=== PATIENT | female | born 1965 | race Caucasian/White ===

== ENCOUNTER → 2016-12-28 | Outpatient (CLI) | payer BC, MEDICARE ==
[~2016-12-28] MED LIST: ALPR0.254 PO; BACL10TA PO; CEPH500C PO; HYDR-3730 PO; MELO15TA39 PO; NITR100C PO; TOLT4CAP13 PO
[2016-12-28 12:36] LABS: BASOPHILS % (AUTO) 1 % (0-10); EOSINOPHILS # (AUTO) 0.2 10^3/uL (0.0-0.3); EOSINOPHILS % (AUTO) 3 % (0-10); LYMPHOCYTES # (AUTO) 1.6 X 10^3 (1.0-4.0); LYMPHOCYTES % (AUTO) 27 % (12-44); MEAN CORPUSCULAR HEMOGLOBIN 31 PG (25-34); MEAN CORPUSCULAR HGB CONC 34 G/DL (32-36); MEAN CORPUSCULAR VOLUME 92 FL (80-99); MEAN PLATELET VOLUME 10.4 FL (7.4-10.4); MONOCYTES # (AUTO) 0.7 X 10^3 (0.0-1.0); MONOCYTES % (AUTO) 13 % (0-12); NEUTROPHILS # (AUTO) 3.2 X 10^3 (1.8-7.8); NEUTROPHILS % (AUTO) 56 % (42-75); PLATELET COUNT 263 10^3/uL (130-400); RED BLOOD COUNT 4.72 10^6/uL (4.35-5.85); WHITE BLOOD COUNT 5.7 10^3/uL (4.3-11.0)
[2016-12-28 13:37] LABS: ERYTHROCYTE SEDIMENTATION RATE 34 MM/HR (0-30)
--- NOTE | 2016-12-28 16:49 | Diagnostic Imaging Report ---
EXAMINATION: AP view of the pelvis. INDICATION: Pressure ulcer. FINDINGS: There is a chronic appearing deformity with dysplastic right acetabulum that is vertically flat with severe deformity of the right femoral head and [id number] appearance with degenerative sclerotic changes. There is superior subluxation of the right femur of about 2.5 cm compared to the expected location of the normal acetabulum. On the left side, there is a relatively shallow acetabulum that has a reduced transverse dimension without subluxation or dislocation. Degenerative changes are seen. There is deformity in the pubic and ischial bones with no active bone destruction or periosteal reaction seen. IMPRESSION: Right hip dysplasia and subluxation with chronic deformity and mild left hip dysplasia without subluxation or dislocation. Dictated by: Dictated on workstation # [id number]
== END ==
LOC: RAD 12:19
PROVIDERS: ATTEND Internal Medicine
DX: L89.324 Pressure ulcer of left buttock, stage 4 (principal); G82.20 Paraplegia, unspecified
CPT/HCPCS: 36415; 72170; 85025; 85652

== ENCOUNTER 2017-01-23 06:28 | Day surgery (SDC) | payer BC, MEDICARE ==
[~2017-01-23] VITALS: Ht 152.4 cm; Wt 45.4 kg
[2017-01-23] MEDS ORDERED: CATHETER FLUSH 10 ML SYR IV PRN (07:00)
[2017-01-23] MEDS ORDERED: ceFAZolin 1 GM/NS 50 ML IVPB IV ONE ×2 (07:00)
[2017-01-23 07:05] VITALS: BP 106/74
[2017-01-23] MEDS ORDERED: LACTATED RINGERS 1,000 ML IV ONE (07:05)
[2017-01-23] MEDS ORDERED: BUP/EPI 0.5% 1:200,000 (SENSORCAINE) 30 ML VIAL ONE (07:10)
[2017-01-23] MEDS ORDERED: fentaNYL INJECTION 100 MCG/2 ML AMP ONE (07:15)
[2017-01-23] MEDS ORDERED: LACTATED RINGERS 1,000 ML IV PRN (07:18)
[2017-01-23] MEDS ORDERED: fentaNYL INJECTION 100 MCG/2 ML AMP IV ONE (07:30)
[2017-01-23] MEDS ORDERED: fentaNYL INJECTION 250 MCG/5 ML AMP ONE (07:34)
[2017-01-23] MEDS ORDERED: ROCURONIUM 50 MG/5 ML (ZEMURON) VIAL IV ONE (07:34)
[2017-01-23] MEDS ORDERED: MIDAZOLAM 2 MG/2 ML (VERSED) VIAL ONE (07:34)
[2017-01-23] MEDS ORDERED: proPOfol 200 MG/20 ML (DIPRIVAN) VIAL IV ONE (07:34)
--- NOTE | 2017-01-23 08:10 | Progress Note-Pre Operative ---
Pre-Operative Progress Note H&P Reviewed The H&P was reviewed, patient examined and no changes noted. Date H&P Reviewed: Jan 23, 2017 Time H&P Reviewed: 08:10 Pre-Operative Diagnosis: Chronic Calculous Cholecystitis MARC PALACIO APRN Jan 23, 2017 08:10
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
[2017-01-23] MEDS ORDERED: BACL10TA PO (08:47)
[2017-01-23] MEDS ORDERED: MELO15TA39 PO (08:47)
[2017-01-23] MEDS ORDERED: CEPH500C PO (08:47)
[2017-01-23] MEDS ORDERED: ALPR0.254 PO (08:47)
[2017-01-23] MEDS ORDERED: NITR100C PO (08:47)
[2017-01-23] MEDS ORDERED: TOLT4CAP13 PO (08:47)
[2017-01-23] MEDS ORDERED: KETOROLAC 30 MG/ML VIAL ONE (09:05)
[2017-01-23] MEDS ORDERED: ONDANSETRON 4 MG/2 ML (SDV) Z0FRAN ONE (09:05)
[2017-01-23] MEDS ORDERED: LACTATED RINGERS 2,000 ML IV ONE (09:05)
[2017-01-23] MEDS ORDERED: SEVOFLURANE (ULTANE) 15 ML INHAL SOLN ONE ×3 (09:05→09:47)
--- NOTE | 2017-01-23 09:35 | Progress Note-Post Operative ---
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
[2017-01-23] MEDS ORDERED: HYDR-3730 PO (09:39)
--- NOTE | 2017-01-23 09:40 | Discharge Inst-Surgical ---
D/C Lap Instructions-KATHERYN New, Converted, or Re-Newed RX: RX on Chart Follow Up Appt in 2 weeks Activity as tolerated No driving for 24 hours No driving while on pain medications Incentive Spirometry use every 2 hours while awake Regular Diet Symptoms to Report: Fever over 101 degree F, Nausea/Vomiting Infection Signs and Symptoms to report: Increased redness, Foul odor of wound, Increased drainage Bathing instructions: May shower Operative Area Clean/Dry; Keep incision clean/dry If any problems/questions: Contact your physician or go to Emergency Room TRACY CAMPA MD Jan 23, 2017 9:40 am
[2017-01-23] MEDS ORDERED: ACETAMINOPHEN 325 MG TABLET/CAPLET (TYLENOL) PO PRN (09:45)
[2017-01-23] MEDS ORDERED: HYDROcodone/APAP 5 MG/325 MG (LORTAB) TAB PO ONE (09:45)
[2017-01-23] MEDS ORDERED: ONDANSETRON 4 MG/2 ML (SDV) Z0FRAN IVP PRN (09:45)
[2017-01-23] MEDS ORDERED: morphine INJ 10 MG/ML 1ML (SYR OR VIAL) IVP PRN (09:45)
[2017-01-23] MEDS ORDERED: NEOSTIGMINE (BLOXIVERZ ) 1 MG/1ML 10 ML VIAL ONE (09:47)
[2017-01-23] MEDS ORDERED: GLYCOPYRROLATE 0.2 MG/ML (ROBINUL) 2 ML VIAL ONE (09:47)
[2017-01-23] MEDS ORDERED: morphine INJ 10 MG/ML 1ML (SYR OR VIAL) ONE (09:53)
[2017-01-23] MEDS ORDERED: morphine INJ 10 MG/ML 1ML (SYR OR VIAL) IV PRN (10:00)
[2017-01-23] MEDS ORDERED: ONDANSETRON 4 MG/2 ML (SDV) Z0FRAN IV PRN (10:00)
[2017-01-23 10:45] VITALS: BP 133/78
[2017-01-23 11:15] VITALS: BP 141/80
[2017-01-23 11:45] VITALS: BP 116/69
[2017-01-23 12:45] VITALS: BP 116/69
--- NOTE | 2017-01-23 13:13 | OPERATIVE REPORT ---
PROCEDURE PHYSICIAN: TRACY SINCLAIR DATE OF PROCEDURE: 01/23/2017 ATTENDING PRIMARY CARE PHYSICIAN: Dr. Marivel Oshea. PREOPERATIVE DIAGNOSIS: Chronic calculus cholecystitis. POSTOPERATIVE DIAGNOSIS: Chronic calculus cholecystitis. PROCEDURE: Laparoscopic cholecystectomy. SURGEON: Dr. Sinclair. BOWSTRING MAKER: Chip Fuentes APRN. ANESTHESIA: General endotracheal. ESTIMATED BLOOD LOSS: Minimal. FINDINGS: Mild gallbladder wall dilatation and chronic inflammation. One large solitary gallstone. DISPOSITION: The patient tolerated the procedure well. Ms. Radha Hong is a 51-year-old female known to us. We had initially seen him in April 2016 for screening colonoscopy. At the time she was found to have chronic, stage II external and internal hemorrhoids; however, the remainder of the colon was normal. She was referred to us for right upper abdominal quadrant pain for the past month. She reports that this has been pretty constant and would become more severe at times and usually following meals. Upon further questioning, she reports that she may have had similar symptoms in the past year, however, they as severe and she felt that this reflux. An ultrasound was performed, which did show a large solitary gallstone. PROCEDURE: The patient was brought to the operating room, laid supine on the table. After adequate IV pain and sedative medications and general endotracheal intubation the abdomen was prepped and draped in standard surgical fashion. 0.5% Marcaine with epinephrine was then used to anesthetize the overlying skin in the left upper abdominal quadrant. A small transverse skin incision made using a 15 blade. An 0 silk suture was applied to the medial aspect of the incision for retraction. A Veress needle inserted with low opening pressure of 0 mmHg and the abdomen was insufflated to 15 mmHg pressure. The Veress needle removed and a 5 mm Xcel trocar placed followed by a 5 mm, 45 degrees angle laparoscope, visualizing the peritoneal cavity. Four-quadrant abdominal exploration was performed. There was a mild to moderate gallbladder wall distention, as well as mild chronic inflammation. What was visualized of the liver, stomach, omentum appeared normal. Under direct visualization we then proceeded to place a supraumbilical 10 mm port after the skin and peritoneum were anesthetized using 0.5% Marcaine and a transverse skin incision made using a 15 blade. In a similar manner, a right upper abdominal quadrant, 5 mm port was placed. The patient was then placed in reverse Trendelenburg position as well as planed right side up, left side down. The hepatoduodenal ligament was then opened using blunt dissection as well as electrocautery on the hook instrument. The entire critical view of safety was then dissected out including the triangle of Calot, cystic duct and artery, as well as the liver behind the proximal gallbladder. A timeout was then taken and the cystic duct and artery were then clipped proximally and distally and cut with Endo Rick. The gallbladder was then dissected off the liver fossa using electrocautery on the hook instrument with visualization of good hemostasis, as well as no leaking ducts of Luschka. The gallbladder was removed through the 10 mm port site using an Endo Catch bag. The 10 mm port site, fascia and peritoneum were then closed under direct visualization using a Kev-Ericka device and 0 Vicryl suture. The abdomen was desufflated and the remaining ports removed. All skin incisions were closed using 4-0 Monocryl running subcuticular sutures. Wounds were then cleaned and covered with Dermabond. The patient tolerated the procedure well. We will start IV and oral pain medication as well as a clear liquid diet. Once she is awake and alert, is tolerating liquids, has good pain control with oral pain medication, we will discharge her home. Job ID: [id number] Dictated Date: 01/23/2017 09:47:00 Special Inspector Date: 01/23/2017 13:02:44 / maryann
== END 2017-01-23 12:45 | disposition home or self-care (01) ==
LOC: SDC 06:28
PROVIDERS: ATTEND Surgery Pediatric Surgery
DX: K80.10 Calculus of gallbladder with chronic cholecystitis without obstruction (principal)
CPT/HCPCS: 36415; 84703; 87081; 88304; 94664

== ENCOUNTER → 2017-02-08 | Outpatient (CLI) | payer BC, MEDICARE ==
[2017-02-08 12:23] LABS: BASOPHILS # (AUTO) 0.1 10^3/uL (0.0-0.1); BASOPHILS % (AUTO) 1 % (0-10); EOSINOPHILS # (AUTO) 0.3 10^3/uL (0.0-0.3); EOSINOPHILS % (AUTO) 4 % (0-10); LYMPHOCYTES # (AUTO) 1.5 X 10^3 (1.0-4.0); LYMPHOCYTES % (AUTO) 24 % (12-44); MEAN CORPUSCULAR HEMOGLOBIN 31 PG (25-34); MEAN CORPUSCULAR HGB CONC 34 G/DL (32-36); MEAN CORPUSCULAR VOLUME 91 FL (80-99); MEAN PLATELET VOLUME 9.8 FL (7.4-10.4); MONOCYTES # (AUTO) 0.7 X 10^3 (0.0-1.0); MONOCYTES % (AUTO) 12 % (0-12); NEUTROPHILS # (AUTO) 3.6 X 10^3 (1.8-7.8); NEUTROPHILS % (AUTO) 59 % (42-75); PLATELET COUNT 303 10^3/uL (130-400); RED BLOOD COUNT 4.63 10^6/uL (4.35-5.85); WHITE BLOOD COUNT 6.2 10^3/uL (4.3-11.0)
[2017-02-08 12:44] LABS: ERYTHROCYTE SEDIMENTATION RATE 48 MM/HR (0-30)
== END ==
LOC: LAB 12:12
PROVIDERS: ATTEND Internal Medicine
DX: L89.324 Pressure ulcer of left buttock, stage 4 (principal); G82.20 Paraplegia, unspecified
CPT/HCPCS: 36415; 85025; 85652

== ENCOUNTER 2017-02-13 11:30 | Outpatient (RCR) | payer BC, MEDICARE | END 2017-02-14 | disposition home or self-care (01) | LOC: WOUNDCARE 11:30 | PROVIDERS: ATTEND Internal Medicine | DX: L89.324 Pressure ulcer of left buttock, stage 4 (principal); G82.20 Paraplegia, unspecified | CPT/HCPCS: 11042; 87070; 87075; 87077; 87101; 87186; 87205; 99203; 99212 ==

== ENCOUNTER → 2017-04-02 | Outpatient (CLI) | payer BC, MEDICARE ==
--- NOTE | 2017-04-02 17:01 | Diagnostic Imaging Report ---
INDICATION: Chest and rib pain. EXAM: PA and lateral chest. FINDINGS: The patient has Bartlett rods in the spine. There is a small patchy area of consolidation in the right mid lateral lung, this could represent pneumonia. There is no effusion. IMPRESSION: Patchy peripheral infiltrate, right upper lobe, suspicious for pneumonia. Dictated by: Dictated on workstation # [id number]
--- NOTE | 2017-04-02 17:31 | Diagnostic Imaging Report ---
Three views of the right ribs. INDICATION: Right rib pain. FINDINGS: There is lateral right perihilar infiltrate. Prominent opacity in the right paratracheal region is noted. There are spinal fusion rods identified. There is no rib fracture identified. Surgical clips in the upper right abdomen noted. IMPRESSION: Lateral mid right lung infiltrates concerning for pneumonia. Prominent opacity at the right paratracheal region is indeterminate. This could also be related to infiltrate in the adjacent lung tissue or reactive lymphadenopathy in the right paratracheal station. Followup radiographs to resolution or if persistent CT chest evaluation is recommended. Dictated by: Dictated on workstation # [id number]
== END ==
LOC: RAD 16:25
PROVIDERS: ATTEND Nurse Practitioner Family
DX: R07.81 Pleurodynia (principal)
CPT/HCPCS: 71020; 71100

== ENCOUNTER → 2017-04-16 | Outpatient (CLI) | payer BC, MEDICARE ==
--- NOTE | 2017-04-16 11:35 | Diagnostic Imaging Report ---
EXAMINATION: PA and lateral views of chest. INDICATION: Followup pneumonia. COMPARISON: 04/02/2017. FINDINGS: Again seen is lateral mid right lung infiltrate, which slightly increased compared to 04/02/2017. The rest of the lungs demonstrate slightly prominent interstitial markings similar to the prior exams. The heart size is normal. Hardware in the thoracic spine extending to the lumbar spine below the level of the image is seen. No effusion or pneumothorax. IMPRESSION: Slightly increased lateral right mid lung infiltrate. Dictated by: Dictated on workstation # [id number]
== END ==
LOC: RAD 11:01
PROVIDERS: ATTEND Nurse Practitioner Family
DX: J18.9 Pneumonia, unspecified organism (principal)
CPT/HCPCS: 71020

== ENCOUNTER 2017-04-19 10:32 | Outpatient (RCR) | payer BC, MEDICARE | END 2017-04-19 16:00 | disposition home or self-care (01) | LOC: WOUNDCARE 10:32 | PROVIDERS: ATTEND Internal Medicine | DX: L89.324 Pressure ulcer of left buttock, stage 4 (principal); G82.20 Paraplegia, unspecified | CPT/HCPCS: 11042; 97605 ==

== ENCOUNTER → 2017-04-23 | Outpatient (CLI) | payer BC, MEDICARE ==
--- NOTE | 2017-04-23 10:42 | Diagnostic Imaging Report ---
INDICATION: Followup pneumonia COMPARISON: 04/16/2017 FINDINGS: Two views of the chest were obtained. Heart size is normal. The pulmonary vessels appear unremarkable. There are chronic findings of COPD. Prominent right suprahilar density is unchanged. This appears fairly dense and may be calcified or osseous. Patchy infiltrate in the lateral right midlung persists and appears fairly similar to the prior study. The left lung remains clear. Long posterior fusion rods are again seen in the spine. IMPRESSION: Persistent right midlung infiltrate. Continued followup is recommended. Dictated by: Dictated on workstation # [id number]
== END ==
LOC: RAD 09:28
PROVIDERS: ATTEND Family Medicine
DX: J18.9 Pneumonia, unspecified organism (principal)
CPT/HCPCS: 71020

== ENCOUNTER → 2017-04-26 | Outpatient (CLI) | payer BC, MEDICARE ==
[2017-04-26 11:54] LABS: ALANINE AMINOTRANSFERASE 8 U/L (0-55); ALBUMIN 3.8 G/DL (3.2-4.5); ANION GAP 13 MMOL/L (5-14); ASPARTATE AMINO TRANSFERASE 14 U/L (5-34); BILIRUBIN,TOTAL 0.4 MG/DL (0.1-1.0); BLOOD UREA NITROGEN 11 MG/DL (7-18); BUN/CREATININE RATIO 19; CALCIUM 9.8 MG/DL (8.5-10.1); CARBON DIOXIDE 24 MMOL/L (21-32); CHLORIDE 102 MMOL/L (98-107); CREATININE SERUM 0.59 MG/DL (0.60-1.30); GFR ESTIMATED > 60; GLUCOSE 96 MG/DL (70-105); POTASSIUM 3.7 MMOL/L (3.6-5.0); SODIUM 139 MMOL/L (135-145)
[2017-04-26] MEDS: CATHETER FLUSH 10 ML SYR IV PRN (12:06)
[2017-04-26] MEDS: NS 100 ML (IVPB) BAG IV ONE (12:06)
[2017-04-26] MEDS: IOHEXOL 350 MG/ML 100 ML (OMNIPAQUE 350) VIAL IV ONE (12:06)
--- NOTE | 2017-04-26 14:21 | Diagnostic Imaging Report ---
PROCEDURE: CT chest with contrast only. TECHNIQUE: Multiple contiguous axial images were obtained through the chest after administration of intravenous contrast. INDICATION: Pneumonia. Right-sided pain. Shortness of breath. 75 mL of Omnipaque-350 is administered intravenously. FINDINGS: Please note that there are artifacts on this exam related to fusion hardware in the thoracic spine. There is a circumscribed mass measuring 3.7 x 3.3 x 3 cm which has a wide pleural-based component along the perivertebral region. There is another mass seen along the lateral aspect of the right hemithorax measuring 4.2 x 2 x 3.8 cm. This could be a pleural or subpleural mass and it insinuates into the adjacent intercostal space. There is associated subtle erosion of the adjacent seventh rib along its superior margin. The lungs demonstrate mild peripheral fibrotic nonspecific changes. There are enlarged mediastinal lymph nodes one measuring 1.8 cm in the right paratracheal station and 2 cm lymph node in the precarinal station. There is no hilar lymphadenopathy. No axillary lymphadenopathy. No pleural or pericardial effusion. The heart size is normal. The thoracic aorta is normal in caliber. Sections in the upper abdomen demonstrate cholecystectomy clips. IMPRESSION: There is a right lateral intercostal mass with subtle erosion of the upper aspect of the right seventh rib, and a likely pleural-based or paravertebral mass projecting into the right upper lobe with associated mediastinal lymphadenopathy. Neoplastic etiology is suspected. Tissue diagnosis can be obtained with CT-guided biopsy of the right chest wall mass. Report was faxed and called to [facility]hin[facility] office of Marilu Parry by michael at 2:22 p.m. Dictated by: Dictated on workstation # [id number]
== END ==
LOC: RAD 10:50
PROVIDERS: ATTEND Nurse Practitioner Family
DX: J18.9 Pneumonia, unspecified organism (principal)
CPT/HCPCS: 36415; 71260; 80053

== ENCOUNTER 2017-05-02 07:29 | Day surgery (SDC) | payer BC, MEDICARE ==
[2017-05-02] VITALS (15 sets, daily range): BP systolic 105–163; BP diastolic 61–86
[~2017-05-02] VITALS: Ht 152.4 cm; Wt 43.3 kg
[2017-05-02] MEDS ORDERED: LIDOCAINE 1% INJ 20 ML (XYLOCAINE) VIAL INJ ONE (08:00)
[2017-05-02] MEDS ORDERED: CATHETER FLUSH 10 ML SYR IV PRN (08:00)
[2017-05-02] MEDS ORDERED: BARIUM SUSPENSION 60% (LIQUID EZ PAQUE) 240 ML DOSE PO ONE (08:30)
[2017-05-02] MEDS ORDERED: morphine INJ 4 MG/ML 1 ML (VIAL/SYRINGE) IVP PRN (08:30)
[2017-05-02] MEDS ORDERED: BARIUM SUSPENSION 105% (LIQUID POLIBAR PLUS) 240 ML/DOSE PO ONE (08:30)
[2017-05-02 08:38] LABS: RED BLOOD COUNT 3.84 10^6/uL (4.35-5.85); RED CELL DISTRIBUTION WIDTH 14.1 % (10.0-14.5); WHITE BLOOD COUNT 10.9 10^3/uL (4.3-11.0)
[2017-05-02 08:51] LABS: PROTHROMBIN TIME PATIENT 12.5 SEC (12.2-14.7)
[2017-05-02] MEDS ORDERED: fentaNYL INJECTION 100 MCG/2 ML AMP ONE (09:44)
[2017-05-02] MEDS ORDERED: MIDAZOLAM 2 MG/2 ML (VERSED) VIAL ONE (10:12)
[2017-05-02] MEDS: fentaNYL INJECTION 100 MCG/2 ML AMP IVP PRN ×2 (10:28→10:33)
--- NOTE | 2017-05-02 10:53 | Discharge Instructions ---
Discharge Instructions Home Medicaitons Changes Hold any current blood thinner for [24 hours]. Otherwise continue her medications without change. RAFAEL NELSON MD May 02, 2017 10:53
--- NOTE | 2017-05-02 10:54 | Pre-Procedure Progress Note ---
Pre-Procedure Progress Note H&P Reviewed The H&P was reviewed, patient examined and no changes noted. Date H&P Reviewed: May 02, 2017 Time H&P Reviewed: 10:00 Pre-Procedure Diagnosis: chest wall mass RAFAEL NELSON MD May 02, 2017 10:54
[2017-05-02] MEDS ORDERED: fentaNYL INJECTION 100 MCG/2 ML AMP IV PRN (11:00)
[2017-05-02] MEDS ORDERED: HYDROcodone/APAP 5 MG/325 MG (LORTAB) TAB PO PRN (11:00)
[2017-05-02] MEDS ORDERED: SENN1TAB27 PO (11:20)
[2017-05-02] MEDS ORDERED: FOLI-74 PO (11:20)
[2017-05-02] MEDS ORDERED: LEVO500T2 PO (11:20)
[2017-05-02] MEDS ORDERED: GLYC-18 RC (11:20)
[2017-05-02] MEDS ORDERED: HYDR-757 PO (11:20)
[2017-05-02] MEDS ORDERED: BISA-65 PO (11:20)
--- NOTE | 2017-05-02 11:23 | Diagnostic Imaging Report ---
EXAMINATION: CT-guided biopsy-chest. INDICATION: Right intercostal mass involving the mid the right lateral aspect of the lung and chest wall. Current history and physical and other medical records are reviewed prior to the procedure. CONSENT: Informed consent was obtained from the patient. The risks, benefits, potential complications and alternatives were reviewed and all questions answered to the patient's satisfaction. The patient's vital signs, cardiac rhythm, and pulse oximetry were observed throughout the procedure by qualified nursing personnel. Conscious sedation time is 30 minutes. Sedation/medications: Fentanyl 50 mcg IV. FINDINGS: Right chest wall mass. PROCEDURE: After maximal sterile barrier technique preparation and draping, 1% lidocaine was utilized for local anesthesia. With the patient in left side down position position, and via posterior intercostal approach, a 17-gauge guide needle is introduced into the right chest wall mass under CT scan guidance. After confirming adequate positioning with saved CT images, multiple 18 gauge core biopsy specimens were obtained. The patient tolerated the procedure well with no immediate complications. IMPRESSION: Successful CT-guided biopsy of right chest wall mass. Dictated by: Dictated on workstation # [id number]
== END 2017-05-02 15:30 | disposition home or self-care (01) ==
LOC: 4TH 07:29 → RAD 07:29 → ENPENDDIS 14:50 → RAD 15:30
PROVIDERS: ATTEND Family Medicine
DX: C34.91 Malignant neoplasm of unspecified part of right bronchus or lung (principal); F17.210 Nicotine dependence, cigarettes, uncomplicated; Z79.899 Other long term (current) drug therapy
CPT/HCPCS: 36415; 77012; 85027; 85610; 85730

== ENCOUNTER → 2017-05-15 | Outpatient (CLI) | payer BC, MEDICARE ==
[~2017-05-15] MED LIST changes: +BISA-65 PO; +FOLI-74 PO; +GLYC-18 RC; +HYDR-757 PO; +LEVO500T2 PO; +SENN1TAB27 PO
--- NOTE | 2017-05-15 15:48 | Diagnostic Imaging Report ---
EXAMINATION: PET-CT TECHNIQUE: Serum glucose level at the time of the study is: 123 mg/dL. 13.4 mCi of FDG was administered intravenously followed by obtaining PET images with corresponding noncontrast CT scan images. The CT scan was performed for anatomic correlation and attenuation correction and was not performed according to the diagnostic protocol of the areas covered. The scan was performed from the head to mid thighs. INDICATION: Non-small cell lung cancer. FINDINGS: There is symmetric FDG uptake in the brain. There is mild increased activity in the larynx, probably physiologic. There are intensely hypermetabolic masses seen in the chest including the posterolateral right pleural-based mass invading the chest wall with a maximum SUV of 19. Another mass seen along the posteromedial aspect of the right upper lobe is also intensely hypermetabolic with maximum SUV of 17. Multiple significantly hypermetabolic right paratracheal, precarinal and low perivascular lymph nodes are seen as intensely hypermetabolic right hilar lymph node compatible with metastasis. One of the 2 dominant lesions in the posteromedial aspect of the right upper lobe are the pleural-based mass in the lateral mid right chest is probably the primary cancer. In the abdomen and pelvis: There is expected excretion of the tracer along the urinary tract with no suspicious hypermetabolic lesion seen. IMPRESSION: There is intensely hypermetabolic right hilar and mediastinal lymphadenopathy with 2 dominant masses in the right lung, one in the posteromedial aspect of the right upper lobe and the second one is centered in a subpleural location along the mid lateral right chest with invasion of the chest wall. One of the 2 dominant lung lesions is probably the primary cancer. Dictated by: Dictated on workstation # [id number]
== END ==
LOC: RAD 12:10
PROVIDERS: ATTEND Internal Medicine Hematology & Oncology
DX: C34.90 Malignant neoplasm of unspecified part of unspecified bronchus or lung (principal); R59.0 Localized enlarged lymph nodes

== ENCOUNTER 2017-06-14 10:10 | Outpatient (RCR) | payer BC, MEDICARE | END 2017-06-25 16:00 | disposition home or self-care (01) | LOC: WOUNDCARE 10:10 | PROVIDERS: ATTEND Internal Medicine | DX: L89.324 Pressure ulcer of left buttock, stage 4 (principal); G82.20 Paraplegia, unspecified; C34.91 Malignant neoplasm of unspecified part of right bronchus or lung | CPT/HCPCS: 11042; 87070; 87075; 87077; 87101; 87205; 97605; 99212 ==

== ENCOUNTER → 2017-06-28 | Outpatient (CLI) | payer BC, MEDICARE | LOC: WOUNDCARE 10:12 | PROVIDERS: ATTEND Internal Medicine | DX: L89.324 Pressure ulcer of left buttock, stage 4 (principal); G82.20 Paraplegia, unspecified; C34.91 Malignant neoplasm of unspecified part of right bronchus or lung | CPT/HCPCS: 11042 ==

== ENCOUNTER → 2017-07-10 | Outpatient (CLI) | payer BC, MEDICARE ==
[~2017-07-10] MED LIST changes: +LINE600T7 PO; +MAGN400T39 PO; +MORP60TA52 PO; +ONDA8TAB6 PO; +PANT40TA3 PO; +PROC-1 PO
== END ==
LOC: WOUNDCARE 11:06
PROVIDERS: ATTEND Nurse Practitioner
DX: L89.324 Pressure ulcer of left buttock, stage 4 (principal); G82.20 Paraplegia, unspecified; C34.91 Malignant neoplasm of unspecified part of right bronchus or lung
CPT/HCPCS: 11042

== ENCOUNTER 2017-07-14 17:29 | Inpatient (IN) | payer BC, MEDICARE ==
[~2017-07-14] VITALS: Ht 149.9 cm; Wt 43.1 kg
[~2017-07-14 17:29] MED LIST changes: -LINE600T7 PO; -MAGN400T39 PO; -MORP60TA52 PO; -ONDA8TAB6 PO; -PANT40TA3 PO; -PROC-1 PO
[2017-07-14] MEDS ORDERED: NS IV 1000 ML 1,000 ML IV ONE (18:37)
[2017-07-14 19:10] LABS: BASOPHILS % (AUTO) 0 % (0-10); BILIRUBIN,URINE NEGATIVE (NEGATIVE); EOSINOPHILS % (AUTO) 2 % (0-10); KETONES,URINE NEGATIVE (NEGATIVE); LEUKOCYTE ESTERASE ,URINE 1+ (NEGATIVE); LYMPHOCYTES # (AUTO) 0.2 X 10^3 (1.0-4.0); LYMPHOCYTES % (AUTO) 9 % (12-44); MEAN CORPUSCULAR HEMOGLOBIN 29 PG (25-34); MEAN CORPUSCULAR HGB CONC 32 G/DL (32-36); MEAN CORPUSCULAR VOLUME 89 FL (80-99); MEAN PLATELET VOLUME 8.9 FL (7.4-10.4); MONOCYTES # (AUTO) 0.5 X 10^3 (0.0-1.0); MONOCYTES % (AUTO) 23 % (0-12); NEUTROPHILS # (AUTO) 1.5 X 10^3 (1.8-7.8); NEUTROPHILS % (AUTO) 66 % (42-75); NITRITE,URINE POSITIVE (NEGATIVE); PH,URINE 7 (5-9); PLATELET COUNT 140 10^3/uL (130-400); PROTEIN,URINE NEGATIVE (NEGATIVE); RED CELL DISTRIBUTION WIDTH 14.1 % (10.0-14.5); UROBILINOGEN,URINE NORMAL (NORMAL); WHITE BLOOD COUNT 2.3 10^3/uL (4.3-11.0)
[2017-07-14 19:24] LABS: SQUAMOUS EPITHELIAL CELL,UR 0-2 /HPF; WBC,URINE 0-2 /HPF
[2017-07-14 19:32] LABS: ALANINE AMINOTRANSFERASE 8 U/L (0-55); ANION GAP 12 MMOL/L (5-14); ASPARTATE AMINO TRANSFERASE 15 U/L (5-34); BILIRUBIN,TOTAL 0.2 MG/DL (0.1-1.0); BLOOD UREA NITROGEN 4 MG/DL (7-18); BUN/CREATININE RATIO 7; CALCIUM 8.4 MG/DL (8.5-10.1); CARBON DIOXIDE 24 MMOL/L (21-32); CHLORIDE 101 MMOL/L (98-107); CREATININE SERUM 0.54 MG/DL (0.60-1.30); GFR ESTIMATED > 60; GLUCOSE 86 MG/DL (70-105); POTASSIUM 3.5 MMOL/L (3.6-5.0); SODIUM 137 MMOL/L (135-145); TOTAL PROTEIN 5.6 GM/DL (6.4-8.2)
--- NOTE | 2017-07-14 19:35 | Diagnostic Imaging Report ---
INDICATION: Lung cancer, abdominal distention, lethargy COMPARISON: 04/23/17 FINDINGS: Single view of the chest demonstrates pleural thickening and nodularity in the right hemithorax which is stable. There are new bilateral pleural effusions with dependent atelectasis. There is no pneumothorax. COPD is noted. The heart is normal without pulmonary edema. Spinal rods are present. IMPRESSION: 1. New bilateral pleural effusions with dependent atelectasis 2. Pleural thickening and nodularity in the right upper lobe lung mass without significant change. Dictated by: Dictated on workstation # [id number]
[2017-07-14 19:54] LABS: EOSINOPHILS % (MANUAL) 1 %; HYPOCHROMASIA SLIGHT; LYMPHOCYTES % (MANUAL) 30 %; NEUTROPHILS % (MANUAL) 65 %; STOMATOCYTES SLIGHT
[2017-07-14] MEDS ORDERED: PIPERACILLIN SODIUM/TAZOBACTAM 4.5 GM in NS (IVPB) 100 ML IV ONE (20:00)
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
[2017-07-14] MEDS ORDERED: ONDANSETRON 4 MG/2 ML (SDV) Z0FRAN IVP ONE (20:45)
[2017-07-14 21:40] VITALS: BP 123/69
[2017-07-14] MEDS ORDERED: ACETAMINOPHEN 325 MG TABLET/CAPLET (TYLENOL) PO PRN (21:45)
[2017-07-14] MEDS ORDERED: diphenhydrAMINE 50 MG/ML INJ (BENADRYL) IM ONE (21:45)
[2017-07-14] MEDS: CATHETER FLUSH 10 ML SYR IV SCH (21:53)
[2017-07-14] MEDS ORDERED: cefTRIAXone 1 GM/NS 50 ML IVPB IV SCH ×2 (22:00)
[2017-07-14] MEDS ORDERED: ONDANSETRON 4 MG/2 ML (SDV) Z0FRAN IV PRN (22:00)
[2017-07-14] MEDS ORDERED: CATHETER FLUSH 10 ML SYR IV PRN (22:00)
[2017-07-14] MEDS ORDERED: LEVOFLOXACIN 750 MG/D5W 150 ML PRE-MIX IV SCH (22:00)
[2017-07-14] MEDS: LINEZOLID (ZYVOX) 600 MG TAB PO SCH (22:03)
[2017-07-14] MEDS: NS IV 1000 ML 1,000 ML IV SCH (22:06)
[2017-07-14 22:38] VITALS: BP 133/79
[2017-07-15] VITALS (14 sets, daily range): BP systolic 100–142; BP diastolic 56–85
[2017-07-15] MEDS ORDERED: NS IV 500 ML 500 ML ONE (00:10)
[2017-07-15] MEDS ORDERED: PANT40TA3 PO (00:54)
[2017-07-15] MEDS ORDERED: MAGN400T39 PO (00:54)
[2017-07-15] MEDS ORDERED: PROC-1 PO (00:54)
[2017-07-15] MEDS ORDERED: ONDA8TAB6 PO (00:54)
[2017-07-15] MEDS ORDERED: MORP60TA52 PO (00:54)
[2017-07-15] MEDS ORDERED: LINE600T7 PO (00:54)
[2017-07-15] MEDS: CATHETER FLUSH 10 ML SYR IV SCH (06:55)
[2017-07-15] MEDS: LINEZOLID (ZYVOX) 600 MG TAB PO SCH (09:07)
[2017-07-15] MEDS: NS IV 1000 ML 1,000 ML IV SCH (09:08)
[2017-07-15 09:30] LABS: BASOPHILS % (AUTO) 0 % (0-10); EOSINOPHILS # (AUTO) 0.1 10^3/uL (0.0-0.3); EOSINOPHILS % (AUTO) 1 % (0-10); LYMPHOCYTES # (AUTO) 0.2 X 10^3 (1.0-4.0); LYMPHOCYTES % (AUTO) 4 % (12-44); MEAN CORPUSCULAR HEMOGLOBIN 29 PG (25-34); MEAN CORPUSCULAR HGB CONC 34 G/DL (32-36); MEAN CORPUSCULAR VOLUME 87 FL (80-99); MEAN PLATELET VOLUME 8.9 FL (7.4-10.4); MONOCYTES % (AUTO) 23 % (0-12); NEUTROPHILS % (AUTO) 71 % (42-75); PLATELET COUNT 127 10^3/uL (130-400); RED BLOOD COUNT 3.98 10^6/uL (4.35-5.85); RED CELL DISTRIBUTION WIDTH 14.2 % (10.0-14.5); WHITE BLOOD COUNT 4.2 10^3/uL (4.3-11.0)
[2017-07-15 09:31] LABS: ALANINE AMINOTRANSFERASE 10 U/L (0-55); ANION GAP 11 MMOL/L (5-14); ASPARTATE AMINO TRANSFERASE 14 U/L (5-34); BILIRUBIN,TOTAL 0.9 MG/DL (0.1-1.0); BLOOD UREA NITROGEN 2 MG/DL (7-18); BUN/CREATININE RATIO 4; CALCIUM 8.5 MG/DL (8.5-10.1); CARBON DIOXIDE 23 MMOL/L (21-32); CHLORIDE 106 MMOL/L (98-107); CREATININE SERUM 0.53 MG/DL (0.60-1.30); GFR ESTIMATED > 60; GLUCOSE 95 MG/DL (70-105); POTASSIUM 3.3 MMOL/L (3.6-5.0); SODIUM 140 MMOL/L (135-145); TOTAL PROTEIN 5.6 GM/DL (6.4-8.2)
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
--- NOTE | 2017-07-15 13:36 | Discharge Inst-Simple/Standard ---
Discharge Inst-Standard Patient Instructions/Follow Up Plan of Care/Instructions/FU: complete levofloxacin course continue linezolid keep appt with Dr. Griggs 07/16/17 and other scheduled appts. follow up with Dr. Oshea within a week. Activity as Tolerated: Yes Discharge Diet: Eat Small Frequent Meals, Regular Diet Return to The [facility] For: worsening condition KATE SUBRAMANIAN MD Jul 15, 2017 13:36
[2017-07-15] MEDS ORDERED: PROCHLORPERAZINE 10 MG TAB (COMPAZINE) PO PRN (13:45)
[2017-07-15] MEDS ORDERED: GLYCERIN PEDIATRIC SUPPOSITORY RC PRN (13:45)
[2017-07-15] MEDS ORDERED: BISACODYL 5 MG (DULCOLAX) TABLET PO PRN (13:45)
[2017-07-15] MEDS ORDERED: ALPRAZolam 0.25 MG (XANAX) TAB PO PRN (13:45)
[2017-07-15] MEDS ORDERED: HYDROcodone/APAP 5 MG/325 MG (LORTAB) TAB PO PRN (13:45)
[2017-07-15] MEDS ORDERED: SENNA W/DOCUSATE (SENOKOT S) TABLET PO PRN (13:45)
[2017-07-15] MEDS ORDERED: TOLTERODINE LA 4 MG (DETROL) CAP PO SCH (21:00)
[2017-07-15] MEDS ORDERED: MAGNESIUM OXIDE (MAG-OX)400 MG TAB PO SCH (21:00)
[2017-07-15] MEDS ORDERED: BACLOFEN 10 MG (LIORESAL) TAB PO SCH (21:00)
[2017-07-16] MEDS ORDERED: PANTOPRAZOLE 40 MG (PROTONIX) TAB PO SCH (07:00)
--- NOTE | 2017-07-19 08:14 | Physician Query-Anemia ---
Physician Query-Anemia Query to Physician: Provider's Document Request-Please contact media relations manager listed on document for more information. Dear Provider, In cases where a patient has anemia and blood loss, the radiopharmacist can never assume a cause and effect relationship. Please document the type of the anemia, if known, on this form as an addendum: *Please exercise your independent, professional judgement when responding. A specific answer is not anticipated or expected. PHYSICIAN RESPONSE: Please specify the cause of chronic anemia thank you Type of anemia, if known: Anemia due to: neoplastic disease, Other Anemia, other (specify): on chemotherapy If you have questions please contact: Social Services Designee: Ext: Thank you for your time and cooperation. Clinical Rn Outpatient Surgery/Social Services Designee This is a permanent part of the medical record LIANNE GARCES Jul 19, 2017 08:14 KATE SUBRAMANIAN MD Jul 19, 2017 08:21
== END 2017-07-15 14:20 | disposition home or self-care (01) | DRG 181 ==
LOC: EDUNIT# 17:29 → ER 17:30 → 4TH 20:36
PROVIDERS: ADMIT Family Medicine; ATTEND Family Medicine
DX: C34.91 Malignant neoplasm of unspecified part of right bronchus or lung (principal); D63.0 Anemia in neoplastic disease; N39.0 Urinary tract infection, site not specified; G82.20 Paraplegia, unspecified; L89.329 Pressure ulcer of left buttock, unspecified stage; B96.5 Pseudomonas (aeruginosa) (mallei) (pseudomallei) as the cause of diseases classified elsewhere; D70.1 Agranulocytosis secondary to cancer chemotherapy; T45.1X5A Adverse effect of antineoplastic and immunosuppressive drugs, initial encounter; N31.9 Neuromuscular dysfunction of bladder, unspecified; E83.42 Hypomagnesemia; E87.6 Hypokalemia; Z87.891 Personal history of nicotine dependence
CPT/HCPCS: 36415; 51701; 71010; 80053; 81000; 83605; 83735; 85007; 85025; 85027; 85610; 85730; 86850; 86900; 86901; 86920; 87040; 87070; 87205; 96361; 96365; 96375

== ENCOUNTER 2017-07-26 13:48 | Outpatient (RCR) | payer BC, MEDICARE ==
[2017-06-04 13:36] LABS: BASOPHILS % (AUTO) 0 % (0-10); EOSINOPHILS % (AUTO) 0 % (0-10); LYMPHOCYTES # (AUTO) 0.4 X 10^3 (1.0-4.0); LYMPHOCYTES % (AUTO) 7 % (12-44); MEAN CORPUSCULAR HEMOGLOBIN 29 PG (25-34); MEAN CORPUSCULAR HGB CONC 32 G/DL (32-36); MEAN CORPUSCULAR VOLUME 93 FL (80-99); MEAN PLATELET VOLUME 9.2 FL (7.4-10.4); MONOCYTES % (AUTO) 1 % (0-12); NEUTROPHILS # (AUTO) 5.8 X 10^3 (1.8-7.8); NEUTROPHILS % (AUTO) 93 % (42-75); PLATELET COUNT 463 10^3/uL (130-400); RED BLOOD COUNT 4.12 10^6/uL (4.35-5.85); RED CELL DISTRIBUTION WIDTH 14.1 % (10.0-14.5); WHITE BLOOD COUNT 6.3 10^3/uL (4.3-11.0)
[2017-06-04 14:07] LABS: ALANINE AMINOTRANSFERASE 12 U/L (0-55); ALBUMIN 3.8 GM/DL (3.2-4.5); ANION GAP 11 MMOL/L (5-14); ASPARTATE AMINO TRANSFERASE 17 U/L (5-34); BILIRUBIN,TOTAL 0.3 MG/DL (0.1-1.0); BLOOD UREA NITROGEN 13 MG/DL (7-18); BUN/CREATININE RATIO 22; CALCIUM 10.2 MG/DL (8.5-10.1); CARBON DIOXIDE 24 MMOL/L (21-32); CHLORIDE 102 MMOL/L (98-107); CREATININE SERUM 0.59 MG/DL (0.60-1.30); GFR ESTIMATED > 60; GLUCOSE 126 MG/DL (70-105); MAGNESIUM 1.9 MG/DL (1.8-2.4); POTASSIUM 4.2 MMOL/L (3.6-5.0); SODIUM 137 MMOL/L (135-145); TOTAL PROTEIN 8.9 GM/DL (6.4-8.2)
[2017-06-11 13:57] LABS: BASOPHILS % (AUTO) 0 % (0-10); EOSINOPHILS % (AUTO) 0 % (0-10); LYMPHOCYTES # (AUTO) 0.2 X 10^3 (1.0-4.0); LYMPHOCYTES % (AUTO) 9 % (12-44); MEAN CORPUSCULAR HEMOGLOBIN 29 PG (25-34); MEAN CORPUSCULAR HGB CONC 32 G/DL (32-36); MEAN CORPUSCULAR VOLUME 93 FL (80-99); MEAN PLATELET VOLUME 9.5 FL (7.4-10.4); MONOCYTES % (AUTO) 1 % (0-12); NEUTROPHILS # (AUTO) 2.3 X 10^3 (1.8-7.8); NEUTROPHILS % (AUTO) 90 % (42-75); PLATELET COUNT 356 10^3/uL (130-400); RED BLOOD COUNT 4.18 10^6/uL (4.35-5.85); RED CELL DISTRIBUTION WIDTH 14.4 % (10.0-14.5); WHITE BLOOD COUNT 2.5 10^3/uL (4.3-11.0)
[2017-06-11 14:22] LABS: ANION GAP 12 MMOL/L (5-14); BLOOD UREA NITROGEN 11 MG/DL (7-18); BUN/CREATININE RATIO 19; CALCIUM 9.8 MG/DL (8.5-10.1); CARBON DIOXIDE 23 MMOL/L (21-32); CHLORIDE 101 MMOL/L (98-107); CREATININE SERUM 0.59 MG/DL (0.60-1.30); GFR ESTIMATED > 60; GLUCOSE 157 MG/DL (70-105); POTASSIUM 4.2 MMOL/L (3.6-5.0); SODIUM 136 MMOL/L (135-145)
[2017-06-18 13:43] LABS: BASOPHILS % (AUTO) 0 % (0-10); EOSINOPHILS % (AUTO) 0 % (0-10); LYMPHOCYTES # (AUTO) 0.1 X 10^3 (1.0-4.0); LYMPHOCYTES % (AUTO) 7 % (12-44); MEAN CORPUSCULAR HEMOGLOBIN 29 PG (25-34); MEAN CORPUSCULAR HGB CONC 32 G/DL (32-36); MEAN CORPUSCULAR VOLUME 92 FL (80-99); MEAN PLATELET VOLUME 9.2 FL (7.4-10.4); MONOCYTES % (AUTO) 1 % (0-12); NEUTROPHILS # (AUTO) 1.7 X 10^3 (1.8-7.8); NEUTROPHILS % (AUTO) 92 % (42-75); PLATELET COUNT 168 10^3/uL (130-400); RED BLOOD COUNT 4.26 10^6/uL (4.35-5.85); RED CELL DISTRIBUTION WIDTH 14.5 % (10.0-14.5); WHITE BLOOD COUNT 1.8 10^3/uL (4.3-11.0)
[2017-06-18 14:06] LABS: ANION GAP 13 MMOL/L (5-14); BLOOD UREA NITROGEN 14 MG/DL (7-18); BUN/CREATININE RATIO 23; CALCIUM 10.4 MG/DL (8.5-10.1); CARBON DIOXIDE 27 MMOL/L (21-32); CHLORIDE 98 MMOL/L (98-107); GFR ESTIMATED > 60; GLUCOSE 133 MG/DL (70-105); POTASSIUM 3.9 MMOL/L (3.6-5.0); SODIUM 138 MMOL/L (135-145)
[2017-06-25 11:45] LABS: BASOPHILS % (AUTO) 0 % (0-10); EOSINOPHILS % (AUTO) 1 % (0-10); LYMPHOCYTES # (AUTO) 0.2 X 10^3 (1.0-4.0); LYMPHOCYTES % (AUTO) 7 % (12-44); MEAN CORPUSCULAR HEMOGLOBIN 29 PG (25-34); MEAN CORPUSCULAR HGB CONC 32 G/DL (32-36); MEAN CORPUSCULAR VOLUME 91 FL (80-99); MEAN PLATELET VOLUME 8.8 FL (7.4-10.4); MONOCYTES # (AUTO) 0.4 X 10^3 (0.0-1.0); MONOCYTES % (AUTO) 12 % (0-12); NEUTROPHILS # (AUTO) 2.6 X 10^3 (1.8-7.8); NEUTROPHILS % (AUTO) 80 % (42-75); PLATELET COUNT 145 10^3/uL (130-400); RED BLOOD COUNT 4.05 10^6/uL (4.35-5.85); RED CELL DISTRIBUTION WIDTH 14.6 % (10.0-14.5); WHITE BLOOD COUNT 3.2 10^3/uL (4.3-11.0)
[2017-06-25 12:15] LABS: ALANINE AMINOTRANSFERASE 17 U/L (0-55); ALBUMIN 4.1 GM/DL (3.2-4.5); ANION GAP 13 MMOL/L (5-14); ASPARTATE AMINO TRANSFERASE 14 U/L (5-34); BILIRUBIN,TOTAL 0.4 MG/DL (0.1-1.0); BLOOD UREA NITROGEN 10 MG/DL (7-18); BUN/CREATININE RATIO 16; CALCIUM 10.4 MG/DL (8.5-10.1); CARBON DIOXIDE 26 MMOL/L (21-32); CHLORIDE 99 MMOL/L (98-107); CREATININE SERUM 0.62 MG/DL (0.60-1.30); GFR ESTIMATED > 60; GLUCOSE 103 MG/DL (70-105); POTASSIUM 3.5 MMOL/L (3.6-5.0); SODIUM 138 MMOL/L (135-145); TOTAL PROTEIN 8.3 GM/DL (6.4-8.2)
[2017-07-02 13:24] LABS: BASOPHILS % (AUTO) 0 % (0-10); EOSINOPHILS % (AUTO) 1 % (0-10); LYMPHOCYTES # (AUTO) 0.1 X 10^3 (1.0-4.0); LYMPHOCYTES % (AUTO) 5 % (12-44); MEAN CORPUSCULAR HEMOGLOBIN 29 PG (25-34); MEAN CORPUSCULAR HGB CONC 32 G/DL (32-36); MEAN CORPUSCULAR VOLUME 89 FL (80-99); MEAN PLATELET VOLUME 9.1 FL (7.4-10.4); MONOCYTES # (AUTO) 0.4 X 10^3 (0.0-1.0); MONOCYTES % (AUTO) 14 % (0-12); NEUTROPHILS # (AUTO) 2.4 X 10^3 (1.8-7.8); NEUTROPHILS % (AUTO) 81 % (42-75); PLATELET COUNT 132 10^3/uL (130-400); RED BLOOD COUNT 3.83 10^6/uL (4.35-5.85); RED CELL DISTRIBUTION WIDTH 14.3 % (10.0-14.5)
[2017-07-02 13:45] LABS: ANION GAP 14 MMOL/L (5-14); BLOOD UREA NITROGEN 6 MG/DL (7-18); BUN/CREATININE RATIO 11; CALCIUM 9.6 MG/DL (8.5-10.1); CARBON DIOXIDE 21 MMOL/L (21-32); CHLORIDE 98 MMOL/L (98-107); CREATININE SERUM 0.57 MG/DL (0.60-1.30); GFR ESTIMATED > 60; GLUCOSE 104 MG/DL (70-105); POTASSIUM 3.8 MMOL/L (3.6-5.0); SODIUM 133 MMOL/L (135-145)
[2017-07-09 13:36] LABS: BASOPHILS % (AUTO) 0 % (0-10); EOSINOPHILS % (AUTO) 0 % (0-10); LYMPHOCYTES # (AUTO) 0.1 X 10^3 (1.0-4.0); LYMPHOCYTES % (AUTO) 3 % (12-44); MEAN CORPUSCULAR HEMOGLOBIN 28 PG (25-34); MEAN CORPUSCULAR HGB CONC 32 G/DL (32-36); MEAN CORPUSCULAR VOLUME 88 FL (80-99); MEAN PLATELET VOLUME 8.8 FL (7.4-10.4); MONOCYTES # (AUTO) 0.5 X 10^3 (0.0-1.0); MONOCYTES % (AUTO) 12 % (0-12); NEUTROPHILS # (AUTO) 3.5 X 10^3 (1.8-7.8); NEUTROPHILS % (AUTO) 85 % (42-75); PLATELET COUNT 144 10^3/uL (130-400); RED BLOOD COUNT 3.13 10^6/uL (4.35-5.85); RED CELL DISTRIBUTION WIDTH 14.3 % (10.0-14.5); WHITE BLOOD COUNT 4.1 10^3/uL (4.3-11.0)
[2017-07-09 14:05] LABS: ALANINE AMINOTRANSFERASE 9 U/L (0-55); ALBUMIN 3.4 GM/DL (3.2-4.5); ANION GAP 9 MMOL/L (5-14); ASPARTATE AMINO TRANSFERASE 10 U/L (5-34); BILIRUBIN,TOTAL 0.4 MG/DL (0.1-1.0); BLOOD UREA NITROGEN 7 MG/DL (7-18); BUN/CREATININE RATIO 12; CALCIUM 9.4 MG/DL (8.5-10.1); CARBON DIOXIDE 28 MMOL/L (21-32); CHLORIDE 97 MMOL/L (98-107); CREATININE SERUM 0.59 MG/DL (0.60-1.30); GFR ESTIMATED > 60; GLUCOSE 138 MG/DL (70-105); MAGNESIUM 1.3 MG/DL (1.8-2.4); POTASSIUM 3.7 MMOL/L (3.6-5.0); SODIUM 134 MMOL/L (135-145); TOTAL PROTEIN 6.6 GM/DL (6.4-8.2)
[2017-07-12 16:06] LABS: BASOPHILS % (AUTO) 0 % (0-10); EOSINOPHILS % (AUTO) 0 % (0-10); LYMPHOCYTES # (AUTO) 0.1 X 10^3 (1.0-4.0); LYMPHOCYTES % (AUTO) 4 % (12-44); MEAN CORPUSCULAR HEMOGLOBIN 29 PG (25-34); MEAN CORPUSCULAR HGB CONC 33 G/DL (32-36); MEAN CORPUSCULAR VOLUME 88 FL (80-99); MEAN PLATELET VOLUME 9.4 FL (7.4-10.4); MONOCYTES # (AUTO) 0.6 X 10^3 (0.0-1.0); MONOCYTES % (AUTO) 16 % (0-12); NEUTROPHILS # (AUTO) 3.1 X 10^3 (1.8-7.8); NEUTROPHILS % (AUTO) 79 % (42-75); PLATELET COUNT 182 10^3/uL (130-400); RED BLOOD COUNT 2.98 10^6/uL (4.35-5.85); RED CELL DISTRIBUTION WIDTH 14.1 % (10.0-14.5); WHITE BLOOD COUNT 3.9 10^3/uL (4.3-11.0)
[2017-07-12 16:26] LABS: ANION GAP 11 MMOL/L (5-14); BLOOD UREA NITROGEN 8 MG/DL (7-18); BUN/CREATININE RATIO 15; CALCIUM 9.1 MG/DL (8.5-10.1); CARBON DIOXIDE 25 MMOL/L (21-32); CHLORIDE 96 MMOL/L (98-107); CREATININE SERUM 0.54 MG/DL (0.60-1.30); GFR ESTIMATED > 60; GLUCOSE 108 MG/DL (70-105); MAGNESIUM 1.5 MG/DL (1.8-2.4); SODIUM 132 MMOL/L (135-145)
[2017-07-12 17:34] LABS: BILIRUBIN,URINE NEGATIVE (NEGATIVE); KETONES,URINE 2+ (NEGATIVE); LEUKOCYTE ESTERASE ,URINE 3+ (NEGATIVE); NITRITE,URINE POSITIVE (NEGATIVE); PH,URINE 6 (5-9); PROTEIN,URINE 2+ (NEGATIVE); UROBILINOGEN,URINE NORMAL (NORMAL)
[2017-07-12 17:46] LABS: WBC,URINE 25-50 /HPF
[2017-07-12 17:47] LABS: SQUAMOUS EPITHELIAL CELL,UR 25-50 /HPF
[~2017-07-26] VITALS: Ht 152.4 cm; Wt 43.1 kg
[~2017-07-26 13:48] MED LIST changes: +CARBOPLATIN 160 MG in D5W 50 ML IV(CANCER CTR) 50 ML IV SCH; +FAMOTIDINE 20MG/2ML IV (CANCER CTR) IV SCH; +LORazepam INJ 2 MG/ML VIAL CANCER CTR IV SCH; +MAGNESIUM SULFATE IV ONE; +METOCLOPRAMIDE 10 MG/2 ML IV ONE; +NORMAL SALINE IV SCH; +NS IV 1000 ML (CANCER CTR) IV SCH; +NS IV 500 ML (CANCER CENTER) 500 ML ONE; +NS IV ONE; +ONDANSETRON 8 MG, DEXAMETHASONE 4 MG/NS 50 ML IVPB (Cancer Ctr) IV ONE; +ONDANSETRON MDV (CANCER CENTER 8 MG, DEXAMETHASONE INJ (CANCER CTR) 4 MG in NS (IVPB) C... IV ONE; +PACLITAXEL IV SCH; +PALONOSETRON 0.25 MG, DEXAMETHASONE 10 MG/NS 50 ML IVPB IV PRN; +diphenhydrAMINE 25 MG TAB (BENADRYL) CANCER CENTER PO SCH; +diphenhydrAMINE 50 MG/ML INJ (CANCER CENTER) IV PRN
[2017-07-26 14:05] LABS: BASOPHILS % (AUTO) 0 % (0-10); EOSINOPHILS # (AUTO) 0.1 10^3/uL (0.0-0.3); EOSINOPHILS % (AUTO) 2 % (0-10); LYMPHOCYTES # (AUTO) 0.3 X 10^3 (1.0-4.0); LYMPHOCYTES % (AUTO) 9 % (12-44); MEAN CORPUSCULAR HEMOGLOBIN 29 PG (25-34); MEAN CORPUSCULAR HGB CONC 33 G/DL (32-36); MEAN CORPUSCULAR VOLUME 88 FL (80-99); MEAN PLATELET VOLUME 8.5 FL (7.4-10.4); MONOCYTES # (AUTO) 0.8 X 10^3 (0.0-1.0); MONOCYTES % (AUTO) 20 % (0-12); NEUTROPHILS # (AUTO) 2.6 X 10^3 (1.8-7.8); NEUTROPHILS % (AUTO) 69 % (42-75); PLATELET COUNT 171 10^3/uL (130-400); RED BLOOD COUNT 3.68 10^6/uL (4.35-5.85); RED CELL DISTRIBUTION WIDTH 14.8 % (10.0-14.5); WHITE BLOOD COUNT 3.7 10^3/uL (4.3-11.0)
[2017-07-26 14:28] LABS: ALANINE AMINOTRANSFERASE 14 U/L (0-55); ALBUMIN 3.5 GM/DL (3.2-4.5); ANION GAP 9 MMOL/L (5-14); ASPARTATE AMINO TRANSFERASE 18 U/L (5-34); BILIRUBIN,TOTAL 0.3 MG/DL (0.1-1.0); BLOOD UREA NITROGEN 8 MG/DL (7-18); BUN/CREATININE RATIO 15; CALCIUM 8.8 MG/DL (8.5-10.1); CARBON DIOXIDE 28 MMOL/L (21-32); CHLORIDE 101 MMOL/L (98-107); CREATININE SERUM 0.52 MG/DL (0.60-1.30); GFR ESTIMATED > 60; GLUCOSE 105 MG/DL (70-105); MAGNESIUM 1.5 MG/DL (1.8-2.4); POTASSIUM 3.1 MMOL/L (3.6-5.0); SODIUM 138 MMOL/L (135-145); TOTAL PROTEIN 6.4 GM/DL (6.4-8.2)
== END 2017-08-12 | disposition home or self-care (01) ==
LOC: ONC 13:48
PROVIDERS: ATTEND Internal Medicine Hematology & Oncology
DX: Z51.0 Encounter for antineoplastic radiation therapy (principal); Z51.11 Encounter for antineoplastic chemotherapy; C34.91 Malignant neoplasm of unspecified part of right bronchus or lung; C77.1 Secondary and unspecified malignant neoplasm of intrathoracic lymph nodes; N39.0 Urinary tract infection, site not specified; D64.9 Anemia, unspecified; R00.0 Tachycardia, unspecified; L89.90 Pressure ulcer of unspecified site, unspecified stage; G82.20 Paraplegia, unspecified; R11.2 Nausea with vomiting, unspecified; E86.0 Dehydration; E83.42 Hypomagnesemia; Z87.891 Personal history of nicotine dependence; Z79.899 Other long term (current) drug therapy
CPT/HCPCS: 36415; 77280; 77290; 77295; 77300; 77307; 77334; 77336; 77417; 77470; 80048; 80053; 81000; 83735; 85025; 87077; 87088; 87186; 93005; 96360; 96361; 96365; 96374; 96375; 96413; 96417; 99213; 99214

== ENCOUNTER → 2017-07-26 | Outpatient (CLI) | payer BC, MEDICARE ==
[~2017-07-26] MED LIST changes: +LINE600T7 PO; +MAGN400T39 PO; +MORP60TA52 PO; +ONDA8TAB6 PO; +PANT40TA3 PO; +PROC-1 PO
== END ==
LOC: WOUNDCARE 10:32
PROVIDERS: ATTEND Internal Medicine
DX: L89.324 Pressure ulcer of left buttock, stage 4 (principal); G82.20 Paraplegia, unspecified; C34.91 Malignant neoplasm of unspecified part of right bronchus or lung
CPT/HCPCS: 11042

== ENCOUNTER → 2017-07-26 | Outpatient (CLI) | payer BC, MEDICARE ==
--- NOTE | 2017-07-26 20:48 | Diagnostic Imaging Report ---
EXAMINATION: Supine abdomen at 2:01 p.m. INDICATION: Constipation. FINDINGS: There is gas in both the large and small bowel. The amount of bowel gas has increased since the prior exam of 12/28/2016, but the bowel gas pattern remains nonspecific. There is still no evidence for bowel obstruction. There does appear to be at least a moderate amount of fecal material within the colon. There is no sign of fecal impaction, however. There is no mass, organomegaly, or pathological calcification evident. The orthopedic hardware overlying the thoracolumbar junction seen previously is partially visualized. There is severe deformity of the right hip joint. This finding is stable when compared to the prior study, however. There is also degenerative disc and bony disease involving the lumbar spine. There is no acute bony abnormality noted. IMPRESSION: 1. The bowel gas pattern is nonspecific. There is no evidence for a bowel obstruction. 2. There is at least a moderate amount of fecal material within the colon, but there is no sign of fecal impaction. Dictated by: Dictated on workstation # [id number]
== END ==
LOC: RAD 13:29
PROVIDERS: ATTEND Family Medicine
DX: K59.00 Constipation, unspecified (principal)
CPT/HCPCS: 74000

== ENCOUNTER → 2017-08-01 | Outpatient (CLI) | payer BC, MEDICARE ==
[~2017-08-01] MED LIST changes: -CARBOPLATIN 160 MG in D5W 50 ML IV(CANCER CTR) 50 ML IV SCH; -FAMOTIDINE 20MG/2ML IV (CANCER CTR) IV SCH; -LORazepam INJ 2 MG/ML VIAL CANCER CTR IV SCH; -MAGNESIUM SULFATE IV ONE; -METOCLOPRAMIDE 10 MG/2 ML IV ONE; -NORMAL SALINE IV SCH; -NS IV 1000 ML (CANCER CTR) IV SCH; -NS IV 500 ML (CANCER CENTER) 500 ML ONE; -NS IV ONE; -ONDANSETRON 8 MG, DEXAMETHASONE 4 MG/NS 50 ML IVPB (Cancer Ctr) IV ONE; -ONDANSETRON MDV (CANCER CENTER 8 MG, DEXAMETHASONE INJ (CANCER CTR) 4 MG in NS (IVPB) C... IV ONE; -PACLITAXEL IV SCH; -PALONOSETRON 0.25 MG, DEXAMETHASONE 10 MG/NS 50 ML IVPB IV PRN; -diphenhydrAMINE 25 MG TAB (BENADRYL) CANCER CENTER PO SCH; -diphenhydrAMINE 50 MG/ML INJ (CANCER CENTER) IV PRN
== END ==
LOC: WOUNDCARE 08:44
PROVIDERS: ATTEND Surgery
DX: L03.317 Cellulitis of buttock (principal); L89.324 Pressure ulcer of left buttock, stage 4; G82.20 Paraplegia, unspecified; C34.91 Malignant neoplasm of unspecified part of right bronchus or lung
CPT/HCPCS: 87070; 87075; 87077; 87186; 87205; 99212

== ENCOUNTER → 2017-08-02 | Outpatient (CLI) | payer BC, MEDICARE | LOC: WOUNDCARE 10:11 | PROVIDERS: ATTEND Internal Medicine | DX: L03.317 Cellulitis of buttock (principal); L89.324 Pressure ulcer of left buttock, stage 4; G82.20 Paraplegia, unspecified; C34.91 Malignant neoplasm of unspecified part of right bronchus or lung | CPT/HCPCS: 11042; 99212 ==

== ENCOUNTER → 2017-08-06 | Outpatient (CLI) | payer BC, MEDICARE ==
[~2017-08-06] MED LIST changes: +CATHETER FLUSH 10 ML SYR IV PRN
--- NOTE | 2017-08-06 11:58 | Diagnostic Imaging Report ---
INDICATION: Pain. Exam compared with abdominal radiograph 07/26/2017. Joint space obliteration superiorly. Flattening of the weightbearing surface of the humeral head. Sclerosis, osteophytes, and soft tissue calcifications about the right hip all unchanged. Constipation without ramses bowel obstruction chronic. Bony demineralization chronic. IMPRESSION: Chronic osseous findings and chronic or recurrent constipation. Dictated by: Dictated on workstation # [id number]
--- NOTE | 2017-08-06 13:21 | Diagnostic Imaging Report ---
INDICATION: Dermal wound of the left buttocks. COMPARISON: Pelvic radiographs performed same day at 09:26 a.m. TECHNIQUE: Multi-projectional scintigraphic images of the pelvis were obtained at 3 different time intervals after the intravenous injection of 27.0 mCi of Tc-99m MDP. FINDINGS: On the flow and blood pool images, there is asymmetric radiopharmaceutical accumulation within the soft tissues of the left buttocks region which corresponds to soft tissue infection. However, delayed phase imaging fails to demonstrate abnormal radiopharmaceutical activity within the osseous structures of the left hemipelvis to indicate osteomyelitis. There is para-articular uptake around the left hip compatible with severe degenerative changes secondary to right hip dysplasia. IMPRESSION: Soft tissue infection of the left gluteal region without osteomyelitis. Dictated by: Dictated on workstation # [id number]
== END ==
LOC: CARD 08:42
PROVIDERS: ATTEND Internal Medicine
DX: L03.317 Cellulitis of buttock (principal); L89.324 Pressure ulcer of left buttock, stage 4; G82.20 Paraplegia, unspecified; C34.91 Malignant neoplasm of unspecified part of right bronchus or lung
CPT/HCPCS: 72170; 78315

== ENCOUNTER → 2017-08-06 | Outpatient (CLI) | payer BC, MEDICARE ==
[~2017-08-06] MED LIST changes: -CATHETER FLUSH 10 ML SYR IV PRN
== END ==
LOC: WOUNDCARE 09:18
PROVIDERS: ATTEND Surgery
DX: L89.324 Pressure ulcer of left buttock, stage 4 (principal); G82.20 Paraplegia, unspecified; C34.91 Malignant neoplasm of unspecified part of right bronchus or lung; L03.317 Cellulitis of buttock
CPT/HCPCS: 99212

== ENCOUNTER → 2017-08-06 | Outpatient (CLI) | payer BC, MEDICARE | LOC: CARD 08:46 | PROVIDERS: ATTEND Internal Medicine Cardiovascular Disease | DX: C34.81 Malignant neoplasm of overlapping sites of right bronchus and lung (principal); R00.0 Tachycardia, unspecified; R11.2 Nausea with vomiting, unspecified; R07.89 Other chest pain; E83.42 Hypomagnesemia; E86.0 Dehydration | CPT/HCPCS: 93306 ==

== ENCOUNTER → 2017-08-09 | Outpatient (CLI) | payer BC, MEDICARE | LOC: WOUNDCARE 10:07 | PROVIDERS: ATTEND Internal Medicine | DX: L89.324 Pressure ulcer of left buttock, stage 4 (principal); G82.20 Paraplegia, unspecified; C34.91 Malignant neoplasm of unspecified part of right bronchus or lung; L03.317 Cellulitis of buttock | CPT/HCPCS: 11042 ==

== ENCOUNTER → 2017-08-16 | Outpatient (CLI) | payer BC, MEDICARE | LOC: WOUNDCARE 10:35 | PROVIDERS: ATTEND Internal Medicine | DX: L89.324 Pressure ulcer of left buttock, stage 4 (principal); G82.20 Paraplegia, unspecified; C34.91 Malignant neoplasm of unspecified part of right bronchus or lung; L03.317 Cellulitis of buttock | CPT/HCPCS: 99212 ==

== ENCOUNTER 2017-08-17 09:22 | Outpatient (RCR) | payer BC, MEDICARE ==
[2017-08-17 09:48] LABS: BASOPHILS % (AUTO) 0 % (0-10); EOSINOPHILS % (AUTO) 1 % (0-10); LYMPHOCYTES # (AUTO) 0.7 X 10^3 (1.0-4.0); LYMPHOCYTES % (AUTO) 16 % (12-44); MEAN CORPUSCULAR HEMOGLOBIN 30 PG (25-34); MEAN CORPUSCULAR HGB CONC 32 G/DL (32-36); MEAN CORPUSCULAR VOLUME 94 FL (80-99); MEAN PLATELET VOLUME 8.9 FL (7.4-10.4); MONOCYTES # (AUTO) 0.6 X 10^3 (0.0-1.0); MONOCYTES % (AUTO) 13 % (0-12); NEUTROPHILS # (AUTO) 3.1 X 10^3 (1.8-7.8); NEUTROPHILS % (AUTO) 70 % (42-75); PLATELET COUNT 406 10^3/uL (130-400); RED BLOOD COUNT 3.63 10^6/uL (4.35-5.85); RED CELL DISTRIBUTION WIDTH 19.5 % (10.0-14.5); WHITE BLOOD COUNT 4.4 10^3/uL (4.3-11.0)
[2017-08-17 10:05] LABS: ALANINE AMINOTRANSFERASE 9 U/L (0-55); ALBUMIN 3.3 GM/DL (3.2-4.5); ANION GAP 8 MMOL/L (5-14); ASPARTATE AMINO TRANSFERASE 13 U/L (5-34); BILIRUBIN,TOTAL 0.5 MG/DL (0.1-1.0); BLOOD UREA NITROGEN 10 MG/DL (7-18); BUN/CREATININE RATIO 17; CALCIUM 9.6 MG/DL (8.5-10.1); CARBON DIOXIDE 28 MMOL/L (21-32); CHLORIDE 102 MMOL/L (98-107); CREATININE SERUM 0.59 MG/DL (0.60-1.30); GFR ESTIMATED > 60; GLUCOSE 87 MG/DL (70-105); MAGNESIUM 1.7 MG/DL (1.8-2.4); POTASSIUM 3.6 MMOL/L (3.6-5.0); SODIUM 138 MMOL/L (135-145); TOTAL PROTEIN 7.6 GM/DL (6.4-8.2)
== END 2017-08-25 | disposition home or self-care (01) ==
LOC: ONC 09:22
PROVIDERS: ATTEND Internal Medicine Hematology & Oncology
DX: C77.1 Secondary and unspecified malignant neoplasm of intrathoracic lymph nodes; Z79.899 Other long term (current) drug therapy; G82.20 Paraplegia, unspecified; Z87.891 Personal history of nicotine dependence; C34.91 Malignant neoplasm of unspecified part of right bronchus or lung; R00.0 Tachycardia, unspecified; D64.9 Anemia, unspecified; L89.90 Pressure ulcer of unspecified site, unspecified stage
CPT/HCPCS: 36415; 80053; 83735; 85025; 99213

== ENCOUNTER → 2017-08-23 | Outpatient (CLI) | payer BC, MEDICARE | LOC: WOUNDCARE 10:00 | PROVIDERS: ATTEND Internal Medicine | DX: L89.324 Pressure ulcer of left buttock, stage 4 (principal); L03.317 Cellulitis of buttock; G82.20 Paraplegia, unspecified; C34.91 Malignant neoplasm of unspecified part of right bronchus or lung | CPT/HCPCS: 99213 ==

== ENCOUNTER → 2017-08-30 | Outpatient (CLI) | payer BC, MEDICARE | LOC: WOUNDCARE 09:59 | PROVIDERS: ATTEND Internal Medicine | DX: L89.324 Pressure ulcer of left buttock, stage 4 (principal); G82.20 Paraplegia, unspecified; C34.91 Malignant neoplasm of unspecified part of right bronchus or lung; L03.317 Cellulitis of buttock | CPT/HCPCS: 11042 ==

== ENCOUNTER → 2017-09-06 | Outpatient (CLI) | payer BC, MEDICARE | LOC: WOUNDCARE 09:57 | PROVIDERS: ATTEND Internal Medicine | DX: L89.324 Pressure ulcer of left buttock, stage 4 (principal); G82.20 Paraplegia, unspecified; C34.91 Malignant neoplasm of unspecified part of right bronchus or lung; L03.317 Cellulitis of buttock | CPT/HCPCS: 99212 ==

== ENCOUNTER 2017-09-20 10:32 | Outpatient (RCR) | payer BC, MEDICARE ==
[2017-08-30 13:21] LABS: BASOPHILS % (AUTO) 1 % (0-10); EOSINOPHILS # (AUTO) 0.1 10^3/uL (0.0-0.3); EOSINOPHILS % (AUTO) 1 % (0-10); LYMPHOCYTES # (AUTO) 1.1 X 10^3 (1.0-4.0); LYMPHOCYTES % (AUTO) 17 % (12-44); MEAN CORPUSCULAR HEMOGLOBIN 31 PG (25-34); MEAN CORPUSCULAR HGB CONC 32 G/DL (32-36); MEAN CORPUSCULAR VOLUME 97 FL (80-99); MEAN PLATELET VOLUME 9.4 FL (7.4-10.4); MONOCYTES # (AUTO) 0.8 X 10^3 (0.0-1.0); MONOCYTES % (AUTO) 12 % (0-12); NEUTROPHILS # (AUTO) 4.5 X 10^3 (1.8-7.8); NEUTROPHILS % (AUTO) 70 % (42-75); PLATELET COUNT 377 10^3/uL (130-400); RED CELL DISTRIBUTION WIDTH 18.8 % (10.0-14.5); WHITE BLOOD COUNT 6.5 10^3/uL (4.3-11.0)
[2017-08-30 13:36] LABS: ANION GAP 7 MMOL/L (5-14); BLOOD UREA NITROGEN 7 MG/DL (7-18); BUN/CREATININE RATIO 11; CALCIUM 9.5 MG/DL (8.5-10.1); CARBON DIOXIDE 28 MMOL/L (21-32); CHLORIDE 103 MMOL/L (98-107); CREATININE SERUM 0.61 MG/DL (0.60-1.30); GFR ESTIMATED > 60; GLUCOSE 107 MG/DL (70-105); POTASSIUM 4.1 MMOL/L (3.6-5.0); SODIUM 138 MMOL/L (135-145)
[2017-09-06 11:53] LABS: BASOPHILS % (AUTO) 1 % (0-10); EOSINOPHILS # (AUTO) 0.1 10^3/uL (0.0-0.3); EOSINOPHILS % (AUTO) 3 % (0-10); LYMPHOCYTES # (AUTO) 0.8 X 10^3 (1.0-4.0); LYMPHOCYTES % (AUTO) 21 % (12-44); MEAN CORPUSCULAR HEMOGLOBIN 32 PG (25-34); MEAN CORPUSCULAR HGB CONC 33 G/DL (32-36); MEAN CORPUSCULAR VOLUME 97 FL (80-99); MEAN PLATELET VOLUME 9.7 FL (7.4-10.4); MONOCYTES # (AUTO) 0.3 X 10^3 (0.0-1.0); MONOCYTES % (AUTO) 9 % (0-12); NEUTROPHILS # (AUTO) 2.5 X 10^3 (1.8-7.8); NEUTROPHILS % (AUTO) 66 % (42-75); PLATELET COUNT 376 10^3/uL (130-400); RED BLOOD COUNT 3.41 10^6/uL (4.35-5.85); RED CELL DISTRIBUTION WIDTH 17.7 % (10.0-14.5); WHITE BLOOD COUNT 3.8 10^3/uL (4.3-11.0)
[2017-09-06 12:08] LABS: ANION GAP 9 MMOL/L (5-14); BLOOD UREA NITROGEN 11 MG/DL (7-18); BUN/CREATININE RATIO 19; CALCIUM 9.5 MG/DL (8.5-10.1); CARBON DIOXIDE 27 MMOL/L (21-32); CHLORIDE 102 MMOL/L (98-107); CREATININE SERUM 0.58 MG/DL (0.60-1.30); GFR ESTIMATED > 60; GLUCOSE 68 MG/DL (70-105); POTASSIUM 3.3 MMOL/L (3.6-5.0); SODIUM 138 MMOL/L (135-145)
[2017-09-06 12:39] LABS: MAGNESIUM 1.6 MG/DL (1.8-2.4)
[2017-09-13 13:15] LABS: BASOPHILS % (AUTO) 0 % (0-10); EOSINOPHILS # (AUTO) 0.1 10^3/uL (0.0-0.3); EOSINOPHILS % (AUTO) 2 % (0-10); LYMPHOCYTES # (AUTO) 0.6 X 10^3 (1.0-4.0); LYMPHOCYTES % (AUTO) 12 % (12-44); MEAN CORPUSCULAR HEMOGLOBIN 32 PG (25-34); MEAN CORPUSCULAR HGB CONC 33 G/DL (32-36); MEAN CORPUSCULAR VOLUME 98 FL (80-99); MEAN PLATELET VOLUME 9.7 FL (7.4-10.4); MONOCYTES # (AUTO) 0.5 X 10^3 (0.0-1.0); MONOCYTES % (AUTO) 9 % (0-12); NEUTROPHILS % (AUTO) 77 % (42-75); PLATELET COUNT 344 10^3/uL (130-400); RED CELL DISTRIBUTION WIDTH 16.6 % (10.0-14.5); WHITE BLOOD COUNT 5.2 10^3/uL (4.3-11.0)
[2017-09-13 13:28] LABS: ANION GAP 8 MMOL/L (5-14); BLOOD UREA NITROGEN 7 MG/DL (7-18); BUN/CREATININE RATIO 12; CALCIUM 9.7 MG/DL (8.5-10.1); CARBON DIOXIDE 28 MMOL/L (21-32); CHLORIDE 101 MMOL/L (98-107); CREATININE SERUM 0.58 MG/DL (0.60-1.30); GFR ESTIMATED > 60; GLUCOSE 93 MG/DL (70-105); POTASSIUM 3.7 MMOL/L (3.6-5.0); SODIUM 137 MMOL/L (135-145)
[~2017-09-20 10:32] MED LIST changes: +CARBOPLATIN 160 MG in D5W 50 ML IV(CANCER CTR) 50 ML IV SCH; +FAMOTIDINE 20MG/2ML IV (CANCER CTR) IV SCH; +LORazepam INJ 2 MG/ML VIAL CANCER CTR IV SCH; +NORMAL SALINE IV SCH; +NS IV 1000 ML (CANCER CTR) IV SCH; +PACLITAXEL IV SCH; +PALONOSETRON 0.25 MG, DEXAMETHASONE 10 MG/NS 50 ML IVPB IV PRN; +diphenhydrAMINE 25 MG TAB (BENADRYL) CANCER CENTER PO SCH
[2017-09-20 10:57] LABS: BASOPHILS % (AUTO) 0 % (0-10); EOSINOPHILS # (AUTO) 0.1 10^3/uL (0.0-0.3); EOSINOPHILS % (AUTO) 1 % (0-10); LYMPHOCYTES # (AUTO) 0.4 X 10^3 (1.0-4.0); LYMPHOCYTES % (AUTO) 7 % (12-44); MEAN CORPUSCULAR HEMOGLOBIN 33 PG (25-34); MEAN CORPUSCULAR HGB CONC 33 G/DL (32-36); MEAN CORPUSCULAR VOLUME 99 FL (80-99); MEAN PLATELET VOLUME 8.7 FL (7.4-10.4); MONOCYTES # (AUTO) 0.5 X 10^3 (0.0-1.0); MONOCYTES % (AUTO) 8 % (0-12); NEUTROPHILS # (AUTO) 5.3 X 10^3 (1.8-7.8); NEUTROPHILS % (AUTO) 84 % (42-75); PLATELET COUNT 332 10^3/uL (130-400); RED CELL DISTRIBUTION WIDTH 15.5 % (10.0-14.5); WHITE BLOOD COUNT 6.3 10^3/uL (4.3-11.0)
[2017-09-20 11:14] LABS: ANION GAP 8 MMOL/L (5-14); BLOOD UREA NITROGEN 8 MG/DL (7-18); BUN/CREATININE RATIO 15; CALCIUM 9.6 MG/DL (8.5-10.1); CARBON DIOXIDE 28 MMOL/L (21-32); CHLORIDE 99 MMOL/L (98-107); CREATININE SERUM 0.55 MG/DL (0.60-1.30); GFR ESTIMATED > 60; GLUCOSE 90 MG/DL (70-105); POTASSIUM 3.3 MMOL/L (3.6-5.0); SODIUM 135 MMOL/L (135-145)
== END 2017-09-26 13:02 | disposition home or self-care (01) ==
LOC: ONC 10:32
PROVIDERS: ATTEND Internal Medicine Hematology & Oncology
DX: Z51.11 Encounter for antineoplastic chemotherapy (principal); C34.91 Malignant neoplasm of unspecified part of right bronchus or lung; C77.1 Secondary and unspecified malignant neoplasm of intrathoracic lymph nodes; D64.9 Anemia, unspecified; R00.0 Tachycardia, unspecified; L89.90 Pressure ulcer of unspecified site, unspecified stage; G82.20 Paraplegia, unspecified; Z87.891 Personal history of nicotine dependence; Z79.899 Other long term (current) drug therapy
CPT/HCPCS: 36415; 80048; 83735; 84443; 85025; 96375; 96413; 96417; 99213

== ENCOUNTER → 2017-09-20 | Outpatient (CLI) | payer BC, MEDICARE | LOC: WOUNDCARE 09:59 | PROVIDERS: ATTEND Internal Medicine | DX: L89.324 Pressure ulcer of left buttock, stage 4 (principal); L03.317 Cellulitis of buttock; G82.20 Paraplegia, unspecified; C34.91 Malignant neoplasm of unspecified part of right bronchus or lung | CPT/HCPCS: 11042 ==

== ENCOUNTER → 2017-10-11 | Outpatient (CLI) | payer BC, MEDICARE ==
[~2017-10-11] MED LIST changes: -CARBOPLATIN 160 MG in D5W 50 ML IV(CANCER CTR) 50 ML IV SCH; -FAMOTIDINE 20MG/2ML IV (CANCER CTR) IV SCH; -LORazepam INJ 2 MG/ML VIAL CANCER CTR IV SCH; -NORMAL SALINE IV SCH; -NS IV 1000 ML (CANCER CTR) IV SCH; -PACLITAXEL IV SCH; -PALONOSETRON 0.25 MG, DEXAMETHASONE 10 MG/NS 50 ML IVPB IV PRN; -diphenhydrAMINE 25 MG TAB (BENADRYL) CANCER CENTER PO SCH
== END ==
LOC: WOUNDCARE 09:58
PROVIDERS: ATTEND Internal Medicine
DX: L89.324 Pressure ulcer of left buttock, stage 4 (principal); G82.20 Paraplegia, unspecified; C34.91 Malignant neoplasm of unspecified part of right bronchus or lung; L03.317 Cellulitis of buttock
CPT/HCPCS: 99213

== ENCOUNTER 2017-10-17 10:05 | Outpatient (RCR) | payer BC, MEDICARE ==
[2017-09-27 11:30] LABS: BASOPHILS % (AUTO) 0 % (0-10); EOSINOPHILS # (AUTO) 0.1 10^3/uL (0.0-0.3); EOSINOPHILS % (AUTO) 1 % (0-10); LYMPHOCYTES # (AUTO) 0.7 X 10^3 (1.0-4.0); LYMPHOCYTES % (AUTO) 12 % (12-44); MEAN CORPUSCULAR HEMOGLOBIN 32 PG (25-34); MEAN CORPUSCULAR HGB CONC 32 G/DL (32-36); MEAN CORPUSCULAR VOLUME 99 FL (80-99); MONOCYTES # (AUTO) 0.6 X 10^3 (0.0-1.0); MONOCYTES % (AUTO) 10 % (0-12); NEUTROPHILS # (AUTO) 4.6 X 10^3 (1.8-7.8); NEUTROPHILS % (AUTO) 77 % (42-75); PLATELET COUNT 325 10^3/uL (130-400); RED BLOOD COUNT 3.11 10^6/uL (4.35-5.85); RED CELL DISTRIBUTION WIDTH 15.2 % (10.0-14.5); WHITE BLOOD COUNT 5.9 10^3/uL (4.3-11.0)
[2017-09-27 12:00] LABS: ALANINE AMINOTRANSFERASE 9 U/L (0-55); ALBUMIN 3.3 GM/DL (3.2-4.5); ANION GAP 10 MMOL/L (5-14); ASPARTATE AMINO TRANSFERASE 16 U/L (5-34); BILIRUBIN,TOTAL 0.2 MG/DL (0.1-1.0); BLOOD UREA NITROGEN 12 MG/DL (7-18); BUN/CREATININE RATIO 20; CALCIUM 9.7 MG/DL (8.5-10.1); CARBON DIOXIDE 26 MMOL/L (21-32); CHLORIDE 105 MMOL/L (98-107); GFR ESTIMATED > 60; GLUCOSE 82 MG/DL (70-105); POTASSIUM 3.7 MMOL/L (3.6-5.0); SODIUM 141 MMOL/L (135-145); TOTAL PROTEIN 7.3 GM/DL (6.4-8.2)
[2017-10-04 12:22] LABS: BASOPHILS % (AUTO) 0 % (0-10); EOSINOPHILS # (AUTO) 0.1 10^3/uL (0.0-0.3); EOSINOPHILS % (AUTO) 1 % (0-10); LYMPHOCYTES # (AUTO) 0.6 X 10^3 (1.0-4.0); LYMPHOCYTES % (AUTO) 8 % (12-44); MEAN CORPUSCULAR HEMOGLOBIN 32 PG (25-34); MEAN CORPUSCULAR HGB CONC 33 G/DL (32-36); MEAN CORPUSCULAR VOLUME 97 FL (80-99); MEAN PLATELET VOLUME 9.1 FL (7.4-10.4); MONOCYTES # (AUTO) 0.7 X 10^3 (0.0-1.0); MONOCYTES % (AUTO) 9 % (0-12); NEUTROPHILS # (AUTO) 6.6 X 10^3 (1.8-7.8); NEUTROPHILS % (AUTO) 82 % (42-75); PLATELET COUNT 325 10^3/uL (130-400); RED BLOOD COUNT 3.02 10^6/uL (4.35-5.85); RED CELL DISTRIBUTION WIDTH 14.9 % (10.0-14.5); WHITE BLOOD COUNT 8.1 10^3/uL (4.3-11.0)
[2017-10-04 12:41] LABS: ANION GAP 13 MMOL/L (5-14); BLOOD UREA NITROGEN 8 MG/DL (7-18); BUN/CREATININE RATIO 15; CALCIUM 9.1 MG/DL (8.5-10.1); CARBON DIOXIDE 23 MMOL/L (21-32); CHLORIDE 97 MMOL/L (98-107); CREATININE SERUM 0.55 MG/DL (0.60-1.30); GFR ESTIMATED > 60; GLUCOSE 87 MG/DL (70-105); POTASSIUM 3.8 MMOL/L (3.6-5.0); SODIUM 133 MMOL/L (135-145)
[2017-10-11 11:35] LABS: BASOPHILS % (AUTO) 0 % (0-10); EOSINOPHILS # (AUTO) 0.1 10^3/uL (0.0-0.3); EOSINOPHILS % (AUTO) 1 % (0-10); LYMPHOCYTES # (AUTO) 0.5 X 10^3 (1.0-4.0); LYMPHOCYTES % (AUTO) 10 % (12-44); MEAN CORPUSCULAR HEMOGLOBIN 31 PG (25-34); MEAN CORPUSCULAR HGB CONC 33 G/DL (32-36); MEAN CORPUSCULAR VOLUME 96 FL (80-99); MEAN PLATELET VOLUME 9.1 FL (7.4-10.4); MONOCYTES # (AUTO) 0.3 X 10^3 (0.0-1.0); MONOCYTES % (AUTO) 5 % (0-12); NEUTROPHILS # (AUTO) 4.1 X 10^3 (1.8-7.8); NEUTROPHILS % (AUTO) 83 % (42-75); PLATELET COUNT 399 10^3/uL (130-400); RED BLOOD COUNT 3.16 10^6/uL (4.35-5.85); RED CELL DISTRIBUTION WIDTH 14.9 % (10.0-14.5); WHITE BLOOD COUNT 4.9 10^3/uL (4.3-11.0)
[2017-10-11 11:51] LABS: ANION GAP 11 MMOL/L (5-14); BLOOD UREA NITROGEN 8 MG/DL (7-18); BUN/CREATININE RATIO 14; CALCIUM 9.8 MG/DL (8.5-10.1); CARBON DIOXIDE 27 MMOL/L (21-32); CHLORIDE 99 MMOL/L (98-107); CREATININE SERUM 0.58 MG/DL (0.60-1.30); GFR ESTIMATED > 60; GLUCOSE 93 MG/DL (70-105); POTASSIUM 3.7 MMOL/L (3.6-5.0); SODIUM 137 MMOL/L (135-145)
[~2017-10-17 10:05] MED LIST changes: +CARBOPLATIN 160 MG in D5W 50 ML IV(CANCER CTR) 50 ML IV SCH; +FAMOTIDINE 20MG/2ML IV (CANCER CTR) IV SCH; -GADOBUTROL 7.5 MMOL/7.5 ML (GADAVIST) VIAL IV ONE; +LORazepam INJ 2 MG/ML VIAL CANCER CTR IV SCH; +NORMAL SALINE IV SCH; +NS IV 1000 ML (CANCER CTR) IV SCH; +PACLITAXEL IV SCH; +PALONOSETRON 0.25 MG, DEXAMETHASONE 10 MG/NS 50 ML IVPB IV PRN; +diphenhydrAMINE 25 MG TAB (BENADRYL) CANCER CENTER PO SCH
[2017-10-17 10:35] LABS: BASOPHILS % (AUTO) 0 % (0-10); EOSINOPHILS % (AUTO) 1 % (0-10); LYMPHOCYTES # (AUTO) 0.5 X 10^3 (1.0-4.0); LYMPHOCYTES % (AUTO) 12 % (12-44); MEAN CORPUSCULAR HEMOGLOBIN 31 PG (25-34); MEAN CORPUSCULAR HGB CONC 32 G/DL (32-36); MEAN CORPUSCULAR VOLUME 96 FL (80-99); MEAN PLATELET VOLUME 8.7 FL (7.4-10.4); MONOCYTES # (AUTO) 0.4 X 10^3 (0.0-1.0); MONOCYTES % (AUTO) 11 % (0-12); NEUTROPHILS # (AUTO) 2.8 X 10^3 (1.8-7.8); NEUTROPHILS % (AUTO) 76 % (42-75); PLATELET COUNT 417 10^3/uL (130-400); RED BLOOD COUNT 2.89 10^6/uL (4.35-5.85); RED CELL DISTRIBUTION WIDTH 15.4 % (10.0-14.5); WHITE BLOOD COUNT 3.7 10^3/uL (4.3-11.0)
[2017-10-17 10:53] LABS: ANION GAP 10 MMOL/L (5-14); BLOOD UREA NITROGEN 9 MG/DL (7-18); BUN/CREATININE RATIO 16; CALCIUM 9.4 MG/DL (8.5-10.1); CARBON DIOXIDE 27 MMOL/L (21-32); CHLORIDE 100 MMOL/L (98-107); CREATININE SERUM 0.58 MG/DL (0.60-1.30); GFR ESTIMATED > 60; GLUCOSE 118 MG/DL (70-105); POTASSIUM 3.6 MMOL/L (3.6-5.0); SODIUM 137 MMOL/L (135-145)
[2017-11-08 11:13] LABS: BASOPHILS % (AUTO) 0 % (0-10); EOSINOPHILS # (AUTO) 0.2 10^3/uL (0.0-0.3); EOSINOPHILS % (AUTO) 3 % (0-10); LYMPHOCYTES # (AUTO) 0.6 X 10^3 (1.0-4.0); LYMPHOCYTES % (AUTO) 8 % (12-44); MEAN CORPUSCULAR HEMOGLOBIN 30 PG (25-34); MEAN CORPUSCULAR HGB CONC 31 G/DL (32-36); MEAN CORPUSCULAR VOLUME 96 FL (80-99); MEAN PLATELET VOLUME 8.5 FL (7.4-10.4); MONOCYTES # (AUTO) 0.8 X 10^3 (0.0-1.0); MONOCYTES % (AUTO) 11 % (0-12); NEUTROPHILS # (AUTO) 5.7 X 10^3 (1.8-7.8); NEUTROPHILS % (AUTO) 79 % (42-75); PLATELET COUNT 527 10^3/uL (130-400); RED BLOOD COUNT 3.38 10^6/uL (4.35-5.85); RED CELL DISTRIBUTION WIDTH 16.2 % (10.0-14.5); WHITE BLOOD COUNT 7.3 10^3/uL (4.3-11.0)
[2017-11-08 11:42] LABS: ALANINE AMINOTRANSFERASE 6 U/L (0-55); ALBUMIN 3.4 GM/DL (3.2-4.5); ANION GAP 11 MMOL/L (5-14); ASPARTATE AMINO TRANSFERASE 9 U/L (5-34); BILIRUBIN,TOTAL 0.2 MG/DL (0.1-1.0); BLOOD UREA NITROGEN 10 MG/DL (7-18); BUN/CREATININE RATIO 19; CALCIUM 9.4 MG/DL (8.5-10.1); CARBON DIOXIDE 27 MMOL/L (21-32); CHLORIDE 99 MMOL/L (98-107); CREATININE SERUM 0.53 MG/DL (0.60-1.30); GFR ESTIMATED > 60; GLUCOSE 98 MG/DL (70-105); POTASSIUM 3.4 MMOL/L (3.6-5.0); SODIUM 137 MMOL/L (135-145); TOTAL PROTEIN 7.7 GM/DL (6.4-8.2)
== END 2017-11-07 14:56 | disposition home or self-care (01) ==
LOC: ONC 10:05
PROVIDERS: ATTEND Internal Medicine Hematology & Oncology
DX: Z51.11 Encounter for antineoplastic chemotherapy (principal); C34.91 Malignant neoplasm of unspecified part of right bronchus or lung; C77.1 Secondary and unspecified malignant neoplasm of intrathoracic lymph nodes; D64.9 Anemia, unspecified; R00.0 Tachycardia, unspecified; L89.90 Pressure ulcer of unspecified site, unspecified stage; G82.20 Paraplegia, unspecified; Z87.891 Personal history of nicotine dependence; Z79.899 Other long term (current) drug therapy
CPT/HCPCS: 36415; 80048; 80053; 85025; 96375; 96413; 96417

== ENCOUNTER → 2017-10-17 | Outpatient (CLI) | payer BC, MEDICARE ==
[~2017-10-17] MED LIST changes: +GADOBUTROL 7.5 MMOL/7.5 ML (GADAVIST) VIAL IV ONE
--- NOTE | 2017-10-17 12:39 | Diagnostic Imaging Report ---
PROCEDURE: MRI pelvis with and without contrast. TECHNIQUE: Multiplanar, multisequence MRI of the pelvis was performed with and without contrast. Pressure ulcer in the lower left buttocks region. 3.5 ML of Gadavist is administered intravenously. FINDINGS: There is a soft tissue ulcer seen at the level of the left ischial tuberosity. The left ischial tuberosity demonstrates abnormal marrow signal with edema and postcontrast enhancement. This is suggestive of osteomyelitis. This appears to extend anteriorly and medially through the inferior pubic ramus into the posterior inferior aspect of the left pubic body. This also extends superiorly from the ischial tuberosity through the ischium close to the posterior wall of the acetabulum without extension into the subchondral bone at the posterior acetabular margin. The soft tissues demonstrate enhancement and swelling posteriorly around the ulceration with no evidence of abscess identified. There is deformity in the pelvis compatible with known paralysis. 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 There is generalized muscle atrophy. There is significant thinning of the soft tissues and the fat along the posterior aspect with essentially subcutaneous location of the distal sacrum and coccyx. It demonstrates normal marrow signal with no evidence of a fracture or osteomyelitis. IMPRESSION: Findings compatible with osteomyelitis involving the left ischium with extension superiorly near the posterior acetabulum and anteriorly through the inferior pubic ramus into the inferior posterior aspect of the left pubic body. Dr. Aguila is paged to discuss findings by Dr. Godinez at time of dictation. Dictated by: Dictated on workstation # [id number]
== END ==
LOC: RAD 08:46
PROVIDERS: ATTEND Internal Medicine
DX: L89.324 Pressure ulcer of left buttock, stage 4 (principal); L03.317 Cellulitis of buttock; G82.20 Paraplegia, unspecified; C34.91 Malignant neoplasm of unspecified part of right bronchus or lung
CPT/HCPCS: 72197

== ENCOUNTER → 2017-10-25 | Outpatient (CLI) | payer BC, MEDICARE ==
[~2017-10-25] MED LIST changes: -CARBOPLATIN 160 MG in D5W 50 ML IV(CANCER CTR) 50 ML IV SCH; -FAMOTIDINE 20MG/2ML IV (CANCER CTR) IV SCH; -LORazepam INJ 2 MG/ML VIAL CANCER CTR IV SCH; -NORMAL SALINE IV SCH; -NS IV 1000 ML (CANCER CTR) IV SCH; -PACLITAXEL IV SCH; -PALONOSETRON 0.25 MG, DEXAMETHASONE 10 MG/NS 50 ML IVPB IV PRN; -diphenhydrAMINE 25 MG TAB (BENADRYL) CANCER CENTER PO SCH
== END ==
LOC: WOUNDCARE 09:54
PROVIDERS: ATTEND Internal Medicine
DX: M86.18 Other acute osteomyelitis, other site (principal); L89.324 Pressure ulcer of left buttock, stage 4; G82.20 Paraplegia, unspecified; C34.91 Malignant neoplasm of unspecified part of right bronchus or lung; L03.317 Cellulitis of buttock
CPT/HCPCS: 11042

== ENCOUNTER → 2017-11-08 | Outpatient (CLI) | payer BC, MEDICARE | LOC: WOUNDCARE 09:52 | PROVIDERS: ATTEND Nurse Practitioner | DX: M86.18 Other acute osteomyelitis, other site (principal); L89.324 Pressure ulcer of left buttock, stage 4; G82.20 Paraplegia, unspecified; C34.91 Malignant neoplasm of unspecified part of right bronchus or lung; L03.317 Cellulitis of buttock | CPT/HCPCS: 11042 ==

== ENCOUNTER → 2017-11-22 | Outpatient (CLI) | payer BC, MEDICARE | LOC: WOUNDCARE 09:57 | PROVIDERS: ATTEND Internal Medicine | DX: M86.18 Other acute osteomyelitis, other site (principal); L89.324 Pressure ulcer of left buttock, stage 4; G82.20 Paraplegia, unspecified; C34.91 Malignant neoplasm of unspecified part of right bronchus or lung; L03.317 Cellulitis of buttock | CPT/HCPCS: 99213 ==

== ENCOUNTER → 2017-12-06 | Outpatient (CLI) | payer BC, MEDICARE | LOC: WOUNDCARE 09:16 | PROVIDERS: ATTEND Internal Medicine | DX: M86.18 Other acute osteomyelitis, other site (principal); L89.324 Pressure ulcer of left buttock, stage 4; G82.20 Paraplegia, unspecified; C34.91 Malignant neoplasm of unspecified part of right bronchus or lung; L03.317 Cellulitis of buttock | CPT/HCPCS: 99212 ==

== ENCOUNTER → 2017-12-06 | Outpatient (CLI) | payer BC, MEDICARE ==
--- NOTE | 2017-12-06 14:48 | Diagnostic Imaging Report ---
INDICATION: Lung cancer. COMPARISON: Three-phase bone scan of the pelvis from 08/06/2017. MRI pelvis from 10/17/2017. TECHNIQUE: Anterior and posterior scintigraphic images of the whole body were obtained after the intravenous injection of 26.4 mCi of Tc-99m MDP. FINDINGS: Abnormal radiotracer activity in the left ischium is compatible with patient's known osteomyelitis. There are no abnormal foci of radiotracer activity to suggest osseous metastases. Photopenic defects are seen in the thoracic spine from tamara and screw fixation. Physiologic activity within the urinary bladder is seen. IMPRESSION: 1. No evidence of osseous metastases. 2. Abnormal radiotracer activity in the left ischium corresponds to patient's known osteomyelitis as defined on MRI pelvis from 10/17/2017. Dictated by: Dictated on workstation # [id number]
== END ==
LOC: RAD 09:56
PROVIDERS: ATTEND Internal Medicine Hematology & Oncology
DX: C34.81 Malignant neoplasm of overlapping sites of right bronchus and lung (principal); M86.9 Osteomyelitis, unspecified
CPT/HCPCS: 78306

== ENCOUNTER 2017-12-13 10:53 | Outpatient (RCR) | payer BC, MEDICARE | END 2018-02-06 | disposition home or self-care (01) | LOC: ONC 10:53 | PROVIDERS: ATTEND Internal Medicine Hematology & Oncology | DX: C34.91 Malignant neoplasm of unspecified part of right bronchus or lung (principal); C77.1 Secondary and unspecified malignant neoplasm of intrathoracic lymph nodes; D64.9 Anemia, unspecified; R00.0 Tachycardia, unspecified; L89.90 Pressure ulcer of unspecified site, unspecified stage; G82.20 Paraplegia, unspecified; Z87.891 Personal history of nicotine dependence; Z79.899 Other long term (current) drug therapy | CPT/HCPCS: 99213 ==

== ENCOUNTER → 2017-12-14 | Outpatient (CLI) | payer BC, MEDICARE | LOC: WOUNDCARE 15:29 | PROVIDERS: ATTEND Surgery | DX: M86.18 Other acute osteomyelitis, other site (principal); L89.324 Pressure ulcer of left buttock, stage 4; G82.20 Paraplegia, unspecified; C34.91 Malignant neoplasm of unspecified part of right bronchus or lung | CPT/HCPCS: 99212 ==

== ENCOUNTER → 2017-12-20 | Outpatient (CLI) | payer BC, MEDICARE | LOC: WOUNDCARE 10:10 | PROVIDERS: ATTEND Internal Medicine | DX: M86.18 Other acute osteomyelitis, other site (principal); L89.324 Pressure ulcer of left buttock, stage 4; G82.20 Paraplegia, unspecified; C34.91 Malignant neoplasm of unspecified part of right bronchus or lung | CPT/HCPCS: 99213 ==

== ENCOUNTER → 2017-12-20 | Outpatient (CLI) | payer BC, MEDICARE ==
[2017-12-20 11:01] LABS: BASOPHILS % (AUTO) 1 % (0-10); EOSINOPHILS # (AUTO) 0.3 10^3/uL (0.0-0.3); EOSINOPHILS % (AUTO) 4 % (0-10); HEMATOCRIT 37 % (35-52); HEMOGLOBIN 11.8 G/DL (11.5-16.0); LYMPHOCYTES # (AUTO) 0.7 X 10^3 (1.0-4.0); LYMPHOCYTES % (AUTO) 12 % (12-44); MEAN CORPUSCULAR HEMOGLOBIN 29 PG (25-34); MEAN CORPUSCULAR HGB CONC 32 G/DL (32-36); MEAN CORPUSCULAR VOLUME 89 FL (80-99); MEAN PLATELET VOLUME 8.8 FL (7.4-10.4); MONOCYTES # (AUTO) 0.6 X 10^3 (0.0-1.0); MONOCYTES % (AUTO) 9 % (0-12); NEUTROPHILS # (AUTO) 4.7 X 10^3 (1.8-7.8); NEUTROPHILS % (AUTO) 75 % (42-75); PLATELET COUNT 412 10^3/uL (130-400); RED BLOOD COUNT 4.13 10^6/uL (4.35-5.85); RED CELL DISTRIBUTION WIDTH 16.2 % (10.0-14.5); WHITE BLOOD COUNT 6.3 10^3/uL (4.3-11.0)
[2017-12-20 11:21] LABS: ERYTHROCYTE SEDIMENTATION RATE 86 MM/HR (0-30)
== END ==
LOC: LAB 10:48
PROVIDERS: ATTEND Internal Medicine
DX: M86.18 Other acute osteomyelitis, other site (principal); L89.324 Pressure ulcer of left buttock, stage 4; G82.20 Paraplegia, unspecified; C34.91 Malignant neoplasm of unspecified part of right bronchus or lung; L03.317 Cellulitis of buttock
CPT/HCPCS: 36415; 85025; 85652

== ENCOUNTER → 2018-01-03 | Outpatient (CLI) | payer BC, MEDICARE | LOC: WOUNDCARE 09:27 | PROVIDERS: ATTEND Internal Medicine | DX: L89.324 Pressure ulcer of left buttock, stage 4 (principal); C34.91 Malignant neoplasm of unspecified part of right bronchus or lung; M86.18 Other acute osteomyelitis, other site; G82.20 Paraplegia, unspecified | CPT/HCPCS: 99213 ==

== ENCOUNTER 2018-01-04 10:56 | Outpatient (RCR) | payer BC, MEDICARE ==
[~2018-01-04] VITALS: Ht 149.9 cm; Wt 43.1 kg
[2018-01-04 11:21] VITALS: BP 103/60
[2018-01-04] MEDS ORDERED: CEFEPIME 2 GM/NS 50 ML IVPB IV SCH ×2 (11:30)
--- NOTE | 2018-01-04 12:42 | Diagnostic Imaging Report ---
INDICATION: PICC line placement. History of lung CA. FINDINGS: Right PICC line is present. Tip extends just into the right atrium. Would recommend withdrawing approximately 3 cm. Right hilar mass and right lung infiltrate with pleural thickening again noted as reported on CT scan of the chest. Left lung well-aerated and clear. IMPRESSION: 1. PICC line present extending just into the right atrium would withdraw approximately 3 cm. 2. Known right lung cancer. Dictated by: Dictated on workstation # [id number]
[2018-01-04 12:57] LABS: BUN/CREATININE RATIO 19; CALCIUM 9.4 MG/DL (8.5-10.1); CARBON DIOXIDE 25 MMOL/L (21-32); CHLORIDE 101 MMOL/L (98-107); CREATININE SERUM 0.57 MG/DL (0.60-1.30); GFR ESTIMATED > 60; GLUCOSE 100 MG/DL (70-105); POTASSIUM 6.3 MMOL/L (3.6-5.0); SODIUM 136 MMOL/L (135-145)
[2018-01-04] MEDS ORDERED: VANCOMYCIN 1 GM/NS 250 ML IVPB IV NR ×2 (13:08)
[2018-01-04 14:41] VITALS: BP 103/60
--- NOTE | 2018-01-10 10:47 | Physician Query-Final Dx ---
LIANNE GARCES 01/10/18 1047: Clinic Account Progress/Dx Physician Query: Please give a diagnosis for the Vancomycin and Cefepime treatment thank you Date of Service Jan 04, 2018 at 10:56 ROSA BROWER MD 01/14/18 0757: Clinic Account Progress/Dx DIAGNOSIS: Diagnosis osteomyelitis LIANNE GARCES Jan 10, 2018 10:47 ROSA BROWER MD Jan 14, 2018 07:57
[2018-02-25] MEDS ORDERED: DEXA4TAB PO (11:12)
[2018-03-29] MEDS ORDERED: METO-352 PO (16:03)
[2018-03-29] MEDS ORDERED: MELO15TA39 PO (16:05)
[2018-03-29] MEDS ORDERED: TOLTA4 PO (16:06)
[2018-03-29] MEDS ORDERED: NITR-68 PO ×2 (16:08→16:19)
[2018-03-29] MEDS ORDERED: MORP15TA69 PO (16:10)
[2018-03-29] MEDS ORDERED: MORP30TA60 PO (16:13)
[2018-03-29] MEDS ORDERED: VANC750F2 IV (16:23)
[2018-04-02] MEDS ORDERED: CEFD300C3 PO (09:13)
[2018-04-02] MEDS ORDERED: DEXA0.5T PO (09:26)
== END 2018-04-04 | disposition home or self-care (01) ==
LOC: SDC 10:56
PROVIDERS: ATTEND Internal Medicine
DX: M86.9 Osteomyelitis, unspecified (principal)
CPT/HCPCS: 36415; 36569; 71045; 76937; 80048; 96365

== ENCOUNTER → 2018-01-17 | Outpatient (CLI) | payer BC, MEDICARE | LOC: WOUNDCARE 10:15 | PROVIDERS: ATTEND Internal Medicine | DX: M86.18 Other acute osteomyelitis, other site (principal); L89.324 Pressure ulcer of left buttock, stage 4; G82.20 Paraplegia, unspecified; C34.91 Malignant neoplasm of unspecified part of right bronchus or lung | CPT/HCPCS: 99212 ==

== ENCOUNTER → 2018-01-17 | Outpatient (CLI) | payer BC, MEDICARE ==
[2018-01-17 11:29] LABS: BASOPHILS % (AUTO) 1 % (0-10); EOSINOPHILS # (AUTO) 0.2 10^3/uL (0.0-0.3); EOSINOPHILS % (AUTO) 3 % (0-10); HEMATOCRIT 37 % (35-52); HEMOGLOBIN 12.1 G/DL (11.5-16.0); LYMPHOCYTES # (AUTO) 0.8 X 10^3 (1.0-4.0); LYMPHOCYTES % (AUTO) 15 % (12-44); MEAN CORPUSCULAR HEMOGLOBIN 29 PG (25-34); MEAN CORPUSCULAR HGB CONC 32 G/DL (32-36); MEAN CORPUSCULAR VOLUME 91 FL (80-99); MONOCYTES # (AUTO) 0.5 X 10^3 (0.0-1.0); MONOCYTES % (AUTO) 10 % (0-12); NEUTROPHILS % (AUTO) 72 % (42-75); PLATELET COUNT 239 10^3/uL (130-400); RED BLOOD COUNT 4.12 10^6/uL (4.35-5.85); RED CELL DISTRIBUTION WIDTH 16.1 % (10.0-14.5); WHITE BLOOD COUNT 5.6 10^3/uL (4.3-11.0)
[2018-01-17 12:15] LABS: ERYTHROCYTE SEDIMENTATION RATE 52 MM/HR (0-30)
== END ==
LOC: LAB 11:14
PROVIDERS: ATTEND Internal Medicine
DX: M86.18 Other acute osteomyelitis, other site (principal); L89.324 Pressure ulcer of left buttock, stage 4; G82.20 Paraplegia, unspecified; C34.91 Malignant neoplasm of unspecified part of right bronchus or lung
CPT/HCPCS: 36415; 85025; 85652

== ENCOUNTER → 2018-01-31 | Outpatient (CLI) | payer BC, MEDICARE | LOC: WOUNDCARE 10:07 | PROVIDERS: ATTEND Internal Medicine | DX: M86.18 Other acute osteomyelitis, other site (principal); L89.324 Pressure ulcer of left buttock, stage 4; G82.20 Paraplegia, unspecified; C34.91 Malignant neoplasm of unspecified part of right bronchus or lung | CPT/HCPCS: 99213 ==

== ENCOUNTER → 2018-01-31 | Outpatient (CLI) | payer BC, MEDICARE ==
[2018-01-31 11:05] LABS: HEMATOCRIT 36 % (35-52); HEMOGLOBIN 11.9 G/DL (11.5-16.0); MEAN CORPUSCULAR HEMOGLOBIN 30 PG (25-34); MEAN CORPUSCULAR HGB CONC 33 G/DL (32-36); MEAN CORPUSCULAR VOLUME 90 FL (80-99); RED BLOOD COUNT 4.03 10^6/uL (4.35-5.85); RED CELL DISTRIBUTION WIDTH 15.5 % (10.0-14.5); WHITE BLOOD COUNT 4.8 10^3/uL (4.3-11.0)
[2018-01-31 11:06] LABS: BASOPHILS % (AUTO) 1 % (0-10); EOSINOPHILS # (AUTO) 0.3 10^3/uL (0.0-0.3); EOSINOPHILS % (AUTO) 6 % (0-10); LYMPHOCYTES # (AUTO) 0.7 X 10^3 (1.0-4.0); LYMPHOCYTES % (AUTO) 14 % (12-44); MEAN PLATELET VOLUME 9.4 FL (7.4-10.4); MONOCYTES # (AUTO) 0.6 X 10^3 (0.0-1.0); MONOCYTES % (AUTO) 13 % (0-12); NEUTROPHILS # (AUTO) 3.2 X 10^3 (1.8-7.8); NEUTROPHILS % (AUTO) 67 % (42-75); PLATELET COUNT 216 10^3/uL (130-400)
[2018-01-31 11:31] LABS: ERYTHROCYTE SEDIMENTATION RATE 57 MM/HR (0-30)
== END ==
LOC: LAB 10:52
PROVIDERS: ATTEND Internal Medicine
DX: M86.18 Other acute osteomyelitis, other site (principal); L89.324 Pressure ulcer of left buttock, stage 4; G82.20 Paraplegia, unspecified; C34.91 Malignant neoplasm of unspecified part of right bronchus or lung
CPT/HCPCS: 36415; 85025; 85652

== ENCOUNTER → 2018-02-14 | Outpatient (CLI) | payer BC, MEDICARE | LOC: WOUNDCARE 10:13 | PROVIDERS: ATTEND Nurse Practitioner | DX: M86.18 Other acute osteomyelitis, other site (principal); L89.324 Pressure ulcer of left buttock, stage 4; G82.20 Paraplegia, unspecified; C34.91 Malignant neoplasm of unspecified part of right bronchus or lung | CPT/HCPCS: 99213 ==

== ENCOUNTER 2018-02-25 09:51 | Emergency (ER) | payer BC, MEDICARE ==
[~2018-02-25] VITALS: Ht 152.4 cm; Wt 39.9 kg
--- OUTSIDE RECORDS SUMMARY | 2018-02-25 10:02 | XMS REPORT | CCD ---
Author Author [facility] Organization [facility] Address [address] [place] [address] Phone Care Team Providers Care Outbound Sales Advisor Name Role Phone PP Unavailable CCM Unavailable Summary Purpose Interface Exchange Insurance Providers Payer name Policy type / Coverage type Covered green party ID Effective Begin Date Effective End Date Blue Cross Blue Shield [facility] Blue Cross/Blue Shield [id number] Unknown Unknown WPS Medicare Part B Blue Cross/Blue Shield [id number] Unknown Unknown Family history Father Diagnosis Age At Onset alcohol dependence Unknown Stroke Unknown Arthritis Unknown Cancer Unknown Heart Attack Unknown Mother Diagnosis Age At Onset alcohol dependence Unknown Heart Attack Unknown Hypertension Unknown Arthritis Unknown Cancer Unknown Social History Social History Element Codes Description Effective Dates Marital status Unknown louie 05/19/2015 Number of children Unknown 1 05/19/[address]: 9584794 Quit less than 5 years ago she just started again from stress 05/19/2015 Number of years using tobacco Unknown 20 - 30 05/19/2015 On Disability Unknown Yes 05/19/2015 Allergies, Adverse Reactions, Alerts Allergies, Adverse Reactions, Alerts data not found Past Medical History Illness Codes Condition Status Onset Date Resolved Date Pressure ulcer of left hip, stage 2 ICD-9: 707.04 ICD-10: L89.222 Active 11/13/2016 Unknown Urinary tract infection, site not specified ICD-9: 599.0 ICD-10: N39.0 Active 08/01/2017 Unknown Malignant neoplasm of overlapping sites of right bronchus and lung ICD-9: 162.8 ICD-10: C34.81 Active 07/26/2017 Unknown Slow transit constipation ICD-9: 564.01 ICD-10: K59.01 Active 07/26/2017 Unknown Pneumonia due to other specified infectious organisms ICD-9: 483.8 ICD-10: J16.8 Active 04/19/2017 Unknown Pleurodynia ICD-9: 786.50 ICD-10: R07.81 Active 04/02/2017 Unknown Other fecal abnormalities ICD-9: 787.7 ICD-10: R19.5 Active 01/11/2017 Unknown Right upper quadrant pain ICD-9: 789.01 ICD-10: R10.11 Active 01/16/2017 Unknown Encounter for general adult medical examination with abnormal findings ICD-9: V70.0 ICD-10: Z00.01 Active 05/18/2015 Unknown Other specified diseases of anus and rectum ICD-9: 569.49 ICD-10: K62.89 Active 05/17/2016 Unknown Contusion of ankle or foot, left ICD-9: 924.20 Active 2014 Unknown Foot swelling ICD-9: 729.81 Active 08/16/2015 Unknown Osteoarthritis Unknown Active 06/16/2015 Unknown OSTEOARTH NOS-UNSPEC ICD-9: 715.90 Active 06/15/2015 Unknown Tobacco use disorder ICD-9: 305.1 Active 06/15/2015 Unknown Routine medical exam ICD-9: V70.0 Active 05/18/2015 Unknown Problems Condition Codes Effective Dates Condition Status Pressure ulcer of left hip, stage 2 ICD-9: 707.04 ICD-10: L89.222 11/13/2016 Active Urinary tract infection, site not specified ICD-9: 599.0 ICD-10: N39.0 08/01/2017 Active Malignant neoplasm of overlapping sites of right bronchus and lung ICD-9: 162.8 ICD-10: C34.81 07/26/2017 Active Slow transit constipation ICD-9: 564.01 ICD-10: K59.01 07/26/2017 Active Pneumonia due to other specified infectious organisms ICD-9: 483.8 ICD-10: J16.8 04/19/2017 Active Pleurodynia ICD-9: 786.50 ICD-10: R07.81 04/02/2017 Active Other fecal abnormalities ICD-9: 787.7 ICD-10: R19.5 01/11/2017 Active Right upper quadrant pain ICD-9: 789.01 ICD-10: R10.11 01/16/2017 Active Encounter for general adult medical examination with abnormal findings ICD-9: V70.0 ICD-10: Z00.01 05/18/2015 Active Other specified diseases of anus and rectum ICD-9: 569.49 ICD-10: K62.89 05/17/2016 Active Contusion of ankle or foot, left ICD-9: 924.20 08/16/2015 Active Foot swelling ICD-9: 729.81 08/16/2015 Active Osteoarthritis Unknown 06/16/2015 Active OSTEOARTH NOS-UNSPEC ICD-9: 715.90 06/15/2015 Active Tobacco use disorder ICD-9: 305.1 06/15/2015 Active Routine medical exam ICD-9: V70.0 05/18/2015 Active Medications Medication Codes Instructions Start Date Stop Date Status Fill Instructions alprazolam 0.25 mg tablet RxNorm: 951151 1 Tablet(s) PO daily as needed 01/09/2018 03/09/2018 Active meloxicam 15 mg tablet RxNorm: 995895 TAKE ONE TABLET BY MOUTH EVERY NIGHT 12/24/2017 12/18/2018 Active Generic For:*MOBIC 15 MG TABLET baclofen 10 mg tablet RxNorm: 174522 TAKE 2 TABLETS BY MOUTH AT BEDTIME 12/24/2017 08/20/2018 Active triamcinolone acetonide 0.025 % topical cream RxNorm: 3520303 1 Application TOP BID 11/30/2017 No Stop Date Active Levaquin 500 mg tablet RxNorm: 862363 1 Tablet(s) PO daily 03/201701/08/2018 Inactive Keflex 500 mg capsule RxNorm: 845032 1 Capsule(s) PO TID 201607/08/2017 Inactive Keflex 500 mg capsule RxNorm: 906582 1 Capsule(s) PO TID 201606/28/2017 Inactive alprazolam 0.25 mg tablet RxNorm: 361673 1 Tablet(s) PO daily as needed 05/24/2017 07/21/2017 Inactive oxycodone-acetaminophen 10 mg-325 mg tablet RxNorm: 5808096 1 Tablet(s) PO Q4-6H as needed for pain 05/04/2017 No Stop Date Active Levaquin 500 mg tablet RxNorm: 885762 1 Tablet(s) PO daily 12/201607/25/2017 Inactive hydrocodone 5 mg-acetaminophen 325 mg tablet RxNorm: 386619 1-2 Tablet(s) PO Q4- 6H as needed for pain 04/26/20172016 Inactive Levaquin 500 mg tablet RxNorm: 903499 1 Tablet(s) PO daily 04/21/2017 Inactive Levaquin 500 mg tablet RxNorm: 228597 1 Tablet(s) PO daily 04/16/2017 Inactive Levaquin 500 mg tablet RxNorm: 547856 1 Tablet(s) PO daily 04/18/2017 Inactive Carafate 1 gram tablet RxNorm: 929990 1 Tablet(s) PO QID 201604/12/2017 Inactive Carafate 1 gram tablet RxNorm: 459442 1 Tablet(s) PO QID 201605/12/2017 Inactive baclofen 10 mg tablet RxNorm: 812481 TAKE 2 TABLETS BY MOUTH AT BEDTIME 04/05/2017 10/31/2017 Inactive cefdinir 300 mg capsule RxNorm: 512158 1 Capsule(s) PO BID 08/201704/03/2017 Inactive cefdinir 300 mg capsule RxNorm: 255315 1 Capsule(s) PO BID 08/201704/13/2017 Inactive Zithromax Z-Con 250 mg tablet RxNorm: 148877 Tablet(s) PO UD 04/03/2017 Inactive Take as instructed on box Zithromax Z-Con 250 mg tablet RxNorm: 828099 Tablet(s) PO UD 04/08/2017 Inactive Take as instructed on box hydrocodone 5 mg-acetaminophen 325 mg tablet RxNorm: 456607 1-2 Tablet(s) PO Q4- 6H as needed for pain 04/02/20172016 Inactive Chantix 1 mg tablet RxNorm: 730100 1 Tablet(s) PO BID 201607/25/2017 Inactive hyoscyamine 0.125 mg sublingual tablet RxNorm: 6787178 1 Tablet(s) SL TID as needed 01/16/2017 01/25/2017 Inactive meloxicam 15 mg tablet RxNorm: 198178 TAKE ONE TABLET BY MOUTH EVERY NIGHT 12/12/2016 12/06/2017 Inactive Generic For:*MOBIC 15 MG TABLET Calmoseptine 0.44 %-20.6 % topical ointment RxNorm: 777455 1 Application TOP BID 10/30/2016 No Stop Date Active alprazolam 0.25 mg tablet RxNorm: 707734 1 Tablet(s) PO daily as needed 10/30/2016 11/27/2016 Inactive baclofen 10 mg tablet RxNorm: 775185 Tablet(s) TAKE 2 TABLETS BY MOUTH AT BEDTIME 09/08/2016 03/06/2017 Inactive N O T I C E PRESCRIPTION PREVIOUSLY AUTHORIZED BY DOCTOR:JACKSON TRAN Chantix 1 mg tablet RxNorm: 070099 1 Tablet(s) PO BID 201506/27/2016 Inactive Chantix 1 mg tablet RxNorm: 526083 1 Tablet(s) PO BID 201511/13/2016 Inactive baclofen 10 mg tablet RxNorm: 913597 Tablet(s) TAKE 2 TABLETS BY MOUTH AT BEDTIME 03/15/2016 09/07/2016 Inactive N O T I C E PRESCRIPTION PREVIOUSLY AUTHORIZED BY DOCTOR:JACKSON TRAN meloxicam 15 mg tablet RxNorm: 131768 1 Tablet(s) PO QPM 201512/08/2016 Inactive alprazolam 0.25 mg tablet RxNorm: 978823 1 Tablet(s) PO daily as needed 09/22/2015 10/21/2015 Inactive baclofen 10 mg tablet RxNorm: 466669 TAKE 2 TABLETS BY MOUTH AT BEDTIME 09/13/2015 03/10/2016 Inactive N O T I C E PRESCRIPTION PREVIOUSLY AUTHORIZED BY DOCTOR: JACKSON TRAN meloxicam 15 mg tablet RxNorm: 234014 1 Tablet(s) PO QPM 201410/13/2015 Inactive Protonix 40 mg granules delayed-release packet RxNorm: 869576 1 PO daily No Start Date Active Zofran 4 mg tablet RxNorm: 824972 Tablet(s) PO No Start Date Active Toprol XL 25 mg tablet,extended release RxNorm: 856276 1 Tablet(s) PO daily No Start Date Active nitrofurantoin 100 mg capsule RxNorm: 189352 1 Capsule(s) PO every three days No Start Date Active MS Contin 60 mg tablet,extended release RxNorm: 337366 1 Tablet(s) PO BID No Start Date Active Probiotic Blend oral RxNorm: 694764 oral No Start Date Active Reglan 5 mg tablet RxNorm: 530129 1 Tablet(s) PO AC No Start Date Active tolterodine ER 4 mg capsule,extended release 24 hr RxNorm: 789429 1 Capsule(s) PO daily No Start Date Active oxycodone-acetaminophen 10 mg-325 mg tablet RxNorm: 9827414 1 Tablet(s) PO Q4-6H as needed for pain No Start Date 2016 Inactive triamcinolone acetonide 0.025 % topical cream RxNorm: 9910155 1 Application TOP BID No Start Date 11/29/2017 Inactive hydrocodone 10 mg-acetaminophen 325 mg tablet RxNorm: 445197 1 Tablet(s) PO Q4-6H No Start Date 05/03/2017 Inactive alprazolam 0.25 mg tablet RxNorm: 502132 Tablet(s) PO daily as needed No Start Date 09/21/2015 Inactive baclofen 10 mg tablet RxNorm: 057129 2 Tablet(s) PO QHS No Start Date 09/12/2015 Inactive Medication Administered No Medication Administered data Immunizations No Immunization data Assessments Condition Codes Effective Dates Urinary tract infection, site not specified ICD-10: N39.0 ICD-9: 599.0 08/01/2017 Pressure ulcer of left hip, stage 4 ICD-10: L89.224 ICD-9: 707.04 08/01/2017 Slow transit constipation ICD-10: K59.01 ICD-9: 564.01 07/26/2017 Malignant neoplasm of overlapping sites of right bronchus and lung ICD-10: C34.81 ICD-9: 162.8 07/26/2017 Pneumonia due to other specified infectious organisms ICD-10 : J16.8 ICD-9: 483.8 04/19/2017 Pleurodynia ICD-10: R07.81 ICD-9: 786.50 04/02/2017 Other fecal abnormalities ICD-10: R19.5 ICD-9: 787.7 01/16/2017 Right upper quadrant pain ICD-10: R10.11 ICD-9: 789.01 01/16/2017 Encounter for general adult medical examination with abnormal findings ICD-10: Z00.01 ICD-9: V70.0 11/14/2016 Pressure ulcer of left hip, stage 2 ICD-10: L89.222 ICD-9: 707.04 11/14/2016 Other specified diseases of anus and rectum ICD-10: K62.89 ICD-9: 569.49 05/18/2016 Foot swelling ICD-9: 729.81 08/17/2015 Contusion of ankle or foot, left ICD-9: 924.20 08/17/2015 Tobacco use disorder ICD-9: 305.1 2014 OSTEOARTH NOS-UNSPEC ICD-9: 715.90 2014 Routine medical exam ICD-9: V70.0 2014 Reason For Visit Reason For Visit Effective Dates Notes skin lesion 08/01/2017 Hospital Follow Up 07/26/2017 infection et anemia flank pain 04/19/2017 flank pain 04/02/2017 abdominal pain 01/16/2017 diarrhea 01/11/2017 sores 11/14/2016 sores 10/30/2016 foot pain 08/17/2015 Results Observation Observation Code Item Item Code Result Date Prealbumin 217040 PREALBUMIN 21 mg/dL 11/15/2016 Comp Metabolic Xhs214 NA 136 mEq/L 11/14/2016 Comp Metabolic Qdy043 K 3.8 mEq/L 11/14/2016 Comp Metabolic Acc975 CL 101 mEq/L 11/14/2016 Comp Metabolic Hwg727 CO2 28.0 mEq/L 11/14/2016 Comp Metabolic Hjk758 ANION GAP 11 11/14/2016 Comp Metabolic Zlr339 GLUCOSE 91 mg/dL 11/14/2016 Comp Metabolic Fgq343 Creat 0.5 mg/dL 11/14/2016 Comp Metabolic Uxz337 eGFR 135 ml/min/1.73m2 11/14/2016 Comp Metabolic Lms992 BUN 10 mg/dL 11/14/2016 Comp Metabolic Aec211 B/C Ratio 19.6 Ratio 11/14/2016 Comp Metabolic Txj611 CALCIUM 9.8 mg/dL 11/14/2016 Comp Metabolic Gfg542 ALK PHOS 82 U/L 11/14/2016 Comp Metabolic Qcg718 AST(SGOT) 15 U/L 11/14/2016 Comp Metabolic Rkc308 ALT(SGPT) 11 U/L 11/14/2016 Comp Metabolic Meu188 BILI T 0.4 mg/dL 11/14/2016 Comp Metabolic Fdv350 ALBUMIN 4.2 g/dL 11/14/2016 Comp Metabolic Zzv996 TPRO 7.7 g/dL 11/14/2016 Comp Metabolic Qmh586 GLOB 3.5 g/dL 11/14/2016 Comp Metabolic Fyz780 A/G Ratio 1.2 Ratio 11/14/2016 Comp Metabolic Fel635 Osmo 271 mOsmo 11/14/2016 Cbc With Differential Ord2 WBC 7.82 K/ul 11/14/2016 Cbc With Differential Ord2 RBC 4.46 M/ul 11/14/2016 Cbc With Differential Ord2 HGB 14.0 g/dl 11/14/2016 Cbc With Differential Ord2 HCT 41.7 % 11/14/2016 Cbc With Differential Ord2 Neut% 70.2 % 11/14/2016 Cbc With Differential Ord2 MCV 93.5 fl 11/14/2016 Cbc With Differential Ord2 Lymph% 18.0 % 11/14/2016 Cbc With Differential Ord2 Young% 9.8 % 11/14/2016 Cbc With Differential Ord2 MCH 31.4 pg 11/14/2016 Cbc With Differential Ord2 Eos% 1.5 % 11/14/2016 Cbc With Differential Ord2 MCHC 33.6 pg 11/14/2016 Cbc With Differential Ord2 PLT 303 K/ul 11/14/2016 Cbc With Differential Ord2 Baso% 0.5 % 11/14/2016 Cbc With Differential Ord2 RDW 14.2 % 11/14/2016 Cbc With Differential Ord2 Neut ABS# 5.48 K/ul 11/14/2016 Cbc With Differential Ord2 Lymph ABS# 1.41 K/ul 11/14/2016 Cbc With Differential Ord2 Young ABS# 0.8 K/ul 11/14/2016 Cbc With Differential Ord2 Eos ABS# 0.1 K/ul 11/14/2016 Cbc With Differential Ord2 Baso ABS# 0.0 K/ul 11/14/2016 Review of Systems System Result Effective Dates Constitutional recent illness 08/01/2017 Constitutional chills 08/01/2017 Constitutional No diaphoresis 08/01/2017 Constitutional fever 08/01/2017 Constitutional fatigue 08/01/2017 Constitutional malaise 08/01/2017 Eyes No eye erythema 08/01/2017 Ears/Nose/Throat/Neck No nasal discharge 08/01/2017 Ears/Nose/Throat/Neck No nasal allergies 08/01/2017 Cardiovascular No chest pain/pressure 04/2017 Cardiovascular No dyspnea 08/01/2017 Respiratory No cough 08/01/2017 Respiratory No dyspnea 08/01/2017 Respiratory No chest congestion 2016 Gastrointestinal No abdominal pain 2016 Gastrointestinal No vomiting 08/01/2017 Gastrointestinal No nausea 08/01/2017 Genitourinary/Nephrology No dysuria 08/01 Dermatologic sores 08/01/2017 Neurologic No alteration of consciousness 08/01/2017 Neurologic No mental status change 2016 Constitutional No recent illness 2016 Constitutional No chills 07/26/2017 Constitutional No diaphoresis 07/26/2017 Constitutional No fever 07/26/2017 Eyes No blindness 07/26/2017 Eyes No vision change 07/26/2017 Ears/Nose/Throat/Neck No nasal allergies 07/26/2017 Ears/Nose/Throat/Neck No nasal discharge 07/26/2017 Cardiovascular No chest pain/pressure Cardiovascular No dyspnea 07/26/2017 Respiratory No chest congestion 2016 Respiratory No cough 07/26/2017 Respiratory No dyspnea 07/26/2017 Dermatologic sores 07/26/2017 Neurologic No alteration of consciousness 07/26/2017 Psychiatric No anxiety 07/26/2017 Psychiatric No depression 07/26/2017 Gastrointestinal No abdominal pain 2016 Gastrointestinal constipation 07/26/2017 Gastrointestinal No diarrhea 07/26/2017 Constitutional recent illness 04/19/2017 Constitutional No chills 04/19/2017 Constitutional No diaphoresis 04/19/2017 Constitutional fatigue 04/19/2017 Constitutional No fever 04/19/2017 Constitutional malaise 04/19/2017 Eyes No eye erythema 04/19/2017 Ears/Nose/Throat/Neck No nasal allergies 04/19/2017 Ears/Nose/Throat/Neck No nasal discharge 04/19/2017 Cardiovascular No chest pain/pressure Respiratory No cough 04/19/2017 Respiratory chest congestion 04/19/2017 Respiratory No dyspnea 04/19/2017 Gastrointestinal No abdominal pain 2016 Neurologic No alteration of consciousness 04/19/2017 Neurologic No mental status change 2016 Constitutional No chills 04/02/2017 Constitutional No diaphoresis 04/02/2017 Constitutional No recent illness 2016 Eyes No eye erythema 04/02/2017 Ears/Nose/Throat/Neck No nasal allergies 04/02/2017 Ears/Nose/Throat/Neck No nasal discharge 04/02/2017 Cardiovascular No chest pain/pressure 06/2017 Respiratory cough 04/02/2017 Respiratory No dyspnea 04/02/2017 Musculoskeletal joint complaint 2016 Dermatologic No rash 04/02/2017 Neurologic No alteration of consciousness 04/02/2017 Neurologic No mental status change 2016 Constitutional recent illness 01/16/2017 Constitutional No chills 01/16/2017 Constitutional No diaphoresis 01/16/2017 Constitutional No fever 01/16/2017 Eyes No eye erythema 01/16/2017 Eyes No vision change 01/16/2017 Ears/Nose/Throat/Neck No nasal allergies 01/16/2017 Ears/Nose/Throat/Neck No nasal discharge 01/16/2017 Cardiovascular No chest pain/pressure Cardiovascular No dyspnea 01/16/2017 Respiratory No cough 01/16/2017 Respiratory No dyspnea 01/16/2017 Gastrointestinal abdominal pain 2016 Gastrointestinal diarrhea 01/16/2017 Gastrointestinal No nausea 01/16/2017 Gastrointestinal No vomiting 01/16/2017 Neurologic No alteration of consciousness 01/16/2017 Constitutional No recent illness 2016 Constitutional No chills 01/11/2017 Constitutional No diaphoresis 01/11/2017 Constitutional No fever 01/11/2017 Eyes No eye erythema 01/11/2017 Eyes No vision change 01/11/2017 Ears/Nose/Throat/Neck No nasal allergies 01/11/2017 Ears/Nose/Throat/Neck No nasal discharge 01/11/2017 Cardiovascular No chest pain/pressure Cardiovascular No dyspnea 01/11/2017 Respiratory No cough 01/11/2017 Respiratory No dyspnea 01/11/2017 Neurologic No alteration of consciousness 01/11/2017 Gastrointestinal No abdominal pain 2016 Gastrointestinal diarrhea 01/11/2017 Gastrointestinal No vomiting 01/11/2017 Gastrointestinal No nausea 01/11/2017 Constitutional No recent illness 2015 Constitutional No chills 11/14/2016 Constitutional No diaphoresis 11/14/2016 Constitutional No fever 11/14/2016 Eyes No blindness 11/14/2016 Eyes No vision change 11/14/2016 Ears/Nose/Throat/Neck No nasal allergies 11/14/2016 Ears/Nose/Throat/Neck No nasal discharge 11/14/2016 Cardiovascular No chest pain/pressure Cardiovascular No dyspnea 11/14/2016 Respiratory No chest congestion 2015 Respiratory No cough 11/14/2016 Respiratory No dyspnea 11/14/2016 Dermatologic sores 11/14/2016 Neurologic No alteration of consciousness 11/14/2016 Constitutional No recent illness 2015 Constitutional No chills 10/30/2016 Constitutional No fever 10/30/2016 Eyes No eye erythema 10/30/2016 Eyes No vision change 10/30/2016 Ears/Nose/Throat/Neck No nasal allergies 10/30/2016 Cardiovascular No chest pain/pressure 03/2016 Cardiovascular No dyspnea 10/30/2016 Respiratory No cough 10/30/2016 Respiratory No dyspnea 10/30/2016 Constitutional No diaphoresis 10/30/2016 Ears/Nose/Throat/Neck No nasal discharge 10/30/2016 Respiratory No chest congestion 2015 Dermatologic sores 10/30/2016 Neurologic No alteration of consciousness 10/30/2016 Constitutional No recent illness 2014 Constitutional No anorexia 08/17/2015 Constitutional No weight loss 08/17/2015 Constitutional weight gain 08/17/2015 Constitutional No obesity 08/17/2015 Constitutional No malaise 08/17/2015 Constitutional No insomnia 08/17/2015 Constitutional No fever 08/17/2015 Constitutional No fatigue 08/17/2015 Constitutional No diaphoresis 08/17/2015 Constitutional No chills 08/17/2015 Constitutional No night sweats 2014 Eyes No vision change 08/17/2015 Ears/Nose/Throat/Neck No headache 2014 Ears/Nose/Throat/Neck No nasal allergies 08/17/2015 Ears/Nose/Throat/Neck No nasal discharge 08/17/2015 Ears/Nose/Throat/Neck No otitis media Ears/Nose/Throat/Neck No otalgia 2014 Ears/Nose/Throat/Neck No tympanic membrane perforation 08/17/2015 Cardiovascular No chest pain/pressure Cardiovascular No exercise intolerance Cardiovascular No fatigue 08/17/2015 Cardiovascular No dyspnea 08/17/2015 Respiratory No chest congestion 2014 Respiratory No chest tightness 2014 Respiratory No cigarette smoking 2014 Respiratory No cough 08/17/2015 Respiratory No dyspnea 08/17/2015 Respiratory No nocturnal cough 2014 Respiratory No passive smoking 2014 Gastrointestinal constipation 08/17/2015 Gastrointestinal diarrhea 08/17/2015 Gastrointestinal No abdominal pain 2014 Gastrointestinal gas and bloating 2014 Gastrointestinal No gastroesophageal reflux 08/17/2015 Gastrointestinal No vomiting 08/17/2015 Gastrointestinal No nausea 08/17/2015 Genitourinary/Nephrology No dysuria 08/17 Genitourinary/Nephrology No nocturia Genitourinary/Nephrology No urinary incontinence 08/17/2015 Genitourinary/Nephrology No urinary retention/hesitancy 08/17/2015 Musculoskeletal back pain 08/17/2015 Musculoskeletal myalgias 08/17/2015 Musculoskeletal joint complaint 2014 Dermatologic No rash 08/17/2015 Dermatologic No sores 08/17/2015 Neurologic No dizziness 08/17/2015 Psychiatric anxiety 08/17/2015 Psychiatric No depression 08/17/2015 Neurologic gait abnormality 08/17/2015 Neurologic pain, back 08/17/2015 Neurologic No seizure 08/17/2015 Neurologic spasms/spasticity 08/17/2015 Constitutional No recent illness 2014 Constitutional No chills 06/16/2015 Constitutional No fatigue 06/16/2015 Constitutional No fever 06/16/2015 Constitutional No insomnia 06/16/2015 Constitutional No malaise 06/16/2015 Eyes No blindness 06/16/2015 Eyes No vision change 06/16/2015 Ears/Nose/Throat/Neck No dental pain Ears/Nose/Throat/Neck No dizziness 2014 Ears/Nose/Throat/Neck No dysphagia 2014 Ears/Nose/Throat/Neck No headache 2014 Ears/Nose/Throat/Neck No hearing loss Ears/Nose/Throat/Neck No nasal allergies 06/16/2015 Ears/Nose/Throat/Neck No sore throat Ears/Nose/Throat/Neck No postnasal drip 06/16/2015 Ears/Nose/Throat/Neck No sinus congestion 06/16/2015 Cardiovascular No chest pain/pressure Cardiovascular No dyspnea 06/16/2015 Cardiovascular No edema 06/16/2015 Cardiovascular No exercise intolerance Cardiovascular No fatigue 06/16/2015 Cardiovascular No near-syncope/dizziness 06/16/2015 Respiratory No chest tightness 2014 Respiratory No cough 06/16/2015 Respiratory No dyspnea 06/16/2015 Respiratory No pedal edema 06/16/2015 Gastrointestinal No abdominal pain 2014 Gastrointestinal No constipation 2014 Gastrointestinal No diarrhea 06/16/2015 Gastrointestinal No gastroesophageal reflux 06/16/2015 Gastrointestinal No nausea 06/16/2015 Gastrointestinal No vomiting 06/16/2015 Genitourinary/Nephrology No dysuria 06/16 Genitourinary/Nephrology No nocturia Genitourinary/Nephrology No urinary incontinence 06/16/2015 Musculoskeletal No stiffness 06/16/2015 Musculoskeletal No swelling 06/16/2015 Musculoskeletal No muscle weakness 2014 Musculoskeletal No myalgias 06/16/2015 Dermatologic No rash 06/16/2015 Dermatologic No sores 06/16/2015 Dermatologic No scar 06/16/2015 Neurologic No dizziness 06/16/2015 Neurologic No headache 06/16/2015 Neurologic No neck pain 06/16/2015 Neurologic No syncope 06/16/2015 Psychiatric No anxiety 06/16/2015 Psychiatric No depression 06/16/2015 Constitutional No recent illness 2014 Constitutional No chills 05/19/2015 Constitutional No fatigue 05/19/2015 Constitutional No fever 05/19/2015 Constitutional No insomnia 05/19/2015 Constitutional No malaise 05/19/2015 Eyes No blindness 05/19/2015 Eyes No vision change 05/19/2015 Ears/Nose/Throat/Neck No dental pain Ears/Nose/Throat/Neck No dizziness 2014 Ears/Nose/Throat/Neck No dysphagia 2014 Ears/Nose/Throat/Neck No headache 2014 Ears/Nose/Throat/Neck No hearing loss Ears/Nose/Throat/Neck No nasal allergies 05/19/2015 Ears/Nose/Throat/Neck No sore throat Ears/Nose/Throat/Neck No postnasal drip 05/19/2015 Ears/Nose/Throat/Neck No sinus congestion 05/19/2015 Cardiovascular No chest pain/pressure Cardiovascular No dyspnea 05/19/2015 Cardiovascular No edema 05/19/2015 Cardiovascular No exercise intolerance Cardiovascular No fatigue 05/19/2015 Cardiovascular No near-syncope/dizziness 05/19/2015 Respiratory No chest tightness 2014 Respiratory No cough 05/19/2015 Respiratory No dyspnea 05/19/2015 Respiratory No pedal edema 05/19/2015 Gastrointestinal No abdominal pain 2014 Gastrointestinal No constipation 2014 Gastrointestinal No diarrhea 05/19/2015 Gastrointestinal No gastroesophageal reflux 05/19/2015 Gastrointestinal No nausea 05/19/2015 Gastrointestinal No vomiting 05/19/2015 Genitourinary/Nephrology No dysuria 05/19 Genitourinary/Nephrology No nocturia Genitourinary/Nephrology No urinary incontinence 05/19/2015 Musculoskeletal No stiffness 05/19/2015 Musculoskeletal No swelling 05/19/2015 Musculoskeletal No muscle weakness 2014 Musculoskeletal No myalgias 05/19/2015 Dermatologic No rash 05/19/2015 Dermatologic No sores 05/19/2015 Dermatologic No scar 05/19/2015 Neurologic No dizziness 05/19/2015 Neurologic No headache 05/19/2015 Neurologic No neck pain 05/19/2015 Neurologic No syncope 05/19/2015 Psychiatric No anxiety 05/19/2015 Psychiatric No depression 05/19/2015 Physical Exam Exam Name System Name Item Name Status Result Effective Dates Notes Full Exam - General 1994 Constitutional general appearance Overall: well developed 08/01/2017 None Full Exam - General 1994 Constitutional general appearance Overall: in no acute distress 08/01/2017 None Full Exam - General 1994 Constitutional general appearance Overall: well nourished 08/01/2017 None Full Exam - General 1994 Constitutional general appearance Hygiene/Attention to Grooming: good hygiene 08/01/2017 None Full Exam - General 1994 Constitutional general appearance Assistive Device: wheelchair 08/01/2017 None Full Exam - General 1994 Eyes conjunctiva /eyelids Overall: conjunctiva clear 08/01/2017 None Full Exam - General 1994 Eyes conjunctiva /eyelids Overall: eyelids normal 08/01/2017 None Full Exam - General 1994 Ears/Nose/Throat lips/teeth/gingiva Overall: benign lips 08/01/2017 None Full Exam - General 1994 Respiratory respiratory effort/rhythm Overall: no retractions 08/01/2017 None Full Exam - General 1994 Respiratory respiratory effort/rhythm Overall: normal rate 08/01/2017 None Full Exam - General 1994 Cardiovascular extremities Overall: no clubbing 08/01/2017 None Full Exam - General 1994 Musculoskeletal spine, ribs and pelvis Overall: good posture 08/01/2017 None Full Exam - General 1994 Musculoskeletal head and neck Overall: head atraumatic 08/01/2017 None Full Exam - General 1994 Psychiatric orientation/consciousness Overall: oriented to person, place and time 08/01/2017 None Full Exam - General 1994 Psychiatric mood and affect Overall: normal mood and affect 08/01/2017 None Full Exam - General 1994 Psychiatric appearance Overall: well-groomed, good eye contact 08/01/2017 None Full Exam - General 1994 Ears/Nose/Throat oral cavity/pharynx/larynx Overall: oral mucosa clear 08/01/2017 None Full Exam - General 1994 Respiratory auscultation Overall: breath sounds clear bilaterally 08/01/2017 None Full Exam - General 1994 Integument inspection of skin Location: left leg 08/01/2017 hip - chornic pressure wound - erythematous and tunneling - culture obtained Full Exam - General 1994 Neurologic cranial nerves Overall: crainial nerves 2 - 12 grossly intact 08/01/2017 None Full Exam - General 1994 Constitutional general appearance Overall: well developed 07/26/2017 None Full Exam - General 1994 Constitutional general appearance Overall: in no acute distress 07/26/2017 None Full Exam - General 1994 Constitutional general appearance Overall: well nourished 07/26/2017 None Full Exam - General 1994 Constitutional general appearance Hygiene/Attention to Grooming: good hygiene 07/26/2017 None Full Exam - General 1994 Constitutional general appearance Assistive Device: wheelchair 07/26/2017 None Full Exam - General 1994 Eyes conjunctiva /eyelids Overall: conjunctiva clear 07/26/2017 None Full Exam - General 1994 Eyes conjunctiva /eyelids Overall: eyelids normal 07/26/2017 None Full Exam - General 1994 Ears/Nose/Throat lips/teeth/gingiva Overall: benign lips 07/26/2017 None Full Exam - General 1994 Ears/Nose/Throat lips/teeth/gingiva Overall: normal dentition 07/26/2017 None Full Exam - General 1994 Respiratory respiratory effort/rhythm Overall: no retractions 07/26/2017 None Full Exam - General 1994 Respiratory respiratory effort/rhythm Overall: normal rate 07/26/2017 None Full Exam - General 1994 Cardiovascular extremities Overall: no clubbing 07/26/2017 None Full Exam - General 1994 Musculoskeletal spine, ribs and pelvis Overall: good posture 07/26/2017 None Full Exam - General 1994 Musculoskeletal head and neck Overall: head atraumatic 07/26/2017 None Full Exam - General 1994 Psychiatric orientation/consciousness Overall: oriented to person, place and time 07/26/2017 None Full Exam - General 1994 Psychiatric mood and affect Overall: normal mood and affect 07/26/2017 None Full Exam - General 1994 Psychiatric appearance Overall: well-groomed, good eye contact 07/26/2017 None Full Exam - General 1994 Abdomen abdominal exam Overall: no tenderness 07/26/2017 None Full Exam - General 1994 Abdomen abdominal exam Overall: normal bowel sounds 07/26/2017 None Full Exam - General 1994 Constitutional general appearance Overall: well developed 04/19/2017 None Full Exam - General 1994 Constitutional general appearance Overall: in no acute distress 04/19/2017 None Full Exam - General 1994 Constitutional general appearance Overall: well nourished 04/19/2017 None Full Exam - General 1994 Eyes conjunctiva /eyelids Overall: conjunctiva clear 04/19/2017 None Full Exam - General 1994 Eyes conjunctiva /eyelids Overall: eyelids normal 04/19/2017 None Full Exam - General 1994 Ears/Nose/Throat lips/teeth/gingiva Overall: benign lips 04/19/2017 None Full Exam - General 1994 Ears/Nose/Throat oral cavity/pharynx/larynx Overall: oral mucosa clear 04/19/2017 None Full Exam - General 1994 Respiratory auscultation Diffuse: diminished 04/19/2017 None Full Exam - General 1994 Respiratory auscultation Right lower lung field: crackles 04/19/2017 None Full Exam - General 1994 Respiratory respiratory effort/rhythm Overall: no retractions 04/19/2017 None Full Exam - General 1994 Respiratory respiratory effort/rhythm Overall: normal rate 04/19/2017 None Full Exam - General 1994 Cardiovascular auscultation of heart Overall: regular rate 04/19/2017 None Full Exam - General 1994 Cardiovascular auscultation of heart Overall: normal heart sounds 04/19/2017 None Full Exam - General 1994 Neurologic cranial nerves Overall: crainial nerves 2 - 12 grossly intact 04/19/2017 None Full Exam - General 1994 Psychiatric orientation/consciousness Overall: oriented to person, place and time 04/19/2017 None Full Exam - General 1994 Psychiatric mood and affect Overall: normal mood and affect 04/19/2017 None Full Exam - General 1994 Psychiatric appearance Overall: well-groomed, good eye contact 04/19/2017 None Full Exam - General 1994 Constitutional general appearance Assistive Device: wheelchair 04/19/2017 None Full Exam - General 1994 Constitutional general appearance Overall: well developed 04/02/2017 None Full Exam - General 1994 Constitutional general appearance Overall: well nourished 04/02/2017 None Full Exam - General 1994 Constitutional general appearance Evidence of Distress: mild distress 04/02/2017 None Full Exam - General 1994 Constitutional general appearance Evidence of Distress: in distress secondary to pain 04/02/2017 None Full Exam - General 1994 Eyes conjunctiva /eyelids Overall: conjunctiva clear 04/02/2017 None Full Exam - General 1994 Eyes conjunctiva /eyelids Overall: eyelids normal 04/02/2017 None Full Exam - General 1994 Ears/Nose/Throat lips/teeth/gingiva Overall: benign lips 04/02/2017 None Full Exam - General 1994 Ears/Nose/Throat oral cavity/pharynx/larynx Overall: oral mucosa clear 04/02/2017 None Full Exam - General 1994 Respiratory auscultation Diffuse: diminished 04/02/2017 None Full Exam - General 1994 Constitutional general appearance Assistive Device: wheelchair 04/02/2017 None Full Exam - General 1994 Respiratory respiratory effort/rhythm Overall: no retractions 04/02/2017 None Full Exam - General 1994 Respiratory respiratory effort/rhythm Overall: normal rate 04/02/2017 None Full Exam - General 1994 Cardiovascular auscultation of heart Overall: regular rate 04/02/2017 None Full Exam - General 1994 Cardiovascular auscultation of heart Overall: normal heart sounds 04/02/2017 None Full Exam - General 1994 Musculoskeletal spine, ribs and pelvis Ribs: normal chest expansion 04/02/2017 tender to palpation Full Exam - General 1994 Musculoskeletal head and neck Overall: head atraumatic 04/02/2017 None Full Exam - General 1994 Neurologic cranial nerves Overall: crainial nerves 2 - 12 grossly intact 04/02/2017 None Full Exam - General 1994 Psychiatric orientation/consciousness Overall: oriented to person, place and time 04/02/2017 None Full Exam - General 1994 Psychiatric mood and affect Mood: flat 04/02/2017 None Full Exam - General 1994 Psychiatric appearance Overall: well-groomed, good eye contact 04/02/2017 None Full Exam - General 1994 Constitutional general appearance Overall: well developed 01/16/2017 None Full Exam - General 1994 Constitutional general appearance Overall: in no acute distress 01/16/2017 None Full Exam - General 1994 Constitutional general appearance Overall: well nourished 01/16/2017 None Full Exam - General 1994 Constitutional general appearance Hygiene/Attention to Grooming: good hygiene 01/16/2017 None Full Exam - General 1994 Constitutional general appearance Assistive Device: wheelchair 01/16/2017 None Full Exam - General 1994 Eyes conjunctiva /eyelids Overall: conjunctiva clear 01/16/2017 None Full Exam - General 1994 Eyes conjunctiva /eyelids Overall: eyelids normal 01/16/2017 None Full Exam - General 1994 Ears/Nose/Throat lips/teeth/gingiva Overall: benign lips 01/16/2017 None Full Exam - General 1994 Respiratory respiratory effort/rhythm Overall: no retractions 01/16/2017 None Full Exam - General 1994 Respiratory respiratory effort/rhythm Overall: normal rate 01/16/2017 None Full Exam - General 1994 Neurologic cranial nerves Overall: crainial nerves 2 - 12 grossly intact 01/16/2017 None Full Exam - General 1994 Psychiatric orientation/consciousness Overall: oriented to person, place and time 01/16/2017 None Full Exam - General 1994 Psychiatric mood and affect Overall: normal mood and affect 01/16/2017 None Full Exam - General 1994 Psychiatric appearance Overall: well-groomed, good eye contact 01/16/2017 None Full Exam - General 1994 Abdomen abdominal exam Overall: normal bowel sounds 01/16/2017 None Full Exam - General 1994 Abdomen abdominal exam Upper quadrant: tender to palpation 01/16/2017 None Full Exam - General 1994 Abdomen abdominal exam Upper quadrant: dull pain 01/16/2017 None Full Exam - General 1994 Abdomen abdominal exam Upper quadrant: no guarding 01/16/2017 None Full Exam - General 1994 Abdomen abdominal exam Upper quadrant: no rebound tenderness 01/16/2017 None Full Exam - General 1994 Abdomen abdominal exam Upper quadrant: no mass lesions 01/16/2017 None Full Exam - General 1994 Abdomen abdominal exam Upper quadrant: soft 01/16/2017 None Full Exam - General 1994 Abdomen abdominal exam Upper quadrant: non-tender to palpation 01/16/2017 None Full Exam - General 1994 Abdomen abdominal exam Lower quadrant: non-tender to palpation 01/16/2017 None Full Exam - General 1994 Abdomen abdominal exam Lower quadrant: no guarding 01/16/2017 None Full Exam - General 1994 Abdomen abdominal exam Lower quadrant: no rebound tenderness 01/16/2017 None Full Exam - General 1994 Abdomen abdominal exam Lower quadrant: no mass lesions 01/16/2017 None Full Exam - General 1994 Abdomen abdominal exam Lower quadrant: soft 01/16/2017 None Full Exam - General 1994 Constitutional general appearance Overall: well developed 01/11/2017 None Full Exam - General 1994 Constitutional general appearance Overall: in no acute distress 01/11/2017 None Full Exam - General 1994 Constitutional general appearance Overall: well nourished 01/11/2017 None Full Exam - General 1994 Constitutional general appearance Hygiene/Attention to Grooming: good hygiene 01/11/2017 None Full Exam - General 1994 Constitutional general appearance Assistive Device: wheelchair 01/11/2017 None Full Exam - General 1994 Eyes conjunctiva /eyelids Overall: conjunctiva clear 01/11/2017 None Full Exam - General 1994 Eyes conjunctiva /eyelids Overall: eyelids normal 01/11/2017 None Full Exam - General 1994 Ears/Nose/Throat lips/teeth/gingiva Overall: benign lips 01/11/2017 None Full Exam - General 1994 Respiratory respiratory effort/rhythm Overall: no retractions 01/11/2017 None Full Exam - General 1994 Respiratory respiratory effort/rhythm Overall: normal rate 01/11/2017 None Full Exam - General 1994 Neurologic cranial nerves Overall: crainial nerves 2 - 12 grossly intact 01/11/2017 None Full Exam - General 1994 Psychiatric orientation/consciousness Overall: oriented to person, place and time 01/11/2017 None Full Exam - General 1994 Psychiatric mood and affect Overall: normal mood and affect 01/11/2017 None Full Exam - General 1994 Psychiatric appearance Overall: well-groomed, good eye contact 01/11/2017 None Full Exam - General 1994 Abdomen abdominal exam Overall: no tenderness 01/11/2017 None Full Exam - General 1994 Abdomen abdominal exam Overall: normal bowel sounds 01/11/2017 None Full Exam - General 1994 Constitutional general appearance Overall: well developed 11/14/2016 None Full Exam - General 1994 Constitutional general appearance Overall: in no acute distress 11/14/2016 None Full Exam - General 1994 Constitutional general appearance Overall: well nourished 11/14/2016 None Full Exam - General 1994 Constitutional general appearance Hygiene/Attention to Grooming: good hygiene 11/14/2016 None Full Exam - General 1994 Constitutional general appearance Assistive Device: wheelchair 11/14/2016 None Full Exam - General 1994 Eyes conjunctiva /eyelids Overall: conjunctiva clear 11/14/2016 None Full Exam - General 1994 Eyes conjunctiva /eyelids Overall: eyelids normal 11/14/2016 None Full Exam - General 1994 Ears/Nose/Throat lips/teeth/gingiva Overall: benign lips 11/14/2016 None Full Exam - General 1994 Ears/Nose/Throat lips/teeth/gingiva Overall: normal dentition 11/14/2016 None Full Exam - General 1994 Respiratory respiratory effort/rhythm Overall: no retractions 11/14/2016 None Full Exam - General 1994 Respiratory respiratory effort/rhythm Overall: normal rate 11/14/2016 None Full Exam - General 1994 Cardiovascular extremities Overall: no clubbing 11/14/2016 None Full Exam - General 1994 Musculoskeletal spine, ribs and pelvis Overall: good posture 11/14/2016 None Full Exam - General 1994 Musculoskeletal head and neck Overall: head atraumatic 11/14/2016 None Full Exam - General 1994 Integument inspection of skin Location: left leg 11/14/2016 hip - stage 2 pressure ulcer - tunnels about 1/8 inch toward the vaginal region Full Exam - General 1994 Integument inspection of skin Pigmentation: erythematous 11/14/2016 None Full Exam - General 1994 Neurologic cranial nerves Overall: crainial nerves 2 - 12 grossly intact 11/14/2016 None Full Exam - General 1994 Psychiatric orientation/consciousness Overall: oriented to person, place and time 11/14/2016 None Full Exam - General 1994 Psychiatric mood and affect Overall: normal mood and affect 11/14/2016 None Full Exam - General 1994 Psychiatric appearance Overall: well-groomed, good eye contact 11/14/2016 None Full Exam - General 1994 Constitutional general appearance Overall: well developed 10/30/2016 None Full Exam - General 1994 Constitutional general appearance Overall: in no acute distress 10/30/2016 None Full Exam - General 1994 Constitutional general appearance Overall: well nourished 10/30/2016 None Full Exam - General 1994 Respiratory respiratory effort/rhythm Overall: no retractions 10/30/2016 None Full Exam - General 1994 Respiratory respiratory effort/rhythm Overall: normal rate 10/30/2016 None Full Exam - General 1994 Cardiovascular extremities Overall: no clubbing 10/30/2016 None Full Exam - General 1994 Psychiatric orientation/consciousness Overall: oriented to person, place and time 10/30/2016 None Full Exam - General 1994 Psychiatric mood and affect Overall: normal mood and affect 10/30/2016 None Full Exam - General 1994 Constitutional general appearance Hygiene/Attention to Grooming: good hygiene 10/30/2016 None Full Exam - General 1994 Constitutional general appearance Assistive Device: wheelchair 10/30/2016 None Full Exam - General 1994 Eyes conjunctiva /eyelids Overall: conjunctiva clear 10/30/2016 None Full Exam - General 1994 Eyes conjunctiva /eyelids Overall: eyelids normal 10/30/2016 None Full Exam - General 1994 Ears/Nose/Throat lips/teeth/gingiva Overall: benign lips 10/30/2016 None Full Exam - General 1994 Ears/Nose/Throat lips/teeth/gingiva Overall: normal dentition 10/30/2016 None Full Exam - General 1994 Musculoskeletal spine, ribs and pelvis Overall: good posture 10/30/2016 None Full Exam - General 1994 Musculoskeletal head and neck Overall: head atraumatic 10/30/2016 None Full Exam - General 1994 Neurologic cranial nerves Overall: crainial nerves 2 - 12 grossly intact 10/30/2016 None Full Exam - General 1994 Integument inspection of skin Location: left leg 10/30/2016 hip - stage 2 pressure ulcer Full Exam - General 1994 Integument inspection of skin Pigmentation: erythematous 10/30/2016 None Full Exam - General 1994 Psychiatric appearance Overall: well-groomed, good eye contact 10/30/2016 None Full Exam - General 1994 Constitutional general appearance Overall: well nourished 05/18/2016 None Full Exam - General 1994 Constitutional general appearance Overall: well developed 05/18/2016 None Full Exam - General 1994 Constitutional general appearance Overall: in no acute distress 05/18/2016 None Full Exam - General 1994 Respiratory auscultation Overall: breath sounds clear bilaterally 05/18/2016 None Full Exam - General 1994 Respiratory respiratory effort/rhythm Overall: normal rate 05/18/2016 None Full Exam - General 1994 Respiratory respiratory effort/rhythm Overall: no retractions 05/18/2016 None Full Exam - General 1994 Cardiovascular auscultation of heart Overall: regular rate 05/18/2016 None Full Exam - General 1994 Cardiovascular auscultation of heart Overall: normal heart sounds 05/18/2016 None Full Exam - General 1994 Cardiovascular auscultation of heart Overall: no murmurs 05/18/2016 None Full Exam - General 1994 Cardiovascular extremities Overall: no clubbing 05/18/2016 None Full Exam - General 1994 Abdomen abdominal exam Overall: no tenderness 05/18/2016 None Full Exam - General 1994 Abdomen abdominal exam Overall: normal bowel sounds 05/18/2016 None Full Exam - General 1994 Abdomen liver and spleen exam Overall: no hepatosplenomegaly 05/18/2016 None Full Exam - General 1994 Abdomen liver and spleen exam Overall: no stigmata of chronic liver disease 05/18/2016 None Full Exam - General 1994 Psychiatric orientation/consciousness Overall: oriented to person, place and time 05/18/2016 None Full Exam - General 1994 Psychiatric mood and affect Mood: happy 05/18/2016 None Full Exam - General 1994 Psychiatric mood and affect Overall: normal mood and affect 05/18/2016 None Full Exam - General 1994 Genitourinary labia and vagina Overall: no lesions 05/18/2016 None Full Exam - General 1994 Genitourinary labia and vagina Overall: normal hair distribution 05/18/2016 None Full Exam - General 1994 Abdomen rectal exam Overall: no masses, no lesions 05/18/2016 None Full Exam - General 1994 Constitutional general appearance Development: well developed 08/17/2015 None Full Exam - General 1994 Constitutional general appearance Development: appears stated age 0908/17/2015 None Full Exam - General 1994 Constitutional general appearance Hygiene/Attention to Grooming: good hygiene 08/17/2015 None Full Exam - General 1994 Constitutional general appearance Assistive Device: wheelchair 08/17/2015 None Full Exam - General 1994 Eyes conjunctiva /eyelids Overall: conjunctiva clear 08/17/2015 None Full Exam - General 1994 Eyes conjunctiva /eyelids Overall: cornea clear 08/17/2015 None Full Exam - General 1994 Eyes conjunctiva /eyelids Overall: eyelids normal 08/17/2015 None Full Exam - General 1994 Eyes pupils and irises Overall: pupils equal, round, reactive to light and accomodation 08/17/2015 None Full Exam - General 1994 Ears/Nose/Throat otoscopic exam Overall: external auditory canals clear 08/17/2015 None Full Exam - General 1994 Ears/Nose/Throat otoscopic exam Overall: tympanic membranes clear 08/17/2015 None Full Exam - General 1994 Ears/Nose/Throat lips/teeth/gingiva Overall: benign lips 08/17/2015 None Full Exam - General 1994 Ears/Nose/Throat lips/teeth/gingiva Overall: normal dentition 08/17/2015 None Full Exam - General 1994 Ears/Nose/Throat oral cavity/pharynx/larynx Overall: oral mucosa clear 08/17/2015 None Full Exam - General 1994 Ears/Nose/Throat oral cavity/pharynx/larynx Overall: oropharyngeal mucosa clear 08/17/2015 None Full Exam - General 1994 Ears/Nose/Throat oral cavity/pharynx/larynx Overall: hypopharynx benign 08/17/2015 None Full Exam - General 1994 Ears/Nose/Throat oral cavity/pharynx/larynx Overall: no masses 08/17/2015 None Full Exam - General 1994 Respiratory auscultation Overall: breath sounds clear bilaterally 08/17/2015 None Full Exam - General 1994 Respiratory respiratory effort/rhythm Overall: no retractions 08/17/2015 None Full Exam - General 1994 Respiratory respiratory effort/rhythm Overall: normal rate 08/17/2015 None Full Exam - General 1994 Cardiovascular extremities Overall: no clubbing 08/17/2015 None Full Exam - General 1994 Cardiovascular auscultation of heart Overall: regular rate 08/17/2015 None Full Exam - General 1994 Cardiovascular auscultation of heart Overall: normal heart sounds 08/17/2015 None Full Exam - General 1994 Abdomen abdominal exam Overall: no tenderness 08/17/2015 None Full Exam - General 1994 Abdomen abdominal exam Overall: normal bowel sounds 08/17/2015 None Full Exam - General 1994 Lymphatic neck nodes Overall: anterior cervical chain benign 08/17/2015 None Full Exam - General 1994 Lymphatic neck nodes Overall: posterior cervical chain benign 08/17/2015 None Full Exam - General 1994 Musculoskeletal spine, ribs and pelvis Overall: spine benign 08/17/2015 None Full Exam - General 1994 Musculoskeletal spine, ribs and pelvis Overall: sacroiliac joint benign 08/17/2015 None Full Exam - General 1994 Musculoskeletal spine, ribs and pelvis Overall: good posture 08/17/2015 None Full Exam - General 1994 Musculoskeletal head and neck Overall: head atraumatic 08/17/2015 None Full Exam - General 1994 Musculoskeletal head and neck Overall: cervical spine benign 08/17/2015 None Full Exam - General 1994 Neurologic cranial nerves Overall: crainial nerves 2 - 12 grossly intact 08/17/2015 None Full Exam - General 1994 Psychiatric orientation/consciousness Overall: oriented to person, place and time 08/17/2015 None Full Exam - General 1994 Psychiatric mood and affect Overall: normal mood and affect 08/17/2015 None Full Exam - General 1994 Integument inspection of skin Location: left foot 08/17/2015 bruising and swelling left foot and ankle-more prominent bruising over plantar surface foot foot. Full Exam - General 1994 Constitutional general appearance Development: well developed 06/16/2015 None Full Exam - General 1994 Constitutional general appearance Development: appears stated age 0706/16/2015 None Full Exam - General 1994 Constitutional general appearance Hygiene/Attention to Grooming: good hygiene 06/16/2015 None Full Exam - General 1994 Constitutional general appearance Assistive Device: wheelchair 06/16/2015 None Full Exam - General 1994 Eyes conjunctiva /eyelids Overall: conjunctiva clear 06/16/2015 None Full Exam - General 1994 Eyes conjunctiva /eyelids Overall: cornea clear 06/16/2015 None Full Exam - General 1994 Eyes conjunctiva /eyelids Overall: eyelids normal 06/16/2015 None Full Exam - General 1994 Eyes pupils and irises Overall: pupils equal, round, reactive to light and accomodation 06/16/2015 None Full Exam - General 1994 Ears/Nose/Throat otoscopic exam Overall: external auditory canals clear 06/16/2015 None Full Exam - General 1994 Ears/Nose/Throat otoscopic exam Overall: tympanic membranes clear 06/16/2015 None Full Exam - General 1994 Ears/Nose/Throat lips/teeth/gingiva Overall: benign lips 06/16/2015 None Full Exam - General 1994 Ears/Nose/Throat lips/teeth/gingiva Overall: normal dentition 06/16/2015 None Full Exam - General 1994 Ears/Nose/Throat oral cavity/pharynx/larynx Overall: oral mucosa clear 06/16/2015 None Full Exam - General 1994 Ears/Nose/Throat oral cavity/pharynx/larynx Overall: oropharyngeal mucosa clear 06/16/2015 None Full Exam - General 1994 Ears/Nose/Throat oral cavity/pharynx/larynx Overall: hypopharynx benign 06/16/2015 None Full Exam - General 1994 Ears/Nose/Throat oral cavity/pharynx/larynx Overall: no masses 06/16/2015 None Full Exam - General 1994 Respiratory auscultation Overall: breath sounds clear bilaterally 06/16/2015 None Full Exam - General 1994 Respiratory respiratory effort/rhythm Overall: no retractions 06/16/2015 None Full Exam - General 1994 Respiratory respiratory effort/rhythm Overall: normal rate 06/16/2015 None Full Exam - General 1994 Cardiovascular extremities Overall: no clubbing 06/16/2015 None Full Exam - General 1994 Cardiovascular auscultation of heart Overall: regular rate 06/16/2015 None Full Exam - General 1994 Cardiovascular auscultation of heart Overall: normal heart sounds 06/16/2015 None Full Exam - General 1994 Abdomen abdominal exam Overall: no tenderness 06/16/2015 None Full Exam - General 1994 Abdomen abdominal exam Overall: normal bowel sounds 06/16/2015 None Full Exam - General 1994 Lymphatic neck nodes Overall: anterior cervical chain benign 06/16/2015 None Full Exam - General 1994 Lymphatic neck nodes Overall: posterior cervical chain benign 06/16/2015 None Full Exam - General 1994 Musculoskeletal spine, ribs and pelvis Overall: spine benign 06/16/2015 None Full Exam - General 1994 Musculoskeletal spine, ribs and pelvis Overall: sacroiliac joint benign 06/16/2015 None Full Exam - General 1994 Musculoskeletal spine, ribs and pelvis Overall: good posture 06/16/2015 None Full Exam - General 1994 Musculoskeletal head and neck Overall: head atraumatic 06/16/2015 None Full Exam - General 1994 Musculoskeletal head and neck Overall: cervical spine benign 06/16/2015 None Full Exam - General 1994 Integument inspection of skin Overall: few scattered moles, no gross abnormalities 06/16/2015 healed sites on sacrum, coccyx, over ischial tuberosities - from previous pressure ulcers - Full Exam - General 1994 Neurologic deep tendon reflexes Overall: deep tendon reflexes intact 06/16/2015 None Full Exam - General 1994 Neurologic cranial nerves Overall: crainial nerves 2 - 12 grossly intact 06/16/2015 None Full Exam - General 1994 Psychiatric orientation/consciousness Overall: oriented to person, place and time 06/16/2015 None Full Exam - General 1994 Psychiatric mood and affect Overall: normal mood and affect 06/16/2015 None Full Exam - General 1994 Constitutional general appearance Development: well developed 05/19/2015 None Full Exam - General 1994 Constitutional general appearance Development: appears stated age 0605/19/2015 None Full Exam - General 1994 Constitutional general appearance Hygiene/Attention to Grooming: good hygiene 05/19/2015 None Full Exam - General 1994 Eyes conjunctiva /eyelids Overall: conjunctiva clear 05/19/2015 None Full Exam - General 1994 Eyes conjunctiva /eyelids Overall: cornea clear 05/19/2015 None Full Exam - General 1994 Eyes conjunctiva /eyelids Overall: eyelids normal 05/19/2015 None Full Exam - General 1994 Eyes pupils and irises Overall: pupils equal, round, reactive to light and accomodation 05/19/2015 None Full Exam - General 1994 Ears/Nose/Throat otoscopic exam Overall: external auditory canals clear 05/19/2015 None Full Exam - General 1994 Ears/Nose/Throat otoscopic exam Overall: tympanic membranes clear 05/19/2015 None Full Exam - General 1994 Ears/Nose/Throat lips/teeth/gingiva Overall: benign lips 05/19/2015 None Full Exam - General 1994 Ears/Nose/Throat lips/teeth/gingiva Overall: normal dentition 05/19/2015 None Full Exam - General 1994 Ears/Nose/Throat oral cavity/pharynx/larynx Overall: oral mucosa clear 05/19/2015 None Full Exam - General 1994 Ears/Nose/Throat oral cavity/pharynx/larynx Overall: oropharyngeal mucosa clear 05/19/2015 None Full Exam - General 1994 Ears/Nose/Throat oral cavity/pharynx/larynx Overall: hypopharynx benign 05/19/2015 None Full Exam - General 1994 Ears/Nose/Throat oral cavity/pharynx/larynx Overall: no masses 05/19/2015 None Full Exam - General 1994 Respiratory auscultation Overall: breath sounds clear bilaterally 05/19/2015 None Full Exam - General 1994 Respiratory respiratory effort/rhythm Overall: no retractions 05/19/2015 None Full Exam - General 1994 Respiratory respiratory effort/rhythm Overall: normal rate 05/19/2015 None Full Exam - General 1994 Cardiovascular extremities Overall: no clubbing 05/19/2015 None Full Exam - General 1994 Cardiovascular auscultation of heart Overall: regular rate 05/19/2015 None Full Exam - General 1994 Cardiovascular auscultation of heart Overall: normal heart sounds 05/19/2015 None Full Exam - General 1994 Abdomen abdominal exam Overall: no tenderness 05/19/2015 None Full Exam - General 1994 Abdomen abdominal exam Overall: normal bowel sounds 05/19/2015 None Full Exam - General 1994 Lymphatic neck nodes Overall: anterior cervical chain benign 05/19/2015 None Full Exam - General 1994 Lymphatic neck nodes Overall: posterior cervical chain benign 05/19/2015 None Full Exam - General 1994 Musculoskeletal spine, ribs and pelvis Overall: spine benign 05/19/2015 None Full Exam - General 1994 Musculoskeletal spine, ribs and pelvis Overall: sacroiliac joint benign 05/19/2015 None Full Exam - General 1994 Musculoskeletal spine, ribs and pelvis Overall: good posture 05/19/2015 None Full Exam - General 1994 Musculoskeletal head and neck Overall: head atraumatic 05/19/2015 None Full Exam - General 1994 Musculoskeletal head and neck Overall: cervical spine benign 05/19/2015 None Full Exam - General 1994 Neurologic deep tendon reflexes Overall: deep tendon reflexes intact 05/19/2015 None Full Exam - General 1994 Neurologic cranial nerves Overall: crainial nerves 2 - 12 grossly intact 05/19/2015 None Full Exam - General 1994 Psychiatric orientation/consciousness Overall: oriented to person, place and time 05/19/2015 None Full Exam - General 1994 Psychiatric mood and affect Overall: normal mood and affect 05/19/2015 None Full Exam - General 1994 Constitutional general appearance Assistive Device: wheelchair 05/19/2015 None Full Exam - General 1994 Integument inspection of skin Overall: few scattered moles, no gross abnormalities 05/19/2015 healed sites on sacrum, coccyx, over ischial tuberosities - from previous pressure ulcers - Procedures No Procedures data Vital Signs Date Vital 08/01/2017 Blood Pressure 1: 118/56 Code : 8480-6 Heart Rate 1: 126 bpm Height: 5' SpO2: 98% Temperature: 38.0 (C) / 100.4 (F) Weight: 07/26/2017 Blood Pressure 1: 130/68 Code : 8480-6 Heart Rate 1: 107 bpm Height: 5' SpO2: 99% Weight: 04/19/2017 Blood Pressure 1: 112/60 Code : 8480-6 Heart Rate 1: 112 bpm Height: 5' SpO2: 97% Temperature: 37.0 (C) / 98.6 (F) Weight: 04/02/2017 Blood Pressure 1: 126/80 Code : 8480-6 Heart Rate 1: 120 bpm Height: 5' SpO2: 97% Weight: 01/16/2017 Blood Pressure 1: 124/76 Code : 8480-6 Heart Rate 1: 117 bpm Height: 5' SpO2: 96% Temperature: 37.1 (C) / 98.8 (F) Weight: 01/11/2017 Blood Pressure 1: 122/76 Code : 8480-6 Heart Rate 1: 108 bpm Height: 5' SpO2: 98% Temperature: 36.9 (C) / 98.4 (F) Weight: 11/14/2016 Blood Pressure 1: 118/70 Code : 8480-6 Heart Rate 1: 118 bpm Height: 5' SpO2: 98% Weight: 10/30/2016 Blood Pressure 1: 142/88 Code : 8480-6 Heart Rate 1: 91 bpm Height: 5' SpO2: 97% 05/18/2016 Blood Pressure 1: 118/74 Code : 8480-6 Heart Rate 1: 95 bpm Height: 5' SpO2: 97% Weight: 08/17/2015 Blood Pressure 1: 102/60 Code : 8480-6 Heart Rate 1: 100 bpm Height: 5' SpO2: 99% Weight: 06/16/2015 Blood Pressure 1: 120/62 Code : 8480-6 Heart Rate 1: 80 bpm Height: SpO2: 96% Weight: 05/19/2015 Blood Pressure 1: 110/60 Code : 8480-6 Heart Rate 1: 99 bpm Height: 5' SpO2: 98% Weight: Functional Status No Functional Status data History of Present Illness Symptom Name Status Result Effective Date Notes skin lesion Onset and Resolution ongoing 08/01/2017 None skin lesion Quality enlarging 08/01/2017 None skin lesion Location sacrum 08/01/2017 None Hospital Follow Up _ infection 07/26/2017 None Hospital Follow Up _ Other: anemia 07/26/2017 None Hospital Follow Up Quality acute illness 07/26/2017 None nausea Onset and Resolution sudden in onset 07/26/2017 None nausea Severity moderate 07/26/2017 None nausea Quality acute 07/26/2017 None nausea Pertinent Findings bloating 07/26/2017 None nausea Pertinent Findings emesis 07/26/2017 None constipation Onset and Resolution ongoing 07/26/2017 None constipation Quality acute 07/26/2017 None constipation Pertinent Findings bloating 07/26/2017 None flank pain Location on the right 04/19/2017 None flank pain Quality aching 04/19/2017 None flank pain Quality constant 04/19/2017 None flank pain Pertinent Findings Denies fever 04/19/2017 None flank pain Location on the right 04/02/2017 None flank pain Radiating the back 04/02/2017 None flank pain Quality acute 04/02/2017 None flank pain Quality sharp 04/02/2017 None flank pain Onset and Resolution ongoing 04/02/2017 None flank pain Limitation on Activities moderately limits activities 04/02/2017 None flank pain Pertinent Findings Denies chills 04/02/2017 None flank pain Pertinent Findings Denies nausea 04/02/2017 None abdominal pain Location in the RUQ 01/16/2017 None abdominal pain Quality burning 01/16/2017 None abdominal pain Quality stabbing 01/16/2017 None abdominal pain Quality cramping 01/16/2017 None abdominal pain Quality constant 01/16/2017 None abdominal pain Quality worsening 01/16/2017 None abdominal pain Exacerbating Factors eating 01/16/2017 None abdominal pain Pertinent Findings dyspepsia 01/16/2017 None abdominal pain Pertinent Findings heartburn 01/16/2017 None abdominal pain Pertinent Findings Denies nausea 01/16/2017 None abdominal pain Pertinent Findings Denies vomiting 01/16/2017 None abdominal pain Pertinent Findings bloating 01/16/2017 None abdominal pain Triggers no known associated factors 01/16/2017 None abdominal pain Onset and Resolution sudden in onset 01/16/2017 None diarrhea Quality watery 01/11/2017 None diarrhea Onset and Resolution sudden in onset 01/11/2017 None diarrhea Onset of Symptom 2 weeks ago 01/11/2017 None diarrhea Pertinent Findings fecal urgency 01/11/2017 None sores Frequency of Episodes daily 11/14/2016 None sores Onset and Resolution ongoing 11/14/2016 None pain, generalized Quality chronic 11/14/2016 None pain, generalized Quality aching 11/14/2016 None pain, generalized Onset and Resolution ongoing 11/14/2016 None pain, generalized Onset and Resolution gradual in onset 11/14/2016 None sores Location-Major on the lower body 11/14/2016 None sores Location-Trunk on the buttocks 11/14/2016 left hip/buttock sores Quality recurrent 11/14/2016 None sores Quality worsening 11/14/2016 None sores Location-Trunk on the buttocks 10/30/2016 None sores Color flesh-colored 10/30/2016 None sores Onset and Resolution sudden in onset 10/30/2016 None sores Onset of Symptom 2 weeks ago 10/30/2016 None sores Frequency of Episodes daily 10/30/2016 None sores Severity worsening 10/30/2016 None foot pain Location on the left 08/17/2015 None foot pain Quality acute 08/17/2015 None foot pain Onset and Resolution ongoing 08/17/2015 None foot pain Onset of Symptom 5 days ago 08/17/2015 None foot pain Frequency of Episodes unchanged 08/17/2015 None foot pain Significant Medical Conditions prior history of foot instability 08/17/2015 paraplegia foot pain Mechanism of injury low energy 08/17/2015 states she was stretching her legs as she does every morning and pulled her toes towards her and heard a popping noise. No feeling in legs or feet. Swelling in left foot/ankle and bruising foot pain Initial treatment elevation 08/17/2015 None foot pain Initial treatment compression 08/17/2015 None foot pain Pertinent Findings bruising 08/17/2015 None foot pain Pertinent Findings swelling 08/17/2015 None foot pain Pertinent Findings warmth 08/17/2015 None Advance Directives No Advance Directive data Encounters Encounter Performer Location Codes Date EST. PATIENT, LEVEL III Diagnosis: Pressure ulcer of left hip, stage 4[ICD10: L89.224] Diagnosis: Urinary tract infection, site not specified[ICD10: N39.0] Marilu Oshea MD, [facility] CPT-4: 02523 08/01/2017 ([id number]) 92347 EST. PATIENT, LEVEL IV Diagnosis: Slow transit constipation[ICD10: K59.01] Diagnosis: Malignant neoplasm of overlapping sites of right bronchus and lung[ ICD10: C34.81] Marivel Oshea MD, [facility] CPT-4: 81644 07/26/2017 83478 EST. PATIENT, LEVEL III Diagnosis: Pneumonia due to other specified infectious organisms[ICD10: J16.8] Marilu Oshea MD, [facility] CPT-4: 06524 04/19/2017 97284 EST. PATIENT, LEVEL IV Diagnosis: Pleurodynia[ICD10: R07.81] Marilu Oshea MD, [facility] CPT-4 : 29041 04/02/2017 90332 EST. PATIENT, LEVEL IV Diagnosis: Right upper quadrant pain[ICD10: R10.11] Diagnosis: Other fecal abnormalities[ICD10: R19.5] Marilu Oshea MD, [facility] CPT-4: 69371 01/16/2017 [id number] EST. PATIENT, LEVEL III Diagnosis: Other fecal abnormalities[ICD10: R19.5] Marilu Oshea MD, [facility] CPT-4: 68304 01/11/2017 ([id number]) PREV VISIT EST AGE 40-64 Diagnosis: Encounter for general adult medical examination with abnormal findings[ICD10: Z00.01] Diagnosis: Pressure ulcer of left hip, stage 2[ICD10: L89.222] Marivel Oshea MD, [facility] CPT-4: 92785 11/14/2016 27235 EST. PATIENT, LEVEL IV Diagnosis: Pressure ulcer of left hip, stage 2[ICD10: L89.222] Marilu Oshea MD, [facility] CPT-4: 69935 10/30/2016 ([id number]) 68197 EST. PATIENT, LEVEL IV Diagnosis: Other specified diseases of anus and rectum[ICD10: K62.89] Marivel Oshea MD , [facility] CPT-4: 90339 05/18/2016 ([id number]) 19251 EST. PATIENT, LEVEL III Diagnosis: Contusion of ankle or foot, left[ICD9: 924.20] Diagnosis: Foot swelling[ICD9: 729.81] Lainey Oshea MD, [facility] CPT-4: 24822 08/17/2015 ([id number]) 09306 EST. PATIENT, LEVEL III Diagnosis: OSTEOARTH NOS-UNSPEC[ICD9: 715.90] Diagnosis: Tobacco use disorder[ICD9: 305.1] Marivel Oshea MD, [facility] CPT-4: 88727 06/16/2015 ([id number]) PREV VISIT NEW AGE 40-64 Diagnosis: Routine medical exam[ICD9: V70.0] [facility] CPT-4: 95732 05/19/2015 Plan of Care Planned Activity Notes Codes Status Date Visit Plan: UTI - pt with positive urinalysis - culture sent if appropriate. Antibiotic electronically prescribed to pt's pharmacy of choice. Pt to call if symptoms do not improve. Chronic pressure wound - defer to wound care - pt is to go to wound care directly from clinic today - pt is to notify clinic of updated treatment plan. 08/01/2017 Patient Education: Patient Medication Summary Completed 08/01/2017 Visit Plan: Constipation - uncontrolled - I have discussed with the patient the need for adequate fiber and water intake to facilitate soft , easily passed stools. The pt noted understanding of our conversation. I have given the patient a recipe for "power pudding" - equal parts, bran flakes, prune juice, and apple sauce. The pt is to call if symptoms not improved on this regimen. Lung cancer - recommended continued monitor with oncology. 07/26/2017 Appointment: [phone] (15 min) Moderate 07/26/2017 Patient Education: Patient Medication Summary Completed 07/26/2017 Visit Plan: Pneumonia - Pt has been diagnosed with pneumonia by physical exam. A chest xray has been ordered as have antibiotics. The pt is aware of the diagnosis and the need for acute treatment of this illness. 04/19/2017 Appointment: Marilu Parry WPtel: [phone] [facility] (30 min) Complex 04/19/2017 Patient Education: Patient Medication Summary Completed 04/19/2017 Visit Plan: Right lower rib pain - will check x-ray - will treat as indicated - pt is to notify clinic if symptoms do not improve, if they worsen, or with any questions of concerns. 04/02/2017 Appointment: Marilu Parry WPtel: [phone] [facility] [place] (30 min) Complex 04/02/2017 Patient Education: Patient Medication Summary Completed 04/02/2017 Visit Plan: Right upper quadrant pain - will order gallbladder US - if needed will refer to Dr. Sinclair. Diarrhea - ongoing - improved some for a couple of days, but worsening now - will order stool culture - recommended bland diet, low fat diet, start on probiotic, and rehydrate with gatorade-like product. Pt to call if feeling worse, diarrhea becomes bloody, or does not improve with above recommendations. Pt to call for acute worsening of stomach upset or stomach pain. 01/16/2017 Appointment: Marilu Parry WPtel: [phone] [facility] [place] (15 min) Moderate 01/16/2017 Patient Education: Patient Medication Summary Completed 01/16/2017 Care Plan: ECHO EXAM OF ABDOMEN Gallbladder US Pending 01/16/2017 Visit Plan: Diarrhea - recommended bland diet, low fat diet , start on probiotic, and rehydrate with gatorade-like product. Pt to call if feeling worse, diarrhea becomes bloody, or does not improve with above recommendations. Pt to call for acute worsening of stomach upset or stomach pain. 01/11/2017 Appointment: Marilu Parry WPtel: Formerly named [facility] [place] (30 min) Complex 01/11/2017 Patient Education: Patient Medication Summary Completed 01/11/2017 Appointment: Marivel Oshea WPtel: Formerly named [facility] [place] (15 min) Moderate 12/14/2016 Visit Plan: Left hip pressure ulcer -tunnels 1/8 inch - [facility] about 9:30-9:45AM for registration process in the wound-care center. Off load the hip - will have pt get a new Gel cushion. 11/14/2016 Visit Plan: Left hip pressure ulcer -tunnels 1/8 inch - Referral to Wound [facility] about 9:30-9:45AM for registration process in the wound-care center. Off load the hip - will have pt get a new Gel cushion. 11/14/2016 Appointment: Marivel Oshea WPtel: Formerly named [facility] [place] (15 min) Moderate 11/14/2016 Patient Education: Patient Medication Summary Completed 11/14/2016 Visit Plan: Stage 2 pressure ulcer, left hip - Pt was instructed to keep the area clean, wash with antibacterial soap, use ointment, call if redness, pustular drainage, or any other acute concerns. 10/30/2016 Appointment: Lainey Hudson WPtel: [phone] [facility] [place] (15 min) Moderate 10/30/2016 Patient Education: Patient Medication Summary Completed 10/30/2016 Referral: Blair Sinclair [address] [facility] Referral Completed 05/22/2016 Visit Plan: Planning colonoscopy with - appt on @ 3:45pm 05/18/2016 Patient Education: Patient Medication Summary Completed 05/18/2016 Care Plan: Referral Order SNOMED-CT : [id number] Pending 05/18/2016 Appointment: Marivel Oshea WPtel: Formerly named [facility] (15 min) Moderate 08/25/2015 Visit Plan: Bruising and swelling of left foot, ankle and toes-continue with akua wrap compression, anti inflammatories as directed and refer to Dr Menjivar for evaluation of injury. 08/17/2015 Appointment: (15 min) Moderate 08/17/2015 Patient Education: Patient Medication Summary Completed 08/17/2015 Patient Education: Smoking and Tobacco Addiction Completed 08/17/2015 Care Plan: Referral Order SNOMED-CT : [id number] Ordered 08/17/2015 Care Plan: SCREENINGMAMMOGRAPHYDIGITAL LOINC : 98730-0 Ordered 07/14/2015 Visit Plan: Arthritis- occasionally uncontrolled symptoms- recommend pt to take antiinflammatory as directed for pain control. Use tylenol for break through pain symptoms. Tobacco abuse - chronic condition for this patient. Patient has been counseled about need to stop smoking due to the negative health affects. Pt has vocalized understanding and states that they will consider smoking cessation, but the pt is not yet ready to use medication to assist cessation. 06/16/2015 Appointment: Marivel Oshea WPtel: Formerly named [facility] [place] (15 min) Moderate 06/16/2015 Patient Education: Patient Medication Summary Completed 06/16/2015 Patient Education: Smoking and Tobacco Addiction Completed 06/16/2015 Visit Plan: Well Adult - pt was counseled about diet, and encouraged to follow a heart healthy diet. The patient was instructed to RTC yearly for well adult exams and PRN for acute illnesses. The pt was also instructed to have yearly labs for check of cholesterol, thyroid, chem panel, CBC, and renal functioning. 05/19/2015 Appointment: Marivel Oshea WPtel: Formerly named [facility] [place] (S) New Patient 05/19/2015 Patient Education: Patient Medication Summary Completed 05/19/2015 Referral: Asia Menjivar Referral Initiated Referral: Blair Sinclair [address] [facility] Referral Appointment Requested Instructions Comment . Pneumonia - Pt has been diagnosed with pneumonia by physical exam. A chest xray has been ordered as have antibiotics. The pt is aware of the diagnosis and the need for acute treatment of this illness. . Bruising and swelling of left foot, ankle and toes- continue with akua wrap compression, anti inflammatories as directed and refer to Dr Menjivar for evaluation of injury. . Left hip pressure ulcer -tunnels 1/8 inch - Referral to Wound Care - appt with Dr. Aguila at 10AM [facility] at about 9:30-9:45AM for registration process in the wound-care center. Off load the hip - will have pt get a new Gel cushion. . Left hip pressure ulcer -tunnels 1/8 inch - Referral to Wound Care - appt with Dr. Aguila at 10AM [facility] at about 9:30-9:45AM for registration process in the wound-care center. Off load the hip - will have pt get a new Gel cushion. . Stage 2 pressure ulcer, left hip - Pt was instructed to keep the area clean, wash with antibacterial soap, use ointment, call if redness , pustular drainage, or any other acute concerns. . Well Adult - pt was counseled about diet, and encouraged to follow a heart healthy diet. The patient was instructed to RTC yearly for well adult exams and PRN for acute illnesses. The pt was also instructed to have yearly labs for check of cholesterol, thyroid, chem panel, CBC, and renal functioning. . Arthritis- occasionally uncontrolled symptoms- recommend pt to take antiinflammatory as directed for pain control. Use tylenol for break through pain symptoms. Tobacco abuse - chronic condition for this patient. Patient has been counseled about need to stop smoking due to the negative health affects. Pt has vocalized understanding and states that they will consider smoking cessation, but the pt is not yet ready to use medication to assist cessation. Nothing to eat or drink until after your scan. US is today at [facility] at [facility] - check in at the business office hyoscyamine - as needed for pain If you are feeling dehydrated and need to go for IV fluids call me and let me know. Will give supplies for stool sample and urine sample. . Right upper quadrant pain - will order gallbladder US - if needed will refer to Dr. iSnclair. Diarrhea - ongoing - improved some for a couple of days, but worsening now - will order stool culture - recommended bland diet, low fat diet, start on probiotic, and rehydrate with gatorade-like product. Pt to call if feeling worse, diarrhea becomes bloody, or does not improve with above recommendations. Pt to call for acute worsening of stomach upset or stomach pain. . Constipation - uncontrolled - I have discussed with the patient the need for adequate fiber and water intake to facilitate soft, easily passed stools. The pt noted understanding of our conversation. I have given the patient a recipe for "power pudding" - equal parts, bran flakes, prune juice , and apple sauce. The pt is to call if symptoms not improved on this regimen. Lung cancer - recommended continued monitor with oncology. Planning colonoscopy with Dr.Kido Juli sloan on 05/22/16 @ 3: 45pm . Planning colonoscopy with Dr.Kido Juli sloan on 05/22/16 @ 3:45pm [facility] or Aceris 3D Inspection colon [employer] - 3 times a day for 3 days then 2 times a day for 3 days. Diarrhea - recommended bland diet, low fat diet, start on probiotic, and rehydrate with gatorade-like product. Pt to call if feeling worse, diarrhea becomes bloody, or does not improve with above recommendations. Pt to call for acute worsening of stomach upset or stomach pain. . Diarrhea - recommended bland diet, low fat diet, start on probiotic, and rehydrate with gatorade-like product. Pt to call if feeling worse, diarrhea becomes bloody, or does not improve with above recommendations. Pt to call for acute worsening of stomach upset or stomach pain. . Right lower rib pain - will check x-ray - will treat as indicated - pt is to notify clinic if symptoms do not improve, if they worsen, or with any questions of concerns. . UTI - pt with positive urinalysis - culture sent if appropriate. Antibiotic electronically prescribed to pt's pharmacy of choice. Pt to call if symptoms do not improve. Chronic pressure wound - defer to wound care - pt is to go to wound care directly from clinic today - pt is to notify clinic of updated treatment plan.
--- OUTSIDE RECORDS SUMMARY | 2018-02-25 10:03 | XMS REPORT | CCD ---
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 Name Role Phone PP Unavailable CCM Unavailable Summary Purpose Interface Exchange Insurance Providers Payer name Policy type / Coverage type Covered republican ID Effective Begin Date Effective End Date Blue Cross Blue Shield [facility] Blue Cross/Blue Shield [id number] Unknown Unknown WPS Medicare Part B Blue Cross/Blue Shield [id number] Unknown Unknown Family history Father Diagnosis Age At Onset alcohol dependence Unknown Stroke Unknown Arthritis Unknown Cancer Unknown Heart Attack Unknown Mother Diagnosis Age At Onset alcohol dependence Unknown Heart Attack Unknown Hypertension Unknown Arthritis Unknown Cancer Unknown Social History Social History Element Codes Description Effective Dates Marital status Unknown louie 05/19/2015 Number of children Unknown 1 05/19/[address]: 7523122 Quit less than 5 years ago she [...] Start Date Stop Date Status Fill Instructions meloxicam 15 mg tablet RxNorm: 334494 TAKE ONE TABLET BY MOUTH EVERY NIGHT 12/24/2017 12/18/2018 Active Generic For:*MOBIC 15 MG TABLET baclofen 10 mg tablet RxNorm: 146769 TAKE 2 TABLETS BY MOUTH AT BEDTIME 12/24/2017 08/20/2018 Active triamcinolone acetonide 0.025 % topical cream RxNorm: 5175131 1 Application TOP BID 11/30/2017 No Stop Date Active Levaquin 500 mg tablet RxNorm: 015586 1 Tablet(s) PO daily 03/201708/06/2017 Inactive Keflex 500 mg capsule RxNorm: 879960 1 Capsule(s) PO TID 201607/08/2017 Inactive Keflex 500 mg capsule RxNorm: 185379 1 Capsule(s) PO TID 201606/28/2017 Inactive alprazolam 0.25 mg tablet RxNorm: 899111 1 Tablet(s) PO daily as needed 05/24/2017 07/22/2017 Inactive oxycodone-acetaminophen 10 mg-325 mg tablet RxNorm: 4634486 1 Tablet(s) PO Q4-6H as needed for pain 05/04/2017 No Stop Date Active Levaquin 500 mg tablet RxNorm: 691568 1 Tablet(s) PO daily 12/201607/25/2017 Inactive hydrocodone 5 mg-acetaminophen 325 mg tablet RxNorm: 780517 1-2 Tablet(s) PO Q4- 6H as needed for pain 04/26/20172016 Inactive Levaquin 500 mg tablet RxNorm: 316398 1 Tablet(s) PO daily 04/21/2017 Inactive Levaquin 500 mg tablet RxNorm: 036700 1 Tablet(s) PO daily 04/16/2017 Inactive Levaquin 500 mg tablet RxNorm: 233783 1 Tablet(s) PO daily 04/18/2017 Inactive Carafate 1 gram tablet RxNorm: 939552 1 Tablet(s) PO QID 201604/12/2017 Inactive Carafate 1 gram tablet RxNorm: 070049 1 Tablet(s) PO QID 201605/12/2017 Inactive baclofen 10 mg tablet RxNorm: 301190 TAKE 2 TABLETS BY MOUTH AT BEDTIME 04/05/2017 10/31/2017 Inactive cefdinir 300 mg capsule RxNorm: 418603 1 Capsule(s) PO BID 08/201704/03/2017 Inactive cefdinir 300 mg capsule RxNorm: 085268 1 Capsule(s) PO BID 08/201704/13/2017 Inactive Zithromax Z-Con 250 mg tablet RxNorm: 304125 Tablet(s) PO UD 04/03/2017 Inactive Take as instructed on box Zithromax Z-Con 250 mg tablet RxNorm: 470554 Tablet(s) PO UD 04/08/2017 Inactive Take as instructed on box hydrocodone 5 mg-acetaminophen 325 mg tablet RxNorm: 625755 1-2 Tablet(s) PO Q4- 6H as needed for pain 04/02/20172016 Inactive Chantix 1 mg tablet RxNorm: 295526 1 Tablet(s) PO BID 201607/25/2017 Inactive hyoscyamine 0.125 mg sublingual tablet RxNorm: 6932063 1 Tablet(s) SL TID as needed 01/16/2017 01/25/2017 Inactive meloxicam 15 mg tablet RxNorm: 720546 TAKE ONE TABLET BY MOUTH EVERY NIGHT 12/12/2016 12/06/2017 Inactive Generic For:*MOBIC 15 MG TABLET Calmoseptine 0.44 %-20.6 % topical ointment RxNorm: 209674 1 Application TOP BID 10/30/2016 No Stop Date Active alprazolam 0.25 mg tablet RxNorm: 368259 1 Tablet(s) PO daily as needed 10/30/2016 11/27/2016 Inactive baclofen 10 mg tablet RxNorm: 078378 Tablet(s) TAKE 2 TABLETS BY MOUTH AT BEDTIME 09/08/2016 03/06/2017 Inactive N O T I C E PRESCRIPTION PREVIOUSLY AUTHORIZED BY DOCTOR:JACKSON TRAN Chantix 1 mg tablet RxNorm: 817704 1 Tablet(s) PO BID 201506/27/2016 Inactive Chantix 1 mg tablet RxNorm: 998071 1 Tablet(s) PO BID 201511/13/2016 Inactive baclofen 10 mg tablet RxNorm: 777338 Tablet(s) TAKE 2 TABLETS BY MOUTH AT BEDTIME 03/15/2016 09/07/2016 Inactive N O T I C E PRESCRIPTION PREVIOUSLY AUTHORIZED BY DOCTOR:JACKSON TRAN meloxicam 15 mg tablet RxNorm: 860528 1 Tablet(s) PO QPM 201512/08/2016 Inactive alprazolam 0.25 mg tablet RxNorm: 508449 1 Tablet(s) PO daily as needed 09/22/2015 10/21/2015 Inactive baclofen 10 mg tablet RxNorm: 253591 TAKE 2 TABLETS BY MOUTH AT BEDTIME 09/13/2015 03/10/2016 Inactive N O T I C E PRESCRIPTION PREVIOUSLY AUTHORIZED BY DOCTOR: JACKSON TRAN meloxicam 15 mg tablet RxNorm: 647341 1 Tablet(s) PO QPM 201410/13/2015 Inactive Protonix 40 mg granules delayed-release packet RxNorm: 520684 1 PO daily No Start Date Active Zofran 4 mg tablet RxNorm: 469856 Tablet(s) PO No Start Date Active Toprol XL 25 mg tablet,extended release RxNorm: 743661 1 Tablet(s) PO daily No Start Date Active nitrofurantoin 100 mg capsule RxNorm: 433138 1 Capsule(s) PO every three days No Start Date Active MS Contin 60 mg tablet,extended release RxNorm: 292706 1 Tablet(s) PO BID No Start Date Active Probiotic Blend oral RxNorm: 701907 oral No Start Date Active Reglan 5 mg tablet RxNorm: 294263 1 Tablet(s) PO AC No Start Date Active tolterodine ER 4 mg capsule,extended release 24 hr RxNorm: 666005 1 Capsule(s) PO daily No Start Date Active oxycodone-acetaminophen 10 mg-325 mg tablet RxNorm: 4729001 1 Tablet(s) PO Q4-6H as needed for pain No Start Date 2016 Inactive triamcinolone acetonide 0.025 % topical cream RxNorm: 2081213 1 Application TOP BID No Start Date 11/29/2017 Inactive hydrocodone 10 mg-acetaminophen 325 mg tablet RxNorm: 113801 1 Tablet(s) PO Q4-6H No Start Date 05/03/2017 Inactive alprazolam 0.25 mg tablet RxNorm: 842278 Tablet(s) PO daily as needed No Start Date 09/21/2015 Inactive baclofen 10 mg tablet RxNorm: 411836 2 Tablet(s) PO QHS No Start Date [...] Code Item Item Code Result Date Prealbumin 652758 PREALBUMIN 21 mg/dL 11/15/2016 Comp Metabolic Rjq848 NA 136 mEq/L 11/14/2016 Comp Metabolic Ghc716 K 3.8 mEq/L 11/14/2016 Comp Metabolic Gyz358 CL 101 mEq/L 11/14/2016 Comp Metabolic Gxt102 CO2 28.0 mEq/L 11/14/2016 Comp Metabolic Dvu681 ANION GAP 11 11/14/2016 Comp Metabolic Ynv674 GLUCOSE 91 mg/dL 11/14/2016 Comp Metabolic Vpv398 Creat 0.5 mg/dL 11/14/2016 Comp Metabolic Shm048 eGFR 135 ml/min/1.73m2 11/14/2016 Comp Metabolic Exd059 BUN 10 mg/dL 11/14/2016 Comp Metabolic Fqo342 B/C Ratio 19.6 Ratio 11/14/2016 Comp Metabolic Jsy624 CALCIUM 9.8 mg/dL 11/14/2016 Comp Metabolic Ifq945 ALK PHOS 82 U/L 11/14/2016 Comp Metabolic Opt612 AST(SGOT) 15 U/L 11/14/2016 Comp Metabolic Aap567 ALT(SGPT) 11 U/L 11/14/2016 Comp Metabolic Ujw965 BILI T 0.4 mg/dL 11/14/2016 Comp Metabolic Zqb071 ALBUMIN 4.2 g/dL 11/14/2016 Comp Metabolic Gzt174 TPRO 7.7 g/dL 11/14/2016 Comp Metabolic Wkt119 GLOB 3.5 g/dL 11/14/2016 Comp Metabolic Org550 A/G Ratio 1.2 Ratio 11/14/2016 Comp Metabolic Nmq650 Osmo 271 mOsmo 11/14/2016 Cbc With Differential Ord2 WBC 7.82 K/ul 11/14/2016 Cbc With Differential Ord2 RBC 4.46 M/ul 11/14/2016 Cbc With Differential Ord2 HGB 14.0 g/dl 11/14/2016 Cbc With Differential Ord2 Neut% 70.2 % 11/14/2016 Cbc With Differential Ord2 HCT 41.7 % 11/14/2016 Cbc With Differential Ord2 Lymph% 18.0 % 11/14/2016 Cbc With Differential Ord2 MCV 93.5 fl 11/14/2016 Cbc With Differential Ord2 MCH 31.4 pg 11/14/2016 Cbc With Differential Ord2 Millard% 9.8 % 11/14/2016 Cbc With Differential Ord2 Eos% 1.5 % 11/14/2016 Cbc With Differential Ord2 MCHC 33.6 pg 11/14/2016 Cbc With Differential Ord2 PLT 303 K/ul 11/14/2016 Cbc With Differential Ord2 Baso% 0.5 % 11/14/2016 Cbc With Differential Ord2 Neut ABS# 5.48 K/ul 11/14/2016 Cbc With Differential Ord2 RDW 14.2 % 11/14/2016 Cbc With Differential Ord2 Lymph ABS# 1.41 K/ul 11/14/2016 Cbc With Differential Ord2 Millard ABS# 0.8 K/ul 11/14/2016 Cbc With Differential [...] site not specified[ICD10: N39.0] Marilu Oshea MD, [facility] CPT-4: 96731 08/01/2017 ([id number]) 37386 EST. PATIENT, LEVEL IV Diagnosis: Slow transit constipation[ICD10: K59.01] Diagnosis: Malignant neoplasm of overlapping sites of right bronchus and lung[ ICD10: C34.81] Marivel Oshea MD, [facility] CPT-4: 47611 07/26/2017 50923 EST. PATIENT, LEVEL III Diagnosis: Pneumonia due to other specified infectious organisms[ICD10: J16.8] Marilu Oshea MD, [facility] CPT-4: 69142 04/19/2017 74016 EST. PATIENT, LEVEL IV Diagnosis: Pleurodynia[ICD10: R07.81] Marilu Oshea MD, [facility] CPT-4 : 24264 04/02/2017 36111 EST. PATIENT, LEVEL IV Diagnosis: Right upper quadrant pain[ICD10: R10.11] Diagnosis: Other fecal abnormalities[ICD10: R19.5] Marilu Oshea MD, [facility] CPT-4: 28982 01/16/2017 94543 EST. PATIENT, LEVEL III Diagnosis: Other fecal abnormalities[ICD10: R19.5] Marilu Oshea MD, [facility] CPT-4: 83864 01/11/2017 ([id number]) PREV VISIT EST AGE 40-64 Diagnosis: Encounter for general adult medical examination with abnormal findings[ICD10: Z00.01] Diagnosis: Pressure ulcer of left hip, stage 2[ICD10: L89.222] Marivel Oshea MD, [facility] CPT-4: 42017 11/14/2016 94370 EST. PATIENT, LEVEL IV Diagnosis: Pressure ulcer of left hip, stage 2[ICD10: L89.222] Marilu Oshea MD, [facility] CPT-4: 11997 10/30/2016 ([id number]) 33280 EST. PATIENT, LEVEL IV Diagnosis: Other specified diseases of anus and rectum[ICD10: K62.89] Marivel Oshea MD , [facility] CPT-4: 26435 05/18/2016 ([id number]) 21007 EST. PATIENT, LEVEL III Diagnosis: Contusion of ankle or foot, left[ICD9: 924.20] Diagnosis: Foot swelling[ICD9: 729.81] Lainey Oshea MD, [facility] CPT-4: 78644 08/17/2015 ([id number]) 04297 EST. PATIENT, LEVEL III Diagnosis: OSTEOARTH NOS-UNSPEC[ICD9: 715.90] Diagnosis: Tobacco use disorder[ICD9: 305.1] Marivel Oshea MD, [facility] CPT-4: 15315 06/16/2015 ([id number]) PREV VISIT NEW AGE 40-64 Diagnosis: Routine medical exam[ICD9: V70.0] Marivel Oshea MD, [facility] CPT-4: 30214 05/19/2015 Plan of Care Planned Activity Notes [...] recommended continued monitor with oncology. 07/26/2017 Appointment: [phone] [facility] [place] (15 min) Moderate 07/26/2017 Patient Education: Patient Medication Summary Completed 07/26/2017 Visit Plan: Pneumonia - Pt has been diagnosed with pneumonia by physical exam. A chest xray has been ordered as have antibiotics. The pt is aware of the diagnosis and the need for acute treatment of this illness. 04/19/2017 Appointment: Marilu Parry WPtel: [facility] [place] (30 min) Complex 04/19/2017 Patient Education: Patient Medication Summary Completed 04/19/2017 Visit Plan: Right lower rib pain - will check x-ray - will treat as indicated - pt is to notify clinic if symptoms do not improve, if they worsen, or with any questions of concerns. 04/02/2017 [phone] [place] ([facility]) Complex 04/02/2017 Patient Education: [...] pain. 01/16/2017 App[facility]ment[phone] [facility] [place] (15 min) Moderate 01/16/2017 Patient Education: [...] stomach pain. 01/11/2017 App[facility]ment: [phone] [facility] (30 min) Complex 01/11/2017 Patient Education: Patient Medication Summary Completed 01/11/2017 Appointment: Marivel Oshea WPtel: [facility] (15 min) Moderate 12/14/2016 Visit Plan: Left hip pressure ulcer -tunnels 1/8 inch - Referral to Wound Care - appt with Dr. Aguila at [address] [place] [address] at [facility] at about 9:30-9:45AM for registration process in the wound-care center. Off load the hip - will have pt get a new Gel cushion. 11/14/2016 Visit Plan: Left hip pressure ulcer -tunnels 1/8 inch - Referral to Wound Care - appt with Dr. Aguila at [address] [place] [address] at [facility] at about 9:30-9:45AM for registration process in the wound-care center. Off load the hip - will have pt get a new Gel cushion. 11/14/2016 Appointment: Marivel Oshea WPtel: [facility] (15 min) Moderate 11/14/2016 Patient Education: Patient Medication Summary Completed 11/14/2016 Visit Plan: Stage 2 pressure ulcer, left hip - Pt was instructed to keep the area clean, wash with antibacterial soap, use ointment, call if redness, pustular drainage, or any other acute concerns. 10/30/2016 Appointment: Lainey Hudson WPtel: [phone] (15 min) Moderate 10/30/2016 Patient Education: Patient Medication Summary Completed 10/30/2016 Referral: Blair Sinclair [address] [facility] [place] Referral Completed 05/22/2016 Visit Plan: Planning colonoscopy with - appt on @ 3:45pm 05/18/2016 Patient Education: Patient Medication Summary Completed 05/18/2016 Care Plan: Referral Order SNOMED-CT : [id number] Pending 05/18/2016 Appointment: Marivel Oshea WPtel: [facility] (15 min) Moderate 08/25/2015 Visit Plan: Bruising and swelling of left foot, ankle and toes-continue with akua wrap compression, anti inflammatories as directed and refer to Dr Menjivar for evaluation of injury. 08/17/2015 Appointment: (15 min) Moderate 08/17/2015 Patient Education: Patient Medication Summary Completed 08/17/2015 Patient Education: Smoking and Tobacco Addiction Completed 08/17/2015 Care Plan: Referral Order SNOMED-CT : [id number] Ordered 08/17/2015 Care Plan: SCREENINGMAMMOGRAPHYDIGITAL LOINC : 90372-0 Ordered 07/14/2015 Visit Plan: Arthritis- occasionally uncontrolled [...] assist cessation. 06/16/2015 Appointment: Marivel Oshea WPtel: [facility] (15 min) Moderate 06/16/2015 Patient Education: Patient [...] renal functioning. 05/19/2015 Appointment: Marivel Oshea WPtel: [facility] [place] ([place] New Patient 05/19/2015 Patient Education: Patient Medication Summary Completed 05/19/2015 Referral: Asia Menjivar Referral Initiated Referral: Blair Sinclair [address] [facility] [place] Referral Appointment Requested Instructions Comment . Pneumonia [...] - appt with Dr. Aguila at 10AM - be at hospital at about 9:30-9:45AM for registration process in the wound-care center. Off load the hip - will have pt get a new Gel cushion. . Left hip pressure ulcer -tunnels 1/8 inch - Referral to Wound Care - appt with Dr. Aguila at 10AM - be at hospital at about 9:30-9:45AM for registration process [...] scan. US is today at 330 at [facility] - check in at the business [...] Dr.Kido Juli sloan on 05/22/16 @ 3:45pm [facility] - 3 times a day for 3 [...]
--- OUTSIDE RECORDS SUMMARY | 2018-02-25 10:05 | XMS REPORT | CCD ---
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 Name Role Phone PP Unavailable CCM Unavailable Summary Purpose Interface Exchange Insurance Providers Payer name Policy type / Coverage type Covered green party ID Effective Begin Date Effective End Date Blue Cross Blue Shield [facility] Blue Cross/Blue Shield [id number] Unknown Unknown WPS Medicare Part B Blue Cross/Blue Shield [id number] Unknown Unknown Family history Father Diagnosis Age At Onset alcohol dependence Unknown Stroke Unknown Arthritis Unknown Cancer Unknown Heart Attack Unknown Mother Diagnosis Age At Onset alcohol dependence Unknown Heart Attack Unknown Hypertension Unknown Arthritis Unknown Cancer Unknown Social History Social History Element Codes Description Effective Dates Marital status Unknown louie 05/19/2015 Number of children Unknown 1 05/19/[address]: 5248268 Quit less than 5 years ago she [...] Fill Instructions meloxicam 15 mg tablet RxNorm: 945770 TAKE ONE TABLET BY MOUTH EVERY NIGHT 12/24/2017 12/18/2018 Active Generic For:*MOBIC 15 MG TABLET baclofen 10 mg tablet RxNorm: 768968 TAKE 2 TABLETS BY MOUTH AT BEDTIME 12/24/2017 08/20/2018 Active triamcinolone acetonide 0.025 % topical cream RxNorm: 2283673 1 Application TOP BID 11/30/2017 No Stop Date Active Levaquin 500 mg tablet RxNorm: 605510 1 Tablet(s) PO daily 03/201708/06/2017 Inactive Keflex 500 mg capsule RxNorm: 803829 1 Capsule(s) PO TID 201607/08/2017 Inactive Keflex 500 mg capsule RxNorm: 386407 1 Capsule(s) PO TID 201606/28/2017 Inactive alprazolam 0.25 mg tablet RxNorm: 319445 1 Tablet(s) PO daily as needed 05/24/2017 07/22/2017 Inactive oxycodone-acetaminophen 10 mg-325 mg tablet RxNorm: 3564149 1 Tablet(s) PO Q4-6H as needed for pain 05/04/2017 No Stop Date Active Levaquin 500 mg tablet RxNorm: 657110 1 Tablet(s) PO daily 12/201607/25/2017 Inactive hydrocodone 5 mg-acetaminophen 325 mg tablet RxNorm: 887170 1-2 Tablet(s) PO Q4- 6H as needed for pain 04/26/20172016 Inactive Levaquin 500 mg tablet RxNorm: 399027 1 Tablet(s) PO daily 04/21/2017 Inactive Levaquin 500 mg tablet RxNorm: 562585 1 Tablet(s) PO daily 04/16/2017 Inactive Levaquin 500 mg tablet RxNorm: 106003 1 Tablet(s) PO daily 04/18/2017 Inactive Carafate 1 gram tablet RxNorm: 341545 1 Tablet(s) PO QID 201604/12/2017 Inactive Carafate 1 gram tablet RxNorm: 844986 1 Tablet(s) PO QID 201605/12/2017 Inactive baclofen 10 mg tablet RxNorm: 185750 TAKE 2 TABLETS BY MOUTH AT BEDTIME 04/05/2017 10/31/2017 Inactive cefdinir 300 mg capsule RxNorm: 115815 1 Capsule(s) PO BID 08/201704/03/2017 Inactive cefdinir 300 mg capsule RxNorm: 955117 1 Capsule(s) PO BID 08/201704/13/2017 Inactive Zithromax Z-Con 250 mg tablet RxNorm: 228711 Tablet(s) PO UD 04/03/2017 Inactive Take as instructed on box Zithromax Z-Con 250 mg tablet RxNorm: 628688 Tablet(s) PO UD 04/08/2017 Inactive Take as instructed on box hydrocodone 5 mg-acetaminophen 325 mg tablet RxNorm: 931762 1-2 Tablet(s) PO Q4- 6H as needed for pain 04/02/20172016 Inactive Chantix 1 mg tablet RxNorm: 307920 1 Tablet(s) PO BID 201607/25/2017 Inactive hyoscyamine 0.125 mg sublingual tablet RxNorm: 9481048 1 Tablet(s) SL TID as needed 01/16/2017 01/25/2017 Inactive meloxicam 15 mg tablet RxNorm: 289884 TAKE ONE TABLET BY MOUTH EVERY NIGHT 12/12/2016 12/06/2017 Inactive Generic For:*MOBIC 15 MG TABLET Calmoseptine 0.44 %-20.6 % topical ointment RxNorm: 762121 1 Application TOP BID 10/30/2016 No Stop Date Active alprazolam 0.25 mg tablet RxNorm: 088712 1 Tablet(s) PO daily as needed 10/30/2016 11/27/2016 Inactive baclofen 10 mg tablet RxNorm: 796968 Tablet(s) TAKE 2 TABLETS BY MOUTH AT BEDTIME 09/08/2016 03/06/2017 Inactive N O T I C E PRESCRIPTION PREVIOUSLY AUTHORIZED BY DOCTOR:JACKSON TRAN Chantix 1 mg tablet RxNorm: 969376 1 Tablet(s) PO BID 201506/27/2016 Inactive Chantix 1 mg tablet RxNorm: 629738 1 Tablet(s) PO BID 201511/13/2016 Inactive baclofen 10 mg tablet RxNorm: 328198 Tablet(s) TAKE 2 TABLETS BY MOUTH AT BEDTIME 03/15/2016 09/07/2016 Inactive N O T I C E PRESCRIPTION PREVIOUSLY AUTHORIZED BY DOCTOR:JACKSON TRAN meloxicam 15 mg tablet RxNorm: 344623 1 Tablet(s) PO QPM 201512/08/2016 Inactive alprazolam 0.25 mg tablet RxNorm: 520711 1 Tablet(s) PO daily as needed 09/22/2015 10/21/2015 Inactive baclofen 10 mg tablet RxNorm: 834698 TAKE 2 TABLETS BY MOUTH AT BEDTIME 09/13/2015 03/10/2016 Inactive N O T I C E PRESCRIPTION PREVIOUSLY AUTHORIZED BY DOCTOR: JACKSON TRAN meloxicam 15 mg tablet RxNorm: 217442 1 Tablet(s) PO QPM 201410/13/2015 Inactive Protonix 40 mg granules delayed-release packet RxNorm: 858587 1 PO daily No Start Date Active Zofran 4 mg tablet RxNorm: 347971 Tablet(s) PO No Start Date Active Toprol XL 25 mg tablet,extended release RxNorm: 876900 1 Tablet(s) PO daily No Start Date Active nitrofurantoin 100 mg capsule RxNorm: 615919 1 Capsule(s) PO every three days No Start Date Active MS Contin 60 mg tablet,extended release RxNorm: 783116 1 Tablet(s) PO BID No Start Date Active Probiotic Blend oral RxNorm: 778846 oral No Start Date Active Reglan 5 mg tablet RxNorm: 321999 1 Tablet(s) PO AC No Start Date Active tolterodine ER 4 mg capsule,extended release 24 hr RxNorm: 985986 1 Capsule(s) PO daily No Start Date Active oxycodone-acetaminophen 10 mg-325 mg tablet RxNorm: 2593152 1 Tablet(s) PO Q4-6H as needed for pain No Start Date 2016 Inactive triamcinolone acetonide 0.025 % topical cream RxNorm: 2442359 1 Application TOP BID No Start Date 11/29/2017 Inactive hydrocodone 10 mg-acetaminophen 325 mg tablet RxNorm: 488636 1 Tablet(s) PO Q4-6H No Start Date 05/03/2017 Inactive alprazolam 0.25 mg tablet RxNorm: 647159 Tablet(s) PO daily as needed No Start Date 09/21/2015 Inactive baclofen 10 mg tablet RxNorm: 822739 2 Tablet(s) PO QHS No Start Date [...] Code Item Item Code Result Date Prealbumin 742949 PREALBUMIN 21 mg/dL 11/15/2016 Comp Metabolic Pne513 NA 136 mEq/L 11/14/2016 Comp Metabolic Pky143 K 3.8 mEq/L 11/14/2016 Comp Metabolic Ybf634 CL 101 mEq/L 11/14/2016 Comp Metabolic Pxg679 CO2 28.0 mEq/L 11/14/2016 Comp Metabolic Ehj775 ANION GAP 11 11/14/2016 Comp Metabolic Dks826 GLUCOSE 91 mg/dL 11/14/2016 Comp Metabolic Nkf459 Creat 0.5 mg/dL 11/14/2016 Comp Metabolic Nah923 eGFR 135 ml/min/1.73m2 11/14/2016 Comp Metabolic Goo215 BUN 10 mg/dL 11/14/2016 Comp Metabolic Dsj927 B/C Ratio 19.6 Ratio 11/14/2016 Comp Metabolic Vsa998 CALCIUM 9.8 mg/dL 11/14/2016 Comp Metabolic Kgn254 ALK PHOS 82 U/L 11/14/2016 Comp Metabolic Fpc407 AST(SGOT) 15 U/L 11/14/2016 Comp Metabolic Pkb439 ALT(SGPT) 11 U/L 11/14/2016 Comp Metabolic Qyo870 BILI T 0.4 mg/dL 11/14/2016 Comp Metabolic Abo615 ALBUMIN 4.2 g/dL 11/14/2016 Comp Metabolic Fon453 TPRO 7.7 g/dL 11/14/2016 Comp Metabolic Zoy776 GLOB 3.5 g/dL 11/14/2016 Comp Metabolic Mbm044 A/G Ratio 1.2 Ratio 11/14/2016 Comp Metabolic Ppt510 Osmo 271 mOsmo 11/14/2016 Cbc With Differential Ord2 WBC 7.82 K/ul 11/14/2016 Cbc With Differential Ord2 RBC 4.46 M/ul 11/14/2016 Cbc With Differential Ord2 HGB 14.0 g/dl 11/14/2016 Cbc With Differential Ord2 HCT 41.7 % 11/14/2016 Cbc With Differential Ord2 Neut% 70.2 % 11/14/2016 Cbc With Differential Ord2 Lymph% 18.0 % 11/14/2016 Cbc With Differential Ord2 MCV 93.5 fl 11/14/2016 Cbc With Differential Ord2 MCH 31.4 pg 11/14/2016 Cbc With Differential Ord2 Summit% 9.8 % 11/14/2016 Cbc With Differential Ord2 MCHC 33.6 pg 11/14/2016 Cbc With Differential Ord2 Eos% 1.5 % 11/14/2016 Cbc With Differential Ord2 PLT 303 K/ul 11/14/2016 Cbc With Differential Ord2 Baso% 0.5 % 11/14/2016 Cbc With Differential Ord2 RDW 14.2 % 11/14/2016 Cbc With Differential Ord2 Neut ABS# 5.48 K/ul 11/14/2016 Cbc With Differential Ord2 Lymph ABS# 1.41 K/ul 11/14/2016 Cbc With Differential Ord2 Summit ABS# 0.8 K/ul 11/14/2016 Cbc With Differential [...] site not specified[ICD10: N39.0] Marilu Oshea MD, [facility] CPT-4: 55192 08/01/2017 ([id number]) 68065 EST. PATIENT, LEVEL IV Diagnosis: Slow transit constipation[ICD10: K59.01] Diagnosis: Malignant neoplasm of overlapping sites of right bronchus and lung[ ICD10: C34.81] Marivel Oshea MD, [facility] CPT-4: 82524 07/26/2017 12680 EST. PATIENT, LEVEL III Diagnosis: Pneumonia due to other specified infectious organisms[ICD10: J16.8] Marilu Oshea MD, [facility] CPT-4: 22107 04/19/2017 51447 EST. PATIENT, LEVEL IV Diagnosis: Pleurodynia[ICD10: R07.81] Marilu Oshea MD, [facility] CPT-4 : 60357 04/02/2017 97874 EST. PATIENT, LEVEL IV Diagnosis: Right upper quadrant pain[ICD10: R10.11] Diagnosis: Other fecal abnormalities[ICD10: R19.5] Marilu Oshea MD, [facility] CPT-4: 85763 01/16/2017 19920 EST. PATIENT, LEVEL III Diagnosis: Other fecal abnormalities[ICD10: R19.5] Marilu Oshea MD, [facility] CPT-4: 31347 01/11/2017 ([id number]) PREV VISIT EST AGE 40-64 Diagnosis: Encounter for general adult medical examination with abnormal findings[ICD10: Z00.01] Diagnosis: Pressure ulcer of left hip, stage 2[ICD10: L89.222] Marivel Oshea MD, [facility] CPT-4: 97131 11/14/2016 97259 EST. PATIENT, LEVEL IV Diagnosis: Pressure ulcer of left hip, stage 2[ICD10: L89.222] Marilu Oshea MD, [facility] CPT-4: 13080 10/30/2016 ([id number]) 92129 EST. PATIENT, LEVEL IV Diagnosis: Other specified diseases of anus and rectum[ICD10: K62.89] Marivel Oshea MD , [facility] CPT-4: 87273 05/18/2016 ([id number]) 55159 EST. PATIENT, LEVEL III Diagnosis: Contusion of ankle or foot, left[ICD9: 924.20] Diagnosis: Foot swelling[ICD9: 729.81] Lainey Oshea MD, [facility] CPT-4: 16824 08/17/2015 ([id number]) 25802 EST. PATIENT, LEVEL III Diagnosis: OSTEOARTH NOS-UNSPEC[ICD9: 715.90] Diagnosis: Tobacco use disorder[ICD9: 305.1] Marivel Oshea MD, [facility] CPT-4: 03368 06/16/2015 ([id number]) PREV VISIT NEW AGE 40-64 Diagnosis: Routine medical exam[ICD9: V70.0] Marivel Oshea MD, [facility] CPT-4: 08410 05/19/2015 Plan of Care Planned Activity Notes [...] with oncology. 07/26/2017 [facility] [phone] [facility] [place] (15 min) Moderate 07/26/2017 Patient Education: Patient Medication Summary Completed 07/26/2017 Visit Plan: Pneumonia - Pt has been diagnosed with pneumonia by physical exam. A chest xray has been ordered as have antibiotics. The pt is aware of the diagnosis and the need for acute treatment of this illness. 04/19/2017 Appointment: Marilu Parry WPtel: [facility] [place] (30 min) Complex 04/19/2017 Patient Education: Patient Medication Summary Completed 04/19/2017 Visit Plan: Right lower rib pain - will check x-ray - will treat as indicated - pt is to notify clinic if symptoms do not improve, if they worsen, or with any questions of concerns. 04/02/2017 [facility] [phone] [facility] [place] ([facility]) Complex 04/02/2017 Patient Education: [...] stomach upset or stomach pain. 01/16/2017 App[facility]ment: [facility] [phone] [facility] [place] (15 min) Moderate 01/16/2017 Patient Education: [...] pain. 01/11/2017 App[facility]ment: [facility] [phone] [facility] (30 min) Complex 01/11/2017 Patient Education: Patient Medication Summary Completed 01/11/2017 Appointment: Marivel Oshea WPtel: [facility] (15 min) Moderate 12/14/2016 Visit Plan: Left hip pressure ulcer -tunnels 1/8 inch - Referral to Wound Care - appt with Dr. Aguila at [address] [place] [address] at [facility] at about 9:30-9:45AM for registration process in the wound-care center. Off load the hip - will have pt get a new Gel cushion. 11/14/2016 Visit Plan: Left hip pressure ulcer -tunnels 1/8 inch - Referral to Wound Care - appt with Dr. Aguila at [address] [place] [address] at [facility] at about 9:30-9:45AM for registration process in the wound-care center. Off load the hip - will have pt get a new Gel cushion. 11/14/2016 Appointment: [facility]ivel Oshea [facility]Ptel[facility] (15 min) Moderate 11/14/2016 Patient Education: Patient Medication Summary Completed 11/14/2016 Visit Plan: Stage 2 pressure ulcer, left hip - Pt was instructed to keep the area clean, wash with antibacterial soap, use ointment, call if redness, pustular drainage, or any other acute concerns. 10/30/2016 Appointment: Lainey Hudson WPtel: [phone] (15 min) Moderate 10/30/2016 Patient Education: Patient Medication Summary Completed 10/30/2016 Referral: Blair Sinclair [address] [facility] [place] Referral Completed 05/22/2016 Visit Plan: Planning colonoscopy with - appt on @ 3:45pm 05/18/2016 Patient Education: Patient Medication Summary Completed 05/18/2016 Care Plan: Referral Order SNOMED-CT : [id number] Pending 05/18/2016 Appointment: Marivel Oshea WPtel: [facility] (15 min) Moderate 08/25/2015 Visit Plan: Bruising and swelling of left foot, ankle and toes-continue with akua wrap compression, anti inflammatories as directed and refer to Dr Menjivar for evaluation of injury. 08/17/2015 Appointment: (15 min) Moderate 08/17/2015 Patient Education: Patient Medication Summary Completed 08/17/2015 Patient Education: Smoking and Tobacco Addiction Completed 08/17/2015 Care Plan: Referral Order SNOMED-CT : [id number] Ordered 08/17/2015 Care Plan: SCREENINGMAMMOGRAPHYDIGITAL LOINC : 02131-5 Ordered 07/14/2015 Visit Plan: Arthritis- occasionally uncontrolled [...] assist cessation. 06/16/2015 Appointment: Marivel Oshea [facility]Ptel[facility] (15 min) Moderate 06/16/2015 Patient Education: Patient [...] renal functioning. 05/19/2015 Appointment: Marivel Oshea WPtel: [facility] [place] ([place] New Patient 05/19/2015 Patient Education: Patient Medication Summary Completed 05/19/2015 Referral: Asia Menjivar Referral Initiated Referral: Blair Sinclair [address] [facility] [place] Referral Appointment Requested Instructions Comment [...] scan. US is today at 330 at [facility] - check in at the business office [...] Dr.Kido Juli sloan on 05/22/16 @ 3:45pm [facility] - 3 times a day for 3 [...]
--- OUTSIDE RECORDS SUMMARY | 2018-02-25 10:06 | XMS REPORT | CCD ---
Author Author [facility] Organization [facility] Address [address] [place] [address] Phone Care Team Providers Care Learning Operations Specialist Name Role Phone PP Unavailable CCM Unavailable Summary Purpose Interface Exchange Insurance Providers Payer name Policy type / Coverage type Covered libertarian ID Effective Begin Date Effective End Date Blue Cross Blue Shield [facility] Blue Cross/Blue Shield [id number] Unknown Unknown WPS Medicare Part B Blue Cross/Blue Shield [id number] Unknown Unknown Family history Father Diagnosis Age At Onset alcohol dependence Unknown Stroke Unknown Arthritis Unknown Cancer Unknown Heart Attack Unknown Mother Diagnosis Age At Onset alcohol dependence Unknown Heart Attack Unknown Hypertension Unknown Arthritis Unknown Cancer Unknown Social History Social History Element Codes Description Effective Dates Marital status Unknown louie 05/19/2015 Number of children Unknown 1 05/19/[address]: 0785115 Quit less than 5 years ago she [...] Fill Instructions meloxicam 15 mg tablet RxNorm: 415090 TAKE ONE TABLET BY MOUTH EVERY NIGHT 12/24/2017 12/18/2018 Active Generic For:*MOBIC 15 MG TABLET baclofen 10 mg tablet RxNorm: 360369 TAKE 2 TABLETS BY MOUTH AT BEDTIME 12/24/2017 08/20/2018 Active triamcinolone acetonide 0.025 % topical cream RxNorm: 4399951 1 Application TOP BID 11/30/2017 No Stop Date Active Levaquin 500 mg tablet RxNorm: 967929 1 Tablet(s) PO daily 03/201708/06/2017 Inactive Keflex 500 mg capsule RxNorm: 977422 1 Capsule(s) PO TID 201607/08/2017 Inactive Keflex 500 mg capsule RxNorm: 368558 1 Capsule(s) PO TID 201606/28/2017 Inactive alprazolam 0.25 mg tablet RxNorm: 608472 1 Tablet(s) PO daily as needed 05/24/2017 07/22/2017 Inactive oxycodone-acetaminophen 10 mg-325 mg tablet RxNorm: 9132128 1 Tablet(s) PO Q4-6H as needed for pain 05/04/2017 No Stop Date Active Levaquin 500 mg tablet RxNorm: 233731 1 Tablet(s) PO daily 12/201607/25/2017 Inactive hydrocodone 5 mg-acetaminophen 325 mg tablet RxNorm: 162587 1-2 Tablet(s) PO Q4- 6H as needed for pain 04/26/20172016 Inactive Levaquin 500 mg tablet RxNorm: 268142 1 Tablet(s) PO daily 04/21/2017 Inactive Levaquin 500 mg tablet RxNorm: 884242 1 Tablet(s) PO daily 04/16/2017 Inactive Levaquin 500 mg tablet RxNorm: 980360 1 Tablet(s) PO daily 04/18/2017 Inactive Carafate 1 gram tablet RxNorm: 630254 1 Tablet(s) PO QID 201604/12/2017 Inactive Carafate 1 gram tablet RxNorm: 585437 1 Tablet(s) PO QID 201605/12/2017 Inactive baclofen 10 mg tablet RxNorm: 163101 TAKE 2 TABLETS BY MOUTH AT BEDTIME 04/05/2017 10/31/2017 Inactive cefdinir 300 mg capsule RxNorm: 465751 1 Capsule(s) PO BID 08/201704/03/2017 Inactive cefdinir 300 mg capsule RxNorm: 306289 1 Capsule(s) PO BID 08/201704/13/2017 Inactive Zithromax Z-Con 250 mg tablet RxNorm: 488833 Tablet(s) PO UD 04/03/2017 Inactive Take as instructed on box Zithromax Z-Con 250 mg tablet RxNorm: 257612 Tablet(s) PO UD 04/08/2017 Inactive Take as instructed on box hydrocodone 5 mg-acetaminophen 325 mg tablet RxNorm: 065635 1-2 Tablet(s) PO Q4- 6H as needed for pain 04/02/20172016 Inactive Chantix 1 mg tablet RxNorm: 804396 1 Tablet(s) PO BID 201607/25/2017 Inactive hyoscyamine 0.125 mg sublingual tablet RxNorm: 5673693 1 Tablet(s) SL TID as needed 01/16/2017 01/25/2017 Inactive meloxicam 15 mg tablet RxNorm: 343414 TAKE ONE TABLET BY MOUTH EVERY NIGHT 12/12/2016 12/06/2017 Inactive Generic For:*MOBIC 15 MG TABLET Calmoseptine 0.44 %-20.6 % topical ointment RxNorm: 884616 1 Application TOP BID 10/30/2016 No Stop Date Active alprazolam 0.25 mg tablet RxNorm: 614077 1 Tablet(s) PO daily as needed 10/30/2016 11/27/2016 Inactive baclofen 10 mg tablet RxNorm: 870423 Tablet(s) TAKE 2 TABLETS BY MOUTH AT BEDTIME 09/08/2016 03/06/2017 Inactive N O T I C E PRESCRIPTION PREVIOUSLY AUTHORIZED BY DOCTOR:JACKSON TRAN Chantix 1 mg tablet RxNorm: 057116 1 Tablet(s) PO BID 201506/27/2016 Inactive Chantix 1 mg tablet RxNorm: 772092 1 Tablet(s) PO BID 201511/13/2016 Inactive baclofen 10 mg tablet RxNorm: 249984 Tablet(s) TAKE 2 TABLETS BY MOUTH AT BEDTIME 03/15/2016 09/07/2016 Inactive N O T I C E PRESCRIPTION PREVIOUSLY AUTHORIZED BY DOCTOR:JACKSON TRAN meloxicam 15 mg tablet RxNorm: 405854 1 Tablet(s) PO QPM 201512/08/2016 Inactive alprazolam 0.25 mg tablet RxNorm: 718247 1 Tablet(s) PO daily as needed 09/22/2015 10/21/2015 Inactive baclofen 10 mg tablet RxNorm: 361654 TAKE 2 TABLETS BY MOUTH AT BEDTIME 09/13/2015 03/10/2016 Inactive N O T I C E PRESCRIPTION PREVIOUSLY AUTHORIZED BY DOCTOR: JACKSON TRAN meloxicam 15 mg tablet RxNorm: 748216 1 Tablet(s) PO QPM 201410/13/2015 Inactive Protonix 40 mg granules delayed-release packet RxNorm: 274141 1 PO daily No Start Date Active Zofran 4 mg tablet RxNorm: 021466 Tablet(s) PO No Start Date Active Toprol XL 25 mg tablet,extended release RxNorm: 652612 1 Tablet(s) PO daily No Start Date Active nitrofurantoin 100 mg capsule RxNorm: 581778 1 Capsule(s) PO every three days No Start Date Active MS Contin 60 mg tablet,extended release RxNorm: 273285 1 Tablet(s) PO BID No Start Date Active Probiotic Blend oral RxNorm: 360274 oral No Start Date Active Reglan 5 mg tablet RxNorm: 086306 1 Tablet(s) PO AC No Start Date Active tolterodine ER 4 mg capsule,extended release 24 hr RxNorm: 144197 1 Capsule(s) PO daily No Start Date Active oxycodone-acetaminophen 10 mg-325 mg tablet RxNorm: 3591881 1 Tablet(s) PO Q4-6H as needed for pain No Start Date 2016 Inactive triamcinolone acetonide 0.025 % topical cream RxNorm: 6292044 1 Application TOP BID No Start Date 11/29/2017 Inactive hydrocodone 10 mg-acetaminophen 325 mg tablet RxNorm: 501490 1 Tablet(s) PO Q4-6H No Start Date 05/03/2017 Inactive alprazolam 0.25 mg tablet RxNorm: 250010 Tablet(s) PO daily as needed No Start Date 09/21/2015 Inactive baclofen 10 mg tablet RxNorm: 456108 2 Tablet(s) PO QHS No Start Date [...] Code Item Item Code Result Date Prealbumin 321250 PREALBUMIN 21 mg/dL 11/15/2016 Comp Metabolic Zxc849 NA 136 mEq/L 11/14/2016 Comp Metabolic Lkz254 K 3.8 mEq/L 11/14/2016 Comp Metabolic Cem177 CL 101 mEq/L 11/14/2016 Comp Metabolic Ujp973 CO2 28.0 mEq/L 11/14/2016 Comp Metabolic Xub509 ANION GAP 11 11/14/2016 Comp Metabolic Zzv678 GLUCOSE 91 mg/dL 11/14/2016 Comp Metabolic Ijk262 Creat 0.5 mg/dL 11/14/2016 Comp Metabolic Jfg700 eGFR 135 ml/min/1.73m2 11/14/2016 Comp Metabolic Uqh622 BUN 10 mg/dL 11/14/2016 Comp Metabolic Mal974 B/C Ratio 19.6 Ratio 11/14/2016 Comp Metabolic Sgc037 CALCIUM 9.8 mg/dL 11/14/2016 Comp Metabolic Caz379 ALK PHOS 82 U/L 11/14/2016 Comp Metabolic Ksx295 AST(SGOT) 15 U/L 11/14/2016 Comp Metabolic Cbp124 ALT(SGPT) 11 U/L 11/14/2016 Comp Metabolic Qrz927 BILI T 0.4 mg/dL 11/14/2016 Comp Metabolic Asl868 ALBUMIN 4.2 g/dL 11/14/2016 Comp Metabolic Rnu524 TPRO 7.7 g/dL 11/14/2016 Comp Metabolic Kmk800 GLOB 3.5 g/dL 11/14/2016 Comp Metabolic Mst675 A/G Ratio 1.2 Ratio 11/14/2016 Comp Metabolic Oam185 Osmo 271 mOsmo 11/14/2016 Cbc With Differential [...] 31.4 pg 11/14/2016 Cbc With Differential Ord2 [place]% 9.8 % 11/14/2016 Cbc With Differential Ord2 [...] 1.41 K/ul 11/14/2016 Cbc With Differential Ord2 [place] ABS# 0.8 K/ul 11/14/2016 Cbc With Differential [...] site not specified[ICD10: N39.0] Marilu Oshea MD, [facility] CPT-4: 53402 08/01/2017 ([id number]) 25684 EST. PATIENT, LEVEL IV Diagnosis: Slow transit constipation[ICD10: K59.01] Diagnosis: Malignant neoplasm of overlapping sites of right bronchus and lung[ ICD10: C34.81] Marivel Oshea MD, [facility] CPT-4: 99782 07/26/2017 56568 EST. PATIENT, LEVEL III Diagnosis: Pneumonia due to other specified infectious organisms[ICD10: J16.8] Marilu Oshea MD, [facility] CPT-4: 56234 04/19/2017 39636 EST. PATIENT, LEVEL IV Diagnosis: Pleurodynia[ICD10: R07.81] Marilu Oshea MD, [facility] CPT-4 : 91501 04/02/2017 62536 EST. PATIENT, LEVEL IV Diagnosis: Right upper quadrant pain[ICD10: R10.11] Diagnosis: Other fecal abnormalities[ICD10: R19.5] Marilu Oshea MD, [facility] CPT-4: 47323 01/16/2017 40245 EST. PATIENT, LEVEL III Diagnosis: Other fecal abnormalities[ICD10: R19.5] Marilu Oshea MD, [facility] CPT-4: 05297 01/11/2017 ([id number]) PREV VISIT EST AGE 40-64 Diagnosis: Encounter for general adult medical examination with abnormal findings[ICD10: Z00.01] Diagnosis: Pressure ulcer of left hip, stage 2[ICD10: L89.222] Marivel Oshea MD, [facility] CPT-4: 41608 11/14/2016 09125 EST. PATIENT, LEVEL IV Diagnosis: Pressure ulcer of left hip, stage 2[ICD10: L89.222] Marilu Oshea MD, [facility] CPT-4: 53747 10/30/2016 ([id number]) 71478 EST. PATIENT, LEVEL IV Diagnosis: Other specified diseases of anus and rectum[ICD10: K62.89] Marivel Oshea MD , [facility] CPT-4: 03987 05/18/2016 ([id number]) 06275 EST. PATIENT, LEVEL III Diagnosis: Contusion of ankle or foot, left[ICD9: 924.20] Diagnosis: Foot swelling[ICD9: 729.81] Lainey Oshea MD, [facility] CPT-4: 45194 08/17/2015 ([id number]) 38139 EST. PATIENT, LEVEL III Diagnosis: OSTEOARTH NOS-UNSPEC[ICD9: 715.90] Diagnosis: Tobacco use disorder[ICD9: 305.1] Marivel Oshea MD, [facility] CPT-4: 37654 06/16/2015 ([id number]) PREV VISIT NEW AGE 40-64 Diagnosis: Routine medical exam[ICD9: V70.0] Marivel Oshea MD, [facility] CPT-4: 84894 05/19/2015 Plan of Care Planned Activity Notes [...] with oncology. 07/26/2017 Appointment: Marivel Oshea [facility]Ptel: [phone] [facility] [place] [place] (15 min) Moderate 07/26/2017 Patient Education: Patient Medication Summary Completed 07/26/2017 Visit Plan: Pneumonia - Pt has been diagnosed with pneumonia by physical exam. A chest xray has been ordered as have antibiotics. The pt is aware of the diagnosis and the need for acute treatment of this illness. 04/19/2017 Appointment: Marilu Parry WPtel: [facility] [place] (30 min) Complex 04/19/2017 Patient Education: Patient Medication Summary Completed 04/19/2017 Visit Plan: Right lower rib pain - will check x-ray - will treat as indicated - pt is to notify clinic if symptoms do not improve, if they worsen, or with any questions of concerns. 04/02/2017 [facility] [facility] [place] ([facility]) Complex 04/02/2017 Patient [...] pain. 01/16/2017 Appointment: [facility] [address] [facility] [place] (15 min) Moderate 01/16/2017 Patient [...] stomach pain. 01/11/2017 Appointment: [facility] [phone] [facility] ([facility] min) Complex 01/11/2017 Patient Education: Patient Medication Summary Completed 01/11/2017 Appointment: Marivel Oshea WPtel: [facility] (15 min) Moderate 12/14/2016 Visit Plan: Left hip pressure ulcer -tunnels 1/8 inch - Referral to Wound Care - appt with Dr. Aguila at [address] [place] [address] at [facility] at about 9:30-9:45AM for registration process in the wound-care center. Off load the hip - will have pt get a new Gel cushion. 11/14/2016 Visit Plan: Left hip pressure ulcer -tunnels 1/8 inch - Referral to Wound Care - appt with Dr. Aguila at [address] [place] [address] at [facility] at about 9:30-9:45AM for registration process in the wound-care center. Off load the hip - will have pt get a new Gel cushion. 11/14/2016 Appointment: Marivel Oshea WPtel: [facility] [place] (15 min) Moderate 11/14/2016 Patient Education: Patient Medication Summary Completed 11/14/2016 Visit Plan: Stage 2 pressure ulcer, left hip - Pt was instructed to keep the area clean, wash with antibacterial soap, use ointment, call if redness, pustular drainage, or any other acute concerns. 10/30/2016 Appointment: Lainey Hudson WPtel: [phone] (15 min) Moderate 10/30/2016 Patient Education: Patient Medication Summary Completed 10/30/2016 Referral: Blair Sinclair [address] [facility] [place] Referral Completed 05/22/2016 Visit Plan: Planning colonoscopy with - appt on @ 3:45pm 05/18/2016 Patient Education: Patient Medication Summary Completed 05/18/2016 Care Plan: Referral Order SNOMED-CT : [id number] Pending 05/18/2016 Appointment: Marivel Oshea WPtel: [facility] (15 min) Moderate 08/25/2015 Visit Plan: Bruising and swelling of left foot, ankle and toes-continue with akua wrap compression, anti inflammatories as directed and refer to Dr Menjivar for evaluation of injury. 08/17/2015 Appointment: (15 min) Moderate 08/17/2015 Patient Education: Patient Medication Summary Completed 08/17/2015 Patient Education: Smoking and Tobacco Addiction Completed 08/17/2015 Care Plan: Referral Order SNOMED-CT : [id number] Ordered 08/17/2015 Care Plan: SCREENINGMAMMOGRAPHYDIGITAL LOINC : 08880-7 Ordered 07/14/2015 Visit Plan: Arthritis- occasionally uncontrolled [...] cessation. 06/16/2015 Appointment: Marivel Oshea WPtel: [facility] [place] (15 min) Moderate 06/16/2015 Patient Education: Patient [...] functioning. 05/19/2015 Appointment: Marivel Oshea WPtel: [facility] [place] [address] [place] ([place] New Patient 05/19/2015 Patient Education: Patient Medication Summary Completed 05/19/2015 Referral: Asia Menjivar Referral Initiated Referral: Blair Sinclair [address] [facility] [place] Referral Appointment Requested Instructions Comment . [...] scan. US is today at 330 at [facility] - check in at the business [...] Dr.Kido Juli sloan on 05/22/16 @ 3:45pm [facility] or [employer] - 3 times a day for 3 [...]
[2018-02-25 10:27] LABS: BASOPHILS % (AUTO) 0 % (0-10); EOSINOPHILS # (AUTO) 0.2 10^3/uL (0.0-0.3); EOSINOPHILS % (AUTO) 2 % (0-10); HEMATOCRIT 38 % (35-52); HEMOGLOBIN 12.4 G/DL (11.5-16.0); LYMPHOCYTES # (AUTO) 0.9 X 10^3 (1.0-4.0); LYMPHOCYTES % (AUTO) 9 % (12-44); MEAN CORPUSCULAR HEMOGLOBIN 29 PG (25-34); MEAN CORPUSCULAR HGB CONC 33 G/DL (32-36); MEAN CORPUSCULAR VOLUME 89 FL (80-99); MEAN PLATELET VOLUME 9.5 FL (7.4-10.4); MONOCYTES # (AUTO) 0.6 X 10^3 (0.0-1.0); MONOCYTES % (AUTO) 6 % (0-12); NEUTROPHILS # (AUTO) 8.4 X 10^3 (1.8-7.8); NEUTROPHILS % (AUTO) 83 % (42-75); PLATELET COUNT 281 10^3/uL (130-400); RED BLOOD COUNT 4.28 10^6/uL (4.35-5.85); RED CELL DISTRIBUTION WIDTH 14.9 % (10.0-14.5)
[2018-02-25 10:36] LABS: INR 1.1 (0.8-1.4); PROTHROMBIN TIME PATIENT 13.8 SEC (12.2-14.7)
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
--- NOTE | 2018-02-25 10:43 | Diagnostic Imaging Report ---
INDICATION: Confusion COMPARISON: 01/04/2018 FINDINGS: Single frontal view of the chest is obtained. Heart size is normal. The pulmonary vessels appear unremarkable. Right PICC line is unchanged. There is no pneumothorax. Masslike opacity in the right hilum with infiltrate extending from the right hilum to the lateral right chest wall appears fairly similar to the prior study. Some pleural-parenchymal scarring at the lung bases and apices appear similar to the prior exam. No new abnormality is seen. IMPRESSION: Stable appearance of the chest compared to the recent prior study. Masslike opacity over the right hilum and parenchymal airspace disease extending from the right hilum to the lateral right chest wall appear similar to the prior study and no new significant abnormality is seen. Dictated by: Dictated on workstation # [id number]
[2018-02-25 10:45] LABS: ALANINE AMINOTRANSFERASE 23 U/L (0-55); ALKALINE PHOSPHATASE 129 U/L (40-136); BILIRUBIN,TOTAL 0.3 MG/DL (0.1-1.0); BUN/CREATININE RATIO 23; CALCIUM 9.9 MG/DL (8.5-10.1); CARBON DIOXIDE 31 MMOL/L (21-32); CHLORIDE 99 MMOL/L (98-107); CREATININE SERUM 0.73 MG/DL (0.60-1.30); GFR ESTIMATED > 60; GLUCOSE 122 MG/DL (70-105); MAGNESIUM 1.7 MG/DL (1.8-2.4); SODIUM 137 MMOL/L (135-145); TOTAL PROTEIN 7.9 GM/DL (6.4-8.2)
--- NOTE | 2018-02-25 10:46 | Diagnostic Imaging Report ---
INDICATION: Abnormal speech. History of lung cancer. Comparison: None Technique: Routine noncontrast CT of the head was performed. Findings: There is moderate area of abnormal edema within the left temporal lobe. There appears to be a 1.8 x 1.7 cm mass within the anterior inferior margins of the left temporal lobe (image 6, series 2). There is also moderate effacement of the sulci of the left temporal lobe and mild mass effect with left to right midline shift of approximately 3 cm. Basal cisterns are maintained. There is no evidence of tonsillar herniation. Ventricles and cortical sulci are otherwise within normal limits. There is no evidence of intra-or extra-axial intracranial hemorrhage. Bony calvarium is intact. Included portions of paranasal sinuses and mastoid air cells are clear. Impression: 1. Moderate edema of the left temporal lobe, which appears to be secondary to temporal lobe mass as described above. Given history of lung cancer, metastatic disease is favored. Further evaluation with postcontrast MRI of the brain is recommended. 2. Mild mass effect secondary to the above. 3. No evidence of intracranial hemorrhage. Dictated by: Dictated on workstation # [id number]
[2018-02-25 10:53] LABS: BILIRUBIN,URINE NEGATIVE (NEGATIVE); CLARITY,URINE CLEAR; COLOR,URINE YELLOW; GLUCOSE, URINE (UA) NEGATIVE (NEGATIVE); KETONES,URINE NEGATIVE (NEGATIVE); LEUKOCYTE ESTERASE ,URINE NEGATIVE (NEGATIVE); NITRITE,URINE NEGATIVE (NEGATIVE); PH,URINE 6 (5-9); PROTEIN,URINE 1+ (NEGATIVE); UROBILINOGEN,URINE NORMAL (NORMAL)
[2018-02-25 11:06] LABS: BACTERIA,URINE NEGATIVE /HPF; HYALINE CASTS, URINE 0-2 /LPF; WBC,URINE RARE /HPF
[2018-02-25] MEDS ORDERED: DEXA4TAB PO (11:12)
[2018-02-25] MEDS ORDERED: MAGNESIUM OXIDE (MAG-OX)400 MG TAB PO ONE (11:15)
[2018-02-25] MEDS ORDERED: DEXAMETHASONE 4 MG/ML SDV (DECADRON) IV ONE (11:15)
[2018-02-25 11:41] VITALS: BP 118/69
== END 2018-02-25 11:41 | disposition home or self-care (01) ==
LOC: EDUNIT# 09:51 → ER 09:53
DX: R41.82 Altered mental status, unspecified (principal); C34.90 Malignant neoplasm of unspecified part of unspecified bronchus or lung; E83.42 Hypomagnesemia; Z87.891 Personal history of nicotine dependence; Z92.21 Personal history of antineoplastic chemotherapy; Z80.1 Family history of malignant neoplasm of trachea, bronchus and lung; Z80.0 Family history of malignant neoplasm of digestive organs; Z85.118 Personal history of other malignant neoplasm of bronchus and lung; Z87.440 Personal history of urinary (tract) infections
CPT/HCPCS: 36415; 70450; 71045; 80053; 81000; 83605; 83735; 85025; 85610; 85730; 87040; 93041; 96374

== ENCOUNTER → 2018-02-27 | Outpatient (CLI) | payer BC, MEDICARE ==
[~2018-02-27] MED LIST changes: +DEXA4TAB PO; +GADOBUTROL 7.5 MMOL/7.5 ML (GADAVIST) VIAL IV ONE
--- NOTE | 2018-02-27 13:20 | Diagnostic Imaging Report ---
PROCEDURE: MR imaging of the brain with and without contrast. TECHNIQUE: Multiplanar, multisequence MR imaging of the brain was performed with and without contrast. INDICATION: Lung cancer, intracranial mass. FINDINGS: The previous MRI brain exam performed on 04/29/2010 failed to show any sign of an acute intracranial abnormality. There was no evidence for an intracranial mass either. However, the CT head exam performed on 02/25/2018 suggested a 1.8 x 1.7 cm mass within the left temporal lobe. On the postcontrast series of this exam, there is a fairly well-circumscribed 2.1 x 2.0 x 2.4 cm mass in this area. This mass should be considered neoplastic until proven otherwise. The precise etiology of this mass, however, is not certain. This does appear to be in close proximity to the dural surface. Consequently, this could be an extra-axial mass such as a meningioma. This could also represent an intra-axial mass such as a glioma. With the patient's history of lung cancer, the possibility that this is secondary to metastatic disease should be considered as well. However, there are no other areas of abnormal enhancement identified. As seen on the CT exam, there is considerable associated vasogenic edema and there is approximately 3 mm of shift of the midline to the right. There is no hemorrhage identified. There is no abnormal signal arising from the brain on the diffusion series to indicate an area of acute ischemia either. The ventricles are not abnormally dilated. The sella is not enlarged, and the expected carotid flow voids are evident bilaterally. The orbits are symmetrical and within normal limits. The sinuses are generally clear. The seventh and eighth nerve complexes are unremarkable. IMPRESSION: 1. There is a large enhancing mass in the left temporal lobe anteriorly. This mass should be considered neoplastic until proven otherwise. The precise etiology of this finding, however, is not certain. Considerations as above. 2. There is considerable associated vasogenic edema with the mass in the left temporal lobe, and there is approximately 3 mm of shift of the midline to the right. 3. There is no acute intracranial abnormality identified otherwise. Dictated by: Dictated on workstation # [id number]
== END ==
LOC: RAD 11:32
PROVIDERS: ATTEND Radiology Radiation Oncology
DX: C34.90 Malignant neoplasm of unspecified part of unspecified bronchus or lung (principal); C79.31 Secondary malignant neoplasm of brain
CPT/HCPCS: 70553

== ENCOUNTER → 2018-02-28 | Outpatient (CLI) | payer BC, MEDICARE ==
[~2018-02-28] MED LIST changes: -GADOBUTROL 7.5 MMOL/7.5 ML (GADAVIST) VIAL IV ONE
== END ==
LOC: WOUNDCARE 08:54
PROVIDERS: ATTEND Internal Medicine
DX: M86.18 Other acute osteomyelitis, other site (principal); L89.324 Pressure ulcer of left buttock, stage 4; G82.20 Paraplegia, unspecified; C34.91 Malignant neoplasm of unspecified part of right bronchus or lung
CPT/HCPCS: 99212

== ENCOUNTER → 2018-02-28 | Outpatient (CLI) | payer BC, MEDICARE ==
[~2018-02-28] MED LIST changes: +BARIUM SUSPENSION 2.1% (VANILLA SILQ) 450 ML PO ONE; +CATHETER FLUSH 10 ML SYR IV PRN; +GADOBUTROL 7.5 MMOL/7.5 ML (GADAVIST) VIAL IV ONE; +IOHEXOL 350 MG/ML 100 ML (OMNIPAQUE 350) VIAL IV ONE; +NS 250 ML (IVPB) BAG IV ONE
--- NOTE | 2018-02-28 13:46 | Diagnostic Imaging Report ---
PROCEDURE: CT chest and abdomen with contrast. TECHNIQUE: Multiple contiguous axial images were obtained through the chest and abdomen after the administration of intravenous contrast. INDICATION: Lung cancer. FINDINGS: The previous CT chest and abdomen exam performed on 12/06/2017 noted that the appearance of the chest had improved since the previous exam of 04/26/2017 as the masses involving the right lung and the mediastinal adenopathy had decreased in size. The recent chest exam performed on 02/25/2018 noted a mass-like opacity about the right hilum and parenchymal airspace disease extending from the right hilum to the periphery of the right mid lung. On this exam, there is a dense alveolar/interstitial pulmonary infiltrate along the periphery of the right mid lung. This would correspond to the finding of the plain film exam. There is also a similar appearing area of abnormal density in the right infrahilar region. This too has the appearance of pneumonia/atelectasis. Coarse interstitial densities are also seen along the medial aspect of the right upper lung. There are soft tissue densities involving the superior mediastinum on the right, the right hilum, and the right subcarinal region. These are similar to the prior study. There is no new mass evident to suggest neoplastic disease. Even so, a short-term (4-6 week) followup CT chest exam would be recommended for further study. The small parenchymal and pleural abnormalities involving the left lung seen previously are again evident and do not seem to have changed significantly. The heart size is stable. There is no defect within the pulmonary arteries to indicate a pulmonary embolus. The aorta is not abnormally dilated. The thyroid gland is stable in appearance when compared to the prior study. There is no obvious breast mass. The sections through the upper abdomen fail to show any sign of an acute abnormality. However, there is a small 1 x 1.7 cm collection of gas along the interface between the right lobe of the liver and the diaphragm. This finding is of uncertain etiology. The liver is not enlarged, and there is no defect within the liver to indicate metastatic disease either. The spleen, pancreas, adrenals, kidneys, aorta, and inferior vena cava show no sign of an acute abnormality. As noted on the prior exam, the gallbladder is surgically absent. The stomach is partially filled with oral contrast and difficult to assess. There is gas in both the large and small bowel in a nonspecific fashion. There is also a fair amount of fecal material throughout the visualized colon. The bone windows show no sign of a fracture or of a destructive lesion. The orthopedic fixation rods extending from the upper thoracic region to the thoracolumbar junction seen previously are again evident. IMPRESSION: 1. The appearance of the chest has worsened since the prior study as alveolar/interstitial infiltrates have developed throughout the periphery of the right mid lung and about the right hilum. However, there is no clear evidence for a new neoplastic mass. Recommendations as above. 2. There is no acute cardiopulmonary abnormality noted. In particular, there is no sign of a pulmonary embolus or of a dissection. 3. There is a small collection of gas near the interface between the diaphragm and the right lobe of the liver. This is of uncertain etiology. If further evaluation is desired, then a short-term (24-hour) followup CT abdomen exam would be recommended. 3. The appearance of the abdomen and pelvis is otherwise stable when compared to the prior study. 4. These results will be discussed with Dr. Griggs. Dictated on workstation # [id number]
--- NOTE | 2018-02-28 16:35 | Diagnostic Imaging Report ---
PROCEDURE: MRI pelvis with and without contrast. TECHNIQUE: Multiplanar, multisequence MRI of the pelvis was performed with and without contrast. INDICATION: Pressure ulcer, left buttock. FINDINGS: The previous MRI pelvis exam performed on 10/17/2017 noted findings compatible with osteomyelitis involving the left ischium with superior extension towards the posterior left acetabulum. There was also a large decubitus ulcer in this region. The nuclear medicine bone scan performed earlier today again showed persistent abnormal uptake involving the left inferior pubic ramus and ischium. On this study, the findings of the previous MRI exam are again evident and do not seem to have progressed. There is no clear evidence for involvement of the left acetabulum by osteomyelitis. There are areas of abnormal signal in the subarticular region of each acetabulum. These are probably chronic in nature. The decubitus ulcer involving the left buttock seen previously has not changed significantly in size. There is still no sign of a soft tissue abscess on the postcontrast series. There is no other area of abnormal signal arising from the osseous structures to indicate bone edema or osteomyelitis. As noted on the prior study, the marked deformity of the right femoral head and right acetabulum seen previously are again evident and no different. IMPRESSION: 1. There is persistent involvement of the inferior pubic ramus and ischium on the left by osteomyelitis. Overall, there has been no significant change. No new abnormality has developed. 2. The large decubitus ulcer involving the left buttock seen previously is also again evident and essentially no different. Dictated by: Dictated on workstation # [id number]
--- NOTE | 2018-02-28 16:40 | Diagnostic Imaging Report ---
EXAMINATION: Whole body bone scan. INDICATION: Lung cancer. TECHNIQUE: This study was performed following administration of 26.5 mCi of 99m technetium MDP. Anterior and posterior whole body images were obtained as well as spot films of the skull and thorax in the lateral projection. The previous whole body bone scan performed on 12/06/2017 failed to show any evidence for metastatic disease. The prior exam did note abnormal uptake involving the inferior pubic ramus on the left. This was felt to be related to the patient's diagnosis of osteomyelitis that was noted on the MRI pelvis exam of 10/17/2017. On this exam, there is still abnormal uptake along the inferior pubic ramus on the left. This finding is essentially no different than the prior exam. There is no other abnormal uptake to suggest metastatic disease. As noted on the prior study, there is degenerative disease involving the shoulder and knee and ankle joints. There is also levoscoliosis of the thoracolumbar junction and degenerative disease of the thoracic and lumbar spine. Both kidneys do show excretion of the radiotracer. IMPRESSION: 1. There is persistent uptake in the inferior pubic ramus on the left. This would correspond to the patient's diagnosis of osteomyelitis. Reportedly, MRI of the pelvis is pending for further evaluation. 2. There is no new area of abnormal uptake to indicate metastatic disease related to the patient's diagnosis of lung cancer. Dictated by: Dictated on workstation # [id number]
== END ==
LOC: RAD 10:14
PROVIDERS: ATTEND Internal Medicine Hematology & Oncology
DX: C34.81 Malignant neoplasm of overlapping sites of right bronchus and lung (principal); C77.9 Secondary and unspecified malignant neoplasm of lymph node, unspecified; L89.329 Pressure ulcer of left buttock, unspecified stage; M86.8X8 Other osteomyelitis, other site
CPT/HCPCS: 71260; 72197; 74160; 78306

== ENCOUNTER → 2018-03-01 | Outpatient (CLI) | payer BC, MEDICARE ==
[~2018-03-01] MED LIST changes: -BARIUM SUSPENSION 2.1% (VANILLA SILQ) 450 ML PO ONE; -CATHETER FLUSH 10 ML SYR IV PRN; -GADOBUTROL 7.5 MMOL/7.5 ML (GADAVIST) VIAL IV ONE; -IOHEXOL 350 MG/ML 100 ML (OMNIPAQUE 350) VIAL IV ONE; -NS 250 ML (IVPB) BAG IV ONE
--- NOTE | 2018-03-01 11:07 | Diagnostic Imaging Report ---
PROCEDURE: CT abdomen without contrast. TECHNIQUE: Multiple contiguous axial images were obtained through the abdomen without the use of intravenous contrast. INDICATION: Abnormal CT scan. FINDINGS: The CT abdomen/pelvis exam performed on 02/28/2018 noted a small collection of gas near the interface of the diaphragm and the right lobe of the liver. On this exam that collection of gas has essentially resolved. The etiology of the gas is not certain. IMPRESSION: 1. The small collection of gas near the interface of the diaphragm in the right lower liver seen on the previous exam has essentially resolved. This is of uncertain etiology. 2. The results were discussed with Dr. Griggs. Dictated by: Dictated on workstation # [id number]
== END ==
LOC: RAD 09:55
PROVIDERS: ATTEND Internal Medicine Hematology & Oncology
DX: R93.5 Abnormal findings on diagnostic imaging of other abdominal regions, including retroperitoneum (principal)
CPT/HCPCS: 74150

== ENCOUNTER → 2018-03-07 | Outpatient (CLI) | payer BC, MEDICARE | LOC: WOUNDCARE 10:04 | PROVIDERS: ATTEND Internal Medicine | DX: M86.18 Other acute osteomyelitis, other site (principal); L89.324 Pressure ulcer of left buttock, stage 4; G82.20 Paraplegia, unspecified; C34.91 Malignant neoplasm of unspecified part of right bronchus or lung | CPT/HCPCS: 99212 ==

== ENCOUNTER 2018-03-29 09:42 | Inpatient (IN) | payer BC, MEDICARE ==
[~2018-03-29] VITALS: Ht 152.4 cm; Wt 43.1 kg
[2018-03-29] MEDS ORDERED: NS IV 1000 ML 1,000 ML IV ONE (10:02)
[2018-03-29] MEDS ORDERED: ACETAMINOPHEN 500 MG TAB (TYLENOL) PO STA (10:21)
[2018-03-29 10:32] LABS: BASOPHILS % (AUTO) 0 % (0-10); EOSINOPHILS # (AUTO) 0.1 10^3/uL (0.0-0.3); EOSINOPHILS % (AUTO) 1 % (0-10); HEMATOCRIT 38 % (35-52); HEMOGLOBIN 12.9 G/DL (11.5-16.0); LYMPHOCYTES # (AUTO) 0.5 X 10^3 (1.0-4.0); LYMPHOCYTES % (AUTO) 8 % (12-44); MEAN CORPUSCULAR HGB CONC 34 G/DL (32-36); MEAN CORPUSCULAR VOLUME 90 FL (80-99); MEAN PLATELET VOLUME 8.3 FL (7.4-10.4); MONOCYTES # (AUTO) 0.5 X 10^3 (0.0-1.0); MONOCYTES % (AUTO) 8 % (0-12); NEUTROPHILS # (AUTO) 5.4 X 10^3 (1.8-7.8); NEUTROPHILS % (AUTO) 84 % (42-75); PLATELET COUNT 191 10^3/uL (130-400); RED BLOOD COUNT 4.23 10^6/uL (4.35-5.85); RED CELL DISTRIBUTION WIDTH 17.3 % (10.0-14.5); WHITE BLOOD COUNT 6.5 10^3/uL (4.3-11.0)
[2018-03-29 10:34] LABS: MEAN CORPUSCULAR HEMOGLOBIN 30 PG (25-34)
[2018-03-29 10:42] LABS: INR 1.1 (0.8-1.4); PROTHROMBIN TIME PATIENT 13.9 SEC (12.2-14.7)
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
[2018-03-29 10:50] LABS: ALANINE AMINOTRANSFERASE 93 U/L (0-55); ALBUMIN 3.1 GM/DL (3.2-4.5); ALKALINE PHOSPHATASE 113 U/L (40-136); BILIRUBIN,TOTAL 0.5 MG/DL (0.1-1.0); BUN/CREATININE RATIO 47; CALCIUM 9.2 MG/DL (8.5-10.1); CARBON DIOXIDE 27 MMOL/L (21-32); CHLORIDE 98 MMOL/L (98-107); CREATININE SERUM 0.57 MG/DL (0.60-1.30); GFR ESTIMATED > 60; GLUCOSE 121 MG/DL (70-105); POTASSIUM 4.1 MMOL/L (3.6-5.0); SODIUM 134 MMOL/L (135-145)
[2018-03-29 11:00] LABS: BILIRUBIN,URINE NEGATIVE (NEGATIVE); CLARITY,URINE CLEAR; COLOR,URINE YELLOW; GLUCOSE, URINE (UA) NEGATIVE (NEGATIVE); KETONES,URINE NEGATIVE (NEGATIVE); LEUKOCYTE ESTERASE ,URINE 1+ (NEGATIVE); NITRITE,URINE NEGATIVE (NEGATIVE); PH,URINE 7 (5-9); PROTEIN,URINE 1+ (NEGATIVE); UROBILINOGEN,URINE NORMAL (NORMAL)
[2018-03-29 11:00] LABS: ANISOCYTOSIS MODERATE; BAND NEUTROPHILS 7 %; BASOPHILS % (MANUAL) 0 %; EOSINOPHILS % (MANUAL) 0 %; LYMPHOCYTES % (MANUAL) 16 %; MONOCYTES % (MANUAL) 6 %; NEUTROPHILS % (MANUAL) 71 %; POLYCHROMASIA SLIGHT
--- NOTE | 2018-03-29 11:06 | Diagnostic Imaging Report ---
Indication: Fever. Time of exam: 10:35 AM Correlation is made with prior study from 02/25/2018. The heart size is stable. Right extremity PICC line remains in place. Opacity in the periphery of the right mid lung appears stable. Masslike density right suprahilar/paratracheal location appears stable. There are irregular densities in the left upper lobe, new since prior exam. There is also some increasing opacities in the left base. No pneumothorax is seen. Apical thickening is stable. Impression: Stable appearance of the right lung. There are some developing densities in the left upper lobe as well in the left base, perhaps infiltrate. No other significant abnormalities seen. Dictated by: Dictated on workstation # [id number]
[2018-03-29 11:08] LABS: PARTIAL THROMBOPLASTIN TIME > 200 SEC (24-35)
[2018-03-29 11:12] LABS: BACTERIA,URINE NEGATIVE /HPF; RBC,URINE RARE /HPF
[2018-03-29] MEDS ORDERED: PIPERACILLIN SODIUM/TAZOBACTAM 4.5 GM in D5W 100 ML IVPB 100 ML IV ONE (12:00)
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
[2018-03-29] MEDS ORDERED: NS IV 500 ML 500 ML IV ONE (12:13)
[2018-03-29] MEDS ORDERED: BISACODYL 5 MG (DULCOLAX) TABLET PO PRN ×2 (12:15→16:00)
[2018-03-29] MEDS ORDERED: IBUPROFEN 600 MG (MOTRIN) TAB PO PRN (12:15)
[2018-03-29] MEDS ORDERED: HYDROcodone/APAP 5 MG/325 MG (LORTAB) TAB PO PRN (12:15)
[2018-03-29] MEDS ORDERED: GLYCERIN ADULT SUPPOSITORY PR PRN ×2 (12:15→16:30)
[2018-03-29] MEDS ORDERED: NS (IVPB) 100 ML ONE (12:42)
[2018-03-29] MEDS ORDERED: RT-ALBUTEROL/IPRATROPIUM 3 ML (DUONEB) VIAL INH PRN (15:30)
[2018-03-29] MEDS ORDERED: ALPRAZolam 0.25 MG (XANAX) TAB PO PRN (16:00)
[2018-03-29] MEDS ORDERED: METO-352 PO (16:03)
[2018-03-29] MEDS ORDERED: MELO15TA39 PO (16:05)
[2018-03-29] MEDS ORDERED: TOLTA4 PO (16:06)
[2018-03-29] MEDS ORDERED: NITR-68 PO ×2 (16:08→16:19)
[2018-03-29] MEDS ORDERED: MORP15TA69 PO (16:10)
[2018-03-29] MEDS ORDERED: MORP30TA60 PO (16:13)
[2018-03-29] MEDS ORDERED: VANC750F2 IV (16:23)
[2018-03-29 16:30] VITALS: BP 93/54
[2018-03-29] MEDS ORDERED: PHARMACY TO DOSE IM SCH (16:30)
[2018-03-29] MEDS: LACTOBACILLUS Acidoph/Bulgar (LACTINEX/FLORANEX) TAB PO SCH (16:35)
[2018-03-29] MEDS: ENOXAPARIN 40 MG/0.4 ML (LOVENOX) SYR SC SCH (16:35)
[2018-03-29] MEDS: MAGNESIUM OXIDE (MAG-OX)400 MG TAB PO SCH ×2 (16:40→17:38)
[2018-03-29] MEDS: NS IV 1000 ML 1,000 ML IV SCH (16:41)
[2018-03-29] MEDS ORDERED: ONDANSETRON 8 MG (ZOFRAN) ORAL DISSOLVE TAB PO PRN (16:45)
[2018-03-29] MEDS: NITROFURANTOIN 100 MG (MACROBID) CAPSULE PO SCH (16:49)
[2018-03-29] MEDS: PANTOPRAZOLE 40 MG (PROTONIX) TAB PO SCH (16:49)
[2018-03-29] MEDS ORDERED: VANCOMYCIN INJECTION 750 MG in NS (IVPB) 250 ML IV SCH (17:00)
--- NOTE | 2018-03-29 17:41 | Wound Care Assessment ---
Wound Care Assessment Date Seen by Provider: March 29, 2018 Time Seen by Provider: 16:45 Chief Complaint L ischial ulcer. 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 The patient is currently followed by Dr. Walker in [place] and has been managed with a Wound VAC. The wound base and periwound demonstrate no clear evidence of sepsis arising from the wound. The patient was admitted with high fevers, and is being evaluated for a source of the fever. Paraplegia, carcinoma of lung with cerebral metastasis. Smoking Status: Former Smoker Recreational Drug Use: No Alcohol Use: Rarely Uses Review of Systems Pulmonary: No Dyspnea Cardiovascular: No: Chest Pain Exam Vital Signs Date Time Temp Pulse Resp B/P (MAP) Pulse Ox O2 Delivery O2 Flow Rate FiO2 03/29/18 16:30 98.9 115 18 93/54 (67) 96 Room Air 03/29/18 15:22 21 Capillary Refill : Less Than 3 Seconds General Appearance: no apparent distress Respiratory: no respiratory distress Skin: other (L ischial ulcer -- 2.9 x 2.5 x 2.4 cm, base 75% slough, 25% granulation, undermining 12 to 12, 3.0 cm at deepest.) Results Laboratory Tests 03/29/18 10:18: White Blood Count 6.5, Red Blood Count 4.23L, Hemoglobin 12.9, Hematocrit 38, Mean Corpuscular Volume 90, Mean Corpuscular Hemoglobin 30, Mean Corpuscular Hemoglobin Concent 34, Red Cell Distribution Width 17.3H, Platelet Count 191, Mean Platelet Volume 8.3, Neutrophils (%) (Auto) 84H, Lymphocytes (%) (Auto) 8L , Monocytes (%) (Auto) 8, Eosinophils (%) (Auto) 1, Basophils (%) (Auto) 0, Neutrophils # (Auto) 5.4, Lymphocytes # (Auto) 0.5L, Monocytes # (Auto) 0.5, Eosinophils # (Auto) 0.1, Basophils # (Auto) 0.0, Neutrophils % (Manual) 71, Lymphocytes % (Manual) 16, Monocytes % (Manual) 6, Eosinophils % (Manual) 0, Basophils % (Manual) 0, Band Neutrophils 7, Polychromasia SLIGHT, Anisocytosis MODERATE, Prothrombin Time 13.9, INR Comment 1.1, Activated Partial Thromboplast Time > 200*H, Sodium Level 134L, Potassium Level 4.1, Chloride Level 98, Carbon Dioxide Level 27, Anion Gap 9, Blood Urea Nitrogen 27H, Creatinine 0.57L, Estimat Glomerular Filtration Rate > 60, BUN/Creatinine Ratio 47, Glucose Level 121H, Calcium Level 9.2, Total Bilirubin 0.5, Aspartate Amino Transf (AST/SGOT) 35H, Alanine Aminotransferase (ALT/SGPT) 93H, Alkaline Phosphatase 113, Total Protein 6.0L, Albumin 3.1L 03/29/18 10:40: Lactic Acid Level 2.84*H 03/29/18 10:50: Urine Color YELLOW, Urine Clarity CLEAR, Urine pH 7, Urine Specific [place] 1.010L, Urine Protein 1+H, Urine Glucose (UA) NEGATIVE, Urine Ketones NEGATIVE, Urine Nitrite NEGATIVE, Urine Bilirubin NEGATIVE, Urine Urobilinogen NORMAL, Urine Leukocyte Esterase 1+H, Urine RBC (Auto) NEGATIVE, Urine RBC RARE, Urine WBC 2-5, Urine Squamous Epithelial Cells 2-5, Urine Crystals NONE, Urine Bacteria NEGATIVE, Urine Casts NONE, Urine Mucus NEGATIVE, Urine Culture Indicated NO 03/29/18 12:37: Activated Partial Thromboplast Time 34, Lactic Acid Level 0.66 Assessment/Plan/Dx 1. Pressure ulcer , L ischium, Stage 4. 2. Osteomyelitis of ischium, on IV Vancomycin. 3. Lung cancer, with cerebral metastasis. Plan: The wound is currently managed by Dr. Walker in [place] with NPWT. The wound appears stable at this time. The evaluation for the source of the fever is underway. EDGARDO KEY MD March 29, 2018 17:41
[2018-03-29] MEDS: PIPERACILLIN SODIUM/TAZOBACTAM 4.5 GM in NS (IVPB) 100 ML IV SCH (18:17)
[2018-03-29] MEDS: RT-ALBUTEROL/IPRATROPIUM 3 ML (DUONEB) VIAL INH SCH ×2 (18:41→21:58)
[2018-03-29] MEDS: TOLTERODINE LA 4 MG (DETROL) CAP PO SCH (20:45)
[2018-03-29] MEDS: BACLOFEN 10 MG (LIORESAL) TAB PO SCH ×2 (20:46→21:27)
[2018-03-29 20:50] VITALS: BP 100/63
[2018-03-29] MEDS ORDERED: TOLTERODINE LA 4 MG (DETROL) CAP PO SCH ×2 (21:00)
[2018-03-29] MEDS: morphine ER 15 MG (MS CONTIN) TAB PO SCH (21:27)
[2018-03-29] MEDS: MELOXICAM 7.5 MG (MOBIC) TABLET PO SCH (21:27)
[2018-03-29] MEDS: VANCOMYCIN INJECTION 750 MG in NS (IVPB) 250 ML IV SCH (21:27)
[2018-03-29] MEDS: FAMOTIDINE 20 MG (PEPCID) TABLET PO SCH (21:28)
[2018-03-29] MEDS: meTOproloL SUCCINATE 50 MG (TOPROL XL) TAB PO SCH (21:28)
[2018-03-30] MEDS: ACETAMINOPHEN 500 MG TAB (TYLENOL) PO PRN (00:23)
[2018-03-30 00:44] VITALS: BP 102/57
[2018-03-30] MEDS: NS IV 1000 ML 1,000 ML IV SCH ×2 (02:19→16:01)
[2018-03-30] MEDS: PIPERACILLIN SODIUM/TAZOBACTAM 4.5 GM in NS (IVPB) 100 ML IV SCH ×3 (02:54→18:40)
[2018-03-30] MEDS: RT-ALBUTEROL/IPRATROPIUM 3 ML (DUONEB) VIAL INH SCH ×5 (03:04→19:17)
[2018-03-30 04:35] VITALS: BP 96/54
[2018-03-30] MEDS: MAGNESIUM OXIDE (MAG-OX)400 MG TAB PO SCH ×2 (06:18→16:01)
[2018-03-30] MEDS: LACTOBACILLUS Acidoph/Bulgar (LACTINEX/FLORANEX) TAB PO SCH ×3 (06:18→16:01)
[2018-03-30] MEDS: PANTOPRAZOLE 40 MG (PROTONIX) TAB PO SCH ×2 (06:18→16:01)
[2018-03-30 06:51] LABS: HEMOGLOBIN 10.7 G/DL (11.5-16.0); MEAN PLATELET VOLUME 8.4 FL (7.4-10.4); RED BLOOD COUNT 3.52 10^6/uL (4.35-5.85); RED CELL DISTRIBUTION WIDTH 17.1 % (10.0-14.5); WHITE BLOOD COUNT 5.3 10^3/uL (4.3-11.0)
[2018-03-30 07:11] LABS: ALANINE AMINOTRANSFERASE 91 U/L (0-55); ALBUMIN 2.5 GM/DL (3.2-4.5); ALKALINE PHOSPHATASE 125 U/L (40-136); BILIRUBIN,TOTAL 0.5 MG/DL (0.1-1.0); BUN/CREATININE RATIO 20; CALCIUM 8.3 MG/DL (8.5-10.1); CARBON DIOXIDE 25 MMOL/L (21-32); CHLORIDE 110 MMOL/L (98-107); CREATININE SERUM 0.55 MG/DL (0.60-1.30); GFR ESTIMATED > 60; GLUCOSE 125 MG/DL (70-105); POTASSIUM 3.2 MMOL/L (3.6-5.0); SODIUM 142 MMOL/L (135-145); TOTAL PROTEIN 5.3 GM/DL (6.4-8.2)
--- NOTE | 2018-03-30 08:08 | Progress Note-Hospitalist ---
Subjective HPI/CC On Admission Date Seen by Provider: March 30, 2018 Time Seen by Provider: 08:00 Subjective/Events-last exam Patient feels a little better since admit Chronic paraplegia is a chronic issue and she states she never feels really good Maintained on appropriate antibiotics Nebulizers are helping her Review of Systems General: Fatigue, Malaise Pulmonary: Dyspnea, Cough Focused Exam Lactate Level 03/29/18 10:40: Lactic Acid Level 2.84*H 03/29/18 12:37: Lactic Acid Level 0.66 Objective Exam Vital Signs Vital Signs Date Time Temp Pulse Resp B/P (MAP) Pulse Ox O2 Delivery O2 Flow Rate FiO2 03/30/18 14:40 21 03/30/18 11:46 97.8 111 20 104/64 (77) 97 Room Air Capillary Refill : Less Than 3 Seconds General Appearance: No Apparent Distress, WD/WN, Chronically ill Neck: Normal Inspection Respiratory: Lungs Clear, Normal Breath Sounds Cardiovascular: Regular Rate, Rhythm, No Edema Neurologic/Psychiatric: Alert, Oriented x3, Depressed Affect, Motor Weakness ( lower extremities) Results/Procedures Lab Laboratory Tests 03/30/18 06:34 Patient resulted labs reviewed. Assessment/Plan Assessment and Plan Assess & Plan/Chief Complaint Assessment per Dr. Oshea: SEPSIS PNEUMONIA LUNG CANCER PARAPLEGIA LACTIC ACIDOSIS CHRONIC PRESSURE ULCER CHRONICALLY LOW BLOOD PRESSURE Plan: Maintain antibiotics Replace potassium Wound care management Diagnosis/Problems Diagnosis/Problems (1) Sepsis Status: Acute (2) Left upper lobe pneumonia Status: Acute Qualifiers: Pneumonia type: due to unspecified organism Qualified Codes: J18.1 - Lobar pneumonia, unspecified organism (3) Chronic paraplegia Status: Chronic (4) Lung cancer Status: Chronic Qualifiers: Laterality: unspecified laterality Lung location: unspecified part of lung Qualified Codes: C34.90 - Malignant neoplasm of unspecified part of unspecified bronchus or lung (5) Hypokalemia Status: Acute (6) Decubitus ulcer Status: Chronic Qualifiers: Pressure ulcer location: contiguous region involving buttock and hip Pressure ulcer stage: stage 4 Laterality: unspecified laterality Qualified Codes: L89.44 - Pressure ulcer of contiguous site of back, buttock and hip, stage 4 Clinical Quality Measures DVT/VTE Risk/Contraindication: Risk Factor Score Per Nursin RFS Level Per Nursing on Admit: 3=High MAILE SHAH DO March 30, 2018 08:08
[2018-03-30] MEDS ORDERED: KCL 20 MEQ TAB (K-DUR) PO NR (08:15)
[2018-03-30 08:30] VITALS: BP 104/58
[2018-03-30] MEDS ORDERED: SENNA W/DOCUSATE (SENOKOT S) TABLET PO PRN (09:00)
[2018-03-30] MEDS: FAMOTIDINE 20 MG (PEPCID) TABLET PO SCH ×2 (09:51→21:07)
[2018-03-30] MEDS: morphine ER 30 MG (MS CONTIN) TAB PO SCH (09:51)
[2018-03-30] MEDS: VANCOMYCIN INJECTION 750 MG in NS (IVPB) 250 ML IV SCH ×2 (09:52→21:08)
[2018-03-30] MEDS: SENNA W/DOCUSATE (SENOKOT S) TABLET PO SCH (09:52)
--- NOTE | 2018-03-30 10:56 | Diagnostic Imaging Report ---
INDICATION: Cough with history of lung cancer. COMPARISON: 03/29/2018. FINDINGS: Peripheral right upper lobe consolidations are unchanged. Trace bilateral pleural effusions are similar. No pneumothorax. Stable cardiomediastinal silhouette. Stable right PICC. Posterior instrumented compression and distraction rods within the thoracic spine are stable. IMPRESSION: 1. No change in heterogeneous consolidations, most confluent in the periphery of the right upper lobe. Dictated by: Dictated on workstation # [id number]
[2018-03-30 11:46] VITALS: BP 104/64
[2018-03-30 16:00] VITALS: BP 107/56
[2018-03-30] MEDS: ENOXAPARIN 40 MG/0.4 ML (LOVENOX) SYR SC SCH (16:01)
[2018-03-30] MEDS: BACLOFEN 10 MG (LIORESAL) TAB PO SCH ×2 (19:20→21:07)
[2018-03-30 20:00] VITALS: BP 110/67
[2018-03-30] MEDS: TOLTERODINE LA 4 MG (DETROL) CAP PO SCH (21:06)
[2018-03-30] MEDS: morphine ER 15 MG (MS CONTIN) TAB PO SCH (21:07)
[2018-03-30] MEDS: meTOproloL SUCCINATE 50 MG (TOPROL XL) TAB PO SCH (21:07)
[2018-03-30] MEDS: MELOXICAM 7.5 MG (MOBIC) TABLET PO SCH (21:07)
[2018-03-31 00:30] VITALS: BP 105/59
[2018-03-31] MEDS: RT-ALBUTEROL/IPRATROPIUM 3 ML (DUONEB) VIAL INH SCH ×4 (01:45→19:14)
[2018-03-31] MEDS: NS IV 1000 ML 1,000 ML IV SCH (03:05)
[2018-03-31] MEDS: PIPERACILLIN SODIUM/TAZOBACTAM 4.5 GM in NS (IVPB) 100 ML IV SCH ×3 (03:05→18:24)
[2018-03-31 04:00] VITALS: BP 100/57
[2018-03-31] MEDS: KCL 20 MEQ TAB (K-DUR) PO SCH (06:01)
[2018-03-31] MEDS: LACTOBACILLUS Acidoph/Bulgar (LACTINEX/FLORANEX) TAB PO SCH ×3 (06:01→16:10)
[2018-03-31] MEDS: PANTOPRAZOLE 40 MG (PROTONIX) TAB PO SCH ×2 (06:01→16:10)
[2018-03-31] MEDS: MAGNESIUM OXIDE (MAG-OX)400 MG TAB PO SCH ×2 (06:01→16:10)
[2018-03-31 07:49] LABS: HEMOGLOBIN 10.6 G/DL (11.5-16.0); MEAN PLATELET VOLUME 8.2 FL (7.4-10.4); RED BLOOD COUNT 3.44 10^6/uL (4.35-5.85); RED CELL DISTRIBUTION WIDTH 17.9 % (10.0-14.5); WHITE BLOOD COUNT 4.9 10^3/uL (4.3-11.0)
[2018-03-31] MEDS ORDERED: TROUGH ORDER-PHARMACY XX NR (08:00)
[2018-03-31 08:05] LABS: ALANINE AMINOTRANSFERASE 73 U/L (0-55); ALBUMIN 2.6 GM/DL (3.2-4.5); ALKALINE PHOSPHATASE 119 U/L (40-136); BILIRUBIN,TOTAL 0.6 MG/DL (0.1-1.0); BUN/CREATININE RATIO 19; CALCIUM 8.4 MG/DL (8.5-10.1); CARBON DIOXIDE 23 MMOL/L (21-32); CHLORIDE 109 MMOL/L (98-107); CREATININE SERUM 0.54 MG/DL (0.60-1.30); GFR ESTIMATED > 60; GLUCOSE 98 MG/DL (70-105); SODIUM 139 MMOL/L (135-145); TOTAL PROTEIN 5.4 GM/DL (6.4-8.2)
[2018-03-31 08:30] VITALS: BP 110/68
[2018-03-31] MEDS: morphine ER 30 MG (MS CONTIN) TAB PO SCH (09:21)
[2018-03-31] MEDS: SENNA W/DOCUSATE (SENOKOT S) TABLET PO SCH (09:21)
[2018-03-31] MEDS: FAMOTIDINE 20 MG (PEPCID) TABLET PO SCH ×2 (09:21→21:49)
[2018-03-31] MEDS: VANCOMYCIN INJECTION 750 MG in NS (IVPB) 250 ML IV SCH ×2 (09:21→21:49)
[2018-03-31] MEDS: ACETAMINOPHEN 500 MG TAB (TYLENOL) PO PRN ×2 (09:23→21:50)
--- NOTE | 2018-03-31 09:35 | Diagnostic Imaging Report ---
Indication: Lung cancer with cough. Comparison: 03/30/2018. Findings: Stable right PICC. Multifocal ill-defined nodular opacities in the left lung and right lung base are stable. Peripheral consolidations in the right upper lobe are stable. Stable cardio mediastinal silhouette. No pleural effusion or pneumothorax. Impression: Stable exam without interval worsening. Dictated by: Dictated on workstation # [id number]
[2018-03-31 12:00] VITALS: BP 96/60
--- NOTE | 2018-03-31 12:23 | Progress Note-Hospitalist ---
Subjective HPI/CC On Admission Date Seen by Provider: March 31, 2018 Time Seen by Provider: 11:30 Subjective/Events-last exam Patient doing much better We'll Hep-Lock IV fluids since she is tolerating oral intake well Denies any pain Bowels are moving Checked meds and labs Review of Systems General: Fatigue, Malaise Focused Exam Lactate Level 03/29/18 10:40: Lactic Acid Level 2.84*H 03/29/18 12:37: Lactic Acid Level 0.66 Objective Exam Vital Signs Vital Signs Date Time Temp Pulse Resp B/P (MAP) Pulse Ox O2 Delivery O2 Flow Rate FiO2 03/31/18 10:17 94 Room Air 03/31/18 08:30 100.2 109 18 110/68 (82) 03/30/18 14:40 21 Capillary Refill : Less Than 3 Seconds General Appearance: No Apparent Distress, WD/WN, Chronically ill Neck: Normal Inspection Respiratory: Crackles, Decreased Breath Sounds, Wheezing Cardiovascular: Regular Rate, Rhythm, No Edema Neurologic/Psychiatric: Alert, Oriented x3, No Motor/Sensory Deficits, Normal Mood/Affect, electrician's helper II-XII Norm as Tested Results/Procedures Lab Laboratory Tests 03/31/18 07:35 Patient resulted labs reviewed. Assessment/Plan Assessment and Plan Assess & Plan/Chief Complaint Assessment per Dr. Oshea: SEPSIS PNEUMONIA LUNG CANCER PARAPLEGIA LACTIC ACIDOSIS CHRONIC PRESSURE ULCER CHRONICALLY LOW BLOOD PRESSURE Plan: Maintain antibiotics Replace potassium Wound care management HLIVF Diagnosis/Problems Diagnosis/Problems (1) Sepsis Status: Resolved (2) Left upper lobe pneumonia Status: Acute Qualifiers: Pneumonia type: due to unspecified organism Qualified Codes: J18.1 - Lobar pneumonia, unspecified organism (3) Chronic paraplegia Status: Chronic (4) Lung cancer Status: Chronic Qualifiers: Laterality: unspecified laterality Lung location: unspecified part of lung Qualified Codes: C34.90 - Malignant neoplasm of unspecified part of unspecified bronchus or lung (5) Hypokalemia Status: Acute (6) Decubitus ulcer Status: Chronic Qualifiers: Pressure ulcer location: contiguous region involving buttock and hip Pressure ulcer stage: stage 4 Laterality: unspecified laterality Qualified Codes: L89.44 - Pressure ulcer of contiguous site of back, buttock and hip, stage 4 Clinical Quality Measures DVT/VTE Risk/Contraindication: Risk Factor Score Per Nursin RFS Level Per Nursing on Admit: 3=High MAILE SHAH DO March 31, 2018 12:23
[2018-03-31] MEDS: ENOXAPARIN 40 MG/0.4 ML (LOVENOX) SYR SC SCH (14:46)
[2018-03-31 16:03] VITALS: BP 115/75
[2018-03-31] MEDS: BACLOFEN 10 MG (LIORESAL) TAB PO SCH ×2 (19:40→21:49)
[2018-03-31] MEDS: meTOproloL SUCCINATE 50 MG (TOPROL XL) TAB PO SCH (21:49)
[2018-03-31] MEDS: morphine ER 15 MG (MS CONTIN) TAB PO SCH (21:49)
[2018-03-31] MEDS: MELOXICAM 7.5 MG (MOBIC) TABLET PO SCH (21:50)
[2018-03-31] MEDS: TOLTERODINE LA 4 MG (DETROL) CAP PO SCH (21:50)
[2018-03-31 22:44] VITALS: BP 113/66
[2018-04-01 00:25] VITALS: BP 106/69
[2018-04-01] MEDS: RT-ALBUTEROL/IPRATROPIUM 3 ML (DUONEB) VIAL INH SCH ×4 (02:09→20:25)
[2018-04-01] MEDS: PIPERACILLIN SODIUM/TAZOBACTAM 4.5 GM in NS (IVPB) 100 ML IV SCH ×3 (04:02→18:29)
[2018-04-01 06:01] LABS: HEMOGLOBIN 10.9 G/DL (11.5-16.0); MEAN PLATELET VOLUME 8.5 FL (7.4-10.4); RED BLOOD COUNT 3.56 10^6/uL (4.35-5.85); WHITE BLOOD COUNT 5.6 10^3/uL (4.3-11.0)
[2018-04-01] MEDS: PANTOPRAZOLE 40 MG (PROTONIX) TAB PO SCH ×2 (06:11→16:09)
[2018-04-01] MEDS: KCL 20 MEQ TAB (K-DUR) PO SCH (06:11)
[2018-04-01] MEDS: LACTOBACILLUS Acidoph/Bulgar (LACTINEX/FLORANEX) TAB PO SCH ×3 (06:11→16:10)
[2018-04-01] MEDS: MAGNESIUM OXIDE (MAG-OX)400 MG TAB PO SCH ×2 (06:11→16:10)
[2018-04-01 06:29] LABS: ALANINE AMINOTRANSFERASE 66 U/L (0-55); ALBUMIN 2.7 GM/DL (3.2-4.5); ALKALINE PHOSPHATASE 130 U/L (40-136); BILIRUBIN,TOTAL 0.6 MG/DL (0.1-1.0); BUN/CREATININE RATIO 15; CALCIUM 8.8 MG/DL (8.5-10.1); CARBON DIOXIDE 25 MMOL/L (21-32); CHLORIDE 111 MMOL/L (98-107); CREATININE SERUM 0.53 MG/DL (0.60-1.30); GFR ESTIMATED > 60; GLUCOSE 94 MG/DL (70-105); POTASSIUM 3.7 MMOL/L (3.6-5.0); SODIUM 143 MMOL/L (135-145); TOTAL PROTEIN 5.9 GM/DL (6.4-8.2)
[2018-04-01 08:30] VITALS: BP 125/82
[2018-04-01] MEDS: VANCOMYCIN INJECTION 750 MG in NS (IVPB) 250 ML IV SCH ×2 (08:54→22:15)
[2018-04-01] MEDS: morphine ER 30 MG (MS CONTIN) TAB PO SCH (08:55)
[2018-04-01] MEDS: SENNA W/DOCUSATE (SENOKOT S) TABLET PO SCH (08:55)
[2018-04-01] MEDS: FAMOTIDINE 20 MG (PEPCID) TABLET PO SCH ×2 (08:55→20:25)
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
--- NOTE | 2018-04-01 09:44 | Diagnostic Imaging Report ---
Indication: Lung cancer/pneumonia PA and lateral chest There are emphysematous changes in the lungs. There are scattered nodular opacities present throughout both lungs. There is consolidation adjacent to the right upper mediastinum. There is also dense area of consolidation at the periphery of the right midlung. Right upper extremity PICC line tip projects over the SVC. Impression: Multiple nodular opacities in both lungs unchanged from previous day. Dictated by: Dictated on workstation # [id number]
[2018-04-01] MEDS ORDERED: GADOBUTROL 7.5 MMOL/7.5 ML (GADAVIST) VIAL IV ONE (10:00)
[2018-04-01] MEDS: DEXAMETHASONE 4 MG/ML SDV (DECADRON) IV SCH ×3 (10:24→22:16)
--- NOTE | 2018-04-01 12:30 | Diagnostic Imaging Report ---
PROCEDURE: MR imaging of the brain with and without contrast. TECHNIQUE: Multiplanar, multisequence MR imaging of the brain was performed with and without contrast. INDICATION: Lung cancer. The previous MRI brain exam performed on 02/27/2018 noted a 2.1 x 2.0 x 2.4 cm enhancing mass in the left temporal lobe. That finding is again evident and has not changed significantly in size. The FLAIR series does suggest that there is somewhat less associated vasogenic edema than noted on the prior exam. The degree of midline shift is also decreased from 3 mm to 1.5 mm. The overall appearance of the brain does not appear to have changed significantly otherwise. No new area of abnormal enhancement has developed. There is no abnormal signal arising from the brain on the diffusion series to indicate an area of acute ischemia either. The orbits are symmetrical and within normal limits. The sinuses are generally clear. The 7th and 8th nerve complexes are unremarkable. The sella is not enlarged and expected carotid flow voids are evident bilaterally. Impression: 1. The enhancing mass in the left upper lobe seen previous is again evident and not significantly changed in size or appearance. However there is somewhat less associated vasogenic edema and there is slightly less shift of midline to the right as well. 2. The overall appearance the brain is otherwise stable. No new abnormality has developed otherwise. Dictated by: Dictated on workstation # [id number]
[2018-04-01] MEDS: ENOXAPARIN 40 MG/0.4 ML (LOVENOX) SYR SC SCH (14:09)
[2018-04-01 15:45] VITALS: BP 114/66
[2018-04-01] MEDS: NITROFURANTOIN 100 MG (MACROBID) CAPSULE PO SCH (16:09)
[2018-04-01] MEDS: TOLTERODINE LA 4 MG (DETROL) CAP PO SCH (20:25)
[2018-04-01] MEDS: meTOproloL SUCCINATE 50 MG (TOPROL XL) TAB PO SCH (20:25)
[2018-04-01] MEDS: BACLOFEN 10 MG (LIORESAL) TAB PO SCH ×2 (20:25→20:26)
[2018-04-01] MEDS: morphine ER 15 MG (MS CONTIN) TAB PO SCH (20:25)
[2018-04-01] MEDS: MELOXICAM 7.5 MG (MOBIC) TABLET PO SCH (20:25)
[2018-04-02] VITALS: BP 120/66
[2018-04-02] MEDS: PIPERACILLIN SODIUM/TAZOBACTAM 4.5 GM in NS (IVPB) 100 ML IV SCH ×2 (02:12→10:44)
[2018-04-02] MEDS: RT-ALBUTEROL/IPRATROPIUM 3 ML (DUONEB) VIAL INH SCH (03:11)
[2018-04-02] MEDS: PANTOPRAZOLE 40 MG (PROTONIX) TAB PO SCH (06:05)
[2018-04-02] MEDS: LACTOBACILLUS Acidoph/Bulgar (LACTINEX/FLORANEX) TAB PO SCH ×2 (06:05→10:44)
[2018-04-02] MEDS: MAGNESIUM OXIDE (MAG-OX)400 MG TAB PO SCH (06:05)
[2018-04-02] MEDS: KCL 20 MEQ TAB (K-DUR) PO SCH (06:05)
[2018-04-02] MEDS: DEXAMETHASONE 4 MG/ML SDV (DECADRON) IV SCH ×2 (06:05→14:21)
[2018-04-02 06:35] LABS: HEMOGLOBIN 9.6 G/DL (11.5-16.0); MEAN PLATELET VOLUME 8.5 FL (7.4-10.4); RED BLOOD COUNT 3.18 10^6/uL (4.35-5.85); RED CELL DISTRIBUTION WIDTH 18.1 % (10.0-14.5); WHITE BLOOD COUNT 5.6 10^3/uL (4.3-11.0)
[2018-04-02 06:51] LABS: ALANINE AMINOTRANSFERASE 63 U/L (0-55); ALBUMIN 2.9 GM/DL (3.2-4.5); ALKALINE PHOSPHATASE 129 U/L (40-136); BILIRUBIN,TOTAL 0.3 MG/DL (0.1-1.0); BUN/CREATININE RATIO 20; CALCIUM 9.1 MG/DL (8.5-10.1); CARBON DIOXIDE 23 MMOL/L (21-32); CHLORIDE 110 MMOL/L (98-107); CREATININE SERUM 0.56 MG/DL (0.60-1.30); GFR ESTIMATED > 60; GLUCOSE 137 MG/DL (70-105); POTASSIUM 3.7 MMOL/L (3.6-5.0); SODIUM 142 MMOL/L (135-145); TOTAL PROTEIN 6.1 GM/DL (6.4-8.2)
[2018-04-02 08:00] VITALS: BP 122/72
[2018-04-02] MEDS: morphine ER 30 MG (MS CONTIN) TAB PO SCH (08:44)
[2018-04-02] MEDS: FAMOTIDINE 20 MG (PEPCID) TABLET PO SCH (08:44)
[2018-04-02] MEDS: SENNA W/DOCUSATE (SENOKOT S) TABLET PO SCH (08:44)
[2018-04-02] MEDS: VANCOMYCIN INJECTION 750 MG in NS (IVPB) 250 ML IV SCH (08:44)
[2018-04-02] MEDS ORDERED: CEFD300C3 PO (09:13)
--- NOTE | 2018-04-02 09:16 | D/C HH Face to Face Order ---
D/C Face to Face Orders Instructions for Patient Patient Instructions/FollowUp: 1WK WITH [facility] 1 WK WITH INFECTIOUS DISEASE PHYSICIAN Physician to follow Patient: [facility] Discharge Diet for Home: Regular Diet Patient Problems: PNEUMONIA LUNG CANCER WITH METASTATIC DISEASE TO BRAIN OSTEOMYELITIS WITH CHRONIC WOUND Patient Data-Allergies,Ht & Wt Patient Allergies: Coded Allergies: No Known Drug Allergies (Unverified , 11/22/16) Height (Feet): 5 Height (Inches): 0.00 Weight (Pounds): 95 Weight (Ounces): 0.0 Home Health Need/Face to Face Date of Face to Face: April 02, 2018 Clinical Findings: Muscle weakness, Non or partial weight bearing, Wound infection, Non-healing wound I have seen Pt [id number]: Yes Discharged To: Home Diagnosis/Conditions: PNEUMONIA LUNG CANCER WITH METASTATIC DISEASE TO BRAIN OSTEOMYELITIS WITH CHRONIC WOUND PARAPLEGIA Patient is Homebound due to: Non-weight bearing Homebound Status Due to the above stated illness, injury or surgical procedure (medical condition or diagnosis) and associated clinical findings, the patient is homebound because of his/her inability to leave home except with aid of a supportive device and/or person AND leaving the home requires a considerable and taxing effort or is medically contraindicated. Pt req the following assistanc: Wheelchair Home Health Nursing Orders Home Health Services Order: Nursing Services, Care Associate-Evaluate & Treat, Physical Therapy-Evaluate & Treat, Wound Care-Eval/Treat Home Health Infusion Therapy Line Start Date: March 29, 2018 Line Start Time: 1020 Line Type: PICC Site Location: Arm-Upper Therapy Orders Therapy Orders: Physical Therapy (STRENGTHENING) Therapy Specific Orders: Restore ROM Certify Stmt I certify that this patient is under my care and that I, a nurse practitioner or a physician; a assistant loan processor working with me, had a face to face encounter that - meets the physician face to face encounter requirements with this patient as dated. LELE MONIQUE MD April 02, 2018 09:16
--- NOTE | 2018-04-02 09:16 | Discharge Summary ---
Diagnosis/Chief Complaint Date of Admission March 29, 2018 at 12:01 Date of Discharge Discharge Date: April 02, 2018 Discharge Time: 1000 Admission Diagnosis Admission Diagnosis SEPSIS PNEUMONIA LUNG CANCER PARAPLEGIA LACTIC ACIDOSIS CHRONIC PRESSURE ULCER CHRONICALLY LOW BLOOD PRESSURE EXPRESSIVE APHASIA OSTEOMYELITIS OF ISCHIUM Discharge Diagnosis SEPSIS PNEUMONIA LUNG CANCER PARAPLEGIA LACTIC ACIDOSIS CHRONIC PRESSURE ULCER CHRONICALLY LOW BLOOD PRESSURE EXPRESSIVE APHASIA OSTEOMYELITIS OF ISCHIUM Reason Hospital Visit PT IS A 53 Y/O FEMALE WHO IS KNOWN TO ME FROM CLINIC. SHE PRESENTED TO THE HOSPITAL WITH COMPLAINT OF FEVER AND FEELING POORLY. SHE WAS EVALUATED IN THE EMERGENCY DEPT AND FOUND TO HAVE PNEUMONIA WITH SEPSIS. SHE HAS LUNG CANCER AND IS PARAPLEGIC AND AT HIGHER RISK OF PSEUDOMONAL INFECTION. THE LACTIC ACID LEVELS ARE ELEVATED, THEREFORE SHE MEETS SEPSIS CRITERIA AND HAS BEEN ADMITTED TO 4TH FLOOR. Discharge Summary Discharge Physical Examination Allergies: Coded Allergies: No Known Drug Allergies (Unverified , 11/22/16) Vitals & I&Os General Appearance: Alert, Oriented X3, Cooperative, No Acute Distress HEENT: Atraumatic, PERRLA Respiratory: Other (CRACKLES IN BASES BILATERALLY) Cardiovascular: Regular Rate, Normal S1 Abdominal: Normal Bowel Sounds, Soft, No Tenderness Neuro: Other (PARALYZED) Psych/Mental Status: Mental Status NL, Mood NL, Other (EXPRESSIVE APHASIA) Hospital Course SEPSIS PNEUMONIA LUNG CANCER PARAPLEGIA LACTIC ACIDOSIS CHRONIC PRESSURE ULCER CHRONICALLY LOW BLOOD PRESSURE EXPRESSIVE APHASIA OSTEOMYELITIS OF ISCHIUM SEPSIS WITH PNEUMONIA - PT ADMITTED TO THE HOSPITAL, STARTED ON PNEUMONIA PROTOCOL, BUT NOT SEPSIS PROTOCOL SHE DOES NOT MEET SEVERE SEPSIS CRITERIA. SHE HAS ELEVATED LACTIC ACID, BUT HER LOW BLOOD PRESSURE IS CHRONIC FOR THIS PATIENT AND IS NOT INDICATIVE OF SEPSIS. SHE WILL CONTINUE WITH ZOSYN SHE HAS RISK OF PSEUDOMONAS. REPEAT CHEST XRAYS SERIALLY. LUNG CANCER - SUPPORTIVE CARE NOW WITH EXPRESSIVE APHASIA - - MRI OF BRAIN WITH AND WITHOUT CONTRAST DID NOT SHOW WORSENING OF LESIONS IN HEAD. - ALSO WILL CONTINUE WITH STEROIDS. PARAPLEGIA - WITH CHRONIC PRESSURE ULCER - CONTINUE WOUND VAC, AND BOWEL REGIMEN. DVT PROPHYLAXIS WITH LOVENOX, SCD'S ARE NOT NEEDED PT DOES NOT USE LOWER EXTREMITIES AND LOVENOX SHOULD SUFFICE. GI PROPHYLAXIS WITH PEPCID AND DIARRHEA PREVENTION WITH PROBIOTICS. SOME OF HOME MEDS WERE RESTARTED, THE REST WILL WAIT ON RESTARTING UNTIL HER MEDICATION LIST HAS BEEN VERIFIED BY PHARMACY. OSTEOMYELITIS - AT WOUND SITE - PT ON IV VANCOMYCIN - CONTINUE WITH THAT REGIMEN. Pending Labs Discharge Condition at discharge IMPROVED Instructions to patient/family Please see electronic discharge instructions given to patient. Discharge Medications Reviewed and agree with Discharge Medication list on patient's Discharge Instruction sheet Clinical Quality Measures DVT/VTE Risk/Contraindication: Risk Factor Score Per Nursin RFS Level Per Nursing on Admit: 3=High LELE MONIQUE MD April 02, 2018 09:16
[2018-04-02] MEDS ORDERED: DEXA0.5T PO (09:26)
[2018-04-02] MEDS ORDERED: RT-ALBUTEROL/IPRATROPIUM 3 ML (DUONEB) VIAL INH SCH (14:00)
[2018-04-02] MEDS: ENOXAPARIN 40 MG/0.4 ML (LOVENOX) SYR SC SCH (14:21)
[2018-04-02 15:10] VITALS: BP 122/72
--- NOTE | 2018-04-15 14:43 | Physician Query Clarification ---
PQ-Further Specificity Admission/Discharge Admission Date: March 29, 2018 at 12:01 Discharge Date: April 02, 2018 at 15:10 The medical record reflects the following clinical scenario: History/Risk Factors: Lung CA, pneumonia, paraplegic, brain mets Clinical Findings: Elevated lactic acid @ 2.84, T 102, R 147 Treatment: IV vanco, Pipercillin, supportive care for lung CA Question: Can you further specify Lung CA to laterality/site per the clinical indicators above? Please document below. 1. Rt Lung CA (specify to site) 2. Lt Lung CA (specify to site) 3. Other, with explanation of the clinical findings. 4. Clinically undetermined, no explanation for the clinical findings. PHYSICIAN RESPONSE Can you specify per above: 1 (UPPER) In responding to this query, please exercise your independent professional judgment. The purpose of this communication is to more accurately reflect the complexity of your patients condition. The fact that a question is asked does not imply that any particular answer is desired or expected. Thank you for your timely response to this clarification. Requestors name: Duncan THIS PHYSICIAN QUERY FORM IS A PERMANENT PART OF THE MEDICAL RECORD DUNCAN GROSS April 15, 2018 14:43 LELE MONIQUE MD April 19, 2018 15:17
== END 2018-04-02 15:10 | disposition home health service (06) | DRG 871 ==
LOC: EDUNIT# 09:42 → ER 09:43 → 4TH 12:01
PROVIDERS: ADMIT Family Medicine; ATTEND Family Medicine
DX: A41.9 Sepsis, unspecified organism (principal); J18.9 Pneumonia, unspecified organism; C34.11 Malignant neoplasm of upper lobe, right bronchus or lung; C79.31 Secondary malignant neoplasm of brain; G82.20 Paraplegia, unspecified; E87.2 Acidosis; M86.459 Chronic osteomyelitis with draining sinus, unspecified femur; L89.324 Pressure ulcer of left buttock, stage 4; R47.01 Aphasia; N31.9 Neuromuscular dysfunction of bladder, unspecified; Z92.3 Personal history of irradiation; Z92.21 Personal history of antineoplastic chemotherapy
CPT/HCPCS: 36415; 51701; 70553; 71045; 71046; 80053; 80202; 81000; 83605; 85007; 85027; 85610; 85730; 87040; 87070; 87205; 93005; 94640; 94760; 96361; 96365

== ENCOUNTER → 2018-04-11 | Outpatient (CLI) | payer BC, MEDICARE ==
[~2018-04-11] MED LIST changes: +CEFD300C3 PO; +DEXA0.5T PO; +IOHEXOL 350 MG/ML 100 ML (OMNIPAQUE 350) VIAL IV ONE; +METO-352 PO; +MORP15TA69 PO; +MORP30TA60 PO; +NITR-68 PO; +NS 250 ML (IVPB) BAG IV ONE; +TOLTA4 PO; +VANC750F2 IV
--- NOTE | 2018-04-11 10:20 | Diagnostic Imaging Report ---
PROCEDURE: CT chest with contrast only. TECHNIQUE: Multiple contiguous axial images were obtained through the chest after administration of intravenous contrast. INDICATION: Lung cancer and pneumonia, followup. COMPARISON: Comparison is made with a recent CT chest from 02/28/2018. FINDINGS: No axillary lymphadenopathy is detected. [place] and mediastinum appear to be stable. No pericardial effusion is seen. There is a small right pleural effusion, new since prior CT. There is a new parenchymal opacity in the left upper lobe with central air density consistent with cavitation measuring 2.0 x 1.1 cm. A second larger triangular shaped opacity in the left upper lobe inferior to this also demonstrates some central cavitation measuring 2.7 x 2.5 cm. Pleural thickening anterolaterally in the left upper lobe is seen. Several tiny opacities with central cavitation in left lower lobe have developed. A larger region measures 2.0 x 1.3 cm. Numerous additional ones in the left lower lobe are noted. Right lung also demonstrates cavitary opacities in the right lower lobe. Continued significant consolidation and air bronchograms in the periphery of the right mid lung field is noted, similar to prior study. Right paramediastinal fibrotic changes persist. The upper abdomen is unremarkable. IMPRESSION: Adverse appearance of the chest when compared with prior CT from one month earlier. The patient has developed right-sided pleural effusion. There has also been development of numerous cavitary opacities throughout both lungs as well as some worsening consolidation in the periphery of the right lung. While this may be on infectious/inflammatory basis, possibility of cavitary metastases cannot be entirely excluded. Continued short interval followup is recommended to confirm improvement and clearing. Dictated by: Dictated on workstation # [id number]
== END ==
LOC: RAD 08:57
PROVIDERS: ATTEND Internal Medicine Hematology & Oncology
DX: C34.81 Malignant neoplasm of overlapping sites of right bronchus and lung (principal); C77.9 Secondary and unspecified malignant neoplasm of lymph node, unspecified; J18.1 Lobar pneumonia, unspecified organism; J90 Pleural effusion, not elsewhere classified
CPT/HCPCS: 71260

== ENCOUNTER → 2018-05-14 | Outpatient (CLI) | payer BC, MEDICARE ==
--- NOTE | 2018-05-14 16:45 | Diagnostic Imaging Report ---
PROCEDURE: CT chest with contrast only. TECHNIQUE: Multiple contiguous axial images were obtained through the chest after administration of intravenous contrast. INDICATION: History of lung malignancy with metastatic disease. CORRELATION STUDY: CT chest 04/11/2018. FINDINGS: Heart size generally stable with trace pericardial effusion. Thoracic aorta unremarkable. There does appear to be perhaps suggestion of increasing size of subcarinal lymphadenopathy currently measuring 19 x 7 mm. Right-sided central line tip at cavoatrial junction present. EG junction unremarkable. Some progressive consolidation of the right hemithorax particularly of the right superior paramediastinal and suprahilar region with increasing consolidation about the right mid lung field and overall perhaps slight progressive right lung volume loss. Right pleural effusion has increased in size and appears to be somewhat complex and perhaps with multiple areas of loculation. Potentially quantifiable mass is somewhat difficult to obtain, however, soft tissue density in the right suprahilar region and paramediastinal region overall appears increased. Multifocal areas of parenchymal density including areas of cavitation in the left lung persisting but overall do appear to be improved regarding the dominant lesions. The previously identified area in the superior aspect of the left upper lobe currently approximately 12 x 7 mm, previously 20 x 11 mm. Additional one slightly more centrally within the left upper lobe currently 13 x 11 mm, previously approximately 27 x 25 mm. Previously demonstrated larger one left lower lobe anteriorly 16 x 9 mm, previously 20 x 13 mm. Multiple additional smaller cavitary areas also appear to be generally improved. Visualized portion of the upper abdomen demonstrate cholecystectomy clips. Slight prominent appearance suggested about the visualized extrahepatic biliary tree. Extensive thoracolumbar spinal fixation results in metallic artifact. Spine demonstrates no ramses destructive changes. IMPRESSION: 1. Overall, somewhat mixed change in the appearance of the chest. 2. The left lung field overall appears improved. The previously noted thick walled cavitary lesions are present, however the thickened peripheral inflammatory appearing component has overall diminished throughout the majority of the lesions. 3. The right hemithorax however appears to show interval increase in size of a somewhat complex likely multiloculated pleural effusion as well as some worsening consolidated appearance about the right suprahilar and paramediastinal and more peripheral region of the lung garcia. Dictated by: Dictated on workstation # [id number]
== END ==
LOC: RAD 08:28
PROVIDERS: ATTEND Internal Medicine Hematology & Oncology
DX: C34.81 Malignant neoplasm of overlapping sites of right bronchus and lung (principal); C77.9 Secondary and unspecified malignant neoplasm of lymph node, unspecified
CPT/HCPCS: 71260

== ENCOUNTER 2018-05-16 14:00 | Outpatient (RCR) | payer BC, MEDICARE ==
[2018-04-11 09:32] LABS: BASOPHILS % (AUTO) 0 % (0-10); EOSINOPHILS # (AUTO) 0.1 10^3/uL (0.0-0.3); EOSINOPHILS % (AUTO) 1 % (0-10); HEMATOCRIT 31 % (35-52); HEMOGLOBIN 10.2 G/DL (11.5-16.0); LYMPHOCYTES # (AUTO) 1.2 X 10^3 (1.0-4.0); LYMPHOCYTES % (AUTO) 9 % (12-44); MEAN CORPUSCULAR HEMOGLOBIN 30 PG (25-34); MEAN CORPUSCULAR HGB CONC 33 G/DL (32-36); MEAN CORPUSCULAR VOLUME 94 FL (80-99); MEAN PLATELET VOLUME 8.6 FL (7.4-10.4); MONOCYTES # (AUTO) 1.5 X 10^3 (0.0-1.0); MONOCYTES % (AUTO) 12 % (0-12); NEUTROPHILS # (AUTO) 9.9 X 10^3 (1.8-7.8); NEUTROPHILS % (AUTO) 78 % (42-75); PLATELET COUNT 425 10^3/uL (130-400); RED BLOOD COUNT 3.35 10^6/uL (4.35-5.85); RED CELL DISTRIBUTION WIDTH 17.7 % (10.0-14.5); WHITE BLOOD COUNT 12.7 10^3/uL (4.3-11.0)
[2018-04-11 09:49] LABS: ALANINE AMINOTRANSFERASE 26 U/L (0-55); ALBUMIN 3.2 GM/DL (3.2-4.5); ALKALINE PHOSPHATASE 117 U/L (40-136); BILIRUBIN,TOTAL 0.3 MG/DL (0.1-1.0); BUN/CREATININE RATIO 25; CALCIUM 9.8 MG/DL (8.5-10.1); CARBON DIOXIDE 27 MMOL/L (21-32); CHLORIDE 102 MMOL/L (98-107); CREATININE SERUM 0.52 MG/DL (0.60-1.30); GFR ESTIMATED > 60; GLUCOSE 113 MG/DL (70-105); POTASSIUM 3.8 MMOL/L (3.6-5.0); SODIUM 139 MMOL/L (135-145); TOTAL PROTEIN 6.8 GM/DL (6.4-8.2)
[~2018-05-16 14:00] MED LIST changes: -IOHEXOL 350 MG/ML 100 ML (OMNIPAQUE 350) VIAL IV ONE; +LINE600T33 PO; -LINE600T7 PO; -NS 250 ML (IVPB) BAG IV ONE
[2018-05-16 14:17] LABS: BASOPHILS % (AUTO) 0 % (0-10); EOSINOPHILS # (AUTO) 0.5 10^3/uL (0.0-0.3); EOSINOPHILS % (AUTO) 5 % (0-10); HEMATOCRIT 33 % (35-52); HEMOGLOBIN 10.3 G/DL (11.5-16.0); LYMPHOCYTES # (AUTO) 1.1 X 10^3 (1.0-4.0); LYMPHOCYTES % (AUTO) 11 % (12-44); MEAN CORPUSCULAR HEMOGLOBIN 30 PG (25-34); MEAN CORPUSCULAR HGB CONC 31 G/DL (32-36); MEAN CORPUSCULAR VOLUME 97 FL (80-99); MEAN PLATELET VOLUME 8.5 FL (7.4-10.4); MONOCYTES % (AUTO) 10 % (0-12); NEUTROPHILS # (AUTO) 7.5 X 10^3 (1.8-7.8); NEUTROPHILS % (AUTO) 74 % (42-75); PLATELET COUNT 424 10^3/uL (130-400); RED BLOOD COUNT 3.43 10^6/uL (4.35-5.85); RED CELL DISTRIBUTION WIDTH 16.7 % (10.0-14.5); WHITE BLOOD COUNT 10.1 10^3/uL (4.3-11.0)
[2018-05-16 14:36] LABS: ALANINE AMINOTRANSFERASE 18 U/L (0-55); ALBUMIN 3.2 GM/DL (3.2-4.5); ALKALINE PHOSPHATASE 126 U/L (40-136); BILIRUBIN,TOTAL 0.3 MG/DL (0.1-1.0); BUN/CREATININE RATIO 26; CALCIUM 9.7 MG/DL (8.5-10.1); CARBON DIOXIDE 23 MMOL/L (21-32); CHLORIDE 101 MMOL/L (98-107); CREATININE SERUM 0.57 MG/DL (0.60-1.30); GFR ESTIMATED > 60; GLUCOSE 96 MG/DL (70-105); SODIUM 136 MMOL/L (135-145); TOTAL PROTEIN 6.8 GM/DL (6.4-8.2)
[2018-05-24] MEDS ORDERED: MORP-34 PO ×2 (15:52)
[2018-05-24] MEDS ORDERED: GUAI473L29 PO (15:52)
[2018-05-24] MEDS ORDERED: LIDO700A45 TD ×2 (15:52)
[2018-05-24] MEDS ORDERED: MORP-33 PO (15:52)
[2018-05-24] MEDS ORDERED: METO-370 PO ×2 (15:52)
[2018-05-24] MEDS ORDERED: MELO15TA39 PO (15:52)
[2018-05-24] MEDS ORDERED: RT-ALBUINH INH ×2 (15:52)
[2018-05-24] MEDS ORDERED: MULT-436 PO ×2 (16:12)
[2018-05-24] MEDS ORDERED: LEVO750T39 PO ×2 (16:12)
[2018-05-24] MEDS ORDERED: LACT1CAP62 PO ×2 (16:12)
[2018-05-24] MEDS ORDERED: NITR100C10 PO ×2 (16:12)
[2018-05-24] MEDS ORDERED: DOCU-143 PO ×2 (16:12)
[2018-05-24] MEDS ORDERED: RIVA15TA PO ×2 (16:12)
[2018-05-24] MEDS ORDERED: DOXY100C2 PO ×2 (16:12)
[2018-05-24] MEDS ORDERED: LOPE2CAP PO ×2 (16:15)
== END 2018-05-27 | disposition home or self-care (01) ==
LOC: ONC 14:00
PROVIDERS: ATTEND Internal Medicine Hematology & Oncology
DX: C34.81 Malignant neoplasm of overlapping sites of right bronchus and lung (principal); C77.1 Secondary and unspecified malignant neoplasm of intrathoracic lymph nodes
CPT/HCPCS: 80053; 85025; 99213

== ENCOUNTER 2018-05-24 09:35 | Inpatient (IN) | payer BC, MEDICARE ==
[2018-05-24] VITALS (17 sets, daily range): BP systolic 94–134; BP diastolic 50–88
[~2018-05-24] VITALS: Ht 152.4 cm; Wt 56.8 kg
[2018-05-24] MEDS ORDERED: NS IV 500 ML 500 ML IV ONE (10:23)
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
[2018-05-24 10:29] LABS: BASOPHILS % (AUTO) 0 % (0-10); EOSINOPHILS % (AUTO) 0 % (0-10); HEMATOCRIT 22 % (35-52); HEMOGLOBIN 7.1 G/DL (11.5-16.0); LYMPHOCYTES # (AUTO) 0.6 X 10^3 (1.0-4.0); LYMPHOCYTES % (AUTO) 4 % (12-44); MEAN CORPUSCULAR HEMOGLOBIN 31 PG (25-34); MEAN CORPUSCULAR HGB CONC 32 G/DL (32-36); MEAN CORPUSCULAR VOLUME 96 FL (80-99); MEAN PLATELET VOLUME 8.2 FL (7.4-10.4); MONOCYTES # (AUTO) 1.2 X 10^3 (0.0-1.0); MONOCYTES % (AUTO) 8 % (0-12); NEUTROPHILS # (AUTO) 13.3 X 10^3 (1.8-7.8); NEUTROPHILS % (AUTO) 88 % (42-75); PLATELET COUNT 507 10^3/uL (130-400); RED BLOOD COUNT 2.32 10^6/uL (4.35-5.85); RED CELL DISTRIBUTION WIDTH 16.4 % (10.0-14.5); WHITE BLOOD COUNT 15.1 10^3/uL (4.3-11.0)
[2018-05-24] MEDS ORDERED: RIVAROXABAN 15 MG TABLET (XARELTO) PO ONE (10:30)
[2018-05-24 10:40] LABS: ALANINE AMINOTRANSFERASE 13 U/L (0-55); ALBUMIN 2.5 GM/DL (3.2-4.5); ALKALINE PHOSPHATASE 108 U/L (40-136); BILIRUBIN,TOTAL 0.3 MG/DL (0.1-1.0); BUN/CREATININE RATIO 10; CALCIUM 8.6 MG/DL (8.5-10.1); CARBON DIOXIDE 24 MMOL/L (21-32); CHLORIDE 97 MMOL/L (98-107); GFR ESTIMATED > 60; GLUCOSE 108 MG/DL (70-105); POTASSIUM 3.4 MMOL/L (3.6-5.0); SODIUM 133 MMOL/L (135-145); TOTAL PROTEIN 5.7 GM/DL (6.4-8.2)
[2018-05-24] MEDS ORDERED: morphine INJ 10 MG/ML 1ML (SYR OR VIAL) IVP STA (10:44)
[2018-05-24 10:57] LABS: ANISOCYTOSIS SLIGHT; LYMPHOCYTES % (MANUAL) 5 %; MICROCYTOSIS SLIGHT; MONOCYTES % (MANUAL) 8 %; NEUTROPHILS % (MANUAL) 87 %; POIKILOCYTOSIS SLIGHT; POLYCHROMASIA SLIGHT; SPHEROCYTES SLIGHT
[2018-05-24] MEDS ORDERED: CATHETER FLUSH 10 ML SYR IV PRN (11:15)
[2018-05-24] MEDS ORDERED: NS 250 ML (IVPB) BAG IV ONE (11:15)
[2018-05-24] MEDS ORDERED: IOHEXOL 350 MG/ML 150 ML (OMNIPAQUE 350) VIAL IV ONE (11:15)
--- NOTE | 2018-05-24 11:35 | Diagnostic Imaging Report ---
INDICATION: Recent discharge from hospital. Shortness of air. Low oxygen saturation, tachycardia. History of lung cancer.. TECHNIQUE: Single view chest 10:41 AM. CORRELATION STUDY: 04/01/2018 FINDINGS: There had been increased consolidation through a large portion of the right lung. This is most pronounced in the central aspect with somewhat of a rounded masslike appearance. There is progressive consolidation about the right lung base and apex as well as likely moderate size pleural effusion which may be perhaps loculated. Abnormal soft tissue masslike density of the right paramediastinal region. Left lung hyperinflated with chronic interstitial markings. Previously noted more rounded masslike areas are less pronounced. There is however more focal consolidation suggestive of left lung base as well as left pleural effusion. Heart size largely obscured but appears generally stable. Extensive lower thoracic and lumbar spinal fixation hardware IMPRESSION: 1. Increasing consolidation throughout the right lung along with bilateral pleural effusions perhaps loculated right lung. 2. Previously demonstrated more masslike areas at the lung garcia appearing somewhat less pronounced. There is however focal consolidation of the left lung base. Dictated by: Dictated on workstation # [id number]
--- NOTE | 2018-05-24 12:27 | Diagnostic Imaging Report ---
PROCEDURE: US right lower extremity venous. TECHNIQUE: Multiple real-time grayscale images were obtained over the right lower extremity in various projections. Additional duplex Doppler and color Doppler images were also obtained. INDICATION: Right lower extremity swelling. There is no evidence of lower extremity DVT. The right lower extremity deep venous system demonstrates normal compressibility with normal response to augmentation and Valsalva. No fluid collection or mass is seen. IMPRESSION: No evidence of right lower extremity DVT. Dictated by: Dictated on workstation # [id number]
--- NOTE | 2018-05-24 12:42 | Diagnostic Imaging Report ---
PROCEDURE: CT angiography of the chest with contrast. TECHNIQUE: Multiple contiguous axial images were obtained through the chest after uneventful bolus administration of intravenous contrast. Reconstructed CTA MIP acquisitions were also performed. INDICATION: Shortness of air this morning, with history of lung cancer, chest pain, recent PE, and left DVT COMPARISON: Chest x-ray from the same day. CT chest from 02/28/2018 FINDINGS: The heart is normal in size. The pulmonary arteries are diagnostic to the segmental level. No definite pulmonary emboli are seen. The aorta demonstrates no focal aneurysm or dissection. There is mild aortic atherosclerosis. A small amount of pericardial fluid is seen without ramses effusion. Multiple mildly prominent mediastinal lymph nodes are present, which are likely reactive. There is extensive airspace consolidation throughout the right lung, markedly increased compared to 02/28/2018. There are also multiloculated pleural effusions in the right lung which has significantly increased. Scattered cavitary lesions are seen in the lungs, which appear increased compared to the prior study, and predominately in the lower lobes. In the left lung, there is also a small pleural effusion, with extensive groundglass and airspace opacities, although lesser in degree compared to the right. No pneumothorax is seen. The imaged portions of the upper abdomen demonstrate a focal area of hypoenhancement at the superior left kidney which appears unchanged, may be due to chronic scarring or old infarct. There is diffuse osteopenia with Bartlett tamara fusion hardware in the thoracolumbar spine. No acute osseous abnormality is identified. There is a healing fracture of the anterior left sixth rib. There is also a healing fracture of the right seventh rib. IMPRESSION: 1. Pulmonary arteries are diagnostic to the segmental level and no pulmonary embolus is seen. 2. Extensive airspace and ground glass opacities in the lungs bilaterally, right greater than left, with new small cavitary lesions. Findings are concerning for infection. Edema and infarct are in the differential but felt less likely. 3. Small bilateral pleural effusions, right greater than left. 4. Hypoenhancement of the superior left kidney is chronic, may be due to chronic scarring or old infarct. 5. Healing anterior rib fractures. Dictated by: Dictated on workstation # [id number]
[2018-05-24] MEDS ORDERED: meTOproloL SUCCINATE 50 MG (TOPROL XL) TAB PO SCH (13:00)
[2018-05-24] MEDS ORDERED: PIPERACILLIN/TAZOBACTAM 3.375 GM in D5W 100 ML IVPB 100 ML IV ONE (13:00)
[2018-05-24] MEDS ORDERED: ONDANSETRON 4 MG/2 ML (SDV) Z0FRAN IV PRN (14:30)
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
[2018-05-24] MEDS: NS IV 1000 ML 1,000 ML IV SCH ×4 (15:40→22:23)
[2018-05-24] MEDS: morphine INJ 10 MG/ML 1ML (SYR OR VIAL) IV PRN ×3 (15:41→22:44)
[2018-05-24 15:44] LABS: BASOPHILS % (AUTO) 0 % (0-10); EOSINOPHILS % (AUTO) 0 % (0-10); HEMATOCRIT 23 % (35-52); HEMOGLOBIN 7.2 G/DL (11.5-16.0); LYMPHOCYTES # (AUTO) 0.6 X 10^3 (1.0-4.0); LYMPHOCYTES % (AUTO) 4 % (12-44); MEAN CORPUSCULAR HEMOGLOBIN 30 PG (25-34); MEAN CORPUSCULAR HGB CONC 32 G/DL (32-36); MEAN CORPUSCULAR VOLUME 95 FL (80-99); MEAN PLATELET VOLUME 7.8 FL (7.4-10.4); MONOCYTES # (AUTO) 1.2 X 10^3 (0.0-1.0); MONOCYTES % (AUTO) 9 % (0-12); NEUTROPHILS # (AUTO) 11.9 X 10^3 (1.8-7.8); NEUTROPHILS % (AUTO) 87 % (42-75); PLATELET COUNT 440 10^3/uL (130-400); RED BLOOD COUNT 2.39 10^6/uL (4.35-5.85); RED CELL DISTRIBUTION WIDTH 16.4 % (10.0-14.5); WHITE BLOOD COUNT 13.7 10^3/uL (4.3-11.0)
[2018-05-24] MEDS ORDERED: PHARMACY TO DOSE IV SCH (15:45)
[2018-05-24] MEDS ORDERED: RT-ALBUINH INH ×2 (15:52)
[2018-05-24] MEDS ORDERED: MORP-34 PO ×2 (15:52)
[2018-05-24] MEDS ORDERED: MELO15TA39 PO (15:52)
[2018-05-24] MEDS ORDERED: MORP-33 PO (15:52)
[2018-05-24] MEDS ORDERED: LIDO700A45 TD ×2 (15:52)
[2018-05-24] MEDS ORDERED: METO-370 PO ×2 (15:52)
[2018-05-24] MEDS ORDERED: GUAI473L29 PO (15:52)
[2018-05-24 16:03] LABS: BUN/CREATININE RATIO 9; CALCIUM 8.3 MG/DL (8.5-10.1); CARBON DIOXIDE 26 MMOL/L (21-32); CHLORIDE 98 MMOL/L (98-107); CREATININE SERUM 0.57 MG/DL (0.60-1.30); GFR ESTIMATED > 60; GLUCOSE 93 MG/DL (70-105); MAGNESIUM 1.2 MG/DL (1.8-2.4); PHOSPHORUS 2.5 MG/DL (2.3-4.7); POTASSIUM 3.3 MMOL/L (3.6-5.0); SODIUM 135 MMOL/L (135-145)
[2018-05-24] MEDS ORDERED: LACT1CAP62 PO ×2 (16:12)
[2018-05-24] MEDS ORDERED: DOCU-143 PO ×2 (16:12)
[2018-05-24] MEDS ORDERED: NITR100C10 PO ×2 (16:12)
[2018-05-24] MEDS ORDERED: DOXY100C2 PO ×2 (16:12)
[2018-05-24] MEDS ORDERED: MULT-436 PO ×2 (16:12)
[2018-05-24] MEDS ORDERED: RIVA15TA PO ×2 (16:12)
[2018-05-24] MEDS ORDERED: LEVO750T39 PO ×2 (16:12)
[2018-05-24] MEDS ORDERED: LOPE2CAP PO ×2 (16:15)
[2018-05-24] MEDS ORDERED: PIPERACILLIN/TAZO 3.375 GM/D5W 100 ML IV NR ×2 (16:15)
[2018-05-24] MEDS ORDERED: VANCOMYCIN 1500 MG/NS 500 ML IVPB IV NR ×2 (17:00)
[2018-05-24] MEDS ORDERED: NS IV PRN (17:15)
[2018-05-24 17:17] LABS: BILIRUBIN,URINE NEGATIVE (NEGATIVE); CLARITY,URINE CLEAR; COLOR,URINE YELLOW; GLUCOSE, URINE (UA) NEGATIVE (NEGATIVE); KETONES,URINE NEGATIVE (NEGATIVE); LEUKOCYTE ESTERASE ,URINE NEGATIVE (NEGATIVE); NITRITE,URINE NEGATIVE (NEGATIVE); PH,URINE 7 (5-9); PROTEIN,URINE 1+ (NEGATIVE); UROBILINOGEN,URINE NORMAL (NORMAL)
[2018-05-24 17:18] LABS: BACTERIA,URINE NEGATIVE /HPF; RBC,URINE 0-2 /HPF; SQUAMOUS EPITHELIAL CELL,UR RARE /HPF
[2018-05-24] MEDS: RT-ALBUTEROL/IPRATROPIUM 3 ML (DUONEB) VIAL INH SCH (18:48)
[2018-05-24] MEDS: MAGNESIUM 1 GM/100 ML IVPB 100 ML IV SCH ×3 (21:30→23:43)
[2018-05-24] MEDS: POTASSIUM CL 10MEQ/50ML IVPB 50 ML IV SCH ×3 (21:30→23:43)
[2018-05-24] MEDS: RIVAROXABAN 15 MG TABLET (XARELTO) PO SCH (21:30)
[2018-05-24] MEDS: PIPERACILLIN/TAZOBACTAM 3.375 GM in D5W 100 ML IVPB 100 ML IV SCH (22:21)
[2018-05-24] MEDS ORDERED: RT-ALBUTEROL/IPRATROPIUM 3 ML (DUONEB) VIAL INH PRN (23:00)
[2018-05-25] VITALS (32 sets, daily range): BP systolic 94–157; BP diastolic 33–77
[2018-05-25] MEDS: NS IV 1000 ML 1,000 ML IV SCH ×3 (00:32→21:36)
[2018-05-25] MEDS: MAGNESIUM 1 GM/100 ML IVPB 100 ML IV SCH ×2 (00:51→04:06)
[2018-05-25] MEDS: POTASSIUM CL 10MEQ/50ML IVPB 50 ML IV SCH ×2 (00:51→04:06)
[2018-05-25] MEDS: RT-ALBUTEROL/IPRATROPIUM 3 ML (DUONEB) VIAL INH PRN ×3 (00:55→08:31)
[2018-05-25] MEDS: morphine INJ 10 MG/ML 1ML (SYR OR VIAL) IV PRN (01:04)
[2018-05-25] MEDS: fentaNYL INJECTION 100 MCG/2 ML AMP IVP PRN ×2 (02:11→02:40)
[2018-05-25 03:52] LABS: BASOPHILS % (AUTO) 0 % (0-10); EOSINOPHILS # (AUTO) 0.1 10^3/uL (0.0-0.3); EOSINOPHILS % (AUTO) 0 % (0-10); HEMATOCRIT 23 % (35-52); HEMOGLOBIN 7.4 G/DL (11.5-16.0); LYMPHOCYTES # (AUTO) 0.8 X 10^3 (1.0-4.0); LYMPHOCYTES % (AUTO) 4 % (12-44); MEAN CORPUSCULAR HEMOGLOBIN 31 PG (25-34); MEAN CORPUSCULAR HGB CONC 32 G/DL (32-36); MEAN CORPUSCULAR VOLUME 97 FL (80-99); MEAN PLATELET VOLUME 8.3 FL (7.4-10.4); MONOCYTES # (AUTO) 1.4 X 10^3 (0.0-1.0); MONOCYTES % (AUTO) 7 % (0-12); NEUTROPHILS # (AUTO) 16.9 X 10^3 (1.8-7.8); NEUTROPHILS % (AUTO) 88 % (42-75); PLATELET COUNT 476 10^3/uL (130-400); RED BLOOD COUNT 2.39 10^6/uL (4.35-5.85); RED CELL DISTRIBUTION WIDTH 16.9 % (10.0-14.5); WHITE BLOOD COUNT 19.1 10^3/uL (4.3-11.0)
[2018-05-25 04:02] LABS: BUN/CREATININE RATIO 7; CARBON DIOXIDE 19 MMOL/L (21-32); CHLORIDE 105 MMOL/L (98-107); CREATININE SERUM 0.55 MG/DL (0.60-1.30); GFR ESTIMATED > 60; GLUCOSE 158 MG/DL (70-105); MAGNESIUM 2.6 MG/DL (1.8-2.4); PHOSPHORUS 2.5 MG/DL (2.3-4.7); POTASSIUM 3.9 MMOL/L (3.6-5.0); SODIUM 135 MMOL/L (135-145)
[2018-05-25] MEDS: KCL 20 MEQ TAB (K-DUR) PO SCH (04:06)
[2018-05-25 04:24] LABS: ANISOCYTOSIS MODERATE; BAND NEUTROPHILS 2 %; LYMPHOCYTES % (MANUAL) 2 %; MONOCYTES % (MANUAL) 6 %; NEUTROPHILS % (MANUAL) 90 %
[2018-05-25] MEDS: VANCOMYCIN 1 GM/NS 250 ML IVPB IV SCH ×4 (04:30→17:49)
--- NOTE | 2018-05-25 05:52 | Pulmonary Progress Note ---
Subjective Time Seen by Provider: 06:23 Subjective/Events-last exam Pt is only requiring 2 liters of oxygen currently. She complains of severe pleuritic chest pain. She has been getting morphine, fentanyl and also has a Lidoderm patch. Focused Exam Lactate Level 05/24/18 09:50: Lactic Acid Level 2.43*H 05/24/18 13:27: Lactic Acid Level 1.84 Exam Exam Vital Signs Date Time Temp Pulse Resp B/P (MAP) Pulse Ox O2 Delivery O2 Flow Rate FiO2 05/25/18 04:41 100 Nasal Cannula 2.00 05/25/18 04:00 Nasal Cannula 2.00 05/25/18 04:00 120 20 124/71 (88) 96 Nasal Cannula 2.00 05/25/18 04:00 95 Nasal Cannula 2.00 05/25/18 03:00 118 13 112/60 (77) 98 Nasal Cannula 4.00 05/25/18 02:18 Nasal Cannula 4.00 05/25/18 02:00 123 19 114/71 (85) 95 Nasal Cannula 5.00 05/25/18 01:00 123 14 114/73 (87) 100 Nasal Cannula 5.00 05/25/18 01:00 122 05/25/18 00:56 97 Nasal Cannula 3.00 05/25/18 00:00 93 Nasal Cannula 5.00 05/25/18 00:00 Nasal Cannula 5.00 05/25/18 00:00 98.0 121 17 127/77 (94) 99 Nasal Cannula 5.00 05/24/18 23:00 120 21 134/88 (103) 100 Nasal Cannula 5.00 05/24/18 22:55 95 Nasal Cannula 5.00 05/24/18 22:00 116 22 94/53 (67) 99 Nasal Cannula 3.00 05/24/18 21:00 95 Nasal Cannula 3.00 05/24/18 21:00 117 19 99/57 (71) 97 Nasal Cannula 3.00 05/24/18 21:00 117 19 99/57 (71) 97 Nasal Cannula 3.00 05/24/18 20:00 124 11 111/56 (74) 96 Nasal Cannula 3.00 05/24/18 20:00 98.9 124 11 111/56 (74) 96 Nasal Cannula 3.00 05/24/18 20:00 Nasal Cannula 3.00 05/24/18 19:49 98.9 Nasal Cannula 3.00 05/24/18 19:00 117 8 125/71 (89) 97 Nasal Cannula 3.00 05/24/18 19:00 117 8 125/71 (89) 97 Nasal Cannula 3.00 05/24/18 18:56 115 05/24/18 18:52 94 Nasal Cannula 2.00 05/24/18 18:31 117 12 125/81 (96) 94 05/24/18 18:15 118 15 130/78 (95) 96 05/24/18 18:00 125 23 123/73 (90) 97 05/24/18 17:45 19 116/79 (91) 94 05/24/18 17:00 123 25 106/56 (73) 05/24/18 16:18 98 Nasal Cannula 2.00 05/24/18 16:00 113 20 05/24/18 16:00 113 20 112/50 (70) 05/24/18 16:00 Nasal Cannula 2.00 05/24/18 15:45 115 18 116/61 (79) 05/24/18 15:30 111 17 119/65 (83) 05/24/18 15:15 110 16 107/64 (78) 05/24/18 15:15 109 05/24/18 15:00 108 17 114/75 (88) 05/24/18 14:45 112 12 114/63 (80) 05/24/18 14:30 112/69 (83) 05/24/18 14:20 116 15 119/75 100 05/24/18 09:35 99.4 139 13 134/77 (96) 98 Nasal Cannula 2.00 I & O 05/25/18 07:00 Intake Total 1750 ml Output Total 1250 ml Balance 500 ml General Appearance: No Apparent Distress, Anxious, Chronically ill, Thin HEENT: PERRL/EOMI, Pharynx Normal Neck: Non Tender, Supple Respiratory: Decreased Breath Sounds (right sided and left face), Respiratory Distress, Other (tachypnea with mild cough) Cardiovascular: No Murmur, Tachycardia Capillary Refill: Less Than 3 Seconds Peripheral Pulses: 2+ Carotid (R), 2+ Carotid (L), 2+ Radial Pulses (R), 2+ Radial Pulses (L) Gastrointestinal: non tender, soft, no organomegaly, no pulsatile mass Extremity: Pedal Edema (left leg to +2 above the level of the knee. Right leg minimal), Other (. Lesion of bilateral lower extremities) Neurologic/Psychiatric: Alert, Oriented x3 Skin: Normal Color, Warm/Dry Lymphatic: No Adenopathy Results Lab Laboratory Tests 05/24/18 09:50 05/24/18 15:35 05/25/18 03:40 Assessment/Plan Assessment/Plan Pneumonia - HCAP - with severe sepsis - present on admission -Continue IVF - Zosyn, Vanco -Yu cultures pending Pleuritic pain -Will give Toradol -restart home pain meds -Start end tidal C02 monitoring Anemia - currently stable -Transfuse if pt becomes hypotensive or Hb drops <7 -Check occult stool and monitor -repeat Labs pending -High risk for GI bleed. Will start Protonix IV BID. Small loculated Pleural effusions Right > Left -Pt is on Xeralto -Continue to monitor for now and continue Abx therapy -Pt has had similar CT appearance since March -Pt was recently at med will OBtain records Metabolic acidosis -repeat Lactic acid -IVF monitor secondary to worsening SOB -Check ABG Atelectasis -SVNS -IS Anxiety -restart home xanax sinus tachycardia -IVF -Restart home metoprolol LLL DVT -Dx at and is on Xeralto HX of metastatic lung cancer -Follows with Dr. Griggs Chronic debility -monitor Pt is very high risk for decompensating. Pt is ok with ventilator therapy and is currently a full code. Pt's prognosis is guarded at this time. I have discussed treatment plan extensively with both patient and medical staff. UPDATE: 1700: PT continued to have progressive SOB and with increased WOB. Anesthesia was called for intubation and Virginie was placed. Pt is now on ventilator resting comfortably. at bedside. records reviewed extensively. I discussed with patients current condition and plan of care. He understands patient's prognosis is guarded and she may have extensive metatastic cancer given her hx of small cell cancer (per ). I will plan on doing bronchoscopy tomorrow morning. consents to procedure. Critical Care: Critically Ill Patient Time spent with patient (mins): 120 RJ LUU DO May 25, 2018 05:52
[2018-05-25] MEDS ORDERED: ALPRAZolam 0.25 MG (XANAX) TAB PO PRN (06:15)
[2018-05-25] MEDS ORDERED: DOCUSATE SODIUM 100 MG (COLACE) CAP PO PRN (06:15)
[2018-05-25] MEDS ORDERED: KETOROLAC 30 MG/ML VIAL IVP PRN (06:15)
[2018-05-25] MEDS: PIPERACILLIN/TAZOBACTAM 3.375 GM in D5W 100 ML IVPB 100 ML IV SCH ×3 (06:30→23:06)
[2018-05-25] MEDS: RT-ALBUTEROL/IPRATROPIUM 3 ML (DUONEB) VIAL INH SCH ×4 (06:44→18:07)
[2018-05-25 06:50] LABS: ABG BASE EXCESS -2.8 MMOL/L (-2.5-2.5); ABG OXYGEN SATURATION 93 % (94-100); ABG PCO2 39 MMHG (35-45); ABG PH 7.36 (7.37-7.43); ABG PO2 66 MMHG (79-93)
[2018-05-25 06:51] LABS: ALLENS TEST YES-POS; INSPIRED O2 2L; VENTILATOR NO
[2018-05-25] MEDS ORDERED: KETOROLAC 30 MG/ML VIAL ONE (07:37)
[2018-05-25] MEDS ORDERED: morphine ER 30 MG (MS CONTIN) TAB PO ONE (07:37)
[2018-05-25] MEDS ORDERED: meTOprolol TARTRATE 50 MG (LOPRESSOR) TAB ONE (07:38)
[2018-05-25] MEDS: morphine ER 30 MG (MS CONTIN) TAB PO SCH ×2 (07:47→22:02)
[2018-05-25] MEDS: RIVAROXABAN 15 MG TABLET (XARELTO) PO SCH (07:47)
[2018-05-25] MEDS: PANTOPRAZOLE 40 MG/10 ML (PROTONIX) VIAL IV SCH ×2 (07:51→23:05)
[2018-05-25] MEDS: meTOproloL SUCCINATE 50 MG (TOPROL XL) TAB PO SCH (07:51)
[2018-05-25] MEDS ORDERED: PANTOPRAZOLE 40 MG (PROTONIX) TAB PO SCH (09:00)
[2018-05-25] MEDS ORDERED: PROPOFOL DRIP (ICU) 100 ML IV ONE (09:49)
--- NOTE | 2018-05-25 10:16 | Anesthesia-Procedure Note ---
PEBBLES HERRERA CRNA 05/25/18 1016: JACKELYN DE DIOS 06/06/18 1540: PEBBLES HERRERA CRNA May 25, 2018 10:16 JACKELYN DE DIOS Jun 06, 2018 15:40
--- NOTE | 2018-05-25 10:54 | Anesthesia-Procedure Note ---
Procedures/Interventions Procedure Start/Stop/Diagnosis Date of Procedure: May 25, 2018 Start Time: 10:00 Stop Time: 10:50 Intubation RSI: Yes 100% pre-Ox, [id number]: Yes Intubation Method: orotracheal Videoscope used: Yes Medications: Etomidate, Succinylcholine, Versed Mask Ventilation: positive Positive End Tide CO2: Yes Breath Sounds after Intubation: bilateral-equal ETT Securred @ (cm): 21 Intubated with ease: Yes Intubation Complications: no complications Post Intubation Xray-done: Yes Care turned over to: Lynn Arterial Line Arterial Line Catheter: 20G Type: Radial Procedure: prepped, draped in sterile fashion, good wave-form was obtained, patient tolerated procedure well, no immediate complications, post procedure dressing applied PEBBLES HERRERA CRNA May 25, 2018 10:54
--- NOTE | 2018-05-25 11:15 | Diagnostic Imaging Report ---
INDICATION: Post intubation and tube placement. TECHNIQUE: Single view chest 10:46 AM. CORRELATION STUDY: 05/25/2018 FINDINGS: Endotracheal tube is in place with tip superimposed over the trachea with tip just below the level of the clavicles. Gastric tube has also been placed. Tip left upper quadrant with side port likely just proximal to the EG junction. Right-sided central line unchanged. Dense and extensive consolidation through the right lung and to a lesser degree left lung overall progressed. Bilateral pleural effusions, right greater than left. Heart size and mediastinal structures are obscured. Spinal fixation hardware. IMPRESSION: 1. Interval intubation and placement of gastric tube. Gastric tube side-port is likely just proximal to the gastroesophageal junction. 2. Extensive bilateral pulmonary infiltrates right greater than left may be somewhat progressed. Underlying vascular congestion is not excluded. Dictated by: Dictated on workstation # [id number]
--- NOTE | 2018-05-25 11:28 | Diagnostic Imaging Report ---
EXAMINATION: Portable erect AP chest at 02:05 a.m. INDICATION: Pneumonia. FINDINGS: The appearance of the chest has worsened since the prior exam of 05/24/2018 as there does appear to be greater involvement of the right upper lobe by pneumonia/atelectasis. There is only a small amount of aerated lung still present in the right apex. The atelectasis/infiltrate and fluid involving the right lung base and the scattered alveolar/interstitial pulmonary infiltrates in the left lung seen previously are essentially no different. The heart is stable in size. The mediastinum is not widened. The osseous structures are intact. The orthopedic fixation rods and the right-sided PICC line seen previously are again evident and no different. IMPRESSION: The appearance of the chest has worsened since the prior study as there is greater involvement of the right upper lobe by pneumonia/atelectasis. A follow-up exam will be recommended for continued evaluation. Dictated by: Dictated on workstation # [id number]
[2018-05-25] MEDS: PROPOFOL DRIP (ICU) 100 ML IV SCH (11:50)
[2018-05-25] MEDS: fentaNYL INJECTION 1,250 MCG in NS (IVPB) 225 ML IV SCH (11:54)
--- NOTE | 2018-05-25 12:09 | History & Physical-Hospitalist ---
History of Present Illness HPI/Chief Complaint CC: Pneumonia with lung cancer HPI: This is a 53-year-old white female with a known history of paraplegia chronic and lung cancer treated at [facility] who was just discharged from after seen for DVT and pulmonary emboli placed on chronic anticoagulation but had significant decline when she arrived home with fever and shortness of breath found to have bilateral pneumonia that required aggressive IV fluid resuscitation for sepsis and has resulted in a major decline requiring intubation. is managing the critical care component. Apparently she proceeds on with aggressiveness of care because she "just doesn't want to give up right now." I reviewed her current medication and IV fluid rate and update the family on the plan. Source: patient Exam Limitations: clinical condition Date Seen 05/25/18 Time Seen by Provider: 10:30 Attending Physician Marivel Oshea MD PCP Marivel Oshea MD Referring Physician Date of Admission May 24, 2018 at 13:30 Home Medications & Allergies Home Medications Reviewed patient Home Medication Reconciliation performed by pharmacy medication reconciliations in shop service technician and/or nursing. Patients Allergies have been reviewed. Allergies Allergies Coded Allergies No Known Drug Allergies (Fxisooaryo81/28/16) Past Uebjylc-Lnfckd-Yxdsbq Hx Past Med/Social Hx: Reviewed Nursing Past Med/Soc Hx, Reviewed and Corrections made Patient Social History Marrital Status: Employed/Student: unemployed Alcohol Use: Denies Use Number of Drinks Today: AA Alcohol Beverage of Choice: Beer Recreational Drug Use: No Smoking Status: Former Smoker Former Smoker, Quit: Jan 24, 2017 Type Used: Cigarettes 2nd Hand Smoke Exposure: No Physical Abuse Screen: No Sexual Abuse: No Recent Foreign Travel: No Contact w/other who traveled: No Recent Hopitalizations: Yes Recent Infectious Disease Expo: No Immunizations Up To Date Tetanus Booster (TDap): Unknown Pediatric: Yes Date of Pneumonia Vaccine: Sep 12, 2017 Date of Influenza Vaccine: Sep 01, 2016 Seasonal Allergies Seasonal Allergies: No Past Medical History Surgeries: Gallbladder, Orthopedic Respiratory: Pneumonia, Pulmonary Embolism Currently Using CPAP: No Currently Using BIPAP: No Neurological: Paralysis, Spinal Cord Injury Reproductive: No Female Reproductive Disorders: Denies Genitourinary: Neurogenic Bladder, UTI-Chronic Gastrointestinal: Hemorrhoids, Gall Bladder Disease Loss of Vision: Denies Hearing Impairment: Denies Cancer: Brain, Lung Did You Recieve Any Treatments: Yes What Type of Treatment Did You: Chemotherapy, Radiation Cancer: Pt had lung cancer with mets to the brain Psychosocial: Anxiety, Depression History of Blood Disorders: No Family History Reviewed Nursing Family Hx FH: lung cancer 19 MOTHER, Onset:Unknown FH: scoliosis G8 SISTER, Onset:Unknown FH: throat cancer 19 FATHER, Onset:Unknown History of substance abuse in sibling G8 SISTER, Onset:Unknown No Pertinent Family Hx, Cancer Review of Systems Constitutional: see HPI, malaise, weakness EENTM: no symptoms reported Respiratory: cough, dyspnea on exertion, short of breath, wheezing Cardiovascular: no symptoms reported Gastrointestinal: loss of appetite Genitourinary: no symptoms reported Musculoskeletal: back pain Skin: no symptoms reported Psychiatric/Neurological: No Symptoms Reported All Other Systems Reviewed Negative Unless Noted: Yes Physical Exam Physical Exam Vital Signs Vital Signs - First Documented 05/24/18 05/25/18 09:35 10:30 Temp 99.4 Pulse 139 Resp 13 B/P (MAP) 134/77 (96) Pulse Ox 98 O2 Delivery Nasal Cannula O2 Flow Rate 2.00 FiO2 100 Capillary Refill : Less Than 3 Seconds General Appearance: No Apparent Distress, WD/WN, Chronically ill, Other (On ventilator) Eyes: Bilateral Eye Normal Inspection, Bilateral Eye PERRL HEENT: PERRL/EOMI, Normal ENT Inspection, Pharynx Normal Neck: Full Range of Motion, Normal Inspection, Non Tender, Supple, Carotid Bruit Respiratory: Chest Non Tender, No Accessory Muscle Use, No Respiratory Distress , Crackles, Decreased Breath Sounds, Wheezing Cardiovascular: No Edema, No Gallop, No JVD, No Murmur, Normal Peripheral Pulses, Tachycardia Gastrointestinal: Normal Bowel Sounds, No Organomegaly, No Pulsatile Mass, Non Tender, Soft Back: Normal Inspection, No CVA Tenderness, No Vertebral Tenderness Extremity: Normal Capillary Refill, Normal Inspection, No Pedal Edema Neurologic/Psychiatric: Alert Skin: Normal Color, Warm/Dry Lymphatic: No Adenopathy Results Results/Procedures Labs Laboratory Tests 05/24/18 09:50 05/24/18 15:35 05/25/18 03:40 Patient resulted labs reviewed. Assessment/Plan Admission Diagnosis Assessment: Post-obstructive pneumonia Lung cancer with mets Paralysis wheelchair bound Plan: Intubation per Dr Lynn Saucedo Nebs Monitor labs Guarded prognosis Admission Status: Inpatient Order (span 2 midnights) Reason for Inpatient Admission: Severe respiratory failure requiring intubation and critical care management Diagnosis/Problems Diagnosis/Problems (1) Respiratory failure requiring intubation Status: Acute (2) Pneumonia of both lower lobes Status: Acute Qualifiers: Pneumonia type: due to unspecified organism Qualified Codes: J18.1 - Lobar pneumonia, unspecified organism (3) Pulmonary embolism Status: Acute Qualifiers: Pulmonary embolism type: other Chronicity: unspecified Acute cor pulmonale presence: without acute cor pulmonale Qualified Codes: I26.99 - Other pulmonary embolism without acute cor pulmonale (4) Poor prognosis Status: Acute (5) Left leg DVT Status: Acute Qualifiers: Affected thrombotic vein of extremity: unspecified vein of extremity Chronicity: acute Qualified Codes: I82.402 - Acute embolism and thrombosis of unspecified deep veins of left lower extremity (6) Sepsis Status: Resolved (7) Lung cancer Status: Chronic Qualifiers: Laterality: right Lung location: unspecified part of lung Qualified Codes : C34.91 - Malignant neoplasm of unspecified part of right bronchus or lung (8) Chronic paraplegia Status: Chronic (9) Leukocytosis Status: Acute Qualifiers: Leukocytosis type: leukemoid reaction Qualified Codes: D72.823 - Leukemoid reaction (10) Anemia Status: Chronic Qualifiers: Anemia type: iron deficiency Iron deficiency anemia type: unspecified iron deficiency Qualified Codes: D50.9 - Iron deficiency anemia, unspecified (11) Debility Status: Chronic Clinical Quality Measures DVT/VTE Risk/Contraindication: Risk Factor Score Per Nursin RFS Level Per Nursing on Admit: 4+=Very High MAILE SHAH DO May 25, 2018 12:09
[2018-05-25] MEDS ORDERED: ETOMIDATE IV SOLN 20 MG/10 ML VIAL IV ONE (12:49)
[2018-05-25] MEDS ORDERED: MIDAZOLAM 5 MG/5 ML (VERSED) VIAL INJ ONE (12:50)
[2018-05-25] MEDS ORDERED: SUCCINYLCHOLINE INJ 100 MG/5 ML SYR INJ ONE (12:51)
[2018-05-25 15:50] LABS: ABG BASE EXCESS -2.3 MMOL/L (-2.5-2.5); ABG OXYGEN SATURATION 101 % (94-100); ABG PCO2 36 MMHG (35-45); ABG PO2 234 MMHG (79-93); ABG TCO2 22.9 MMOL/L (21.0-31.0)
[2018-05-25 15:51] LABS: ALLENS TEST POSITIVE; INSPIRED O2 60%; PATIENT TEMP 98.6; VENTILATOR YES
[2018-05-25] MEDS ORDERED: IOHEXOL 350 MG/ML 100 ML (OMNIPAQUE 350) VIAL IV ONE (17:15)
[2018-05-25] MEDS ORDERED: NS 100 ML (IVPB) BAG IV ONE (17:15)
[2018-05-25 18:59] LABS: HEMOGLOBIN 6.6 G/DL (11.5-16.0)
--- NOTE | 2018-05-25 21:15 | Diagnostic Imaging Report ---
INDICATION: Pneumonia, anemia, abdominal distention, emphysema and sepsis. History of lung carcinoma. EXAMINATION: CT chest, abdomen and pelvis with contrast, 05/25/2018. COMPARISON: CT chest from 05/24/[address] abdomen from 03/01/2018. CT CHEST: There is limitation in evaluation of the chest and portions of the abdomen due to marked streak artifact from hardware in the spine. Within the visualized lungs there are bilateral pleural effusions, right worse than left. There are diffuse airspace opacities, bilaterally, but worse in the right upper lobe and involving portions of the right middle lobe and posterior lower lobe. A mass in the right upper lobe is not excluded. Air bronchograms are seen in the region as well. There is an effusion on the left. There are scattered airspace opacities in the left mid and upper lobe and also throughout the left lung base. In the left lower lobe some of these are slightly nodular in appearance. Some of these are slightly cavitary in appearance in the left lower lobe but overall some have decreased in size since previous. No pneumothorax appreciated. Right hilar adenopathy is not excluded. No definite new mediastinal adenopathy appreciated. There are a few prominent lymph nodes in the superior mediastinum, some of which are stable and others may have slightly decreased since prior. CT ABDOMEN/PELVIS: The liver and spleen are grossly unremarkable. Adrenal glands are not well evaluated due to the streak artifact. No new process seen in either kidney. Left proximal kidney is small in appearance and appears chronic. There is atherosclerotic disease throughout the aorta. Findings of previous cholecystectomy. Pancreas is grossly unremarkable. There is diffuse constipation, moderate in nature. Free fluid in the pelvis and minimal ascites in the upper abdomen also noted. Kirkland catheter in the urinary bladder noted. Marked nonspecific fat stranding seen throughout the visualized left lower extremity and into the lower abdomen, bilaterally. Some of this could be due to anasarca. However, the visualized left lower extremity is overall enlarged and there is increased density, posteriorly, along the proximal thigh. No measurable fluid collection to suggest abscess is seen; however, an inflammatory or infectious process is not excluded. Further evaluation of the left lower extremity with further imaging could be performed for better characterization, as clinically warranted. There is a focal soft tissue lesion with air in the posterior left buttock region overlying the ischium, likely an ulcer. There is some sclerosis of the adjacent ischial tuberosity. A developing or chronic osteomyelitis is certainly possible. Fluid in the left hip joint is also noted. Deformity of both hips, right worse than left, is seen with marked scoliotic deformity of the spine. IMPRESSION: 1. Marked worsening in appearance of the chest with bilateral effusions, right worse than left. Bibasilar infiltrate suspected with infiltrate in the right mid and upper lung also likely. Cavitary lesion is again seen in the left lower lobe although some have decreased in size. A mass in the right upper lobe is not excluded. Continued followup recommended. 2. Pleural thickening on the right with a developing empyema difficult to exclude. 3. Ascites. 4. Chronic findings in the abdomen and pelvis with findings of constipation. 5. Marked abnormality in the visualized left thigh. This could be due to an infectious or inflammatory process. If there is concern for an abnormality lower within the thigh, further imaging recommended with MRI. A process such as necrotizing fascia fasciitis or myositis is possible although no air is seen to suggest a necrotizing fasciitis at this time. 6. Ulceration overlying the left ischium with an underlying possible osteomyelitis suspected. See above discussion. Multiple other findings as above. Dictated by: Dictated on workstation # [id number]
[2018-05-25] MEDS ORDERED: NS IV 500 ML 500 ML ONE (21:46)
[2018-05-25] MEDS: BACLOFEN 10 MG (LIORESAL) TAB PO SCH (22:02)
[2018-05-26] VITALS (53 sets, daily range): BP systolic 91–147; BP diastolic 40–86
[2018-05-26] MEDS: PROPOFOL DRIP (ICU) 100 ML IV SCH ×2 (03:37→14:23)
[2018-05-26] MEDS ORDERED: TROUGH ORDER-PHARMACY XX NR (04:00)
[2018-05-26 04:06] LABS: BASOPHILS % (AUTO) 0 % (0-10); EOSINOPHILS # (AUTO) 0.3 10^3/uL (0.0-0.3); EOSINOPHILS % (AUTO) 2 % (0-10); HEMATOCRIT 30 % (35-52); HEMOGLOBIN 9.9 G/DL (11.5-16.0); LYMPHOCYTES # (AUTO) 0.6 X 10^3 (1.0-4.0); LYMPHOCYTES % (AUTO) 4 % (12-44); MEAN CORPUSCULAR HEMOGLOBIN 31 PG (25-34); MEAN CORPUSCULAR HGB CONC 33 G/DL (32-36); MEAN CORPUSCULAR VOLUME 93 FL (80-99); MEAN PLATELET VOLUME 8.1 FL (7.4-10.4); MONOCYTES # (AUTO) 0.8 X 10^3 (0.0-1.0); MONOCYTES % (AUTO) 5 % (0-12); NEUTROPHILS # (AUTO) 12.9 X 10^3 (1.8-7.8); NEUTROPHILS % (AUTO) 89 % (42-75); PLATELET COUNT 367 10^3/uL (130-400); RED BLOOD COUNT 3.22 10^6/uL (4.35-5.85); RED CELL DISTRIBUTION WIDTH 16.7 % (10.0-14.5); WHITE BLOOD COUNT 14.5 10^3/uL (4.3-11.0)
[2018-05-26 04:07] LABS: ABG BASE EXCESS -4.1 MMOL/L (-2.5-2.5); ABG OXYGEN SATURATION 97 % (94-100); ABG PCO2 35 MMHG (35-45); ABG PH 7.38 (7.37-7.43); ABG PO2 76 MMHG (79-93); ABG TCO2 21.2 MMOL/L (21.0-31.0)
[2018-05-26 04:08] LABS: ALLENS TEST YES-POS; INSPIRED O2 30%; PATIENT TEMP 98.1; VENTILATOR YES
[2018-05-26 04:19] LABS: ANISOCYTOSIS MODERATE; BAND NEUTROPHILS 2 %; LYMPHOCYTES % (MANUAL) 4 %; MONOCYTES % (MANUAL) 6 %; NEUTROPHILS % (MANUAL) 88 %
[2018-05-26 04:21] LABS: BUN/CREATININE RATIO 9; CALCIUM 7.7 MG/DL (8.5-10.1); CARBON DIOXIDE 17 MMOL/L (21-32); CHLORIDE 108 MMOL/L (98-107); CREATININE SERUM 0.47 MG/DL (0.60-1.30); GFR ESTIMATED > 60; GLUCOSE 89 MG/DL (70-105); MAGNESIUM 1.9 MG/DL (1.8-2.4); PHOSPHORUS 2.5 MG/DL (2.3-4.7); POTASSIUM 3.3 MMOL/L (3.6-5.0); SODIUM 135 MMOL/L (135-145)
[2018-05-26] MEDS: KCL 20 MEQ TAB (K-DUR) PO SCH (04:25)
[2018-05-26] MEDS: POTASSIUM CL 10MEQ/50ML IVPB 50 ML IV SCH ×5 (04:25→10:19)
[2018-05-26] MEDS: MAGNESIUM 1 GM/100 ML IVPB 100 ML IV SCH (04:25)
[2018-05-26 04:43] LABS: VANCOMYCIN,TROUGH 28.6 UG/ML (10.0-20.0)
[2018-05-26] MEDS: VANCOMYCIN 1 GM/NS 250 ML IVPB IV SCH ×2 (04:47)
[2018-05-26] MEDS: PIPERACILLIN/TAZOBACTAM 3.375 GM in D5W 100 ML IVPB 100 ML IV SCH ×3 (05:48→21:59)
[2018-05-26] MEDS: NS IV 1000 ML 1,000 ML IV SCH ×2 (05:51→15:49)
--- NOTE | 2018-05-26 06:13 | Pulmonary Progress Note ---
Subjective Time Seen by Provider: 07:07 Subjective/Events-last exam SOB no pain Focused Exam Lactate Level 05/24/18 09:50: Lactic Acid Level 2.43*H 05/24/18 13:27: Lactic Acid Level 1.84 05/25/18 07:57: Lactic Acid Level 2.00 Exam Exam Vital Signs Date Time Temp Pulse Resp B/P (MAP) Pulse Ox O2 Delivery O2 Flow Rate FiO2 05/26/18 05:00 96 18 103/46 (65) 96 Mechanical Ventilator 25.00 05/26/18 04:14 95 19 96 30 05/26/18 04:00 Mechanical Ventilator 25 05/26/18 04:00 96 19 131/52 (78) 96 Mechanical Ventilator 25.00 05/26/18 03:37 97.0 98 18 131/61 97 Mechanical Ventilator 25.00 05/26/18 03:00 96 16 129/52 (77) 94 Mechanical Ventilator 25.00 05/26/18 02:15 97.0 98 18 131/61 97 Mechanical Ventilator 25 05/26/18 02:00 138 9 105/57 (73) 93 Mechanical Ventilator 25.00 05/26/18 01:58 98 25 100 30 05/26/18 01:00 94 05/26/18 01:00 129 19 91/56 (68) 93 Mechanical Ventilator 30.00 05/26/18 00:30 97.8 98 18 106/42 92 Mechanical Ventilator 30 05/26/18 00:14 97.8 102 18 144/52 95 Mechanical Ventilator 30 05/26/18 00:05 98 20 93 30 05/26/18 00:00 Mechanical Ventilator 30 05/26/18 00:00 109 13 96/48 (64) 93 Mechanical Ventilator 30.00 05/25/18 23:53 97.8 100 18 124/40 99 Mechanical Ventilator 30 05/25/18 23:00 101 20 151/53 (85) 100 Mechanical Ventilator 30.00 05/25/18 22:08 97.8 96 18 120/43 99 Mechanical Ventilator 30 05/25/18 22:08 97.5 98 18 124/44 99 Mechanical Ventilator 30 05/25/18 22:05 96 20 97 30 05/25/18 22:00 98 18 109/33 (58) 100 Mechanical Ventilator 30.00 05/25/18 21:52 97.4 97 18 94/40 100 Mechanical Ventilator 30 05/25/18 21:00 97 Mechanical Ventilator 30 05/25/18 21:00 103 20 107/46 (66) 100 Mechanical Ventilator 30.00 05/25/18 20:00 98.7 18 20:00 Mechanical Ventilator 30 05/25/18 19:59 106 22 100 30 05/25/18 19:00 103 16 123/45 (71) 100 Mechanical Ventilator 30.00 05/25/18 19:00 105 //18 18:07 105 22 99 30 18 18:00 105 21 138/54 (82) 99 Mechanical Ventilator 30.00 05/25/18 17:00 105 21 138/52 (80) 100 Mechanical Ventilator 30.00 05/25/18 16:02 104 20 100 30 05/25/18 16:00 104 18 100/40 (60) 100 Mechanical Ventilator 30.00 05/25/18 16:00 Mechanical Ventilator 30 05/25/18 15:00 101 22 111/43 (65) 100 Mechanical Ventilator 60.00 05/25/18 14:05 101 22 100 70 05/25/18 14:00 101 18 104/40 (61) 100 Mechanical Ventilator 60.00 05/25/18 13:00 101 16 104/38 (60) 100 Mechanical Ventilator 60.00 05/25/18 13:00 101 05/25/18 12:00 105 15 133/45 (74) 100 Mechanical Ventilator 70.00 05/25/18 12:00 Mechanical Ventilator 70 05/25/18 11:50 96.9 122 16 100 Mechanical Ventilator 100.00 05/25/18 11:20 98 70 05/25/18 11:00 109 18 153/51 (85) 99 Mechanical Ventilator 100.00 05/25/18 10:30 106 18 100 100 05/25/18 10:00 117 23 136/54 (81) 96 Mechanical Ventilator 100.00 2.00 05/25/18 09:00 95 Nasal Cannula 3.00 05/25/18 09:00 115 21 112/63 (79) 100 Nasal Cannula 2.00 05/25/18 08:33 Nasal Cannula 2.00 05/25/18 08:00 120 20 99/62 (74) 99 Nasal Cannula 2.00 05/25/18 08:00 Nasal Cannula 3.00 05/25/18 07:00 118 18 112/56 (74) 96 Nasal Cannula 2.00 05/25/18 07:00 121 05/25/18 06:46 97 Nasal Cannula 2.00 I & O 05/26/18 06:59 Intake Total 950 ml Output Total 1025 ml Balance -75 ml General Appearance: No Apparent Distress, Anxious, Chronically ill, Thin HEENT: PERRL/EOMI, Pharynx Normal Neck: Non Tender, Supple Respiratory: Decreased Breath Sounds (right sided and left face), Respiratory Distress, Other (tachypnea with mild cough) Cardiovascular: No Murmur, Tachycardia Capillary Refill: Less Than 3 Seconds Peripheral Pulses: 2+ Carotid (R), 2+ Carotid (L), 2+ Radial Pulses (R), 2+ Radial Pulses (L) Gastrointestinal: non tender, soft, no organomegaly, no pulsatile mass Extremity: Pedal Edema (left leg to +2 above the level of the knee. Right leg minimal), Other (. Lesion of bilateral lower extremities) Neurologic/Psychiatric: Alert, Oriented x3 Skin: Normal Color, Warm/Dry Lymphatic: No Adenopathy Results Lab Laboratory Tests 05/24/18 09:50 05/24/18 15:35 05/25/18 03:40 05/25/18 18:52 05/26/18 03:59 Assessment/Plan Assessment/Plan Pneumonia - HCAP - with severe sepsis - present on admission - IVF - Zosyn, Vanco -Yu cultures pending -Plan for bronchoscopy this AM Anemia - s/p 2 units PRBC -occult stool pending -ct of abd/pelvis reviewed Small loculated Pleural effusions Right > Left -Pt is on Xeralto -Continue to monitor for now and continue Abx therapy -Pt has had similar CT appearance since March med records reviewed - very suspicious for extensive metastatic cancer -pleural fluid is negative for cytology decubitus ulcer -wound care is consulted. Metabolic acidosis -Lactic acid -IVF monitor secondary to worsening SOB Atelectasis -SVNS -IS sinus tachycardia -IVF -Restart home metoprolol LLL DVT -Dx at and is on Xeralto HX of metastatic lung cancer -Follows with Dr. Griggs Chronic debility -monitor 233 Critical Care: Critically Ill Patient RJ LUU DO May 26, 2018 06:13
--- NOTE | 2018-05-26 06:50 | Pulmonary Procedures ---
Pulmonary Procedures Date of Procedure Date of Service: May 26, 2018 Bronch Bronchoscopy with bronchoalveolar lavage (BAL), transbronchial washes and, brushes. Preop DX lung mass, pneumonia Postop DX: RUL appears to have external compression Complications: none After informed consent obtained and formal time out pt was sedated using Diprivan. Bronchoscope was advanced through the ET tube . An anatomical tour was undertaken down to the segmental bronchi bilaterally. No endobronchial lesions noted. THe RUL does appear to have external compression. From the RUL a bronchoalveolar lavage (BAL), transbronchial washes and, brushes were obtained. Bilateral was was obtained. Pt tolerated procedure well. No complications noted. Stat CXR is pending. JR LUU DO May 26, 2018 06:50
[2018-05-26] MEDS: RT-ALBUTEROL/IPRATROPIUM 3 ML (DUONEB) VIAL INH SCH ×4 (07:24→18:37)
[2018-05-26] MEDS: PANTOPRAZOLE 40 MG/10 ML (PROTONIX) VIAL IV SCH ×2 (08:48→21:37)
[2018-05-26] MEDS: morphine ER 30 MG (MS CONTIN) TAB PO SCH (09:59)
[2018-05-26] MEDS: meTOproloL SUCCINATE 50 MG (TOPROL XL) TAB PO SCH (10:00)
[2018-05-26] MEDS: meTOprolol TARTRATE 50 MG (LOPRESSOR) TAB PO SCH ×2 (10:07→21:37)
--- NOTE | 2018-05-26 10:09 | Diagnostic Imaging Report ---
INDICATION: Pneumonia, followup. TECHNIQUE: Single view chest 2:17 AM. CORRELATION STUDY: 05/25/2018. FINDINGS: Endotracheal tube, gastric tube and right-sided central line remain in place. Gastric tube has been retracted slightly. While tip is largely obscured, it appears likely near the gastroesophageal junction. There is progressive dense consolidating infiltrate throughout the majority of the right lung. Only small amount of pneumatized lung in the inferior portions is present, this appears progressed. Scattered multifocal areas of consolidation throughout the left lung also appears increased. Bilateral pleural effusions. IMPRESSION: 1. Progressive consolidation and opacification of both lung garcia likely owing to combination of pleural effusions as well as consolidating pneumonia. 2. Support lines and tubes remain in place. The gastric tube has likely been retracted, tip near the gastroesophageal junction. Dictated by: Dictated on workstation # [id number]
[2018-05-26] MEDS: morphine INJ 4 MG/ML 1 ML (VIAL/SYRINGE) IVP PRN ×4 (10:21→23:52)
--- NOTE | 2018-05-26 10:27 | Progress Note-Hospitalist ---
Subjective HPI/CC On Admission Date Seen by Provider: May 26, 2018 Time Seen by Provider: 10:00 CC: Pneumonia with lung cancer HPI: This is a 53-year-old white female with a known history of paraplegia chronic and lung cancer treated at cancer Center who was just discharged from after seen for DVT and pulmonary emboli placed on chronic anticoagulation but had significant decline when she arrived home with fever and shortness of breath found to have bilateral pneumonia that required aggressive IV fluid resuscitation for sepsis and has resulted in a major decline requiring intubation. is managing the critical care component. Apparently she proceeds on with aggressiveness of care because she "just doesn't want to give up right now." I reviewed her current medication and IV fluid rate and update the family on the plan. Subjective/Events-last exam Patient maintained on ventilator Bronchoscopy performed today by Dr. Lynn Bailey updated me on the suspicion of widespread lung cancer metastasis on bronchoscopy but results are pending Family at the bedside No pain is reported Focused Exam Lactate Level 05/24/18 09:50: Lactic Acid Level 2.43*H 05/24/18 13:27: Lactic Acid Level 1.84 05/25/18 07:57: Lactic Acid Level 2.00 Objective Exam Vital Signs Vital Signs Date Time Temp Pulse Resp B/P (MAP) Pulse Ox O2 Delivery O2 Flow Rate FiO2 05/26/18 11:00 95 20 119/52 (74) 96 Mechanical Ventilator 30.00 05/26/18 10:19 30 05/26/18 08:00 98.2 Capillary Refill : Less Than 3 Seconds General Appearance: Chronically ill, Other (On ventilator) Respiratory: Crackles, Decreased Breath Sounds Cardiovascular: Regular Rate, Rhythm, No Edema Skin: Normal Color, Warm/Dry Results/Procedures Lab Laboratory Tests 05/25/18 18:52 05/26/18 03:59 Patient resulted labs reviewed. 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 Plan: Maintain ventilator IV antibiotics Await bronchoscopy pathology results but it appears that she has widespread lung cancer within the chest cavity Poor prognosis Primary care provider to discuss long-term plan Critical Care Critical Care: Critically Ill Patient Diagnosis/Problems Diagnosis/Problems (1) Respiratory failure requiring intubation Status: Acute (2) Pneumonia of both lower lobes Status: Acute Qualifiers: Pneumonia type: due to unspecified organism Qualified Codes: J18.1 - Lobar pneumonia, unspecified organism (3) Pulmonary embolism Status: Acute Qualifiers: Pulmonary embolism type: other Chronicity: unspecified Acute cor pulmonale presence: without acute cor pulmonale Qualified Codes: I26.99 - Other pulmonary embolism without acute cor pulmonale (4) Poor prognosis Status: Acute (5) Left leg DVT Status: Acute Qualifiers: Affected thrombotic vein of extremity: unspecified vein of extremity Chronicity: acute Qualified Codes: I82.402 - Acute embolism and thrombosis of unspecified deep veins of left lower extremity (6) Sepsis Status: Resolved (7) Lung cancer Status: Chronic Qualifiers: Laterality: right Lung location: unspecified part of lung Qualified Codes : C34.91 - Malignant neoplasm of unspecified part of right bronchus or lung (8) Chronic paraplegia Status: Chronic (9) Leukocytosis Status: Acute Qualifiers: Leukocytosis type: leukemoid reaction Qualified Codes: D72.823 - Leukemoid reaction (10) Anemia Status: Chronic Qualifiers: Anemia type: iron deficiency Iron deficiency anemia type: unspecified iron deficiency Qualified Codes: D50.9 - Iron deficiency anemia, unspecified (11) Debility Status: Chronic Clinical Quality Measures DVT/VTE Risk/Contraindication: Risk Factor Score Per Nursin RFS Level Per Nursing on Admit: 4+=Very High MAILE SHAH DO May 26, 2018 10:27
[2018-05-26] MEDS: fentaNYL INJECTION 1,250 MCG in NS (IVPB) 225 ML IV SCH (11:25)
[2018-05-26] MEDS ORDERED: LIDOCAINE PF 1% 2 ML AMP INJ ONE (15:29)
[2018-05-26] MEDS: RT-ALBUTEROL/IPRATROPIUM 3 ML (DUONEB) VIAL INH PRN (21:06)
[2018-05-26] MEDS: BACLOFEN 10 MG (LIORESAL) TAB PO SCH (21:37)
[2018-05-27] VITALS (41 sets, daily range): BP systolic 89–172; BP diastolic 45–71
[2018-05-27] MEDS: fentaNYL INJECTION 1,250 MCG in NS (IVPB) 225 ML IV SCH (02:05)
[2018-05-27] MEDS: NS IV 1000 ML 1,000 ML IV SCH (02:06)
[2018-05-27] MEDS: morphine INJ 4 MG/ML 1 ML (VIAL/SYRINGE) IVP PRN ×4 (03:29→09:49)
[2018-05-27] MEDS: PROPOFOL DRIP (ICU) 100 ML IV SCH (03:52)
[2018-05-27] MEDS ORDERED: TROUGH ORDER-PHARMACY XX NR (04:00)
[2018-05-27 04:53] LABS: BASOPHILS % (AUTO) 0 % (0-10); EOSINOPHILS # (AUTO) 0.2 10^3/uL (0.0-0.3); EOSINOPHILS % (AUTO) 1 % (0-10); HEMATOCRIT 32 % (35-52); HEMOGLOBIN 10.6 G/DL (11.5-16.0); LYMPHOCYTES # (AUTO) 0.6 X 10^3 (1.0-4.0); LYMPHOCYTES % (AUTO) 4 % (12-44); MEAN CORPUSCULAR HEMOGLOBIN 31 PG (25-34); MEAN CORPUSCULAR HGB CONC 33 G/DL (32-36); MEAN CORPUSCULAR VOLUME 94 FL (80-99); MEAN PLATELET VOLUME 7.9 FL (7.4-10.4); MONOCYTES # (AUTO) 1.4 X 10^3 (0.0-1.0); MONOCYTES % (AUTO) 8 % (0-12); NEUTROPHILS # (AUTO) 14.5 X 10^3 (1.8-7.8); NEUTROPHILS % (AUTO) 87 % (42-75); PLATELET COUNT 371 10^3/uL (130-400); RED BLOOD COUNT 3.38 10^6/uL (4.35-5.85); WHITE BLOOD COUNT 16.8 10^3/uL (4.3-11.0)
[2018-05-27 04:54] LABS: ABG BASE EXCESS -7.9 MMOL/L (-2.5-2.5); ABG OXYGEN SATURATION 100 % (94-100); ABG PCO2 37 MMHG (35-45); ABG PO2 221 MMHG (79-93); ABG TCO2 18.6 MMOL/L (21.0-31.0)
[2018-05-27 04:58] LABS: ABG PH 7.29 (7.37-7.43)
[2018-05-27 04:59] LABS: ALLENS TEST YES-POS; INSPIRED O2 70%; PATIENT TEMP 98.4; VENTILATOR NO
[2018-05-27 05:07] LABS: BUN/CREATININE RATIO 10; CARBON DIOXIDE 13 MMOL/L (21-32); CHLORIDE 111 MMOL/L (98-107); CREATININE SERUM 0.52 MG/DL (0.60-1.30); POTASSIUM 3.5 MMOL/L (3.6-5.0); SODIUM 137 MMOL/L (135-145)
[2018-05-27 05:08] LABS: CALCIUM 8.1 MG/DL (8.5-10.1); GFR ESTIMATED > 60; GLUCOSE 82 MG/DL (70-105); MAGNESIUM 1.4 MG/DL (1.8-2.4); PHOSPHORUS 2.7 MG/DL (2.3-4.7)
[2018-05-27 05:09] LABS: BAND NEUTROPHILS 3 %; EOSINOPHILS % (MANUAL) 2 %; LYMPHOCYTES % (MANUAL) 7 %; MONOCYTES % (MANUAL) 4 %; NEUTROPHILS % (MANUAL) 84 %; RBC MORPH NORMAL
[2018-05-27 05:10] LABS: POLYCHROMASIA SLIGHT
[2018-05-27 05:15] LABS: VANCOMYCIN,TROUGH 12.5 UG/ML (10.0-20.0)
--- NOTE | 2018-05-27 05:56 | Pulmonary Progress Note ---
Subjective Time Seen by Provider: 05:51 Subjective/Events-last exam PT self extubated this morning. SHe is currently on BiPAP with respiratory distress. Focused Exam Lactate Level 05/24/18 09:50: Lactic Acid Level 2.43*H 05/24/18 13:27: Lactic Acid Level 1.84 05/25/18 07:57: Lactic Acid Level 2.00 Exam Exam Vital Signs Date Time Temp Pulse Resp B/P (MAP) Pulse Ox O2 Delivery O2 Flow Rate FiO2 05/27/18 05:15 115 26 155/60 (91) 98 NIV Bilevel 40.00 05/27/18 05:12 114 17 99 70.00 05/27/18 05:00 113 14 149/60 (89) 98 NIV Bilevel 70.00 05/27/18 04:45 113 15 159/63 (95) 100 NIV Bilevel 70.00 05/27/18 04:39 112 20 144/57 (86) 97 NIV Bilevel 70.00 05/27/18 04:38 111 24 100 100.00 05/27/18 04:30 112 25 147/62 (90) 98 NIV Bilevel 80.00 05/27/18 04:26 117 33 169/71 (103) 83 Room Air 05/27/18 04:15 112 25 117/48 (71) 97 Mechanical Ventilator 40.00 05/27/18 04:09 112 22 96 40 05/27/18 04:00 112 16 131/53 (79) 96 Mechanical Ventilator 40.00 05/27/18 03:55 97 Mechanical Ventilator 40 05/27/18 03:52 111 05/27/18 03:45 110 16 120/51 (74) 96 Mechanical Ventilator 40.00 05/27/18 03:30 98.4 05/27/18 03:30 112 20 134/59 (84) 95 Mechanical Ventilator 40.00 05/27/18 03:15 114 26 133/64 (87) 94 Mechanical Ventilator 40.00 05/27/18 03:00 112 23 140/64 (89) 95 Mechanical Ventilator 40.00 05/27/18 02:45 111 16 133/63 (86) 95 Mechanical Ventilator 40.00 05/27/18 02:30 110 16 125/61 (82) 95 Mechanical Ventilator 40.00 05/27/18 02:15 107 18 129/64 (85) 96 Mechanical Ventilator 40.00 05/27/18 02:00 99 22 109/50 (69) 97 Mechanical Ventilator 40.00 05/27/18 01:45 100 24 98/47 (64) 97 Mechanical Ventilator 40.00 05/27/18 01:30 99 21 100/46 (64) 96 Mechanical Ventilator 40.00 05/27/18 01:17 99 21 96 40 05/27/18 01:15 98 14 99/47 (64) 96 Mechanical Ventilator 40.00 05/27/18 01:00 98 05/27/18 01:00 98 19 89/45 (60) 96 Mechanical Ventilator 40.00 05/27/18 00:45 99 22 108/52 (70) 97 Mechanical Ventilator 40.00 05/27/18 00:30 98 19 89/45 (60) 97 Mechanical Ventilator 40.00 05/27/18 00:15 99 15 93/46 (62) 98 Mechanical Ventilator 40.00 05/27/18 00:00 95 Mechanical Ventilator 40 05/27/18 00:00 98 13 103/51 (68) 98 Mechanical Ventilator 40.00 05/26/18 23:53 101 21 100 40 05/26/18 23:50 98.7 05/26/18 23:45 102 13 123/56 (78) 99 Mechanical Ventilator 40.00 05/26/18 23:30 101 22 126/63 (84) 96 Mechanical Ventilator 40.00 05/26/18 23:15 95 15 105/51 (69) 95 Mechanical Ventilator 40.00 05/26/18 23:00 97 13 105/53 (70) 94 Mechanical Ventilator 40.00 05/26/18 22:45 96 19 93/45 (61) 94 Mechanical Ventilator 40.00 05/26/18 22:30 102 14 103/50 (67) 94 Mechanical Ventilator 40.00 05/26/18 22:30 Mechanical Ventilator 40.00 05/26/18 22:15 105 15 94/48 (63) 91 Mechanical Ventilator 30.00 05/26/18 22:00 112 17 107/49 (68) 93 Mechanical Ventilator 30.00 05/26/18 21:45 122 23 140/61 (87) 98 Mechanical Ventilator 30.00 05/26/18 21:30 117 18 125/52 (76) 93 Mechanical Ventilator 30.00 05/26/18 21:15 115 17 117/49 (71) 99 Mechanical Ventilator 30.00 05/26/18 21:04 121 26 100 30 05/26/18 21:00 120 20 124/53 (76) 97 Mechanical Ventilator 30.00 05/26/18 20:45 121 22 111/57 (75) 91 Mechanical Ventilator 30.00 05/26/18 20:30 120 31 129/59 (82) 90 Mechanical Ventilator 30.00 05/26/18 20:15 121 22 110/54 (72) 91 Mechanical Ventilator 30.00 05/26/18 20:00 117 20 114/54 (74) 90 Mechanical Ventilator 30.00 05/26/18 20:00 100 Mechanical Ventilator 30 05/26/18 19:45 117 21 104/50 (68) 91 Mechanical Ventilator 30.00 05/26/18 19:30 114 22 131/60 (83) 92 Mechanical Ventilator 30.00 05/26/18 19:15 113 29 147/60 (89) 92 Mechanical Ventilator 30.00 05/26/18 19:00 101 05/26/18 19:00 98.4 121 25 125/59 (81) 92 Mechanical Ventilator 30.00 05/26/18 18:38 110 25 94 30 05/26/18 18:00 108 20 120/57 (78) 93 Mechanical Ventilator 30.00 05/26/18 17:00 105 18 116/51 (72) 98 Mechanical Ventilator 30.00 05/26/18 16:00 Mechanical Ventilator 30 05/26/18 16:00 107 19 113/51 (71) 97 Mechanical Ventilator 30.00 05/26/18 15:09 106 22 98 30 05/26/18 15:00 103 25 110/50 (70) 98 Mechanical Ventilator 30.00 05/26/18 14:23 115/50 05/26/18 14:00 104 23 98/50 (66) 97 Mechanical Ventilator 30.00 05/26/18 13:00 102 22 106/86 (93) 96 Mechanical Ventilator 30.00 05/26/18 13:00 102 05/26/18 12:26 98.6 05/26/18 12:11 96 19 95 30 05/26/18 12:00 100 26 122/50 (74) 98 Mechanical Ventilator 30.00 05/26/18 12:00 Mechanical Ventilator 30 05/26/18 11:00 95 20 119/52 (74) 96 Mechanical Ventilator 30.00 05/26/18 10:19 96 18 100 30 05/26/18 10:00 105 23 128/58 (81) 97 Mechanical Ventilator 30.00 05/26/18 09:00 98 22 124/51 (75) 99 Mechanical Ventilator 30.00 05/26/18 08:41 98 22 99 30 05/26/18 08:00 98 Mechanical Ventilator 30 05/26/18 08:00 Mechanical Ventilator 30 05/26/18 08:00 98 20 125/50 (75) 99 Mechanical Ventilator 30.00 05/26/18 08:00 98.2 05/26/18 07:45 Mechanical Ventilator 30.00 05/26/18 07:24 94 19 100 50 05/26/18 07:00 95 26 94/45 (61) 100 Mechanical Ventilator 100.00 05/26/18 07:00 95 05/26/18 06:00 100 18 137/58 (84) 98 Mechanical Ventilator 25.00 I & O 05/27/18 07:00 Intake Total 2030 ml Output Total 1255 ml Balance 775 ml General Appearance: Chronically ill, Severe Distress, Other HEENT: PERRL/EOMI, Pharynx Normal Neck: Non Tender, Supple Respiratory: Crackles, Decreased Breath Sounds Cardiovascular: Regular Rate, Rhythm, No Edema Capillary Refill: Less Than 3 Seconds Peripheral Pulses: 2+ Carotid (R), 2+ Carotid (L), 2+ Radial Pulses (R), 2+ Radial Pulses (L) Gastrointestinal: non tender, soft, no organomegaly, no pulsatile mass Extremity: Pedal Edema (left leg to +2 above the level of the knee. Right leg minimal), Other (. Lesion of bilateral lower extremities) Neurologic/Psychiatric: Alert, Oriented x3 Skin: Normal Color, Warm/Dry Lymphatic: No Adenopathy Results Lab Laboratory Tests 05/25/18 18:52 05/26/18 03:59 05/27/18 04:40 Assessment/Plan Assessment/Plan Pneumonia - HCAP - with severe sepsis - present on admission - IVF Anemia - s/p 2 units PRBC Small loculated Pleural effusions Right > Left decubitus ulcer -wound care is consulted. Metabolic acidosis -Lactic acid -IVF monitor secondary to worsening SOB Atelectasis -SVNS -IS sinus tachycardia -IVF -Restart home metoprolol LLL DVT -Dx at and is on Xeralto HX of metastatic lung cancer -Follows with Dr. Griggs Chronic debility -monitor I've talked with family extensively about pulmonary status and patients poor prognosis given patients extensive PMH, and current pulmonary status. Pt Is A&O she does not want to be reintubated or transferred to . I called and discussed with patients current condition and accidental self extubation. agrees with patient she should not be a full code or transferred to . Patient and who is now at bedside want to proceed with hospice care. They would like to be transferred home with home hospice if possible. Currently patient is declining rapidly and they understand she may not make it home. I have also called Rosalva from [facility] so get home meds and equipment arranged for possible transfer if patient does not continue to rapidly decline. I am starting comfort care now while in the hospital because currently patient is very uncomfortable. All questions answered and medical staff updated on plan of care. I have also updated Dr. Frost on current status and plan. UPDATE: PT TRANSFERRING HOME VIA EMS WITH HOSPICE CARE. ALL ORDERS FAXED FOR COMFORT MEDS. HOME OXYGEN ARRANGED. Critical Care: Critically Ill Patient Advance Care discuss with: patient, family member (s) End of Life Care: Comfort Measures, Pallative Care, Hospice (Hospital), Hospice Care (Home) Advance Care Discussion: initiate discussion, clarifying prognosis, identified end-of-life goals, developed treatment plan Time spent on discussion(mins): 120 RJ LUU DO May 27, 2018 05:56
[2018-05-27] MEDS: MAGNESIUM 1 GM/100 ML IVPB 100 ML IV SCH ×3 (06:37→07:21)
[2018-05-27] MEDS: POTASSIUM CL 10MEQ/50ML IVPB 50 ML IV SCH ×3 (06:37→07:21)
[2018-05-27] MEDS: KCL 20 MEQ TAB (K-DUR) PO SCH (06:37)
[2018-05-27] MEDS ORDERED: LORazepam INJ 2 MG/ML (ATIVAN) VIAL ONE (06:45)
[2018-05-27] MEDS: PIPERACILLIN/TAZOBACTAM 3.375 GM in D5W 100 ML IVPB 100 ML IV SCH (06:46)
[2018-05-27] MEDS ORDERED: GLYCOPYRROLATE 0.2 MG/ML (ROBINUL) 2 ML VIAL IV PRN (07:00)
[2018-05-27] MEDS ORDERED: ARTIFICIAL TEARS OINT (LACRI-LUBE) 3.5 GM TUBE OU PRN (07:00)
[2018-05-27] MEDS ORDERED: ARTIFICAL TEARS 0.4 ML UNIT DOSE (REFRESH PLUS) OU PRN (07:00)
[2018-05-27] MEDS ORDERED: LORazepam INJ 2 MG/ML (ATIVAN) VIAL IVP PRN ×2 (07:00)
[2018-05-27] MEDS ORDERED: RT-ALBUTEROL/IPRATROPIUM 3 ML (DUONEB) VIAL INH PRN (07:00)
[2018-05-27] MEDS ORDERED: PROMETHAZINE INJ 25 MG/ML (PHENERGAN) AMP IVP PRN (07:00)
[2018-05-27] MEDS ORDERED: ONDANSETRON 4 MG/2 ML (SDV) Z0FRAN IVP PRN (07:00)
[2018-05-27] MEDS ORDERED: SALIVA STIMULANT MOUTH SPRAY (BIOTENE) 1.5 OZ MM PRN (07:00)
--- NOTE | 2018-05-27 08:33 | Progress Note ---
Subjective Date Seen by Provider: May 27, 2018 Time Seen by Provider: 08:28 Subjective/Events-last exam PER PT'S , SHE DOES NOT WANT ME IN THE ROOM, I WILL HAVE TO SIGN OFF OF THE CASE AND RELEASE HER CARE TO DR. LUU IF HE WILL TAKE HER HIS PATIENT WHILE SHE IS IN THE HOSPITAL Review of Systems General: Other Focused Exam Lactate Level 05/24/18 09:50: Lactic Acid Level 2.43*H 05/24/18 13:27: Lactic Acid Level 1.84 05/25/18 07:57: Lactic Acid Level 2.00 Objective Exam Last Set of Vital Signs Vital Signs Date Time Temp Pulse Resp B/P (MAP) Pulse Ox O2 Delivery O2 Flow Rate FiO2 05/27/18 07:18 91 Vapotherm 40.00 50 05/27/18 07:00 121 05/27/18 06:54 12 136/53 (80) 05/27/18 03:30 98.4 Capillary Refill : Less Than 3 Seconds I&O Intake and Output 05/27/18 00:00 Intake Total 520 ml Output Total 1305 ml Balance -785 ml Intake Oral 0 ml IV Total 400 ml Other 120 ml Output Urine Total 1305 ml # Bowel Movements 1 Results Lab Laboratory Tests 05/27/18 04:40: White Blood Count 16.8H, Red Blood Count 3.38L, Hemoglobin 10.6L, Hematocrit 32L , Mean Corpuscular Volume 94, Mean Corpuscular Hemoglobin 31, Mean Corpuscular Hemoglobin Concent 33, Red Cell Distribution Width 18.0H, Platelet Count 371, Mean Platelet Volume 7.9, Neutrophils (%) (Auto) 87H, Lymphocytes (%) (Auto) 4L , Monocytes (%) (Auto) 8, Eosinophils (%) (Auto) 1, Basophils (%) (Auto) 0, Neutrophils # (Auto) 14.5H, Lymphocytes # (Auto) 0.6L, Monocytes # (Auto) 1.4H, Eosinophils # (Auto) 0.2, Basophils # (Auto) 0.0, Neutrophils % (Manual) 84, Lymphocytes % (Manual) 7, Monocytes % (Manual) 4, Eosinophils % (Manual) 2, Band Neutrophils 3, Polychromasia SLIGHT, Blood Morphology Comment NORMAL, Blood Gas Puncture Site LEFT RADIAL, Blood Gas Patient Temperature 98.4, Arterial Blood pH 7.29*L, Arterial Blood Partial Pressure CO2 37, Arterial Blood Partial Pressure O2 221H, Arterial Blood HCO3 17*L, Arterial Blood Total CO2 18.6L, Arterial Blood Oxygen Saturation 100, Arterial Blood Base Excess - 7.9L, Jeff Test YES-POS, Blood Gas Ventilator Setting NO, Blood Gas Inspired Oxygen 70%, Sodium Level 137, Potassium Level 3.5L, Chloride Level 111H, Carbon Dioxide Level 13L, Anion Gap 13, Blood Urea Nitrogen 5L, Creatinine 0.52L, Estimat Glomerular Filtration Rate > 60, BUN/Creatinine Ratio 10, Glucose Level 82, Calcium Level 8.1L, Phosphorus Level 2.7, Magnesium Level 1.4L, Vancomycin Level Trough 12.5 Microbiology 05/24/18 Blood Culture - Preliminary, Resulted No growth 05/25/18 Gram Stain - Final, Resulted 05/25/18 Sputum Culture - Preliminary, Resulted No growth Assessment/Plan Assessment/Plan Assess & Plan/Chief Complaint I HAVE TALKED TO DR. LUU AND HE WILL TAKE OVER ON THE PATIENT. Clinical Quality Measures DVT/VTE Risk/Contraindication: Risk Factor Score Per Nursin RFS Level Per Nursing on Admit: 4+=Very High LELE MONIQUE MD May 27, 2018 08:33
--- NOTE | 2018-05-27 08:42 | Diagnostic Imaging Report ---
INDICATION: Followup pneumonia Portable chest 3:51 AM There is an ET tube projecting above the trachea. NG tube tip appears to be in the distal esophagus. Right upper extremity PICC line tip projects over the right atrium. There is a dense consolidating infiltrate in the right upper lobe. There are scattered alveolar infiltrates throughout the remainder of the lungs. IMPRESSION: Patchy alveolar infiltrates in both lungs with a large area of dense consolidation in the right upper chest. No appreciable change from the previous day. Dictated by: Dictated on workstation # [id number]
[2018-05-27] MEDS ORDERED: fentaNYL INJECTION 1,250 MCG in NS (IVPB) 250 ML IV SCH (13:00)
== END 2018-05-27 12:48 | disposition hospice, home (50) | DRG 853 ==
LOC: EDUNIT# 09:35 → ER 09:37 → ICU 13:30
PROVIDERS: ADMIT Internal Medicine; ATTEND Family Medicine
PROC: 5A1945Z Respiratory Ventilation, 24-96 Consecutive Hours (ICD-10-PCS; 2018-05-25)
PROC: 0B9C8ZX Drainage of Right Upper Lung Lobe, Via Natural or Artificial Opening Endoscopic, Diagnostic (ICD-10-PCS; principal; 2018-05-26)
PROC: 0BDC8ZX Extraction of Right Upper Lung Lobe, Via Natural or Artificial Opening Endoscopic, Diagnostic (ICD-10-PCS; 2018-05-26)
DX: A41.9 Sepsis, unspecified organism (principal); R65.20 Severe sepsis without septic shock; J96.01 Acute respiratory failure with hypoxia; J18.9 Pneumonia, unspecified organism; I26.99 Other pulmonary embolism without acute cor pulmonale; L89.324 Pressure ulcer of left buttock, stage 4; I82.402 Acute embolism and thrombosis of unspecified deep veins of left lower extremity; C34.91 Malignant neoplasm of unspecified part of right bronchus or lung; Z66 Do not resuscitate; C79.31 Secondary malignant neoplasm of brain; G82.20 Paraplegia, unspecified; E87.2 Acidosis; M86.9 Osteomyelitis, unspecified; J90 Pleural effusion, not elsewhere classified; J98.11 Atelectasis; D50.9 Iron deficiency anemia, unspecified; R53.81 Other malaise; N31.9 Neuromuscular dysfunction of bladder, unspecified; F41.9 Anxiety disorder, unspecified; F32.9 Major depressive disorder, single episode, unspecified; R00.0 Tachycardia, unspecified; Z79.01 Long term (current) use of anticoagulants; Z87.891 Personal history of nicotine dependence; Z92.21 Personal history of antineoplastic chemotherapy; Z92.3 Personal history of irradiation; V89.2XXS Person injured in unspecified motor-vehicle accident, traffic, sequela
CPT/HCPCS: 36415; 71045; 71260; 71275; 74177; 80048; 80053; 80202; 81000; 82274; 82805; 83605; 83735; 83880; 84100; 84478; 85007; 85014; 85018; 85025; 85027; 86141; 86850; 86900; 86901; 86920; 87040; 87070; 87101; 87106; 87116; 87205; 88112; 88305; 88312; 88344; 94002; 94003; 94640; 94660; 94664; 94799; 96361; 96365; 96375